=== PATIENT | female | born 1935 | race Caucasian/White ===

== ENCOUNTER 2018-04-12 19:17 | Day surgery (SDC) | payer OTHER ==
[2018-04-08 17:23] LABS: Absolute Lymphocytes (CBC) 2.5 K/uL (0.7-4.9); Absolute Monocytes 0.5 K/uL (0.1-1.3); Absolute Neutrophil 4.7 K/uL (1.8-8.0); Basophils % 0.6 % (0-1.3); Hematocrit 38.9 % (36.0-45.0); Lymphocytes % 31.6 % (15.3-44.8); MCH 33.9 pg (27.0-35.0); MCV 101.2 fL (80-100); MPV 11.2 fL (7.6-11.3); Monocytes % 6.1 % (3.3-12.3); RBC Red Blood Cell Count 3.85 M/uL (3.86-4.86)
[2018-04-08 17:25] LABS: Protime INR 0.99
[2018-04-08 17:59] LABS: Anisocytosis 1+; Blood Morphology Comment NOTED (NOT SEEN); Macrocytosis 1+; Platelet Estimate ADEQ; Platelets, Giant FEW; Urine White Blood Cell Casts OK
[2018-04-10 10:43] LABS: Urine Appearance CLEAR; Urine Bilirubin NEGATIVE (NEG); Urine Blood NEGATIVE (NEG); Urine Color YELLOW; Urine Glucose NEGATIVE (NEG); Urine Protein NEGATIVE (NEG); Urine Specific Gravity 1.025 (1.005-1.030); Urine Urobilinogen 0.2 mg/dL (0.2-1.0); Urine pH 5.5 (5.0-7.0)
[2018-04-10 10:50] LABS: Urine Microscopic Reflex ORDER UMIC
[2018-04-10 11:14] LABS: Urine Bacteria 20-50 /HPF (<20); Urine Culture Reflex Order REFLEXED; Urine RBC <5 /HPF (NONE SEEN)
--- OUTSIDE RECORDS SUMMARY | 2018-04-12 11:31 | XMS REPORT ---
:1935 Author Organization eClinicalWorks Care Team Providers Name Role Phone Olvin Thornton Provider Role Unavailable Allergies, Adverse Reactions, Alerts Substance Reaction Event Type penicillin Info Not Available Drug Allergy Problems Problem Type Condition Code Onset Dates Condition Status Assessment Diabetes type 2, controlled E11.9 Active Problem Pain, foot M79.673 Active Problem Hypertension I10 Active Problem Urinary frequency R35.0 Active Problem Hyperlipidemia E78.5 Active Problem Stented coronary artery Z95.5 Active Problem Atherosclerosis of coronary artery I25.10 Active Problem GERD (gastroesophageal reflux K21.9 Active disease) Problem Diabetes type 2, controlled E11.9 Active Assessment Stented coronary artery Z95.5 Active Assessment Atherosclerosis of coronary artery I25.10 Active Assessment GERD (gastroesophageal reflux K21.9 Active disease) Assessment Hyperlipidemia E78.5 Active Assessment Hypertension I10 Active Medications Medication Code Code Instructions Start End Status Dosage System Date Date Cozaar [facility] 61172968268 50 MG Orally Active 1 tablet Once a day Metformin HCl [facility] 40821472051 500 MG Orally Active 1 tablet Once a day with a meal Lopressor [facility] 58088184201 50 Active TAKE ONE TABLET BY MOUTH TWICE A DAY Cozaar [facility] 87461793504 50 Active TAKE ONE TABLET BY MOUTH DAILY Omeprazole [facility] 08679756546 40 MG Orally Active 1 capsule Once a day Metoprolol [facility] 58943145736 50 MG Orally Active 1 tablet Tartrate Twice a day with food Results No Known Results Summary Purpose eClinicalWorks Submission
--- OUTSIDE RECORDS SUMMARY | 2018-04-12 11:31 | XMS REPORT ---
:1935 Author Organization eClinicalWorks Care Team Providers Name Role Phone Olvin Thornton Provider Role Unavailable Allergies No Known Allergies Problems Problem Type Condition Code Onset Dates Condition Status Problem Pain, foot M79.673 Active Problem Hypertension I10 Active Problem Urinary frequency R35.0 Active Problem Hyperlipidemia E78.5 Active Problem Stented coronary artery Z95.5 Active Problem Atherosclerosis of coronary artery I25.10 Active Problem GERD (gastroesophageal reflux K21.9 Active disease) Problem Diabetes type 2, controlled E11.9 Active Medications No Known Medications Results No Known Results Summary Purpose eClinicalWorks Submission
[2018-04-12] MEDS: VASOPRESSIN 20 UNIT/ML VIAL ONE ×2 (12:50→14:25)
[2018-04-12] MEDS: CEFAZOLIN/SWI 1gm 1 GM/10 ML SYR IVP SCH ×2 (12:51→14:02)
--- NOTE | 2018-04-12 17:06 | P.OP ---
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
[2018-04-12 18:49] VITALS: O2SAT 97; BMI 22.4
[~2018-04-12 19:17] MED LIST: ACETAMINOPHEN 500 MG TAB PO PRN; CEFAZOLIN/SWI 1gm 1 GM/10 ML SYR ONE; DEXAMETHASONE 10 MG/ML VIAL ONE; FENTANYL CITR 100 MCG/2 ML ONE; HYDROMORPHONE HCL 1 MG/ML INJ IV PRN; LIDOCAINE 1% W/EPI 1:100,000 MDV 50 ML VIAL ONE; MEPERIDINE HCL 25 MG/0.5 ML ONE; METHYLENE BLUE 0.5% 10 ML AMP ONE; NA CHLORIDE 0.9% 1,000 ML ONE; NA CHLORIDE 0.9% 100 ML IV ONE; ONDANSETRON 4 MG/2 ML VIAL IV PRN; ONDANSETRON HCL 40 MG/20 ML VIAL ONE; PROPOFOL 200 MG/20 ML VIAL IV ONE; ROCURONIUM 50 MG/5 ML VIAL IV ONE; Ringers Lactate 1,000 ML IV SCH
--- NOTE | 2018-04-13 05:00 | OP ---
Date of Procedure: 04/12/2018 Surgeon: Nerissa Conway MD Spray Stainer: Belén Ty and Maris Woodard. Preoperative Diagnoses: Stage IV cystocele wall prolapse, rectocele, stress urinary incontinence. Postoperative Diagnoses: Stage IV cystocele wall prolapse, stage II rectocele, and stress urinary in continence, and large vaginal ulcer about 3.5 x 5 cm at the vault about centimeter and a half extendi ng into the posterior wall at the apex and the rest of it on the anterior vaginal wall and to the lef t lateral aspect. Procedures Performed: 1.Excision of vaginal ulcer. 2.Total colpectomy or complete colpocleisis. 3.Perineorrhaphy. 4.Mid urethral sling, transobturator approach (Juan Carlos inside-out sling). 5.Cystoscopy. Estimated Blood Loss: 100. Specimens: Vaginal epithelium and ulcer. Complications: No complications. Drains: None. Condition: The patient's condition is stable. Reddy catheter was left in place. No vaginal packing was needed since there was a vaginal closure. Findings: POP-Q , +1, +5, +1, 5 cm moderate, 6 cm, -1, -1, and NA. The patient had urethral hypermo bility and a positive cough stress test on reduction of her prolapse, so she underwent a mid urethral sling as well. Indications: The patient is an 82-year-old who has been my patient for about 6 years, had a pessary use multiple times. She neglects the use of her pessary and her pessary maintenance was very poor. Self-care is not done. So, after she had 2 episodes of recurrent ulcerations; in this last episode, there was a nonhealing ulcer. We discussed that she would either have observation or a surgical candelario ection. On observation, she has been having recurrent bladder infections, and there was difficulty t o void, and this has caused her to be very uncomfortable. With direct pressure and rubbing of the va ginal wall on the outside also has been creating problems for her, so she wanted to proceed with a mcleod rgical repair. We discussed about the closure procedure as well as reconstruction after considering all the benefits and risks. After the patient had assured that she does not have any intention of us ing the vaginal canal that she was comfortable making the decision at the end even though she had sapphire e problems making the closure decision first, eventually she had confirmed that she would like to pro ceed with that closure if possible. Description Of Procedure: After consenting the patient appropriately, the urodynamics were done, the maximal urethral closure pressure was 56 cm of water. Besides that, there was a positive [employer] on exa mination with very full bladder and there was demonstrable urethral hypermobility. The patient was b rought to the OR, 1 g of Ancef was given to the patient. She tolerated this well. She was placed in a supine fashion on the operating table. After general anesthesia was given, she was placed in a do rsal lithotomy position using Gio stirrups. Pelvic exam was performed and the POP-Q was as follows . Lower abdomen, vulva, vagina, and perineum were prepped and draped in a sterile fashion. Reddy wa s placed to drain the bladder and clamped after the full drainage and retracted superiorly. The neck of the bladder was identified and marking was placed 1 cm below it. The distal anterior vaginal wal l was marked out in a transverse fashion and a trapezoid was drawn with the vaginal apex, resigned ap ex. There another horizontal incision was done and then both of these were connected laterally to cr eate a trapezoid area so that colpectomy could be performed including the ulcerated areas. The ulcer ation with superficial erosion was extensive, however no evidence of any bleeding spots. Posteriorly , similar incision was made after identifying 1 cm above the level of the hymen. A transverse incisi on was made here, and then a transverse incision was made at the proximal end of the posterior wall, and these were connected on both sides to complete the colpectomy without leaving any bridge in the m iddle. 20 units of vasopressin diluted with 50 cc of normal saline and this was injected about 30 mL in the anterior compartment. Once this was done, all skin incisions were made on the margins on all 4 sides. Then, the vaginal epithelium was peeled off the underlying leftover fat, remnant fascia, o r connective tissue in the pelvic plane. Once all the ulcerations were also completely excised, thes e were handed off for permanent pathology. The ulcerations were superficial, so the vaginal epitheli um was able to be peeled off removing the complete ulcer. Posteriorly, similar dissection was perfor med after injecting vasopressin 20 cc. Vaginal epithelial excision was done. Once all the ulceratio ns were completely removed, then the closure was done starting with the anterior wall, reducing the b ulge in a pursestring fashion with 3-0 Monocryl, about 4 pursestrings were placed to reduce it. The anterior and posterior ortiz appeared to be symmetric at this point in time of the this closure, so 2 -0 Vicryl was taken and it was closed in 3 layers 1 closest to the apex. Then, the second layer of s eparate Vicryls was placed in a itutok-qt-nhhqd fashion and then the third layer was closed in a cont inuous running fashion with a 2-0 Vicryl. Once this was done, there was good apposition. Two latera l sutures were placed with 2-0 Vicryl including the lateral connective tissue on the anterior wall as well as the connected tissue laterally on the posterior wall. These 2 were sutured together with 2- 0 Vicryl in a continuous running fashion for about 3-4 cm on each side. Once this was done, then the anterior and posterior incisions were closed with the help of a continuous running 2-0 Vicryl to att ach the distal pubic cervical fascia to the distal rectovaginal septum. Now, perineal body was to be reconstructed, so this procedure was ended here. In the mid urethra, a 1 cm incision was made with the help of a scalpel after injecting with vasopres sin. Then, tracts were dissected on both sides to put a TO-sling. Metzenbaum scissors were used to create the tunnel. It was at a 45-degree angle to the horizontal and vertical planes pointing to the ipsilateral shoulder, first on the right side and then on the left side once the tunnels were made w shreya enough and then the Juan Carlos sling was opened up. The wing guide was placed. The threads were at tached to the spikes and they were passed through in the usual fashion, rotating them and coming out 2 cm lateral to the groin fold and 1 cm above the horizontal line dropped at the level of the externa l urethral meatus in the groin below the tendon. Then, on opposite side, similar dissection was perf ormed and the spike was passed. The sling graft was retrieved through the lateral aspect on both landy es and it was clamped. Then, tensioning was done appropriately using the Metzenbaum scissors in the midline. Once this was appropriately tensioned, the sheaths were pulled out. The incisions closed with the help of 3-0 Vicryl in a continuous running locking fashion. Then, a cy stoscopy was performed. The Reddy was removed. There were good streams of urine from both. I had t o place a Glidewire to make sure that they were patent because it took a long time for me to see the strength of urine. Once this was done, the bladder was filled up completely. The capacity had been reduced as there wer e severe trabeculations seen, but no evidence of any tumor or foreign body in the bladder, and latera l aspects were also visualized right next to the urethra to rule out a perforation from the TO-sling, and there was none. The bladder was drained. Reddy was replaced. Posterior repair was done. The perineum and the distal posterior wall were injected with dilute vasopressin 10 cc. A henri-sh aped incision was made on the perineum as well as in the inner lower aspect of the posterior wall. T hen, the edges were freshened up and raised to get the lateral ends of the deep transverse perinei on either side to reconstruct the perineal body. Rectal finger was placed while placing the stitches. Two 2-0 Vicryl sutures were placed in an interrupted fashion. Once the gloves were changed, these w ere tied down, and a continuous running 2-0 Vicryl was placed, and then a continuous running 3-0 Vicr yl was done on the perineum. Rectal exam was performed. No evidence of any trauma or foreign body. The patient tolerated the procedure well. She was recovered from anesthesia. Instrument, needle, a nd sponge counts x3 were correct at the end of the case. She will follow up with me in 1 week. She will stay overnight for observation with the catheter and she will get a CBC tomorrow. 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 The EBL was minimal. GUERO/DOROTEO Voice ID: [id number] Report ID: [id number]
[2018-04-13] MEDS ORDERED: LOSARTAN POTASSIUM 50 MG TABLET PO SCH (06:00)
[2018-04-13 06:15] LABS: Absolute Lymphocytes (CBC) 1.1 K/uL (0.7-4.9); Absolute Monocytes 0.2 K/uL (0.1-1.3); Absolute Neutrophil 8.5 K/uL (1.8-8.0); Basophils % 0.3 % (0-1.3); Hematocrit 32.3 % (36.0-45.0); Lymphocytes % 11.4 % (15.3-44.8); MCH 35.2 pg (27.0-35.0); MCV 98.9 fL (80-100); MPV 11.1 fL (7.6-11.3); Monocytes % 1.7 % (3.3-12.3); RBC Red Blood Cell Count 3.27 M/uL (3.86-4.86)
[2018-04-13] MEDS ORDERED: PANTOPRAZOLE 40MG TABLET PO ONE (06:16)
[2018-04-13] MEDS ORDERED: LOSARTAN POTASSIUM 50 MG TABLET ONE (06:16)
[2018-04-13] MEDS ORDERED: PANTOPRAZOLE 40MG TABLET PO SCH (06:30)
[2018-04-13 06:40] LABS: Blood Morphology Comment NOT SEEN (NOT SEEN); Platelet Estimate ADEQ
[2018-04-13 08:21] VITALS: BP 121/63; TEMP 97.1
[2018-04-15] MEDS ORDERED: METFORMIN HCL 500 MG TAB PO SCH ×2 (09:00)
--- OUTSIDE RECORDS SUMMARY | 2018-04-15 15:38 | XMS REPORT ---
[...] End Status Dosage System Date Date Cozaar [facility] 48021036368 50 MG Orally Active 1 tablet Once a day Metformin HCl [facility] 11719259376 500 MG Orally Active 1 tablet Once a day with a meal Lopressor [facility] 39605339880 50 Active TAKE ONE TABLET BY MOUTH TWICE A DAY Cozaar [facility] 23127821322 50 Active TAKE ONE TABLET BY MOUTH DAILY Omeprazole [facility] 12919946451 40 MG Orally Active 1 capsule Once a day Metoprolol [facility] 93064690604 50 MG Orally Active 1 tablet Tartrate Twice a day with food Results No Known Results Summary Purpose eClinicalWorks Submission
== END 2018-04-13 09:40 | disposition home or self-care (01) ==
LOC: 2ND-WC 19:17 → UNDOADMOB 19:17 → 2ND-WC 19:17 → OR 19:17 → UNDODISOB 04-13 09:40 → 2ND-WC 04-13 09:40
PROVIDERS: ATTEND Obstetrics & Gynecology
PROC: 0TSD0ZZ Reposition Urethra, Open Approach (ICD-10-PCS; 2018-04-12)
PROC: 0UBG0ZZ Excision of Vagina, Open Approach (ICD-10-PCS; 2018-04-12)
PROC: 0HQ9XZZ Repair Perineum Skin, External Approach (ICD-10-PCS; 2018-04-12)
PROC: 0UTG0ZZ Resection of Vagina, Open Approach (ICD-10-PCS; principal; 2018-04-12 12:00)
DX: N99.3 Prolapse of vaginal vault after hysterectomy (principal); N81.10 Cystocele, unspecified; N81.6 Rectocele; N76.5 Ulceration of vagina; N39.3 Stress incontinence (female) (male); E11.9 Type 2 diabetes mellitus without complications; I10 Essential (primary) hypertension; I25.10 Atherosclerotic heart disease of native coronary artery without angina pectoris; K21.9 Gastro-esophageal reflux disease without esophagitis; Z90.710 Acquired absence of both cervix and uterus; Z90.49 Acquired absence of other specified parts of digestive tract; Z95.5 Presence of coronary angioplasty implant and graft; Z88.0 Allergy status to penicillin; Z88.6 Allergy status to analgesic agent
CPT/HCPCS: 12001; 36415 ×2; 57110; 57135; 57288; 82962 ×2; 85025 ×2; 85610; 85730; 86850; 86900; 86901; 87086; 87088; 88305; G0378; G0379; J0690 ×2; J1100; J2175 ×2; J2405 ×2; J3010; J7030 ×3; 81003; 81015

== ENCOUNTER 2019-05-21 21:53 | Emergency (ER) | payer OTHER ==
--- OUTSIDE RECORDS SUMMARY | 2019-05-21 21:56 | XMS REPORT ---
:1935 Author Organization eClinicalWorks Care Team Providers Name Role Phone Olvin Thornton Provider Role Unavailable Allergies No Known Allergies Problems Problem Type Condition Code Onset Dates Condition Status Problem Atherosclerosis of coronary artery I25.10 Active Problem Pain, foot M79.673 Active Problem Hyperlipidemia E78.5 Active Problem Hypertension I10 Active Problem Allergic rhinitis, unspecified J30.9 Active seasonality, unspecified trigger Problem Diabetes type 2, controlled E11.9 Active Problem Stented coronary artery Z95.5 Active Problem Urinary frequency R35.0 Active Problem GERD (gastroesophageal reflux K21.9 Active disease) Medications Medication Code Code Instructions Start End Status Dosage System Date Date Tradjenta [facility] 34064296945 5 MG Orally May 20, Active 1 tablet Once a day 2018 MetFORMIN HCl [facility] 88186739392 500 MG Orally Inactive 1 tablet ER Once a day with evening meal Results No Known Results Summary Purpose eClinicalWorks Submission
--- OUTSIDE RECORDS SUMMARY | 2019-05-21 21:56 | XMS REPORT ---
:1935 Author Organization eClinicalWorks Care Team Providers Name Role Phone Olvin Thornton Provider Role Unavailable Allergies, Adverse Reactions, Alerts Substance Reaction Event Type penicillin Info Not Available Drug Allergy Problems Problem Type Condition Code Onset Dates Condition Status Problem Atherosclerosis of coronary artery I25.10 Active Problem Pain, foot M79.673 Active Assessment Allergic rhinitis, unspecified J30.9 Active seasonality, unspecified trigger Problem Hyperlipidemia E78.5 Active Problem Hypertension I10 Active Problem Allergic rhinitis, unspecified J30.9 Active seasonality, unspecified trigger Problem Diabetes type 2, controlled E11.9 Active Problem Stented coronary artery Z95.5 Active Problem Urinary frequency R35.0 Active Problem GERD (gastroesophageal reflux K21.9 Active disease) Medications Medication Code Code Instructions Start End Status Dosage System Date Date Metoprolol [facility] 96002653385 50 MG Orally Active 1 tablet Tartrate Twice a day with food Cetirizine HCl [facility] 24409266867 10 MG Orally Apr 15, Jun 14, Active 1 tablet Once a day 2018 [address] [facility] 37959745649 40 MG Orally Active 1 capsule Once a day MetFORMIN HCl [facility] 03360719976 500 MG Orally Active 1 tablet ER Once a day with evening meal Montelukast [place] 73974178827 10 MG Orally Apr 15, Active 1 tablet Sodium Once a day [address] [facility] 03724627943 50 MG Orally Active 1 tablet Once a day Results No Known Results Summary Purpose eClinicalWorks Submission
--- NOTE | 2019-05-21 22:10 | EDPHYS ---
Physician Documentation [facility] Name: Deyanira Glez Age: 83 yrs Sex: Female : 1935 Arrival Date: 05/21/2019 Time: 21:58 Bed 4 Private MD: ED Physician Maury Everett HPI: 05/21 22:04 This 83 yrs old Female presents to ER via Unassigned with complaints of S/S merry of Possible Stroke. 22:04 The patient's problem is reported as weakness, in the left upper extremity. Onset: The merry symptoms/episode began/occurred 1 hour(s) ago. Duration: The episode is continuous. Context: the episode(s) was witnessed, by family. The symptoms are alleviated by nothing. The symptoms are aggravated by nothing. Associated signs and symptoms: The patient has no apparent associated signs or symptoms. Severity of symptoms: At their worst the symptoms were moderate in the emergency department the symptoms are unchanged. Patient's baseline: Neuro: alert and fully oriented. Historical: - Allergies: 22:42 PENICILLINS; fc - Home Meds: 22:57 losartan 50 mg oral tab 1 tab once daily [Active]; metoprolol tartrate 50 mg Oral tab 1 fc tab once daily [Active]; Dexilant 60 mg oral CpDB 1 cap once daily [Active]; - PMHx: 22:42 Diabetes - NIDDM; failed stress test; Hypertension; fc - PSHx: 22:42 2 stents in heart; Hysterectomy; Bladder suspension; Cholecystectomy; fc - Immunization history:: Last tetanus immunization: unknown, Pneumococcal vaccine is not up to date, Flu vaccine is not up to date. - Social history:: Smoking status: Patient/guardian denies using tobacco, Patient/guardian denies using alcohol, street drugs. - Family history:: not pertinent. - Ebola Screening: : Patient negative for fever greater than or equal to 101.5 degrees Fahrenheit, and additional compatible Ebola Virus Disease symptoms Patient denies exposure to infectious person Patient denies travel to an Ebola-affected area in the 21 days before illness onset. ROS: 22:04 Constitutional: Negative for fever, chills, and weight loss, Eyes: Negative for injury, merry pain, redness, and discharge, ENT: Negative for injury, pain, and discharge, Neck: Negative for injury, pain, and swelling, Cardiovascular: Negative for chest pain, palpitations, and edema, Respiratory: Negative for shortness of breath, cough, wheezing, and pleuritic chest pain, Abdomen/GI: Negative for abdominal pain, nausea, vomiting, diarrhea, and constipation, Back: Negative for injury and pain, : Negative for injury, bleeding, discharge, and swelling, MS/Extremity: Negative for injury and deformity, Skin: Negative for injury, rash, and discoloration, Psych: Negative for depression, anxiety, suicide ideation, homicidal ideation, and hallucinations, Allergy/Immunology: Negative for hives, rash, and allergies, Endocrine: Negative for neck swelling, polydipsia, polyuria, polyphagia, and marked weight changes, Hematologic/Lymphatic: Negative for swollen nodes, abnormal bleeding, and unusual bruising. 22:04 Neuro: Positive for weakness, of the left arm. Exam: 22:04 Constitutional: This is a well developed, well nourished patient who is awake, alert, merry and in no acute distress. Head/Face: Normocephalic, atraumatic. Eyes: Pupils equal round and reactive to light, extra-ocular motions intact. Lids and lashes normal. Conjunctiva and sclera are non-icteric and not injected. Cornea within normal limits. Periorbital areas with no swelling, redness, or edema. ENT: Nares patent. No nasal discharge, no septal abnormalities noted. Tympanic membranes are normal and external auditory canals are clear. Oropharynx with no redness, swelling, or masses, exudates, or evidence of obstruction, uvula midline. Mucous membranes moist. Neck: Trachea midline, no thyromegaly or masses palpated, and no cervical lymphadenopathy. Supple, full range of motion without nuchal rigidity, or vertebral point tenderness. No Meningismus. Chest/axilla: Normal chest wall appearance and motion. Nontender with no deformity. No lesions are appreciated. Cardiovascular: Regular rate and rhythm with a normal S1 and S2. No gallops, murmurs, or rubs. Normal PMI, no JVD. No pulse deficits. Respiratory: Lungs have equal breath sounds bilaterally, clear to auscultation and percussion. No rales, rhonchi or wheezes noted. No increased work of breathing, no retractions or nasal flaring. Abdomen/GI: Soft, non-tender, with normal bowel sounds. No distension or tympany. No guarding or rebound. No evidence of tenderness throughout. Back: No spinal tenderness. No costovertebral tenderness. Full range of motion. Female : Normal external genitalia. Skin: Warm, dry with normal turgor. Normal color with no rashes, no lesions, and no evidence of cellulitis. Psych: Awake, alert, with orientation to person, place and time. Behavior, mood, and affect are within normal limits. 22:04 Musculoskeletal/extremity: ROM: limited active range of motion, in the left arm, Circulation is intact in all extremities. 22:04 Neuro: Orientation: is normal, appropriate for stated age, Mentation: is normal, appropriate for stated age, no acute changes, Memory: is normal, appropriate for stated age, no acute changes, Cranial nerves: grossly normal, is grossly normal based on the patient's age, no acute changes, Cerebellar function: is grossly normal based on the patient's age, no acute changes, Motor: Strength is 1/5 in the left arm, Sensation: is normal, no obvious gross deficits, appropriate no acute changes, numbness, Gait: not tested. seizure activity, is not displayed by the patient. Vital Signs: 22:10 BP 134 / 71; Pulse 77; Resp 14; Temp 97.7(O); Pulse Ox 97% on R/A; Weight 54 kg (M); lp1 Pain 0/10; 22:30 BP 151 / 72; Pulse 77; Resp 17; Pulse Ox 97% on R/A; lp1 23:20 BP 152 / 74; Pulse 79; Resp 15; Pulse Ox 98% on R/A; lp1 23:20 lp1 05/22 00:20 BP 147 / 74; Pulse 79; Resp 20; Pulse Ox 97% on R/A; Pain 0/10; lp1 05/21 23:20 See TPA Vitals Flow sheet for further vitals lp1 NIH Stroke Scale Scores: 22:00 NIHSS Score: 4 lp1 22:13 NIHSS Score: 4 [facility] MDM: 22:01 Patient medically screened. [facility] 22:04 Data reviewed: vital signs, nurses notes, lab test result(s), EKG, radiologic studies. [facility] 05/21 22: Order name: Basic Metabolic Panel; Complete Time: 00:22 [facility] 05/21 22:04 Order name: CBC with Diff; Complete Time: 22:50 [facility] 05/21 22:04 Order name: LFT's; Complete Time: 00:22 [facility] 05/21 22:04 Order name: Magnesium; Complete Time: 00:22 [facility] 05/21 22:04 Order name: NT PRO-BNP; Complete Time: 00:22 [facility] 05/21 22:04 Order name: PT-INR; Complete Time: 22:50 [facility] 05/21 22:04 Order name: Troponin (emerg Dept Use Only); Complete Time: 00:22 [facility] 05/21 22:04 Order name: XRAY Chest (1 view) [facility] 05/21 22:04 Order name: CT Stroke Brain w/o Contrast [facility] 05/21 22:32 Order name: Glucose, Ancillary Testing; Complete Time: 22:50 [facility] 05/21 22:04 Order name: EKG; Complete Time: 22:05 [facility] 05/21 22:04 Order name: Cardiac monitoring; Complete Time: 22:43 [facility] 05/21 22:04 Order name: EKG - Nurse/Tech; Complete Time: 22:43 [facility] 05/21 22:04 Order name: IV Saline Lock; Complete Time: 22:45 [facility] 05/21 22:04 Order name: Labs collected and sent; Complete Time: 22:45 [facility] 05/21 22:04 Order name: O2 Per Protocol; Complete Time: 22:43 [facility] 05/21 22:04 Order name: O2 Sat Monitoring; Complete Time: 22:43 [facility] 05/21 22:15 Order name: Seizure Precautions; Complete Time: 22:44 [facility] Administered Medications: 22:50 Drug: foLIC Acid 1 mg Route: IVPB; Site: left wrist; lp1 23:30 Follow up: IV Status: Completed infusion lp1 22:50 Drug: Pepcid 20 mg Route: IVP; Site: left wrist; lp1 23:30 Follow up: Response: No adverse reaction lp1 22:50 Drug: NS 0.9% 500 ml Route: IV; Rate: bolus; Site: left wrist; lp1 23:20 Follow up: IV Status: Completed infusion; IV Intake: 500ml lp1 23:20 Drug: ACTIvase {Co-Signature: fc (Nallely Lopez RN).} Route: IV Thrombolytics; Rate: lp1 calculated rate; Infused Over: 60 mins; 05/22 00:20 Follow up: Response: No adverse reaction lp1 00:20 Drug: NS 0.9% 1000 ml Route: IV; Rate: 125 ml/hr; Site: left wrist; lp1 00:58 Follow up: IV Status: Infusion continued upon transfer lp1 Disposition: 05/21/19 22:[address] [facility]. Diagnosis are Cerebral infarction - acute, Unspecified kidney failure. - Reason for transfer: Higher level of care. - Accepting physician is to [facility]. - Condition is Fair. - Problem is new. - Symptoms have improved. NIH Stroke Scale - NIH Stroke Score Date: 05/21/2019 Time: 22:00 Total Score = 4 1a. Level of Consciousness (LOC) - 0(Alert) 1b. Level of Consciousness (LOC) (Year \T\ Age) - 0(Both) 1c. LOC Commands (Open \T\ Closes Eyes/Wellness Assistant) - 0(Both) 2. Best Gaze (Lateral Gaze Paresis) - 0(Normal) 3. Visual Field Loss - 0(No visual loss) 4. Facial Palsy - 0(Normal) 5a. Left Arm: Motor (10-second hold) - 3(No effort against gravity) 5b. Right Arm: Motor (10-second hold) - 0(No drift) 6a. Left Leg: Motor (5-second hold - always test supine) - 0(No drift) 6b. Right Leg: Motor (5-second hold - always test supine) - 0(No drift) 7. Limb Ataxia (finger/nose \T\ heel/merino - test with eyes open) - 1(Present in one limb) 8. Sensory Loss (pinprick arms/legs/face) - 0(Normal) 9. Best Language: Aphasia (description/naming/reading) - 0(No aphasia) 10. Dysarthria (speech clarity - read or repeat words) - 0(Normal) 11. Extinction and Inattention (visual/tactile/auditory/spatial/personal) - 0(No abnormality) Initials: lp1 NIH Stroke Scale - NIH Stroke Score Date: 05/21/2019 Time: 22:13 Total Score = 4 1a. Level of Consciousness (LOC) - 0(Alert) 1b. Level of Consciousness (LOC) (Year \T\ Age) - 0(Both) 1c. LOC Commands (Open \T\ Closes Eyes/Wellness Assistant) - 0(Both) 2. Best Gaze (Lateral Gaze Paresis) - 0(Normal) 3. Visual Field Loss - 0(No visual loss) 4. Facial Palsy - 0(Normal) 5a. Left Arm: Motor (10-second hold) - 3(No effort against gravity) 5b. Right Arm: Motor (10-second hold) - 0(No drift) 6a. Left Leg: Motor (5-second hold - always test supine) - 0(No drift) 6b. Right Leg: Motor (5-second hold - always test supine) - 0(No drift) 7. Limb Ataxia (finger/nose \T\ heel/merino - test with eyes open) - 1(Present in one limb) 8. Sensory Loss (pinprick arms/legs/face) - 0(Normal) 9. Best Language: Aphasia (description/naming/reading) - 0(No aphasia) 10. Dysarthria (speech clarity - read or repeat words) - 0(Normal) 11. Extinction and Inattention (visual/tactile/auditory/spatial/personal) - 0(No abnormality) Initials: [facility] Signatures: Dispatcher [employer] EDSD Maury Everett MD MD cha Chretien, Felicia RN RN fc Sheron Kitchen RN RN lp1 Nallely Lopez RN Corrections: (The following items were deleted from the chart) 00:23 05/21 22:09 05/21/2019 22:09 Transfer ordered to [facility]. Diagnosis is Cerebral infarction - acute. Reason for transfer: Higher level of care. Accepting physician is to [facility]. Condition is Fair. Problem is new. Symptoms have improved. [facility] 05/22 01:00 00:23 05/21/2019 22:[address] [facility]. lp1 Diagnosis is Cerebral infarction - acute; Unspecified kidney failure. Reason for transfer: Higher level of care. Accepting physician is to [facility]. Condition is Fair. Problem is new. Symptoms have improved. [facility]
[2019-05-21 22:28] LABS: Absolute Lymphocytes (CBC) 2.8 K/uL (0.7-4.9); Basophils % 1.3 % (0-1.3); Lymphocytes % 31.4 % (15.3-44.8); MPV 10.2 fL (7.6-11.3); RBC Red Blood Cell Count 4.05 M/uL (3.86-4.86)
[2019-05-21 22:29] LABS: Protime INR 1.04
[2019-05-21] MEDS ORDERED: FAMOTIDINE 20 MG/2 ML VIAL IV ONE (22:47)
[2019-05-21] MEDS ORDERED: NA CHLORIDE 0.9% 1,000 ML ONE (22:48)
[2019-05-21] MEDS ORDERED: FOLIC ACID 5 MG/ML VIAL ONE (22:48)
[2019-05-21 22:51] LABS: ALT/SGPT 14 U/L (12-78); AST/SGOT 11 U/L (15-37); Albumin 3.9 g/dL (3.4-5.0); Alkaline Phosphatase 81 U/L (45-117); BUN Blood Urea Nitrogen 30 mg/dL (7-18); Bicarbonate 26 mmol/L (21-32); Bilirubin Direct 0.1 mg/dL (0-0.2); Bilirubin Total 0.3 mg/dL (0.2-1.0); Glucose Level 122 mg/dL (74-106); Magnesium 2.1 mg/dL (1.8-2.4); NT PRO-BNP 225 pg/mL (<450); Protein, Total 7.7 g/dL (6.4-8.2); Sodium Level 138 mmol/L (136-145); Troponin (Emerg Dept Use Only) < 0.02 ng/mL (0.0-0.045)
[2019-05-21] MEDS ORDERED: ALTEPLASE 100 ML IV ONE (23:05)
[2019-05-21] MEDS ORDERED: NA CHLORIDE 0.9% 50 ML IV ONE (23:07)
--- NOTE | 2019-05-22 01:02 | ER ---
Nurse's Notes [facility] Name: Deyanira Glez Age: 83 yrs Sex: Female : 1935 Arrival Date: 05/21/2019 Time: 21:58 Bed 4 Private MD: Diagnosis: Cerebral infarction-acute;Unspecified kidney failure Presentation: 05/21 21:58 Presenting complaint: Patient states: that since approx 2100 she has been having fc decreased use of left arm along with dizziness. Denies any headache or nausea. Transition of care: patient was not received from another setting of care. An acute neurological deficit is present. The charge nurse has been notified. The patient has been moved to a treatment area. Pre-hospital glucose is not applicable to this patient. Onset of symptoms was May 21, 2019 at 21:00. Risk Assessment: Do you want to hurt yourself or someone else? Patient reports no desire to harm self or others. Initial Sepsis Screen:. Care prior to arrival: None. 21:58 Method Of Arrival: Wheelchair fc 21:58 Acuity: DOMINIC 2 fc 22:42 Initial Sepsis Screen: Does the patient meet any 2 criteria? No. Patient's initial lp1 sepsis screen is negative. Does the patient have a suspected source of infection? No. Patient's initial sepsis screen is negative. Triage Assessment: 05/22 01:00 The onset of the patients symptoms was May 21, 2019 at 21:00. lp1 Stroke Activation: Symptom onset < 3 hours Physician: Stroke Attending; Name: ; Notified At: ; Arrived At: Physician: Chief Stroke Resident; Name: ; Notified At: ; Arrived At: Physician: Stroke Resident; Name: ; Notified At: ; Arrived At: Physician: ED Attending; Name: Karlos; Notified At: 21:58; Arrived At: 21:58 Physician: ED Resident; Name: ; Notified At: ; Arrived At: Historical: - Allergies: 05/21 22:42 PENICILLINS; fc - Home Meds: 22:57 losartan 50 mg oral tab 1 tab once daily [Active]; metoprolol tartrate 50 mg Oral tab 1 fc tab once daily [Active]; Dexilant 60 mg oral CpDB 1 cap once daily [Active]; - PMHx: 22:42 Diabetes - NIDDM; failed stress test; Hypertension; fc - PSHx: 22:42 2 stents in heart; Hysterectomy; Bladder suspension; Cholecystectomy; fc - Immunization history:: Last tetanus immunization: unknown, Pneumococcal vaccine is not up to date, Flu vaccine is not up to date. - Social history:: Smoking status: Patient/guardian denies using tobacco, Patient/guardian denies using alcohol, street drugs. - Family history:: not pertinent. - Ebola Screening: : Patient negative for fever greater than or equal to 101.5 degrees Fahrenheit, and additional compatible Ebola Virus Disease symptoms Patient denies exposure to infectious person Patient denies travel to an Ebola-affected area in the 21 days before illness onset. Screenin:58 Abuse screen: Denies threats or abuse. Nutritional screening: No deficits noted. fc Tuberculosis screening: No symptoms or risk factors identified. Fall Risk None identified. 22:40 Abuse screen: Denies threats or abuse. Denies injuries from another. Nutritional lp1 screening: No deficits noted. Tuberculosis screening: No symptoms or risk factors identified. Assessment: 22:10 VAN Scoring: Arm Drift: Flaccid/no antigravity. Patient has been NPO before screening. lp1 The patient is alert, and able to follow commands. The patient does not exhibit slurred or garbled speech. The patient is not exhibiting difficulty speaking. The patient does not exhibit difficulty understanding words. The patient is able to swallow own secretions with no drooling or need for suction. Patient tolerated one teaspoon of water. No drooling, immediate coughing, gurgling, or clearing of the throat was noted. The patient tolerated 90mL of water. No drooling, immediate coughing, gurgling, or clearing of the throat was noted. The patient passed the bedside swallow screening. Oral medications may be given as ordered. Contact Physician for further diet orders. Provider notified of bedside swallow screening results: Maury Everett MD. 22:15 General: Appears in no apparent distress. comfortable, Behavior is calm, cooperative. lp1 Pain: Denies pain. Neuro: Level of Consciousness is awake, alert, obeys commands, Oriented to person, place, time, situation, Channel Development Director are equal bilaterally Patient unable to hold up left arm against gravity, can squeeze hand. Gait is steady, Reports weakness in left arm. Cardiovascular: Patient's skin is warm and dry. Respiratory: Respiratory effort is even, unlabored. GI: No signs and/or symptoms were reported involving the gastrointestinal system. : No signs and/or symptoms were reported regarding the genitourinary system. EENT: No signs and/or symptoms were reported regarding the EENT system. Derm: Skin is pink, warm \T\ dry. Musculoskeletal: Circulation, motion, and sensation intact. 22:52 Reassessment: BRAYAN Browning at bedside discussing plan of care with patient; Patient lp1 requesting to discuss with her friends about receiving TPA. 23:10 Reassessment: Dr. Everett at bedside to explain plan of care with patient and friends. lp1 23:20 T-PA (Activase) Screening: Indications: Definite evidence of stroke, ischemic, embolic, lp1 or hypertensive: Yes. Treatment will start within 4.5 hours onset of symptoms: Yes. No evidence of intracranial hemorrhage or CT of head and no evidence of peripheral hemorrhage or recent CVA: Yes. Consent for thrombolytic therapy: Yes. 23:52 Reassessment: Report called to BRAYAN Carreon for patient transfer to [facility]. lp1 05/22 00:30 Reassessment: Patient appears in no apparent distress at this time. Patient is alert, lp1 oriented x 3, equal unlabored respirations, skin warm/dry/pink. Patient improvement to left arm, some effort against gravity. 00:35 Reassessment: [facility] at bedside for transfer. lp1 Vital Signs: 05/21 22:10 BP 134 / 71; Pulse 77; Resp 14; Temp 97.7(O); Pulse Ox 97% on R/A; Weight 54 kg (M); lp1 Pain 0/10; 22:30 BP 151 / 72; Pulse 77; Resp 17; Pulse Ox 97% on R/A; lp1 23:20 BP 152 / 74; Pulse 79; Resp 15; Pulse Ox 98% on R/A; lp1 23:20 lp1 05/22 00:20 BP 147 / 74; Pulse 79; Resp 20; Pulse Ox 97% on R/A; Pain 0/10; lp1 05/21 23:20 See TPA Vitals Flow sheet for further vitals lp1 NIH Stroke Scale Scores: 22:00 NIHSS Score: 4 lp1 22:13 NIHSS Score: 4 merry ED Course: 21:58 Patient arrived in ED. cf2 21:58 No provider procedures requiring assistance completed. fc 21:58 Arm band placed on Patient placed in an exam room, on a stretcher. fc 21:58 Patient has correct armband on for positive identification. Placed in gown. Bed in low fc position. Call light in reach. Side rails up X2. sheet metal shop foreman on. Pulse ox on. NIBP on. 22:00 Maury Everett MD is Attending Physician. merry 22:12 CT Stroke Brain w/o Contrast In Process Unspecified. EDMS 22:30 Inserted saline lock: 20 gauge in left wrist, using aseptic technique. lp1 22:37 Sheron Kitchen, BRAYAN is Primary Nurse. lp1 22:38 Triage completed. fc 22:45 XRAY Chest (1 view) In Process Unspecified. EDMS 23:20 One-on-one care X 60 minutes. lp1 05/22 00:52 Patient transferred, IV remains in place. lp1 Administered Medications: 05/21 22:50 Drug: foLIC Acid 1 mg Route: IVPB; Site: left wrist; lp1 23:30 Follow up: IV Status: Completed infusion lp1 22:50 Drug: Pepcid 20 mg Route: IVP; Site: left wrist; lp1 23:30 Follow up: Response: No adverse reaction lp1 22:50 Drug: NS 0.9% 500 ml Route: IV; Rate: bolus; Site: left wrist; lp1 23:20 Follow up: IV Status: Completed infusion; IV Intake: 500ml lp1 23:20 Drug: ACTIvase {Co-Signature: fc (Nallely Lopez RN).} Route: IV Thrombolytics; Rate: lp1 calculated rate; Infused Over: 60 mins; 05/22 00:20 Follow up: Response: No adverse reaction lp1 00:20 Drug: NS 0.9% 1000 ml Route: IV; Rate: 125 ml/hr; Site: left wrist; lp1 00:58 Follow up: IV Status: Infusion continued upon transfer lp1 Intake: 05/21 23:20 IV: 500ml; Total: 500ml. lp1 Outcome: 22:09 ER care complete, transfer ordered by . merry 23:44 Instructed on the need for transfer. lp1 05/22 00:52 Transferred by ground EMS to [facility], Transfer form completed. lp1 X-rays sent w/ patient. Condition: stable 01:00 Patient left the ED. lp1 NIH Stroke Scale - NIH Stroke Score Date: 05/21/2019 Time: 22:00 Total Score = 4 1a. Level of Consciousness (LOC) - 0(Alert) 1b. Level of Consciousness (LOC) (Year \T\ Age) - 0(Both) 1c. LOC Commands (Open \T\ Closes Eyes/Communications Associate) - 0(Both) 2. Best Gaze (Lateral Gaze Paresis) - 0(Normal) 3. Visual Field Loss - 0(No visual loss) 4. Facial Palsy - 0(Normal) 5a. Left Arm: Motor (10-second hold) - 3(No effort against gravity) 5b. Right Arm: Motor (10-second hold) - 0(No drift) 6a. Left Leg: Motor (5-second hold - always test supine) - 0(No drift) 6b. Right Leg: Motor (5-second hold - always test supine) - 0(No drift) 7. Limb Ataxia (finger/nose \T\ heel/merino - test with eyes open) - 1(Present in one limb) 8. Sensory Loss (pinprick arms/legs/face) - 0(Normal) 9. Best Language: Aphasia (description/naming/reading) - 0(No aphasia) 10. Dysarthria (speech clarity - read or repeat words) - 0(Normal) 11. Extinction and Inattention (visual/tactile/auditory/spatial/personal) - 0(No abnormality) Initials: lp1 NIH Stroke Scale - NIH Stroke Score Date: 05/21/2019 Time: 22:13 Total Score = 4 1a. Level of Consciousness (LOC) - 0(Alert) 1b. Level of Consciousness (LOC) (Year \T\ Age) - 0(Both) 1c. LOC Commands (Open \T\ Closes Eyes/Communications Associate) - 0(Both) 2. Best Gaze (Lateral Gaze Paresis) - 0(Normal) 3. Visual Field Loss - 0(No visual loss) 4. Facial Palsy - 0(Normal) 5a. Left Arm: Motor (10-second hold) - 3(No effort against gravity) 5b. Right Arm: Motor (10-second hold) - 0(No drift) 6a. Left Leg: Motor (5-second hold - always test supine) - 0(No drift) 6b. Right Leg: Motor (5-second hold - always test supine) - 0(No drift) 7. Limb Ataxia (finger/nose \T\ heel/merino - test with eyes open) - 1(Present in one limb) 8. Sensory Loss (pinprick arms/legs/face) - 0(Normal) 9. Best Language: Aphasia (description/naming/reading) - 0(No aphasia) 10. Dysarthria (speech clarity - read or repeat words) - 0(Normal) 11. Extinction and Inattention (visual/tactile/auditory/spatial/personal) - 0(No abnormality) Initials: merry Signatures: Dispatcher [employer] EDMaury Beavers MD MD cha Chretien, Felicia, RN RN Sheron Chisholm RN RN lp1 Codi Kwan cf2 Nallely Lopez RN fc Corrections: (The following items were deleted from the chart) 05/21 23:43 22:15 Neuro: Level of Consciousness is awake, alert, obeys commands, Oriented lp1 to person, place, time, situation, Channel Development Director are equal bilaterally Patient unable to hold up left arm against gravity, can squeeze hand. Gait is steady, lp1
--- NOTE | 2019-05-22 08:12 | RAD REPORT ---
EXAM DESCRIPTION: [place] Single View05/21/2019 10:45 pm CLINICAL HISTORY: Cough COMPARISON: 2017 FINDINGS: The lungs appear clear of acute infiltrate. The heart is normal size IMPRESSION: No acute abnormalities displayed
--- NOTE | 2019-05-22 08:17 | EKG ---
Test Date: 2019-05-21 Test Time: 22:35:58 Topology Teacher: SEE MEASUREMENT RESULTS: Intervals: Rate: 72 WI: 132 QRSD: 76 QT: 396 QTc: 433 Howells: P: 13 WI: 132 QRS: 6 T: 47 INTERPRETIVE STATEMENTS: Sinus rhythm with occasional premature ventricular complexes Nonspecific ST abnormality Abnormal ECG Compared to ECG 06/21/2014 21:44:30 Ventricular premature complex(es) now present ST (T wave) deviation now present Electronically Signed On 05-22-19 08:15:49 NURSE PRACTITIONER PHYSICIAN ASSISTANT by Cody Pendleton
[2019-05-22 10:00] VITALS: TEMP 97.7
[2019-05-22 10:04] VITALS: BP 147/74; O2SAT 97
--- NOTE | 2019-05-22 10:24 | RAD REPORT ---
EXAM DESCRIPTION: CT - Ct Stroke Brain Wo Cont - 05/22/2019 4:46 am CLINICAL HISTORY: TIA COMPARISON: None. TECHNIQUE: CT HEAD WITHOUT IV CONTRAST on 05/21/2019 10:04 PM BAND CUTTER This exam was performed according to our departmental dose-optimization program, which includes autom ated exposure control, adjustment of the mA and/or kV according to patient size and/or use of iterati ve reconstruction technique. FINDINGS: There is no acute hemorrhage, mass effect or midline shift. Murdock-white differentiation is preserved. There is no hydrocephalus. There is no significant volume loss for age. There are mild pat devon hypodensities within the periventricular and subcortical white matter, consistent with microangio pathic ischemic changes. The calvarium is intact. Orbits and globes are unremarkable. The paranasal sinuses are clear. Mastoid air cells are clear. IMPRESSION: No acute intracranial findings. Electronically signed by: Can Sanabria MD 05/21/2019 10:17 PM BAND CUTTER Due to temporary technical issues with the PACS/Fluency reporting system, reports are being signed by the in house radiologist as a courtesy to ensure prompt reporting. The interpreting radiologist is f ully responsible for the content of the report.
== END 2019-05-22 01:00 | disposition short-term general hospital (02) ==
LOC: ER 21:53
DX: I63.9 Cerebral infarction, unspecified (principal); R29.704 NIHSS score 4; N19 Unspecified kidney failure; I10 Essential (primary) hypertension; E11.9 Type 2 diabetes mellitus without complications; Z88.0 Allergy status to penicillin; Z95.818 Presence of other cardiac implants and grafts
CPT/HCPCS: 96365; 96361; 92977; 93005; 85025; 80048; 36415; 83735; 85610; 82947; 80076; 84484; 83880; 70450; 71045; 96375; 99285; 96374; J2997; J7030

== ENCOUNTER 2020-01-06 19:21 | Emergency (ER) | payer OTHER ==
--- OUTSIDE RECORDS SUMMARY | 2020-01-06 21:05 | XMS REPORT | Clinical Summary ---
:1935 Author Organization [facility] Address [address] [place] [address] Care Team Providers Name Role Phone Unavailable Primary Care Provider Unavailable Allergies No Known Allergies Medications Medication Sig Dispensed Refills Start End Date Status Date linaGLIPtin Take 1 tablet by 0 A ctive (TRADJENTA) 5 mg mouth daily. 9 Tab aspirin 81 MG Take 1 tablet (81 30 tablet 11 06/01/20 Active chewable tablet mg total) by mouth 9 20 daily. atorvastatin Take 1 tablet (80 30 tablet 11 06/01/20 Active (LIPITOR) 80 MG mg total) by mouth 9 20 tablet nightly. cyanocobalamin, Take 1 tablet 30 tablet 11 06/01/20 Active vitamin B-12, 1000 (1,000 mcg total) 9 20 MCG tablet by mouth daily. omeprazole Take 1 capsule (40 30 capsule 11 06/01/20 Active (PRILOSEC) 40 MG mg total) by mouth 9 20 capsule daily. metoprolol Take 0.5 tablets 60 tablet 1 06/01/20 Ac tive (LOPRESSOR) 25 MG (12.5 mg total) by 9 20 tablet mouth 2 (two) times daily. lisinopril Take 1 tablet (10 60 tablet 0 06/01/20 A ctive (PRINIVIL,ZESTRIL) mg total) by mouth 9 20 10 MG tablet daily. multivitamin Take 1 tablet by 60 tablet 0 06/01/20 Active (THERAGRAN) tablet mouth daily. 9 20 losartan (COZAAR) Take 1 tablet by 0 05/28 Discontinued 50 MG tablet mouth daily. 19 metoprolol Take 1 tablet by 0 05/28/20 Di scontinued (LOPRESSOR) 50 MG mouth 2 (two) 19 tablet times daily with breakfast and dinner. omeprazole Take 1 capsule by 0 05/28/20 D iscontinued (PRILOSEC) 40 MG mouth daily. 19 capsule aspirin 81 MG Take 1 tablet (81 0 06/02/20 Discontinued chewable tablet mg total) by mouth 9 19 daily. acetaminophen Take 1 tablet (500 30 tablet 0 0 Discontinued (TYLENOL) 500 MG mg total) by mouth 9 19 tablet every 6 (six) hours as needed for up to 10 days. atorvastatin Take 1 tablet (80 0 06/02/20 Discontinued (LIPITOR) 80 MG mg total) by mouth 9 19 tablet nightly. cyanocobalamin, Take 1 tablet 0 06/02/20 Discontinued vitamin B-12, 1000 (1,000 mcg total) 9 19 MCG tablet by mouth daily. famotidine Take 1 tablet (20 0 06/02/20 D iscontinued (PEPCID) 20 MG mg total) by mouth 9 19 tablet every 12 (twelve) hours. insulin lispro Inject 0-4 Units 10 mL 0 06/02/20 Discontinued (HUMALOG) 100 subcutaneously 9 19 unit/mL injection every night as needed (High blood sugar). insulin lispro Inject 0-8 Units 10 mL 0 06/02/20 Discontinued (HUMALOG) 100 subcutaneously as 9 19 unit/mL injection needed (High blood sugar). lisinopril Take 1 tablet (10 0 06/02/20 D iscontinued (PRINIVIL,ZESTRIL) mg total) by mouth 9 19 10 MG tablet daily. multivitamin Take 1 tablet by 0 06/02/20 Discontinued (THERAGRAN) tablet mouth daily. 9 19 senna-docusate Take 1 tablet by 0 06/02/20 Discontinued (SENOKOT S) 8.6-50 mouth nightly. 9 19 mg per tablet metoprolol Take 0.5 tablets 0 06/02/20 Di scontinued (LOPRESSOR) 25 MG (12.5 mg total) by 9 19 tablet mouth 2 (two) times daily. cephalexin Take 1 capsule 15 capsule 0 05/29/20 Dis continued (KEFLEX) 500 MG (500 mg total) by 9 19 capsule mouth 3 (three) times daily for 5 days. acetaminophen Take 1 tablet (500 30 tablet 0 0 (TYLENOL) 500 MG mg total) by mouth 9 19 tablet every 6 (six) hours as needed for up to 10 days. famotidine Take 1 tablet (20 60 tablet 1 06/02/20 D iscontinued (PEPCID) 20 MG mg total) by mouth 9 19 tablet every 12 (twelve) hours. lisinopril Take 1 tablet (10 60 tablet 0 06/02/20 D iscontinued (PRINIVIL,ZESTRIL) mg total) by mouth 9 19 10 MG tablet daily. metoprolol Take 0.5 tablets 60 tablet 1 06/02/20 Di scontinued (LOPRESSOR) 25 MG (12.5 mg total) by 9 19 tablet mouth 2 (two) times daily. multivitamin Take 1 tablet by 60 tablet 0 06/02/20 Discontinued (THERAGRAN) tablet mouth daily. 9 19 senna-docusate Take 1 tablet by 60 tablet 1 06/02/20 Discontinued (SENOKOT S) 8.6-50 mouth nightly. 9 19 mg per tablet Active Problems Problem Noted Date Cerebrovascular accident (CVA) due to occlusion of cer ebral artery 05/22/2019 Encounters Date Type Specialty Care Team Description 05/23/2019 Orders Only General Internal Medicine 05/22/2019 - [facility] General Internal [facility], Cerebr ovascular accident (CVA) due to occlusion of cerebral artery (HCC); 06/02/2019 Encounter Medicine [place] Acute ischemic stroke (HCC); Cheryl Do Received tissue plasminogen activator (t -PA) less than 24 hours prior to arrival; [place], Impaired mobili ty and ADLs; MD James Generalized weakness; Negrito Christian MD Debility ; Atrial tachycar princess (HCC); Coronary artery disease involving [place] coronary artery of [place] heart, angina presence unspecified; Hx of placement of stent in anterior descending branch of left coronary artery 05/22/2019 Travel after 01/05/2019 Social History Tobacco Use Types Packs/Day Years Used Date Never Smoker Smokeless Tobacco: Never Used Alcohol Use Drinks/Week oz/Week Comments No Alcohol Habits Answer Date Recorded How often do you have a drink containing alcohol? Never 05/22/2019 How many drinks containing alcohol do you have on a typical Not asked day when you are drinking? How often do you have six or more drinks on one occasion? No t asked Sex Assigned at Date Recorded Not on file Job Start Date Occupation Industry Not on file Not on file Not on file Travel History Travel Start Travel End No recent travel history available. Last Filed Vital Signs Vital Sign Reading Time Taken Blood Pressure 128/60 06/02/2019 12:00 PM [employer] Pulse 70 06/02/2019 12:00 PM [employer] Temperature 36.4 C (97.6 F) 06/02/2019 12:00 PM [employer] Respiratory Rate 18 06/02/2019 12:00 PM [employer] Oxygen Saturation 96% 06/02/2019 12:00 PM [employer]PER[employer] Inhaled Oxygen Concentration - - Weight 79.3 kg (174 lb 13.2 oz) 05/22/2019 2:1 7 AM [employer] OPER[employer] Height 152.4 cm (5') 05/22/2019 2:17 AM [employer] Body Mass Index 34.14 05/22/2019 2:17 AM [employer] Plan of Treatment Not on file Procedures Procedure Name Priority Date/Time Associated Comments Diagnosis REPORT OF PROCEDURE - 06/03/2019 3:02 ENDOSCOPY SCAN PM [employer] ARRYTHMIA IMPLANT 06/03/2019 3:02 REPORT - SCAN PM [employer] RHYTHM STRIP - SCAN 06/03/2019 3:02 PM [employer] POCT-GLUCOSE METER Routine 06/02/2019 11:24 Resul ts for this AM [employer] procedure are i n the results section. POCT-GLUCOSE METER Routine 06/02/2019 7:30 Resul ts for this AM [employer] procedure are i n the results section. POCT-GLUCOSE METER Routine 06/01/2019 5:31 Resul ts for this PM [employer] procedure are i n the results section. POCT-GLUCOSE METER Routine 06/01/2019 11:40 Resul ts for this AM [employer] procedure are i n the results section. POCT-GLUCOSE METER Routine 06/01/2019 8:47 Resul ts for this AM [employer] procedure are i n the results section. POCT-GLUCOSE METER Routine 05/31/2019 9:09 Resul ts for this PM [employer] procedure are i n the results section. POCT-GLUCOSE METER Routine 05/31/2019 11:58 Resul ts for this AM [employer] procedure are i n the results section. POCT-GLUCOSE METER Routine 05/31/2019 7:06 Resul ts for this AM [employer] procedure are i n the results section. POCT-GLUCOSE METER Routine 05/30/2019 9:09 Resul ts for this PM [employer] procedure are i n the results section. POCT-GLUCOSE METER Routine 05/30/2019 4:48 Resul ts for this PM [employer] procedure are i n the results section. POCT-GLUCOSE METER Routine 05/30/2019 12:07 Resul ts for this PM [employer] procedure are i n the results section. POCT-GLUCOSE METER Routine 05/30/2019 7:17 Resul ts for this AM [employer] procedure are i n the results section. POCT-GLUCOSE METER Routine 05/29/2019 9:36 Resul ts for this PM [employer] procedure are i n the results section. POCT-GLUCOSE METER Routine 05/29/2019 4:17 Resul ts for this PM [employer] procedure are i n the results section. POCT-GLUCOSE METER Routine 05/29/2019 11:04 Resul ts for this AM [employer] procedure are i n the results section. POCT-GLUCOSE METER Routine 05/29/2019 8:42 Resul ts for this AM [employer] procedure are i n the results section. POCT-GLUCOSE METER Routine 05/28/2019 8:54 Resul ts for this PM [employer] procedure are i n the results section. POCT-GLUCOSE METER Routine 05/28/2019 12:12 Resul ts for this PM [employer] procedure are i n the results section. POCT-GLUCOSE METER Routine 05/28/2019 8:02 Resul ts for this AM [employer] procedure are i n the results section. BASIC METABOLIC PANEL Routine 05/28/2019 5:02 Re sults for this (7) AM [employer] procedure are i n the results section. POCT-GLUCOSE METER Routine 05/27/2019 9:56 Resul ts for this PM [employer] procedure are i n the results section. ECHOCARDIOGRAM REPORT - 05/27/2019 9:14 SCAN PM [employer] POCT-GLUCOSE METER Routine 05/27/2019 11:22 Resul ts for this AM [employer] procedure are i n the results section. POCT-GLUCOSE METER Routine 05/27/2019 7:29 Resul ts for this AM [employer] procedure are i n the results section. POCT-GLUCOSE METER Routine 05/27/2019 12:37 Resul ts for this AM [employer] procedure are i n the results section. POCT-GLUCOSE METER Routine 05/26/2019 11:44 Resul ts for this AM [employer] procedure are i n the results section. 2D ECHO W/ DOPPLER Routine 05/26/2019 8:10 Resul ts for this (CW/PW/COLOR) AM [employer] procedure are in the results section. MAGNESIUM Routine 05/26/2019 4:43 Results for this AM [employer] procedure are i n the results section. BASIC METABOLIC PANEL Routine 05/26/2019 4:43 Re sults for this (7) AM [employer] procedure are i n the results section. POCT-GLUCOSE METER Routine 05/25/2019 10:34 Resul ts for this PM [employer] procedure are i n the results section. POCT-GLUCOSE METER Routine 05/25/2019 12:08 Resul ts for this PM [employer] procedure are i n the results section. URINALYSIS W/ REFLEX Routine 05/25/2019 11:25 Res ults for this URINE CULTURE AM [employer] procedure are in the results section. URINE CULTURE Routine 05/25/2019 11:25 Results fo r this AM [employer] procedure are i n the results section. POCT-GLUCOSE METER Routine 05/25/2019 7:35 Resul ts for this AM [employer] procedure are i n the results section. POCT-GLUCOSE METER Routine 05/24/2019 8:44 Resul ts for this PM [employer] procedure are i n the results section. POCT-GLUCOSE METER Routine 05/24/2019 4:46 Resul ts for this PM [employer] procedure are i n the results section. POCT-GLUCOSE METER Routine 05/24/2019 11:54 Resul ts for this AM [employer] procedure are i n the results section. CBC (HEMOGRAM ONLY) Routine 05/24/2019 5:26 Resu lts for this AM [employer] procedure are i n the results section. PHOSPHORUS Routine 05/24/2019 5:26 Results for this AM [employer] procedure are i n the results section. MAGNESIUM Routine 05/24/2019 5:26 Results for this AM [employer] procedure are i n the results section. BASIC METABOLIC PANEL Routine 05/24/2019 5:26 Re sults for this (7) AM [employer] procedure are i n the results section. POCT-GLUCOSE METER Routine 05/23/2019 9:01 Resul ts for this PM [employer] procedure are i n the results section. POCT-GLUCOSE METER Routine 05/23/2019 4:35 Resul ts for this PM [employer] procedure are i n the results section. POCT-GLUCOSE METER Routine 05/23/2019 11:37 Resul ts for this AM [employer] procedure are i n the results section. CONT WAVE PULSED Routine 05/23/2019 10:26 DOPPLER AM [employer] ECG 12-LEAD Routine 05/23/2019 8:24 Results for this AM [employer] procedure are i n the results section. ECG 12-LEAD Routine 05/23/2019 8:24 AM [employer] Procedure Note - Interface, External Ris In - 05/23/2019 8:25 AM [employer] Ventricular Rate 68 BPM Atrial Rate 68 BPM P-R Interval 112 ms QRS Duration 78 ms Q-T Interval 436 ms QTC Calculation(Bazett) 463 ms R [place] -16 degrees T [place] 18 degrees Normal sinus rhythm Minimal voltage criteria for LVH, may be normal variant Borderline ECG When compared with ECG of 08:23, No significant change was fo und ECG 12-LEAD Routine 05/23/2019 8:23 AM [employer]UD[employer] OPER[employer] Procedure Note - Interface, External Ris In - 05/23/2019 8:25 AM [employer]UD[employer]PERATOR [employer] Ventricular Rate 67 BPM Atrial Rate 67 BPM P-R Interval 138 ms QRS Duration 76 ms Q-T Interval 406 ms QTC Calculation(Bazett) 429 ms P [place] -6 degrees R [place] -16 degrees T [place] 8 degrees Normal sinus rhythm with sin us arrhythmia Minimal voltage criteria for LVH, may be normal variant Borderline ECG No previous ECGs available ECG 12-LEAD Routine 05/23/2019 8:23 AM [employer]UD[employer] OPERATOR [employer] Resu lts for this procedure are i n the results section . POCT-GLUCOSE METER Routine 05/23/2019 7:00 AM [employer]UD[employer]PER[employer] Results for this procedure are i n the results section . CBC (HEMOGRAM ONLY) Routine 05/23/2019 4:09 AM [employer]UD[employer]PER[employer] Results for this procedure are i n the results section . PHOSPHORUS Routine 05/23/2019 4:09 AM [employer]UD[employer] OPER[employer] Resu lts for this procedure are i n the results section . MAGNESIUM Routine 05/23/2019 4:09 AM [employer]UD[employer]PERATOR [employer] Resu lts for this procedure are i n the results section . BASIC METABOLIC PANEL (7) Routine 05/23/2019 4:09 AM [employer] Results for this procedure are i n the results section . POCT-GLUCOSE METER Routine 05/23/2019 12:09 AM [employer]PER[employer] Results for this procedure are i n the results section . POCT-GLUCOSE METER Routine 05/22/2019 10:06 PM [employer] Results for this procedure are i n the results section . MRA HEAD WITHOUT IV Routine 05/22/2019 5:30 PM [employer] Results for this CONTRAST procedure are i n the results section . MR BRAIN WITHOUT IV Routine 05/22/2019 5:30 PM [employer] Results for this CONTRAST procedure are i n the results section . MRA NECK WITHOUT IV Routine 05/22/2019 5:30 PM [employer] Results for this CONTRAST procedure are i n the results section . CBC W/PLT COUNT & AUTO Routine 05/22/2019 9:17 AM [employer] Results for this DIFFERENTIAL procedure are i n the results section . CBC W/PLT COUNT & AUTO Routine 05/22/2019 9:17 AM [employer] Results for this DIFFERENTIAL procedure are i n the results section . POCT-GLUCOSE METER Routine 05/22/2019 8:41 AM [employer]UD[employer]PERATOR [employer] Results for this procedure are i n the results section . POCT-GLUCOSE METER Routine 05/22/2019 5:41 AM [employer]PERATOR [employer] Results for this procedure are i n the results section . HEMOGLOBIN A1C Routine 05/22/2019 4:00 AM [employer]PERATOR [employer] Re sults for this procedure are i n the results section . LIPID PANEL Routine 05/22/2019 4:00 AM [employer] Resu lts for this procedure are i n the results section . RPR Routine 05/22/2019 4:00 AM [employer] Resu lts for this procedure are i n the results section . TSH/FREE T4 IF INDICATED Routine 05/22/2019 4:00 AM [employer] Results for this procedure are i n the results section . VITAMIN B12 AND FOLATE Routine 05/22/2019 4:00 AM [employer] Results for this procedure are i n the results section . PHOSPHORUS Routine 05/22/2019 4:00 AM [employer] Resu lts for this procedure are i n the results section . MAGNESIUM Routine 05/22/2019 4:00 AM [employer]PER[employer] Resu lts for this procedure are i n the results section . BASIC METABOLIC PANEL (7) Routine 05/22/2019 4:00 AM [employer] Results for this procedure are i n the results section . after 01/05/2019 Results EKG-SCANNED (06/03/2019 3:02 PM EXTRUDER OPERATOR [employer]) Narrative Performed At This result has an attachment that is no t available. ARRYTHMIA IMPLANT REPORT - SCAN (06/03/2019 3:02 PM EX[employer]UDER OPERATOR [employer]) Narrative Performed At This result has an attachment that is no t available. RHYTHM STRIP - SCAN (06/03/2019 3:02 PM EXTRUDER OPERATOR [employer]) Narrative Performed At This result has an attachment that is no t available. POC-Glucose meter (06/02/2019 11:24 AM EXTRUDER OPERATOR [employer]IZ[employer])Only the most recent of38 results within the time period is included. POC-Glucose Meter 113 (H)Comment: : TESTED 70 - 110 mg/dL [facility] AT [address], [address]: C[employer] Waffle Assembler/Gas Pumping Station Operator ID = [id number] for HAILE OCHOA Specimen Blood Performing Organization Address [facility]/Zipcode Phone Number [address] [address] CENTER Basic metabolic panel (05/28/2019 5:02 AM EXTRUDER OPERATOR [employer])Only the most recent of5 results within the time period is included. Sodium 136 136 - 145 meq/L [facility] Potassium 4.4 3.5 - 5.1 meq/L [facility] Chloride 103 98 - 107 meq/L [facility] CO2 25 22 - 29 meq/L [facility] BUN 33 (H) 7 - 21 mg/dL [facility] Creatinine 0.79 0.57 - 1.25 mg/dL [facility] Glucose 117 (H) 70 - 105 mg/dL [facility] Calcium 8.9 8.4 - 10.2 mg/dL [facility] EGFR 70Comment: ESTIMATED GFR IS mL/min/1.73 sq m [facility] NOT ACCURATE CREATININE [facility] CLEARANCE IN PREDICTING GLOMERULAR FILTRATION RATE. ESTIMATED GFR IS NOT APPLICABLE FOR DIALYSIS PATIENTS. Specimen Blood Performing Organization Address City/[facility]/Zipcode Phone Number [address] [phone] CENTER ECHOCARDIOGRAM REPORT - SCAN (05/27/2019 9:14 PM EXTRUDER OPERATOR [employer]) Narrative Performed At This result has an attachment that is no t available. 2D Echo W/Doppler(CW/PW/Color) (05/26/2019 8:10 AM EXTRUDER OPERATOR [employer]) Ejection Fraction [facility] ECHO HEAR TLAB [facility] Specimen Narrative Performed At Transthoracic Echocardiography Report (T TE) [facility] ECHO HEARTLAB [facility] Demographics Patient Name Festus SMALL of Study05/26/2019 RENETTANCROSENDA [id number] Gender Female Visit Number [id number] [id number] Room [id number] Number Date of1935Referring [facility] PhysicianRandi aguilar Age83 year(s)SonographerMdaisy Guzmán [facility] AnalystLmax [place], Interpreting Kade Mora MD [facility] Physician Procedure Type of Study TTE procedure:2DECHO W DOPPLER(CW/PW/COLOR) (Routine) Indications:Suspected cardiac source of emboli. Clinical History HGB 12.4 HCT 38.8 % DM2, HTN, CAD, PCI, PAROXYSMAL ATRIAL TA CHYCARDIA Contrast Medium: Bubble Study. Height: 60 inches Weight: 78.93 kg (174 lbs) BSA: 1.76 m^2 BMI: 33.98 kg/m^2 HR: 73 bpm BP: 122/67 mmHg Summary 1. The left ventricle is chamber size (by vol index) is small. No evidence of LV hypertrophy. All of the LV segments are hyperkinetic. Estimated LVEF by qualitative assessment is increased (>70%) . Grade 1 diastolic dysfunction (impaired relaxation and low-normal LA pressure). 2. The right ventricular chamber size and systolic function are within normal limits. Unable to estimate peak systolic PA pressure; inadequate TR velocity signal. 3. Mild aortic regurgitation. 4. IV saline contrast injection was negative for a PFO (patent foramen ovale) at rest and post Valsalva. Previous Study No prior studies available for comparis on. Signature Findings Technical Quality: Technically adequate exam. Left Ventricle The left ventricle is chamber size (by vol index) is small. No evidence of LV hypertrophy. Al l of the LV segments are hyperkinetic . Global LV sy stolic fu nction hyperdynamic . Estimated LVEF by qu alitative assessment is increased (>70%) . Grade 1 diastolic dysfunction (impaired relaxati on and lo w-normal LA pressure). Left AtriumLA size is normal . LA is incompletely visualized, size based o n linear me asurement. Right VentricleThe right ventricular chamber size and systolic fu nction are within normal limits. Right Atrium RA size is normal. Atrial SeptumIV saline contrast injection was negative for a PF O (p atent foramen ovale) at rest and post Va lsalva . Aortic Valve Aortic annulus appears calcified . Mi ld AoV cusp thickening. Mi ld aortic regurgitation. Mitral Valve Mild MV leaflet thickening. Tr kayla mitral regurgitation. Tricuspid ValveTV structure is normal. A trace of tricuspid regurgitation. Un able to estimate peak systolic PA pressu re; in adequate TR velocity signal. Pulmonic Valve Normal PV structure and function by limited views an d Doppler. AortaAortic root size (SInus of Valsalva diameter) i s no rmal . PericardiumNo pericardial effusion is visualized. An echo lucent space is noted consistent wi th pr ominent pericardial fat pad. IVC/SVC/PA/PV/PleuralThe estimated RA pressure by IVC dynamics 5-10mmHg . Chambers/Structures Left Atrium LA Dimension: 2.98 cm Left Ventricle LVIDd: 3.66 cm LVIDs: 2.36 cm LV Septum Diastolic: 0.75 cm LV PW Diastolic: 0.79 cm LV FS: 35.5 % LVEDV Daniels's:35.2 ml LVEDVI: 20 ml/m^2 LVOT Diameter: 1.86 cm Aorta Ao Root S of Kadi.: 3.07 cm Doppler/Quantitative Measurements Mitral Valve MV Peak E-Wave: 0.34 m/s MV Peak A-Wave: 0.63 m/s E/A Ratio: 0.53 Peak Gradient: 0.4 5 mmHg Deceleration Time: 193.6 msec MV Neil. Peak: Aortic Valve Peak Velocity: 1.06 m/sMean Velocity: 0.75 m/s Peak Gradient: 4.5 mmHgMean Gradient: 2.49 mmHg AV Area (continuity): 2.35 cm^2 AV VTI: 21.07 cm AV DVI: 0.87 LVOT Peak Velocity: 0.96 m/s Peak Gradient: 3.7 mmHg Mean Velocity: 0.59 m/s Mean Gradient: 1.59 mmHg LVOT Diameter: 1.86 cmLVOT VTI: 18.24 cm LVOT Area: 2.72 cm^2LVOT SV:49.54 ml LVOT CO: 3.62 l/min LVOT CI: 2.06 l/min/m^2 Procedure Note Interface, External Ris In - 05/26/2019 9:52 PM EXTRUDER OPERATOR [employer] Transthoracic Echocardiography Report (TTE) Demographics Patient Name DEYANIRA SMALL Date of Study 05/26/2019 [facility] Gender Female Visit Number [id number] Race Room Num [place] [id number] Number Date of 1935 Referrin izabela [facility] n [facility] Age 83 year(s) Sonograp her Marjan Guzmán RD General Assistant Bucky Cuba MD RD Physicia n Procedure Type of Study TTE procedure:2DECHO W DOPPLE R(CW/PW/COLOR) (Routine) Indications:Suspected cardiac source of emboli. Clinical History HGB 12.4 HCT 38.8 % DM2, HTN, CAD, PCI, PAROXYSMAL ATRIAL TA CHYCARDIA Contrast Medium: Bubble Study. Height: 60 inches Weight: 78.93 kg (174 lbs) BSA: 1.76 m^2 BMI: 33.98 kg/m^2 HR: 73 bpm BP: 122/67 mmHg Summary 1. The left ventricle is chamber size ( by vol index) is small. No evidence of LV hypertrophy. All of the LV segmen ts are hyperkinetic. Estimated LVEF by qualitative assessment is increased (>70%) . Grade 1 diastolic dysfunction (impaired relaxation and lo w-normal LA pressure). 2. The right ventricular chamber size a nd systolic function are within normal limits. Unable to estimate peak systolic PA pressure; inadequate TR velocity signal. 3. Mild aortic regurgitation. 4. IV saline contrast injection was neg ative for a PFO (patent foramen ovale) at rest and post Valsalva. Previous Study No prior studies available for comparis on. Signature Findings Technical Quality: Technically adequate exam. Left Ventricle The left ventric le is chamber size (by vol index) is small. No zaira dence of LV hypertrophy. All of the LV segments are hyperkinetic . Global LV systolic function hyperdy namic . Estimated LVEF by qualitative asse ssment is increased (>70%) . Grade 1 diastolic dysf unction (impaired relaxation and low-normal LA pr essure). Left Atrium LA size is coleman l . LA is incomplete ly visualized, size based on linear measurement. Right Ventricle The right ventri cular chamber size and systolic function are wit hin normal limits. Right Atrium RA size is coleman l. Atrial Septum IV saline contra st injection was negative for a PFO (patent foramen ovale) at rest and post Valsalva . Aortic Valve Aortic annulus a ppears calcified . Mild AoV cusp th ickening. Mild aortic regu rgitation. Mitral Valve Mild MV leaflet thickening. Trace mitral reg urgitation. Tricuspid Valve TV structure is normal. A trace of tricu spid regurgitation. Unable to estima te peak systolic PA pressure; inadequate TR ve locity signal. Pulmonic Valve Normal PV struct ure and function by limited views and Doppler. Aorta Aortic root size (SInus of Valsalva diameter) is normal . Pericardium No pericardial e ffusion is visualized. An echo lucent s pace is noted consistent with prominent perica rdial fat pad. IVC/SVC/PA/PV/Pleural The estimated RA pressure by IVC dynamics 5-10mmHg . Chambers/Structures Left Atrium LA Dimension: 2.98 cm Left Ventricle LVIDd: 3.66 cm LVIDs: 2.36 cm LV Septum Diastolic: 0.75 cm LV PW Diastolic: 0.79 cm LV FS: 35.5 % LVEDV Daniels's:35.2 ml LVEDVI: 20 ml/m^2 LVOT Diameter: 1.86 cm Aorta Ao Root S of Kadi.: 3.07 cm Doppler/Quantitative Measurements Mitral Valve MV Peak E-Wave: 0.34 m/s MV P eak A-Wave: 0.63 m/s E/A Ratio: 0.53 Peak Gradient: 0.45 mmHg Dece leration Time: 193.6 msec MV Neil. Peak: Aortic Valve Peak Velocity: 1.06 m/s Mean Velocity: 0.75 m/s Peak Gradient: 4.5 mmHg Mean Gradient: 2.49 mmHg AV Area (continuity): 2.35 cm^2 AV VTI: 21.07 cm AV DVI: 0.87 LVOT Peak Velocity: 0.96 m/s Pea k Gradient: 3.7 mmHg Mean Velocity: 0.59 m/s Kate n Gradient: 1.59 mmHg LVOT Diameter: 1.86 cm LVO T VTI: 18.24 cm LVOT Area: 2.72 cm^2 LVO T SV:49.54 ml LVOT CO: 3.62 l/min LVO T CI: 2.06 l/min/m^2 Performing Organization Address City/State/Zipcode Phone Number [facility] Magnesium (05/26/2019 4:43 AM EXTRUDER OPERATOR HORIZONTAL)Only the most recent of4 resultswithin the time period is included. Magnesium 1.9 1.6 - 2.6 mg/dL [facility] Specimen Blood Performing Organization Address City/State/Zipcode Phone Number [facility] [address] [place] [address] [place] Urinalysis w/Microscopic + Reflex to Culture (05/25/2019 11:25 AM EXTRUDER OPERATOR HORIZONTAL) Color, UA Yellow [facility] Clarity, UA Clear [facility] Specific [place], UA 1.015 1.001 - 1.035 [facility] pH, UA 5.0 5.0 - 8.0 [facility] Protein, UA Negative Negative [facility] Glucose, UA Negative Negative [facility] Ketones, UA Negative Negative [facility] Bilirubin, UA Negative Negative [facility] Blood, UA Negative Negative [facility] Nitrite, UA Positive (A) Negative [facility] Leukocytes, UA Moderate (A) Negative [facility] Urobilinogen, UA 0.2 0.2 - 1.0 mg/dL [facility] RBC, UA 1 /HPF [facility] WBC, UA 14 /HPF [facility] Bacteria, UA Moderate [facility] Mucus Few [facility] Squam Epithel, UA 1 /HPF [facility] Hyaline Casts, UA 3 /LPF [facility] Specimen Source [facility] Specimen Urine Performing Organization Address City/State/Zipcode Phone Number [facility] [address] [place] [address] [place] Urine culture (05/25/2019 11:25 AM EXTRUDER OPERATOR HORIZONTAL) Result >100,000 col/mL Escherichia coli [facility] Specimen Urine Narrative Performed At <10,000 col/mL skin juan jose [facility] Organism Antibiotic Method Susceptibility Escherichia coli Amikacin <=2: Susceptibl e Escherichia coli Ampicillin + Sulbactam <=2: Era ceptible Escherichia coli Aztreonam <=1: Susceptibl e Escherichia coli Cefepime <=1: Susceptibl e Escherichia coli Cefoxitin <=4: Susceptibl e Escherichia coli Ceftazidime <=1: Susceptibl e Escherichia coli Ceftriaxone <=1: Susceptibl e Escherichia coli Ertapenem <=0.5: Suscepti ble Escherichia coli Gentamicin <=1: Susceptibl e Escherichia coli Levofloxacin <=0.12: Suscept ible Escherichia coli Meropenem <=0.25: Suscept ible Escherichia coli Nitrofurantoin <=16: Susceptib le Escherichia coli Piperacillin + Tazobactam <=4: Susceptible Escherichia coli Tetracycline <=1: Susceptibl e Escherichia coli Tobramycin <=1: Susceptibl e Escherichia coli Trimethoprim + Sulfamethoxazole <=20: Susceptible Performing Organization Address City/State/Zipcode Phone Number [facility] [address] [place] [phone] CENTER CBC (Hemogram only) (05/24/2019 5:26 AM EXTRUDER OPERATOR HORIZONTAL)Only the most recent of2 results within the time period is included. WBC 7.1 3.5 - 10.5 K/L [facility] RBC 3.75 (L) 3.93 - 5.22 M/L [facility] Hemoglobin 12.4 11.2 - 15.7 GM/DL [facility] Hematocrit 38.8 34.1 - 44.9 % [facility] MCV 103.5 (H) 79.4 - 94.8 fL [facility] MCH 33.1 (H) 25.6 - 32.2 pg [facility] MCHC 32.0 (L) 32.2 - 35.5 GM/DL [facility] RDW 12.6 11.7 - 14.4 % [facility] Platelets 185 150 - 450 K/CU MM [facility] MPV 12.1 9.4 - 12.3 fL [facility] nRBC 0 0 - 0 /100 WBC [facility] Specimen Blood Performing Organization Address [facility] Phone Number [facility] [address] [place] [address] CENTER Phosphorus (05/24/2019 5:26 AM EXTRUDER OPERATOR HORIZONTAL)Only the most recent of3 resultswithin the time period is included. Phosphorus 3.7 2.3 - 4.7 mg/dL [facility] Specimen Blood Performing Organization Address [facility] Services[facility]oca Phone Number [facility] [address] [place] [address] [place] ECG 12 lead (05/23/2019 8:24 AM EXTRUDER OPERATOR HORIZONTAL)Only the most recent of2 resultswithin the time period is included. Specimen Narrative Performed At Ventricular Rate 68 BPM GE MUSE Atrial Rate 68 BPM P-R Interval 112 ms QRS Duration 78 ms Q-T Interval 400 ms QTC Calculation(Bazett) 426 ms R [place] -16 degrees T [place] 18 degrees Normal sinus rhythm Minimal voltage criteria for LVH, may be normal variant Borderline ECG When compared with ECG of 23-MAY-2019 08 :23, No significant change was found Confirmed by Dominick RICO, CLAUDETTE (Maria Del Carmen) on 05/23/2019 2 :15:24 PM Procedure Note Interface, External Ris In - 05/23/2019 2:15 PM EXTRUDER OPERATOR HORIZONTAL Ventricular Rate 68 BPM Atrial Rate 68 BPM P-R Interval 112 ms QRS Duration 78 ms Q-T Interval 400 ms QTC Calculation(Bazett) 426 ms R [place] -16 degrees T [place] 18 degrees Normal sinus rhythm Minimal voltage criteria for LVH, may be normal variant Borderline ECG When compared with ECG of 23-MAY-2019 08 :23, No significant change was found Confirmed by Dominick RICO, CLAUDETTE ([id number]) o n 05/23/2019 2:15:24 PM Performing Organization Address City/State/Zipcode Phone Number [employer] MR brain without IV contrast (05/22/2019 5:30 PM EXTRUDER OPERATOR HORIZONTAL) Specimen Narrative Performed At FINAL REPORT [facility] MR, BRAIN, WITHOUT CONTRAST, MR, MRA, NE CK, WITHOUT IV CONTRAST, MR, MRA, BRAIN, WITHOUT CONTRAST INDICATION: Stroke, follow up TECHNIQUE: Multiplanar, multisequence MR imaging of the brain without intravenous contrast. MRA of the head utilizing 3-D time-of-fl ight technique, with 3-D reconstructions. MRA of the neck utilizing 2-D and 3-D ti yq-uk-wofvsq technique, with 3-D reconstructions. COMPARISON: None FINDINGS: MRI Brain: Intracranial: Multifocal punctate areas of restricted diffusion within the right parietal lobe and poste rior right frontal lobe, and right posterior limb internal capsule, a nd rarely in a posterior border zone distribution. No acute intra cranial hemorrhage. Chronic punctate microhemorrhages within the bilateral thalami. Remote right cerebellar hemisphere infar ct. Extensive foci of T2 prolongation within the periventricular and subcortical white matter are a nonspecific finding commonly attri buted to chronic small vessel ischemic disease. No mass effect.No hydrocephalus. Sinuses: Small mucous retention cyst in the right maxillary sinus. Left mastoid effusion. Orbits: Globes are intact. Calvarium \T\ scalp: Unremarkable. MRA Head: No intracranial arterial occlusion or hi gh-grade focal stenosis. Fusiform dilatation of the right ICA ter minus in the region of the P-comm origin, measuring up to 7 mm. MRA Neck: The carotid arteries in the neck are pat ent including their bifurcations. There is antegrade flow in the vertebral arteries in the neck. IMPRESSION: 1.Multifocal acute infarcts within the r ight posterior border zone distribution. 2.No acute intracranial hemorrhage. 3.No proximal branch arterial occlusion or high-grade focal stenosis. 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 Signed: Edgard Wadsworth MD Report Verified Date/Time:05/22/2019 18:01:25 Procedure Note Interface, External Ris In - 05/22/2019 6:03 PM EXTRUDER OPERATOR HORIZONTAL FINAL REPORT MR, BRAIN, WITHOUT CONTRAST, MR, MRA, NE CK, WITHOUT IV CONTRAST, MR, MRA, BRAIN, WITHOUT CONTRAST INDICATION: Stroke, follow up TECHNIQUE: Multiplanar, multisequence MR imaging of the brain without intravenous contrast. MRA of the head utilizing 3-D time-of-fl ight technique, with 3-D reconstructions. MRA of the neck utilizing 2-D and 3-D ti qa-ci-laaucd technique, with 3-D reconstructions. COMPARISON: None FINDINGS: MRI Brain: Intracranial: Multifocal punctate areas of restricted diffusion within the right parietal lobe and poste rior right frontal lobe, and right posterior limb internal capsule, a nd rarely in a posterior border zone distribution. No acute intra cranial hemorrhage. Chronic punctate microhemorrhages within the bilateral thalami. Remote right cerebellar hemisphere infar ct. Extensive foci of T2 prolongation within the periventricular and subcortical white matter are a nonspecific finding commonly attri buted to chronic small vessel ischemic disease. No mass effect. No hydrocephalus. Sinuses: Small mucous retention cyst in the right maxillary sinus. Left mastoid effusion. Orbits: Globes are intact. Calvarium \T\ scalp: Unremarkable. MRA Head: No intracranial arterial occlusion or hi gh-grade focal stenosis. Fusiform dilatation of the right ICA ter minus in the region of the P-comm origin, measuring up to 7 mm. MRA Neck: The carotid arteries in the neck are pat ent including their bifurcations. There is antegrade flow in the vertebral arteries in the neck. IMPRESSION: 1.Multifocal acute infarcts within the r ight posterior border zone distribution. 2.No acute intracranial hemorrhage. 3.No proximal branch arterial occlusion or high-grade focal stenosis. 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 Signed: Edgard Wadsworth MD Report Verified Date/Time: 05/22/2019 1 8:01:25 Performing Organization Address City/State/Zipcode Phone Number [facility] MRA neck without IV contrast (05/22/2019 5:30 PM EXTRUDER OPERATOR HORIZONTAL) Specimen Narrative Performed At FINAL REPORT [facility] MR, BRAIN, WITHOUT CONTRAST, MR, MRA, NE CK, WITHOUT IV CONTRAST, MR, MRA, BRAIN, WITHOUT CONTRAST INDICATION: Stroke, follow up TECHNIQUE: Multiplanar, multisequence MR imaging of the brain without intravenous contrast. MRA of the head utilizing 3-D time-of-fl ight technique, with 3-D reconstructions. MRA of the neck utilizing 2-D and 3-D ti hs-dl-buwutx technique, with 3-D reconstructions. COMPARISON: None FINDINGS: MRI Brain: Intracranial: Multifocal punctate areas of restricted diffusion within the right parietal lobe and poste rior right frontal lobe, and right posterior limb internal capsule, a nd rarely in a posterior border zone distribution. No acute intra cranial hemorrhage. Chronic punctate microhemorrhages within the bilateral thalami. Remote right cerebellar hemisphere infar ct. Extensive foci of T2 prolongation within the periventricular and subcortical white matter are a nonspecific finding commonly attri buted to chronic small vessel ischemic disease. No mass effect.No hydrocephalus. Sinuses: Small mucous retention cyst in the right maxillary sinus. Left mastoid effusion. Orbits: Globes are intact. Calvarium \T\ scalp: Unremarkable. MRA Head: No intracranial arterial occlusion or hi gh-grade focal stenosis. Fusiform dilatation of the right ICA ter minus in the region of the P-comm origin, measuring up to 7 mm. MRA Neck: The carotid arteries in the neck are pat ent including their bifurcations. There is antegrade flow in the vertebral arteries in the neck. IMPRESSION: 1.Multifocal acute infarcts within the r ight posterior border zone distribution. 2.No acute intracranial hemorrhage. 3.No proximal branch arterial occlusion or high-grade focal stenosis. 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 Signed: Edgard Wadsworth MD Report Verified Date/Time:05/22/2019 18:01:25 Procedure Note Interface, External Ris In - 05/22/2019 6:03 PM EXTRUDER OPERATOR HORIZONTAL FINAL REPORT MR, BRAIN, WITHOUT CONTRAST, MR, MRA, NE CK, WITHOUT IV CONTRAST, MR, MRA, BRAIN, WITHOUT CONTRAST INDICATION: Stroke, follow up TECHNIQUE: Multiplanar, multisequence MR imaging of the brain without intravenous contrast. MRA of the head utilizing 3-D time-of-fl ight technique, with 3-D reconstructions. MRA of the neck utilizing 2-D and 3-D ti so-qf-ojfioq technique, with 3-D reconstructions. COMPARISON: None FINDINGS: MRI Brain: Intracranial: Multifocal punctate areas of restricted diffusion within the right parietal lobe and poste rior right frontal lobe, and right posterior limb internal capsule, a nd rarely in a posterior border zone distribution. No acute intra cranial hemorrhage. Chronic punctate microhemorrhages within the bilateral thalami. Remote right cerebellar hemisphere infar ct. Extensive foci of T2 prolongation within the periventricular and subcortical white matter are a nonspecific finding commonly attri buted to chronic small vessel ischemic disease. No mass effect. No hydrocephalus. Sinuses: Small mucous retention cyst in the right maxillary sinus. Left mastoid effusion. Orbits: Globes are intact. Calvarium \T\ scalp: Unremarkable. MRA Head: No intracranial arterial occlusion or hi gh-grade focal stenosis. Fusiform dilatation of the right ICA ter minus in the region of the P-comm origin, measuring up to 7 mm. MRA Neck: The carotid arteries in the neck are pat ent including their bifurcations. There is antegrade flow in the vertebral arteries in the neck. IMPRESSION: 1.Multifocal acute infarcts within the r ight posterior border zone distribution. 2.No acute intracranial hemorrhage. 3.No proximal branch arterial occlusion or high-grade focal stenosis. 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 Signed: Edgard Wadsworth MD Report Verified Date/Time: 05/22/2019 1 8:01:25 Performing Organization Address City/State/Zipcode Phone Number [employer] MRA head without IV contrast (05/22/2019 5:30 PM EXTRUDER OPERATOR HORIZONTAL) Specimen Narrative Performed At FINAL REPORT [facility] MR, BRAIN, WITHOUT CONTRAST, MR, MRA, NE CK, WITHOUT IV CONTRAST, MR, MRA, BRAIN, WITHOUT CONTRAST INDICATION: Stroke, follow up TECHNIQUE: Multiplanar, multisequence MR imaging of the brain without intravenous contrast. MRA of the head utilizing 3-D time-of-fl ight technique, with 3-D reconstructions. MRA of the neck utilizing 2-D and 3-D ti gc-fg-jqkpks technique, with 3-D reconstructions. COMPARISON: None FINDINGS: MRI Brain: Intracranial: Multifocal punctate areas of restricted diffusion within the right parietal lobe and poste rior right frontal lobe, and right posterior limb internal capsule, a nd rarely in a posterior border zone distribution. No acute intra cranial hemorrhage. Chronic punctate microhemorrhages within the bilateral thalami. Remote right cerebellar hemisphere infar ct. Extensive foci of T2 prolongation within the periventricular and subcortical white matter are a nonspecific finding commonly attri buted to chronic small vessel ischemic disease. No mass effect.No hydrocephalus. Sinuses: Small mucous retention cyst in the right maxillary sinus. Left mastoid effusion. Orbits: Globes are intact. Calvarium \T\ scalp: Unremarkable. MRA Head: No intracranial arterial occlusion or hi gh-grade focal stenosis. Fusiform dilatation of the right ICA ter minus in the region of the P-comm origin, measuring up to 7 mm. MRA Neck: The carotid arteries in the neck are pat ent including their bifurcations. There is antegrade flow in the vertebral arteries in the neck. IMPRESSION: 1.Multifocal acute infarcts within the r ight posterior border zone distribution. 2.No acute intracranial hemorrhage. 3.No proximal branch arterial occlusion or high-grade focal stenosis. 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 Signed: Edgard Wadsworth MD Report Verified Date/Time:05/22/2019 18:01:25 Procedure Note Interface, External Ris In - 05/22/2019 6:03 PM EXTRUDER OPERATOR HORIZONTAL FINAL REPORT MR, BRAIN, WITHOUT CONTRAST, MR, MRA, NE CK, WITHOUT IV CONTRAST, MR, MRA, BRAIN, WITHOUT CONTRAST INDICATION: Stroke, follow up TECHNIQUE: Multiplanar, multisequence MR imaging of the brain without intravenous contrast. MRA of the head utilizing 3-D time-of-fl ight technique, with 3-D reconstructions. MRA of the neck utilizing 2-D and 3-D ti dk-uo-kiwjwm technique, with 3-D reconstructions. COMPARISON: None FINDINGS: MRI Brain: Intracranial: Multifocal punctate areas of restricted diffusion within the right parietal lobe and poste rior right frontal lobe, and right posterior limb internal capsule, a nd rarely in a posterior border zone distribution. No acute intra cranial hemorrhage. Chronic punctate microhemorrhages within the bilateral thalami. Remote right cerebellar hemisphere infar ct. Extensive foci of T2 prolongation within the periventricular and subcortical white matter are a nonspecific finding commonly attri buted to chronic small vessel ischemic disease. No mass effect. No hydrocephalus. Sinuses: Small mucous retention cyst in the right maxillary sinus. Left mastoid effusion. Orbits: Globes are intact. Calvarium \T\ scalp: Unremarkable. MRA Head: No intracranial arterial occlusion or hi gh-grade focal stenosis. Fusiform dilatation of the right ICA ter minus in the region of the P-comm origin, measuring up to 7 mm. MRA Neck: The carotid arteries in the neck are pat ent including their bifurcations. There is antegrade flow in the vertebral arteries in the neck. IMPRESSION: 1.Multifocal acute infarcts within the r ight posterior border zone distribution. 2.No acute intracranial hemorrhage. 3.No proximal branch arterial occlusion or high-grade focal stenosis. 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 Signed: Edgard Wadsworth MD Report Verified Date/Time: 05/22/2019 1 8:01:25 Performing Organization Address City/State/Zipcode Phone Number [facility] CBC with platelet count + automated diff (05/22/2019 9:17 AM EXTRUDER OPERATOR HORIZONTAL) WBC 7.3 3.5 - 10.5 K/L [facility] RBC 3.76 (L) 3.93 - 5.22 M/L [facility] Hemoglobin 12.3 11.2 - 15.7 GM/DL [facility] Hematocrit 38.0 34.1 - 44.9 % [facility] MCV 101.1 (H) 79.4 - 94.8 fL [facility] MCH 32.7 (H) 25.6 - 32.2 pg [facility] MCHC 32.4 32.2 - 35.5 GM/DL [facility] RDW 12.6 11.7 - 14.4 % [facility] Platelets 176 150 - 450 K/CU MM [facility] MPV 11.6 9.4 - 12.3 fL [facility] nRBC 0 0 - 0 /100 WBC [facility] % Neutros 70 % [facility] % Lymphs 22 % [facility] % Monos 6 % [facility] % Eos 2 % [facility] % Baso 1 % [facility] # Neutros 5.10 1.56 - 6.13 K/L [facility] # Lymphs 1.62 1.18 - 3.74 K/L [facility] # Monos 0.40 (H) 0.24 - 0.36 K/L [facility] # Eos 0.12 0.04 - 0.36 K/L [facility] # Baso 0.05 0.01 - 0.08 K/L [facility] Immature 0 0 - 1 % [facility] M Granulocytes-Relative [facility] Specimen Blood Performing Organization Address City/State/Zipcode Phone Number [address] [address] [place] Vitamin B12 and Folate (05/22/2019 4:00 AM EXTRUDER OPERATOR HORIZONTAL) Vitamin B12 <146 (L) 213 - 816 pg/mL [facility] Folate 19.6 >=7.0 ng/mL [facility] Specimen Blood Performing Organization Address City/State/Zipcode Phone Number [address] [address] [place] TSH/Free T4 If Indicated (05/22/2019 4:00 AM EXTRUDER OPERATOR HORIZONTAL) TSH 3.55 0.35 - 4.94 uIU/mL [facility] Specimen Blood Performing Organization Address City/State/Zipcode Phone Number [address] [address] [place] RPR (05/22/2019 4:00 AM EXTRUDER OPERATOR HORIZONTAL) RPR Nonreactive Nonreactive [facility] Specimen Blood Performing Organization Address City/State/Zipcode Phone Number [address] [address] [place] Hemoglobin A1c (05/22/2019 4:00 AM EXTRUDER OPERATOR HORIZONTAL) Hemoglobin A1C 5.5 4.3 - 6.1 % [facility] Specimen Blood Performing Organization Address City/[place] [facility] Phone Number [address] [address] [place] Lipid panel (05/22/2019 4:00 AM EXTRUDER OPERATOR HORIZONTAL) Triglycerides 107 mg/dL [facility] Cholesterol 181 mg/dL [facility] HDL 50 mg/dL [facility] LDL Calculated 110 mg/dL [facility] Specimen Blood Narrative Performed At Triglyceride Reference Range: [facility] Low Risk <150 [id number] High Risk 200-499 Very High Risk>=500 Cholesterol Reference Range: Low Risk <200 [id number] High Risk>240 HDL Cholesterol Reference Range: Low Risk >=60 High Risk <40 LDL Cholesterol Reference Range: Optimal<100 Near [id number] [id number] [id number] Very High >=190 Performing Organization Address City/[facility]/Zipcode Phone Number [address] [address] CENTER after 01/05/2019 Insurance Payer Benefit Plan / Group Subscriber ID Type Phone A [employer] xxxxxxxx Maps Contracted Advance Directives For more information, please contact:[id number] [place], [place] [phone] Code Status Date Activated Date Inactivated Comments Full Code 05/23/2019 11:34 AM 06/02/2019 4:33 PM This code status was determined by: Patient
--- OUTSIDE RECORDS SUMMARY | 2020-01-06 21:07 | XMS REPORT ---
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 Problem Diabetes type 2, controlled E11.9 Active Assessment GERD (gastroesophageal reflux K21.9 Active disease) Problem GERD (gastroesophageal reflux K21.9 Active disease) Problem Hypertension I10 Active Problem Urinary frequency R35.0 Active Problem Impaired mobility and ADLs Z74.09 A ctive Problem Cerebrovascular accident (CVA) 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 Assessment Vitamin B12 deficiency E53.8 Activ e Assessment Generalized weakness R53.1 Active Problem Generalized weakness R53.1 Active Assessment Hyperlipidemia E78.5 Active Problem Pain, foot M79.673 Active Problem Hyperlipidemia E78.5 Active Problem Hx of placement of stent in Z95.5 Active anterior descending branch of left coronary artery Problem Allergic rhinitis, unspecified J30.9 Active seasonality, unspecified trigger Assessment Impaired mobility and ADLs Z74.09 A ctive Assessment Hypertension I10 Active Assessment Physical debility R53.81 Active Assessment Hx of placement of stent in Z95.5 Active anterior descending branch of left coronary artery Assessment Cerebrovascular accident (CVA) 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 Assessment Atherosclerosis of coronary artery I25.10 Active Assessment Diabetes type 2, controlled E11.9 Active Medications Medication Code Code Instructions Start End Status Dosage System Date Date Lisinopril ND 98918431685 10 MG Orally Active 1 ta blet Once a day Metoprolol ND 01579167751 25 MG Orally Active Take 0.5 Tartrate Twice a day (12.5 mg) tablet with food Tradjenta [facility] 17126405359 5 MG Orally Active 1 tabl et Once a day Xarelto [facility] 96828112403 20 MG Orally Active 1 table t Once a day with food Omeprazole [facility] 32519668234 40 MG Orally Active 1 ca psule Once a day Aspir-Low [facility] 57782332460 81 MG Orally Active 1 tab let Once a day Cozaar [facility] 71402837563 50 MG Active TAKE ONE TABLET BY MOUTH DAILY Montelukast [facility] 64777142412 10 MG Orally Active 1 t ablet Sodium Once a day Atorvastatin [facility] 81160633229 80 MG Orally Active 1 tablet Calcium Once a day Cyanocobalamin [facility] [address]-92 1000 MCG Orally Act ramos 1 tablet Once a day Results No Known Results Summary Purpose eClinicalWorks Submission
--- OUTSIDE RECORDS SUMMARY | 2020-01-06 21:07 | XMS REPORT ---
:1935 Author Organization eClinicalWorks Care Team Providers Name Role Phone Olvin Thornton Provider Role Unavailable Allergies, Adverse Reactions, Alerts Substance Reaction Event Type penicillin Info Not Available Drug Allergy Problems Problem Type Condition Code Onset Dates Condition Statu s Problem GERD (gastroesophageal reflux K21.9 Active disease) Problem Hypertension I10 Active Problem Urinary frequency R35.0 Active Assessment Medicare annual wellness visit, Z00.00 Active subsequent Problem Atherosclerosis of coronary artery I25.10 Active Problem Diabetes type 2, controlled E11.9 Active Problem Impaired mobility and ADLs Z74.09 A ctive Problem Cerebrovascular accident (CVA) 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 Problem Generalized weakness R53.1 Active Problem Pain, foot M79.673 Active Problem Hyperlipidemia E78.5 Active Problem Hx of placement of stent in Z95.5 Active anterior descending branch of left coronary artery Problem Allergic rhinitis, unspecified J30.9 Active seasonality, unspecified trigger Medications Medication Code Code Instructions Start End Status Dosage System Date Date Omeprazole [facility] 30278134667 40 MG Orally Active 1 ca psule Once a day Cozaar [facility] 14546892795 50 MG Active TAKE ONE TABLET BY MOUTH DAILY Metoprolol ND 11687843080 25 MG Orally Active Take 0.5 Tartrate Twice a day (12.5 mg) tablet with food Lisinopril ND 36122219508 10 MG Orally Active 1 ta blet Once a day Montelukast ND 50278820046 10 MG Orally Active 1 t ablet Sodium Once a day Cyanocobalamin [facility] [address]-76 1000 MCG Orally Act ramos 1 tablet Once a day Aspir-Low ND 87838516843 81 MG Orally Active 1 tab let Once a day Tradjenta ND 31423925308 5 MG Orally Active 1 tabl et Once a day Atorvastatin ND 52005310967 80 MG Orally Active 1 tablet Calcium Once a day Results No Known Results Summary Purpose eClinicalWorks Submission
--- OUTSIDE RECORDS SUMMARY | 2020-01-06 21:07 | XMS REPORT | Continuity of Care Document ---
:1935 Author Organization [facility] t Address [address] [place] [address] Care Team Providers Name Role Phone Ernestina Nicole MD Attending Clinician [phone] Gustavo DOWNEY Attending Clinician Anahi DOWNEY Attending Clinician ERNESTINA NICOLE Attending Clinician Unavail able ERNESTINA NICOLE Admitting Clinician Unavail able Payers Payer Name Policy Type Policy Number Effective Date Expiration Source Date CIGNA xxxxxxxx [facility] Contracted Problems Condition Condition Condition Status Onset Resolution Last Treating Co mments Source Name Details Category Date Date Treatment Clinician Date Cerebrovas Cerebrovas Disease Active 2018-[address] [facility]ular cular 1-14 [facility] - accident accident 00:00: Medica l (CVA) due (CVA) due 00 Cent er to to occlusion 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 [facility] type 2, type 2, [facility] - controlled controlled Me [facility] Pain, foot Pain, foot Problem Active [facility] Hypertensi Hypertensi Problem Active [facility] on [facility] Urinary Urinary Problem Active [facility] frequency frequency [facility] - [facility] Hyperlipid Hyperlipid Problem Active [facility] em[facility] em[facility] Hx of Hx of Problem Active [facility] placement placement Luke s - of stent of stent Memori a in in l anterior anterior Outpat i descending descending en t branch of branch of Clin ics 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 [facility] - coronary coronary Memori a artery artery l Outpati ent Clinics GERD GERD Problem Active [facility] (gastroeso (gastroeso Yas kes - phageal phageal Memoria reflux reflux l disease) disease) Outpat i ent Clinics Allergic Allergic Problem Active [facility] rhinitis, rhinitis, Luke s - unspecifie unspecifie Me moria d d l seasonalit seasonalit Ou tpati y, y, ent unspecifie unspecifie Cl inics d trigger d trigger Impaired Impaired Problem Active [facility] mobility mobility [facility] - and ADLs and ADLs Memori a l [facility] Cerebrovas Cerebrovas Problem Active [facility] cular cular [facility] - accident accident Memori a (CVA) due (CVA) due l to to Outpati occlusion occlusion ent of right of right Clinic 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 Generalize Generalize Problem Active [facility] d weakness d weakness Yas kes - [facility] Medicare Medicare Diagnosis Active [facility] annual annual [facility] - wellness wellness Memori a visit, visit, l subsequent subsequent Ou tpati ent Clinics Allergies, Adverse Reactions, Alerts Allergy Allergy Status Severity Reaction(s) Onset Inactive Treating Comm ents Source Name Type Date Date Clinician penicill Adverse Active Info Not [facility] in Reaction Available [facility] Social History Social Habit Start Date Stop Date Quantity Comments Source History SDOH Alcohol [facility] Std Drinks [facility] History SDOH Alcohol [facility] Binge [facility] Sex Assigned [facility] History SDOH Alcohol 2019-05-22 2019-05-[address] [facility] - Frequency 00:00:00 00:00:00 [facility] Center Smoking Status Start Date Stop Date Source Never smoker [facility] edical [place] Medications Ordered Filled Start Stop Current Ordering Indication Dosage Frequency Signature Comments Components Source Medication Medication Date Date Medication? Clinician (SIG) Name Name aspirin 81 2018-07 2020- No 81mg QD Take [address] [facility] [address] MG chewable 08-02 11-24 tablet (81 L ukes - tablet 00:00: 23:59 mg total) Medic al 00 :00 by mouth Center daily. atorvastati 2018-07- No 80mg QD Take [address] n (LIPITOR) 08-02-24 tablet (80 L ukes - 80 MG 00:00: 23:59 mg total) Medica l tablet 00 :00 by mouth Center nightly. cyanocobala 2018-07- No 1000ug QD Take [address] min, 08-02-24 tablet [facility] - vitamin 00:00: 23:59 (1,000 mcg Med ical B-12, 1000 00 :00 total) by Cent er MCG tablet mouth daily. omeprazole 2018-07- No 40mg QD Take [address] [facility] (PRILOSEC) 08-02-24 capsule [facility] - 40 MG 00:00: 23:59 (40 mg Medical capsule 00 :00 total) by Center mouth daily. metoprolol 2018-07- No 12.5mg Q.5D Take 0.[address] (LOPRESSOR) 08-02-24 tablets Luke s - 25 MG 00:00: 23:59 (12.5 mg Medical tablet 00 :00 total) by Center mouth 2 (two) times daily. lisinopril 2018-07- No 10mg QD Take [address] [facility] [address] (PRINIVIL,Z 08-02- tablet (10 L ukes - ESTRIL) 10 00:00: 23:59 mg total) M edical MG tablet 00 :00 by mouth Center daily. multivitami 2018-07- No 1{tbl} QD Take [address] n 08-02-24 tablet by [facility] - (THERAGRAN) 00:00: 23:59 mouth Medi denia tablet 00 :00 daily. Center acetaminoph 2018-07- No 500mg Take [address] en 08-02 12-05 tablet [facility] - (TYLENOL) 00:00: 23:59 (500 mg Medi denia 500 MG 00 :00 total) by Center tablet mouth every 6 (six) hours as needed for up to 10 days. famotidine 2018-07- No 20mg Take [address] [facility] [address] (PEPCID) 20 08-02-25 tablet (20 L ukes - MG tablet 00:00: 00:00 mg total) Me dical 00 :00 by mouth Center every 12 (twelve) hours. lisinopril 2018-07- No 10mg QD Take [address] [facility] [address] (PRINIVIL,Z 1-25 11-25 tablet (10 L ukes - ESTRIL) 10 00:00: 00:00 mg total) M edical MG tablet 00 :00 by mouth Center daily. metoprolol 2018-07- No 12.5mg Q.5D Take 0.[address] (LOPRESSOR) 1-25 11-25 tablets Luke s - 25 MG 00:00: 00:00 (12.5 mg Medical tablet 00 :00 total) by Center mouth 2 (two) times daily. multivitami 2018-07- No 1{tbl} QD Take [address] n 1-25 11-25 tablet by [facility] - (THERAGRAN) 00:00: 00:00 mouth Medi denia tablet 00 :00 daily. [place] senna-docus 2018-07- No 1{tbl} QD Take [address] ate 1-25 11-25 tablet by [facility] - (SENOKOT S) 00:00: 00:00 mouth Medi denia 8.6-50 mg 00 :00 nightly. Center per tablet aspirin 81 2018-07- No 81mg QD Take [address] [facility] [address] MG chewable 1-21 11-25 tablet (81 L ukes - tablet 00:00: 00:00 mg total) Medic al 00 :00 by mouth Center daily. lisinopril 2018-07- No 10mg QD Take [address] [facility] [address] (PRINIVIL,Z 1-21 -25 tablet (10 L ukes - ESTRIL) 10 00:00: 00:00 mg total) M edical MG tablet 00 :00 by mouth Center daily. multivitami 2018-07- No 1{tbl} QD Take [address] n 1-21 11-25 tablet by [facility] - (THERAGRAN) 00:00: 00:00 mouth Medi denia tablet 00 :00 daily. [place] metoprolol 2018-07 2019- No 1{tbl} Take [address] (LOPRESSOR) 1-20 11-20 tablet by Yas kes - 50 MG 15:43: 00:00 mouth 2 Medical tablet 15 :00 (two) Center times daily with breakfast and dinner. omeprazole 2018-07- No 1{capsu QD Take [address] (PRILOSEC) 1-20 11-20 le} capsule by Yas kes - 40 MG 15:43: 00:00 mouth Medical capsule 15 :00 daily. Center losartan 2018-07 2019- No 1{tbl} QD Take [address] [facility] (COZAAR) 50 -28 05-20 tablet by Yas kes - MG tablet 15:43: 00:00 mouth Medica l 14 :00 daily. [place] acetaminoph 2018-07- No 500mg Take [address] en 07-28 tablet [facility] - (TYLENOL) 00:00: 00:00 (500 mg Medi denia 500 MG 00 :00 total) by Center tablet mouth every 6 (six) hours as needed for up to 10 days. atorvastati 2018-07- No 80mg QD Take [address] [facility] n (LIPITOR) 07-28 tablet (80 L ukes - 80 MG 00:00: 00:00 mg total) Medica l tablet 00 :00 by mouth Center nightly. cyanocobala 2018-07- No 1000ug QD Take [address] min, 07-28 tablet [facility] - vitamin 00:00: 00:00 (1,000 mcg Med ical B-12, 1000 00 :00 total) by Cent er MCG tablet mouth daily. famotidine 2018-07- No 20mg Take [address] [facility] [address] (PEPCID) 20 07-28-25 tablet (20 L ukes - MG tablet 00:00: 00:00 mg total) Me dical 00 :00 by mouth Center every 12 (twelve) hours. insulin 2018-07- No 0U Inject 0-[address] lispro 1-20 -25 Units [facility] - (HUMALOG) 00:00: 00:00 subcutaneo M edical 100 unit/mL 00 :00 usly every Ce nter injection night as needed (High blood sugar). insulin 2018-07- No 0U Inject 0-[address] lispro 1-20 11-25 Units [facility] - (HUMALOG) 00:00: 00:00 subcutaneo M edical 100 unit/mL 00 :00 usly as Cente r injection needed (High blood sugar). senna-docus 2018-07- No 1{tbl} QD Take [address] ate 07-28-25 tablet by [facility] - (SENOKOT S) 00:00: 00:00 mouth Medi denia 8.6-50 mg 00 :00 nightly. Center per tablet metoprolol 2018-07- No 12.5mg Q.5D Take 0.[address] (LOPRESSOR) 07-28-25 tablets Luke s - 25 MG 00:00: 00:00 (12.5 mg Medical tablet 00 :00 total) by Center mouth 2 (two) times daily. cephalexin 2018-07- No 500mg [id number] Take [address] [facility] [address] (KEFLEX) 07-28 [id number] capsule L ukes - 500 MG 00:00: 00:00 3D (500 mg Medical capsule 00 :00 total) by Center mouth 3 (three) times daily for 5 days. linaGLIPtin 2018-07 Yes 1{tbl} QD Take [address] (TRADJENTA) 1-12 tablet by Kimi es - 5 mg Tab 00:00: mouth Medical 00 daily. Center Metoprolol Metoprolol Yes Olvin Take 0.[address] [facility] [address] Tartrate Tartrate [place] (12.5 mg) L ukes - tablet Memoria with food l Outpati ent Clinics Lisinopril Lisinopril Yes Olvin [address] [facility] Clinics Tradjenta Tradjenta Yes Olvin [address] [facility] Omeprazole Omeprazole Yes Olvin [address] [facility] Clin[facility] Aspir-Low Aspir-Low Yes Olvin [address] [facility] Clinics Cozaar Cozaar Yes Olvin TAKE ONE [facility] [place] TABLET BY [facility] - MOUTH Memoria DAILY l Outpati ent Clinics Montelukast Montelukast Yes Olvin [address] [facility] Sodium Sodium [facility] Atorvastati Atorvastati Yes Olvin [address] [facility] [facility] n Calcium n Calcium [place] [facility] - [facility] Cyanocobala Cyanocobala Yes Olvin [address] [facility] min min [facility] Vital Signs Vital Name Observation Time Observation Value Comments Source Systolic blood 2019-06-02 12:00:00 128 mm[Hg] [facility] Diastolic blood 2019-06-02 12:00:00 60 mm[Hg] [facility] Heart rate 2019-06-02 12:00:00 70 /min [facility] Body temperature 2019-06-02 12:00:00 36.44 Radha [facility] Respiratory rate 2019-06-02 12:00:00 18 /min [facility] Oxygen saturation in 2019-06-02 12:00:00 96 /min [facility] Arterial blood by Medical Ce nter Pulse oximetry Body height 2019-05-22 02:17:00 152.4 cm [facility] Body weight Measured 2019-05-22 02:17:00 79.3 kg [facility] BMI 2019-05-22 02:17:00 34.14 kg/m2 [facility] Procedures Procedure Date / Time Performing Clinician Source Performed REPORT OF PROCEDURE - 2019-06-03 15:02:27 Provider, Default [facility] ARRYTHMIA IMPLANT REPORT 2019-06-03 15:02:25 Provider, Default [facility] RHYTHM STRIP - SCAN 2019-06-03 15:02:11 Provider, Default [facility] POCT-GLUCOSE METER 2019-06-02 11:24:00 Anahi [facility] POCT-GLUCOSE METER 2019-06-02 07:30:00 Anahi [facility] POCT-GLUCOSE METER 2019-06-01 17:31:00 Negrito [facility] POCT-GLUCOSE METER 2019-06-01 11:40:00 Anahi [facility] POCT-GLUCOSE METER 2019-06-01 08:47:00 Anahi [facility] POCT-GLUCOSE METER 2019-05-31 21:09:00 Anahi [facility] POCT-GLUCOSE METER 2019-05-31 11:58:00 [facility]ahi [facility] POCT-GLUCOSE METER 2019-05-31 07:06:00 [facility]ahi [facility] POCT-GLUCOSE METER 2019-05-30 21:09:00 Anahi [facility] POCT-GLUCOSE METER 2019-05-30 16:48:00 Anahi [facility] POCT-GLUCOSE METER 2019-05-30 12:07:00 Anahi [facility] POCT-GLUCOSE METER 2019-05-30 07:17:00 Anahi [facility] POCT-GLUCOSE METER 2019-05-29 21:36:00 Anahi [facility] POCT-GLUCOSE METER 2019-05-29 16:17:00 Anahi [facility] POCT-GLUCOSE METER 2019-05-29 11:04:00 Anahi [facility] POCT-GLUCOSE METER 2019-05-29 08:42:00 Anahi [facility] POCT-GLUCOSE METER 2019-05-28 20:54:00 Anahi [facility] POCT-GLUCOSE METER 2019-05-28 12:12:00 Anahi [facility] POCT-GLUCOSE METER 2019-05-28 08:02:00 Anahi [facility] BASIC METABOLIC PANEL (7) 2019-05-28 05:02:00 Alonso Chen [facility] POCT-GLUCOSE METER 2019-05-27 21:56[facility] - 2019-05-27 21:14:00 Adri Aguillon [facility] POCT-GLUCOSE METER 2019-05-27 11:22:00 Anahi [facility] POCT-GLUCOSE METER 2019-05-27 07:29:00 Negrito [facility] POCT-GLUCOSE METER 2019-05-27 00:37:00 Anahi [facility] POCT-GLUCOSE METER 2019-05-26 11:44:00 Anahi [facility] 2D ECHO W/ DOPPLER 2019-05-26 08:10:29 Bogdan Wallace [facility] (CW/PW/COLOR) [facility] BASIC METABOLIC PANEL (7) 2019-05-26 04:43:00 Alonso Chen [facility] MAGNESIUM 2019-05-26 04:43:00 [facility] 2019-05-25 22:34:00 [facility] 2019-05-25 12:08:00 Gustavo [facility] URINE CULTURE 2019-05-25 11:25:00 Gustavo James [facility] URINALYSIS W/ REFLEX 2019-05-25 11:25:00 James Chen [facility] URINE CULTURE [facility] POCT-GLUCOSE METER 2019-05-25 07:35:00 James Chen [facility] POCT-GLUCOSE METER 2019-05-24 20:44:00 James Chen [facility] POCT-GLUCOSE METER 2019-05-24 16:46:00 James Chen [facility] POCT-GLUCOSE METER 2019-05-24 11:54:00 Gustavo [facility] BASIC METABOLIC PANEL (7) 2019-05-24 05:26:00 Bhavesh Kumar [facility] MAGNESIUM 2019-05-24 05:26:00 Bhavesh Kumar [facility] PHOSPHORUS 2019-05-24 05:26:00 Bhavesh Kumar [facility] CBC (HEMOGRAM ONLY) 2019-05-24 05:26:00 Kiersten Boo [facility] POCT-GLUCOSE METER 2019-05-23 21:01:00 James Chen [facility] POCT-GLUCOSE METER 2019-05-23 16:35:00 Gladys Murillo [facility] Ce nter POCT-GLUCOSE METER 2019-05-23 11:37:00 Gladys Murillo, [facility] Ce nter CONT WAVE PULSED DOPPLER 2019-05-23 10:26:14 Skylar Chen ra [facility] ECG 12-LEAD 2019-05-23 08:24:09 Unknown, Hl7 Doctor [facility] ECG 12-LEAD 2019-05-23 08:23:50 Unknown, Hl7 Doctor [facility] POCT-GLUCOSE METER 2019-05-23 07:00:00 Gladys Murillo [facility] Ce nter BASIC METABOLIC PANEL (7) 2019-05-23 04:09:00 Bhavesh Kumar [facility] MAGNESIUM 2019-05-23 04:09:00 Bhavesh Kumar [facility] PHOSPHORUS 2019-05-23 04:09:00 Bhavesh Kumar [facility] CBC (HEMOGRAM ONLY) 2019-05-23 04:09:00 [facility] 2019-05-23 00:09:00 Gladys Murillo [facility] Ce nter POCT-GLUCOSE METER 2019-05-22 22:06:00 Gladys Murillo, [facility] Ce nter MRA NECK WITHOUT IV 2019-05-22 17:30:00 Bhavesh Kumar [facility] MR BRAIN WITHOUT IV 2019-05-22 17:30:00 Bhavesh Kumar [facility] MRA HEAD WITHOUT IV 2019-05-22 17:30:00 Bhavesh Kumar [facility] CBC W/PLT COUNT & AUTO 2019-05-22 09:17:00 Gladys Murillo [facility] Medical Ce nter POCT-GLUCOSE METER 2019-05-22 08:41:00 Gladys Murillo [facility] Medical Ce nter POCT-GLUCOSE METER 2019-05-22 05:41:00 Gladys Murillo, [facility] Ce nter BASIC METABOLIC PANEL (7) 2019-05-22 04:00:00 Bhavseh Kumar [facility] MAGNESIUM 2019-05-22 04:00:00 Bhavesh Kumar [facility] PHOSPHORUS 2019-05-22 04:00:00 Bhavesh Kumar [facility] VITAMIN B12 AND FOLATE 2019-05-22 04:00:00 Bhavesh Kumar [facility] TSH/FREE T4 IF INDICATED 2019-05-22 04:00:00 Bhavesh Kumar [facility] RPR 2019-05-22 04:00:00 Bhavesh Kumar [facility] LIPID PANEL 2019-05-22 04:00:00 Bhavesh Kumar [facility] HEMOGLOBIN A1C 2019-05-22 04:00:00 Bhavesh Kumar [facility] Encounters Start End Encounter Admission Attending Care Care Encounter Source Date/Time Date/Time Type Type Clinicians Facility Department ID 2019-11-13 2019-11-13 Outpatient Jelena Bowlest [id number] [facility] 13:00:00 13:00:00 [facility] Medicine Outpati ent [facility] 2019-11-13 2019-11-13 Outpatient [facility] [id number] 13:00:00 13:00:00 [facility] l Medicine Outpati ent Clinics 2019-10-28 2019-10-28 [facility] [id number] 08:56:00 08:56:00 t [place] [address] [place] [address] - Drive [facility] Medicine l Medicine Outpati ent Clinics 2019-09-02 2019-09-02 [facility] [id number] 08:29:00 08:29:00 t [place] - Drive [facility] Medicine l Medicine Outpati ent Clinics 2019-08-14 2019-08-14 [facility] [id number] 10:30:00 10:30:00 t [place] - Drive [facility] Medicine Outpati ent Clinics 2019-07-16 2019-07-16 [facility] [id number] 16:55:00 16:55:00 t [place] [employer] s - Drive [facility] l Medicine Outpati ent Clinics 2019-06-25 2019-06-25 [facility] [id number] 16:24:00 16:24:00 t [place] [employer] s - Drive [facility] Medicine Medicine Outpati ent Clinics 2019-06-24 2019-06-24 [facility] [id number] 13:00:00 13:00:00 t [place] [employer] s - Drive [facility] Medicine Outpati ent Clinics 2019-06-04 2019-06-04 [facility] [id number] 10:43:00 10:43:00 t [place] [employer] s - Drive [facility] l Medicine Outpati ent Clinics 2019-05-20 2019-05-20 [facility] [id number] 10:42:00 10:42:00 t [place] [employer] s - Drive [facility] Medicine Outpati ent Clinics 2019-04-30 2019-04-30 [facility] [id number] 10:45:00 10:45:00 t [place] [employer] s - Drive [facility] l Medicine Outpati ent Clinics 2019-04-24 2019-04-24 [facility] [id number] 09:01:00 09:01:00 t [place] [employer] s Float: [place] [facility] Medicine Outpati ent Clinics 2019-04-15 2019-04-15 [facility] [id number] 15:00:00 15:00:00 t [employer] - [place] [facility] Medicine Outpati ent Clinics 2019-04-11 2019-04-11 [facility] [id number] 11:12:00 11:12:00 t [employer] [place] [facility] Medicine Outpati ent Clinics 2019-01-14 2019-01-14 [facility] [id number] 13:30:00 13:30:00 t [employer] [place] [facility] Medicine Outpati ent Clinics 2018-09-17 2018-09-17 [facility] [id number] 10:57:00 10:57:00 t [employer] [facility] Medicine Outpati ent Clinics 2018-07-18 2018-07-18 [facility] [id number] 13:30:00 13:30:00 t Skyeng [facility] Medicine Outpati ent Clinics 2018-03-06 2018-03-06 [facility] [id number] 15:31:00 15:31:00 t Skyeng [facility] Medicine Outpati ent Clinics 2017-12-31 2017-12-31 [facility] [id number] 13:30:00 13:30:00 t Skyeng [facility] Medicine Outpati ent Clinics Results Test Description Test Time Test Comments Results Result Comments Source POC-Glucose meter 2019-06-02 11:36:00 Test Item Value Reference Range Interpretation Comme [facility] POC-Glucose Meter (test code = 113 mg/dL 70-110 H : TESTED AT [facility] [address] [place] [place] [address]) [place] [address] 30: Ostomy Care Nurse/Techni tasia ID = [id number] for HAILE OCHOA Lab Interpretation (test code = Abnormal 87348-3) [facility] [id number] 11:36:00 Test Item Value Reference Range Interpretation Comments POC-GLUCOSE METER 113 mg/dL 70-110 H : TESTED A T [facility] 6720 (BEAKER) (test code = [facility], [facility]8) [address]: Ostomy Care Nurse/Techni tasia ID = [id number] for TR AN, HAILE POCT-GLUCOSE [id number] 07:42:00 Test Item Value Reference Range Interpretation Comments POC-GLUCOSE METER 110 mg/dL 70-110 : TESTED A T [facility] 6720 (BEAKER) (test code = [facility], [facility]8) [address]: Ostomy Care Nurse/Techni tasia ID = [id number] for Sm ith, Valeria POCT-GLUCOSE [id number] 17:42:00 Test Item Value Reference Range Interpretation Comments POC-GLUCOSE METER 130 mg/dL 70-110 H : TESTED A T [facility] 6720 (BEAKER) (test code = [facility], [facility]8) [address]74: Ostomy Care Nurse/Techni tasia ID = [id number] for PA TEL, DENNIS POCT-GLUCOSE [id number] 11:57:00 Test Item Value Reference Range Interpretation Comments POC-GLUCOSE METER 109 mg/dL 70-110 : TESTED A T [facility] 6720 (BEAKER) (test code = [facility], [facility]8) 92102: Ostomy Care Nurse/Techni tasia ID = [id number] for Sm ith, Valeria POCT-GLUCOSE [id number] 08:58:00 Test Item Value Reference Range Interpretation Comments POC-GLUCOSE METER 145 mg/dL 70-110 H : TESTED A T [facility] 6720 (BEAKER) (test code = [facility], [facility]8) 54738: Ostomy Care Nurse/Techni tasia ID = [id number] for Sm ith, Valeria POCT-GLUCOSE [id number] 21:21:00 Test Item Value Reference Range Interpretation Comments POC-GLUCOSE METER 108 mg/dL 70-110 : TESTED A T [facility] 6720 (BEAKER) (test code = [facility], [facility]) 81102: Ostomy Care Nurse/Techni tasia ID = [id number] for Den nis, Maia POCT-GLUCOSE [id number] 12:10:00 Test Item Value Reference Range Interpretation Comments POC-GLUCOSE METER 111 mg/dL 70-110 H : TESTED A T [facility] 6720 (BEAKER) (test code = [facility], 1538) 49097: Ostomy Care Nurse/Techni tasia ID = [id number] for AK INSONU, BRENDA POCT-GLUCOSE [id number] 07:45:00 Test Item Value Reference Range Interpretation Comments POC-GLUCOSE METER 128 mg/dL 70-110 H : TESTED A T [facility] 6720 (BEAKER) (test code = [facility], 1538) 81772: Ostomy Care Nurse/Techni tasia ID = [id number] for AK INSONU, BRENDA POCT-GLUCOSE [id number] 21:21:00 Test Item Value Reference Range Interpretation Comments POC-GLUCOSE METER 119 mg/dL 70-110 H : TESTED A T [facility] 6720 (BEAKER) (test code = [facility], 1538) 54120: Ostomy Care Nurse/Techni tasia ID = [id number] for Buster nson, [place] POCT-GLUCOSE [id number] 17:00:00 Test Item Value Reference Range Interpretation Comments POC-GLUCOSE METER 104 mg/dL 70-110 : TESTED A T [facility] 6720 (BEAKER) (test code [facility], = 1538) 84646: Ostomy Care Nurse/Techni tasia ID = [id number] for Tseg gai, Tsighereda POCT-GLUCOSE [id number] 12:28:00 Test Item Value Reference Range Interpretation Comments POC-GLUCOSE METER 114 mg/dL 70-110 H : TESTED A T [facility] 6720 (BEAKER) (test code [facility], = 1538) 21824: Ostomy Care Nurse/Techni tasia ID = [id number] for Tseg gai, Tsighereda POCT-GLUCOSE [id number] 07:29:00 Test Item Value Reference Range Interpretation Comments POC-GLUCOSE METER 120 mg/dL 70-110 H : TESTED A T [facility] 6720 (BEAKER) (test code [facility], = 1538) 62317: Ostomy Care Nurse/Techni tasia ID = [id number] for Tseg gai, Tsighereda POCT-GLUCOSE [id number] 21:47:00 Test Item Value Reference Range Interpretation Comments POC-GLUCOSE METER 156 mg/dL 70-110 H : TESTED A T [facility] 6720 (BEAKER) (test code = [facility], 1538) 55159: Ostomy Care Nurse/Techni tasia ID = [id number] for Buster curiel, [place] POCT-GLUCOSE [id number] 16:30:00 Test Item Value Reference Range Interpretation Comments POC-GLUCOSE METER 120 mg/dL 70-110 H : TESTED A T [facility] 6720 (BEAKER) (test code [facility], = 1538) 93948: Ostomy Care Nurse/Techni tasia ID = [id number] for Tseg gai, Tsighereda POCT-GLUCOSE [id number] 11:29:00 Test Item Value Reference Range Interpretation Comments POC-GLUCOSE METER 118 mg/dL 70-110 H : TESTED A T [facility] 6720 (BEAKER) (test code = [facility], 153) 80563: Ostomy Care Nurse/Techni tasia ID = [id number] for HU NT, SHAWN POCT-GLUCOSE [id number] 08:53:00 Test Item Value Reference Range Interpretation Comments POC-GLUCOSE METER 145 mg/dL 70-110 H : TESTED A T [facility] 6720 (BEAKER) (test code = [facility], 1538) 29913: Ostomy Care Nurse/Techni tasia ID = [id number] for HU NT, SHAWN POCT-GLUCOSE [id number] 21:05:00 Test Item Value Reference Range Interpretation Comments POC-GLUCOSE METER 128 mg/dL 70-110 H : TESTED A T [facility] 6720 (BEAKER) (test code = [facility], 153) 12834: Ostomy Care Nurse/Techni tasia ID = [id number] for Buster curiel, [place] POCT-GLUCOSE [id number] 12:25:00 Test Item Value Reference Range Interpretation Comments POC-GLUCOSE METER 126 mg/dL 70-110 H : TESTED A T [facility] 6720 (BEAKER) (test code = [facility], 153) 49952: Ostomy Care Nurse/Techni tasia ID = [id number] for Sm ith, Valeria POCT-GLUCOSE [id number] 08:14:00 Test Item Value Reference Range Interpretation Comments POC-GLUCOSE METER 139 mg/dL 70-110 H : TESTED A T [facility] 6720 (BEAKER) (test code = [place], 1538) 28925: Ostomy Care Nurse/Techni tasia ID = [id number] for Valeria Song Basic metabolic [id number] 05:54:00 Test Item Value Reference Range Interpretation Comments Sodium (test code = 136 meq/L 825-466 5557-2) Potassium (test code = 4.4 meq/L 3.5-5.1 2823-3) Chloride (test code = 103 meq/L 98-107 2075-0) CO2 (test code = 25 meq/L 22-29 2028-9) BUN (test code = 33 mg/dL 7-21 H 3094-0) Creatinine (test code = 0.79 mg/dL 0.57-1.25 2160-0) Glucose (test code = 117 mg/dL 70-105 H 2345-7) Calcium (test code = 8.9 mg/dL 8.4-10.2 16845-2) EGFR (test code = 70 mL/min/1.73 [place] [address]-3) NOT ACCURATE CREATININE CLEARANCE IN PREDICTING GLOMERULAR FILTRATION RATE . ESTIMATED GFR I S NOT APPLICABLE FOR DIALYSIS PATIEN TS. Lab Interpretation Abnormal (test code = 14105-0) [facility] METABOLIC [id number] 05:54:00 Test Item Value Reference Range Interpretation Comments SODIUM (BEAKER) 136 meq/L 136-145 (test code = 381) POTASSIUM (BEAKER) 4.4 meq/L 3.5-5.1 (test code = 379) CHLORIDE (BEAKER) 103 meq/L 98-107 (test code = 382) CO2 (BEAKER) (test 25 meq/L 22-29 code = 355) BLOOD UREA NITROGEN 33 mg/dL 7-21 H (BEAKER) (test code = 354) CREATININE (BEAKER) 0.79 mg/dL 0.57-1.25 (test code = 358) GLUCOSE RANDOM 117 mg/dL 70-105 H (BEAKER) (test code = 652) CALCIUM (BEAKER) 8.9 mg/dL 8.4-10.2 (test code = 697) EGFR (BEAKER) (test 70 mL/min/1.73 ESTIMA GONZALES GFR IS code = 1092) sq m NOT ACCURATE CREATININE CLEARANCE IN PREDICTING GLOMERULAR FILTRATION RATE . ESTIMATED GFR I S NOT APPLICABLE FOR DIALYSIS PATIEN TS. POCT-GLUCOSE [id number] 22:08:00 Test Item Value Reference Range Interpretation Comments POC-GLUCOSE METER 129 mg/dL 70-110 H : TESTED A T [facility] 6720 (BEAKER) (test code = [facility], 1538) 81232: Ostomy Care Nurse/Techni tasia ID = [id number] for Adilson Weinstein POCT-GLUCOSE [id number] 11:36:00 Test Item Value Reference Range Interpretation Comments POC-GLUCOSE METER 107 mg/dL 70-110 : TESTED A T [facility] 6720 (BEAKER) (test code = [facility], 1538) 04685: Ostomy Care Nurse/Techni tasia ID = [id number] for Sm ith, Valeria POCT-GLUCOSE [id number] 07:40:00 Test Item Value Reference Range Interpretation Comments POC-GLUCOSE METER 114 mg/dL 70-110 H : TESTED A T [facility] 6720 (BEAKER) (test code = [facility], 1538) 14911: Ostomy Care Nurse/Techni tasia ID = [id number] for Sm ith, Valeria POCT-GLUCOSE [id number] 00:50:00 Test Item Value Reference Range Interpretation Comments POC-GLUCOSE METER 132 mg/dL 70-110 H : TESTED A T [facility] 6720 (BEAKER) (test code = [facility], 1538) 34587: Ostomy Care Nurse/Techni tasia ID = [id number] for BHAVESH FRANCO 2D Echo W/Doppler(CW/PW/Color)2019-05-26 21:51:45Ejection FractionSLEH ECHO HEARTLAB MKCKESSON CPACSInterface, External Ris In - 05/26/2019 9:52 PM C STTransthoracic Echocardiography Report (TTE) Demographics Patient Name CASSI SMALL Date of Study [facility]/26/2019 [id number] Female Visit Number [id number] Race Room Number 2214 Number Date of 1935 Referring Gladys Willis Physician Ernestina Age 83 year(s) Dental Billing Specialist Marjan Guzmán [facility] Electrician Front Delmy Victoria, Interpreting Kade Mora MD [facility] Physician Procedure Type of Study TTE procedure:2DECHO W DOPPLER(CW/PW/COLOR) (R outine) Indications:Suspected cardiac source of emboli.Clinical HistoryHGB 12.4HCT 38.8 %DM2, HTN, CAD, PCI, PAROXYSMAL ATRIAL TACHYCARDIAContrast Medium: Bubble Study.Height: 60 inches Weight: 78.93 kg (174 lbs) BSA: 1.76 m^2 BMI: 33.98 kg/m^2HR: 73 bpm BP: 122/67 mmHg Summary 1. [...] to estimate peak systolic PA pressure; inadequate TRvelocity signal. 3. Mild aortic regurgitation. 4. IV saline contrast injection was negative for a PFO (patent foramen ovale) at rest and post Valsalva. Previous Study No prior studies available for comparison. Signature Findings Technical Quality: Technically adequate exam. Left Ventricle The left ventricle is chamber size (by vol index) is small. No evidence of LV hypertrophy. All of the LV segments are hyperkinetic . Global LV systolic function hyperdynamic . Estimated LVEF by qualitative assessment is increased (>70%) . Grade 1 diastolic dysfunction (impaired relaxation and low-normal LA pressure). Left AtriumLA size is normal . LA is incompletely visualized, size based on linear measurement. Right Ventricle The right ventricular chamber size and systolic function are within normal limits. Right Atrium RA size is normal. Atrial Septum IV saline contrast injection was negative for a PFO (patent foramen ovale) at rest and post Valsalva . Aortic Valve Aortic annulus appears calc ified . Mild AoV cusp thickening. Mild aortic regurgitation. Mitral Valve Mild MV leaflet thickening. Trace mitral regurgitation. Tricuspid Valve TV structure is normal. A trace of tricuspid regurgitation. Unable to estimate peak systolic PA pressure; inadequate TR velocity signal. Pulmonic Valve Normal PV structure and function by limited views and Doppler. Aorta Aortic root size (SInus of Valsalva diameter) is normal . Pericardium No pericardial effusion is visualized. An echo lucent space is noted consistent with prominent pericardial fat pad. IVC/SVC/PA/PV/Pleural The estimated RA pressure [...] E/A Ratio: 0.53 Peak Gradient: 0.45 mmHg Deceleration Time: 193.6 msec MV Neil. Peak: Aortic Valve Peak Velocity: 1.06 m/s Mean Velocity: 0.75 m/s Peak Gradient: 4.5 mmHg Mean Gradient: 2.49 mmHg AV Area (continuity): 2.35 cm^2 AV VTI: 21.07 cm AV DVI: 0.87 LVOT Peak Velocity: 0.96 m/s Peak Gradient: 3.7 mmHg Mean Velocity: 0.59 m/s Mean Gradient: 1.59 mmHg LVOT Diameter: 1.86 cm LVOT VTI: 18.24 cm LVOT Area: 2.72 cm^2 LVOT SV:49.54 mlLVOT CO: 3.62 l/min LVOT CI: 2.06 l/min/m^2[facility] 2019-05-26 11:57:00 Test Item Value Reference Range Interpretation Comments POC-GLUCOSE METER 106 mg/dL 70-110 : TESTED A T [facility] 6720 (BEAKER) (test code = [facility] [place], 1538) 82692: Ostomy Care Nurse/Techni tasia ID = [id number] for Sm Valeria colin [id number] 06:58:00 Test Item Value Reference Range Interpretation Comments Magnesium (test code = 60253-8) 1.9 mg/dL 1.6-2.6 Lab Interpretation (test code = Normal 71184-3) [facility] 06:58:00 Test Item Value Reference Range Interpretation Comments MAGNESIUM (BEAKER) (test code = 1.9 mg/dL 1.6-2.6 627) BASIC METABOLIC [id number] 06:58:00 Test Item Value Reference Range Interpretation Comments SODIUM (BEAKER) 134 meq/L 136-145 L (test code = 381) POTASSIUM (BEAKER) 4.2 meq/L 3.5-5.1 (test code = 379) CHLORIDE (BEAKER) 101 meq/L 98-107 (test code = 382) CO2 (BEAKER) (test 23 meq/L 22-29 code = 355) BLOOD UREA NITROGEN 35 mg/dL 7-21 H (BEAKER) (test code = 354) CREATININE (BEAKER) 0.85 mg/dL 0.57-1.25 (test code = 358) GLUCOSE RANDOM 141 mg/dL 70-105 H (BEAKER) (test code = 652) CALCIUM (BEAKER) 9.4 mg/dL 8.4-10.2 (test code = 697) EGFR (BEAKER) (test 64 mL/min/1.73 ESTIMA GONZALES GFR IS code = 1092) sq m NOT ACCURATE CREATININE CLEARANCE IN PREDICTING GLOMERULAR FILTRATION RATE . ESTIMATED GFR I S NOT APPLICABLE FOR DIALYSIS PATIEN TS. POCT-GLUCOSE [id number] 22:46:00 Test Item Value Reference Range Interpretation Comments POC-GLUCOSE METER 111 mg/dL 70-110 H : TESTED A T [facility] 6720 (BEAKER) (test code = [facility] [place], 1538) 35127: Ostomy Care Nurse/Techni tasia ID = [id number] for Janina Mchugh POCT-GLUCOSE [id number] 12:19:00 Test Item Value Reference Range Interpretation Comments POC-GLUCOSE METER 137 mg/dL 70-110 H : TESTED A T [facility] 6720 (BEAKER) (test code = [facility], 1538) 92714: Ostomy Care Nurse/Techni tasia ID = [id number] for BR OWN, ITZ Urinalysis w/Microscopic + Reflex to [id number] 11:52:00 Test Item Value Reference Range Interpretation Comments Color, UA (test code = 5778-6) Yellow Clarity, UA (test code = 5767-9) Clear Specific [place], UA (test code = 1.015 1.001-1.035 5811-5) pH, UA (test code = 5803-2) 5.0 5.0-8.0 Protein, UA (test code = 42152-8) Negative Negative Glucose, UA (test code = 365) Negative Negative Ketones, UA (test code = 2514-8) Negative Negative Bilirubin, UA (test code = 12908-3) Negative Negative Blood, UA (test code = 10355-2) Negative Negative Nitrite, UA (test code = 5802-4) Positive Negative A Leukocytes, UA (test code = 5799-2) Moderate Negative A Urobilinogen, UA (test code = 0.2 mg/dL 0.2-1 03391-3) RBC, UA (test code = 29825-2) 1 /HPF WBC, UA (test code = 5821-4) 14 /HPF Bacteria, UA (test code = 91384-5) Moderate Mucus (test code = 8247-9) Few Squam Epithel, UA (test code = 1 /HPF 83851-8) Hyaline Casts, UA (test code = 3 /LPF 58326-1) Specimen Source (test code = 2795) Lab Interpretation (test code = Abnormal 18048-8) [facility]LEX URINE [id number] 11:52:00 Test Item Value Reference Range Interpretation Comments COLOR (BEAKER) (test code = 470) Yellow CLARITY (BEAKER) (test code = 469) Clear SPECIFIC GRAVITY UA (BEAKER) (test 1.015 1.001-1.035 code = 468) PH UA (BEAKER) (test code = 467) 5.0 5.0-8.0 PROTEIN UA (BEAKER) (test code = Negative Negative 464) GLUCOSE UA (BEAKER) (test code = Negative Negative 365) KETONES UA (BEAKER) (test code = Negative Negative 371) BILIRUBIN UA (BEAKER) (test code = Negative Negative 462) BLOOD UA (BEAKER) (test code = 461) Negative Negative NITRITE UA (BEAKER) (test code = Positive Negative A 465) LEUKOCYTE ESTERASE UA (BEAKER) Moderate Negative A (test code = 466) UROBILINOGEN UA (BEAKER) (test code 0.2 mg/dL 0.2-1.0 = 463) RBC UA (BEAKER) (test code = 519) 1 /HPF WBC UA (BEAKER) (test code = 520) 14 /HPF BACTERIA (BEAKER) (test code = 517) Moderate MUCUS (BEAKER) (test code = 1574) Few SQUAMOUS EPITHELIAL (BEAKER) (test 1 /HPF code = 516) HYALINE CASTS (BEAKER) (test code = 3 /LPF 514) SOURCE(BEAKER) (test code = 2795) POCT-GLUCOSE [id number] 08:20:00 Test Item Value Reference Range Interpretation Comments POC-GLUCOSE METER 111 mg/dL 70-110 H : TESTED A T [facility] 6720 (BEAKER) (test code = [facility] [employer] [facility], 153) 66159: Ostomy Care Nurse/Techni tasia ID = [id number] for ITZ MATOS POCT-GLUCOSE [id number] 20:56:00 Test Item Value Reference Range Interpretation Comments POC-GLUCOSE METER 117 mg/dL 70-110 H : TESTED A T [facility] 6720 (BEAKER) (test code = [facility] [employer] [facility], 1538) 95533: Ostomy Care Nurse/Techni taisa ID = [id number] for WYATT MONICA MOREL POCT-GLUCOSE [id number] 16:58:00 Test Item Value Reference Range Interpretation Comments POC-GLUCOSE METER 108 mg/dL 70-110 : TESTED A T [facility] 6720 (BEAKER) (test code = [facility] Joanna [facility], 1538) 31738: Ostomy Care Nurse/Techni tasia ID = [id number] for BRENDA RIVERA POCT-GLUCOSE [id number] 12:05:00 Test Item Value Reference Range Interpretation Comments POC-GLUCOSE METER 107 mg/dL 70-110 : TESTED A T [facility] 6720 (BEAKER) (test code = [facility], 1538) 48010: Ostomy Care Nurse/Techni tasia ID = [id number] for BRENDA RIVERA CBC (Hemogram only)2019-05-24 08:25:00 Test Item Value Reference Range Interpretation Comments WBC (test code = 6690-2) 7.1 3.5- 10.5 K/L RBC (test code = 789-8) 3.75 3.93- 5.22 M/L L MCHC (test code = 786-4) 32.0 32.2- 35.5 GM/DL L Hematocrit (test code = 4544-3) 38.8 % 34.1-44.9 MCV (test code = 787-2) 103.5 fL 79.4-94.8 H MCH (test code = 785-6) 33.1 pg 25.6-32.2 H RDW (test code = 788-0) 12.6 % 11.7-14.4 Platelets (test code = 777-3) 185 150- 450 K/CU MM MPV (test code = 14155-5) 12.1 fL 9.4-12.3 nRBC (test code = 413) 0 0- 0 /100 WBC Lab Interpretation (test code = Abnormal 31866-0) [facility]2019-05-24 08:25:00 Test Item Value Reference Range Interpretation Comments WHITE BLOOD CELL COUNT (BEAKER) 7.1 K/ L 3.5-10.5 (test code = 775) RED BLOOD CELL COUNT (BEAKER) 3.75 M/ L 3.93-5.22 L (test code = 761) HEMOGLOBIN (BEAKER) (test code = 12.4 GM/DL 11.2-15.7 410) HEMATOCRIT (BEAKER) (test code = 38.8 % 34.1-44.9 411) MEAN CORPUSCULAR VOLUME (BEAKER) 103.5 fL 79.4-94.8 H (test code = 753) MEAN CORPUSCULAR HEMOGLOBIN 33.1 pg 25.6-32.2 H (BEAKER) (test code = 751) MEAN CORPUSCULAR HEMOGLOBIN CONC 32.0 GM/DL 32.2-35.5 L (BEAKER) (test code = 752) RED CELL DISTRIBUTION WIDTH 12.6 % 11.7-14.4 (BEAKER) (test code = 412) PLATELET COUNT (BEAKER) (test 185 K/CU MM 150-450 code = 756) MEAN PLATELET VOLUME (BEAKER) 12.1 fL 9.4-12.3 (test code = 754) NUCLEATED RED BLOOD CELLS 0 /100 WBC 0-0 (BEAKER) (test code = 413) [id number] 07:32:00 Test Item Value Reference Range Interpretation Comments Phosphorus (test code = 2777-1) 3.7 mg/dL 2.3-4.7 Lab Interpretation (test code = Normal 60474-2) [facility]PHOS[facility]US2019-11-16 07:32:00 Test Item Value Reference Range Interpretation Comments PHOSPHORUS (BEAKER) (test code = 3.7 mg/dL 2.3-4.7 604) [id number] 07:32:00 Test Item Value Reference Range Interpretation Comments MAGNESIUM (BEAKER) (test code = 1.9 mg/dL 1.6-2.6 627) BASIC METABOLIC [id number] 07:32:00 Test Item Value Reference Range Interpretation Comments SODIUM (BEAKER) 137 meq/L 136-145 (test code = 381) POTASSIUM (BEAKER) 4.1 meq/L 3.5-5.1 (test code = 379) CHLORIDE (BEAKER) 105 meq/L 98-107 (test code = 382) CO2 (BEAKER) (test 24 meq/L 22-29 code = 355) BLOOD UREA NITROGEN 24 mg/dL 7-21 H (BEAKER) (test code = 354) CREATININE (BEAKER) 0.74 mg/dL 0.57-1.25 (test code = 358) GLUCOSE RANDOM 115 mg/dL 70-105 H (BEAKER) (test code = 652) CALCIUM (BEAKER) 8.9 mg/dL 8.4-10.2 (test code = 697) EGFR (BEAKER) (test 75 mL/min/1.73 ESTIMA GONZALES GFR IS code = 1092) sq m NOT ACCURATE CREATININE CLEARANCE IN PREDICTING GLOMERULAR FILTRATION RATE . ESTIMATED GFR I S NOT APPLICABLE FOR DIALYSIS PATIEN DUNG. POCT-GLUCOSE [id number] 21:12:00 Test Item Value Reference Range Interpretation Comments POC-GLUCOSE METER 142 mg/dL 70-110 H : TESTED A T [facility] 6720 (RED) (test code = [facility] [employer] [facility], 1538) 62493: Ostomy Care Nurse/Techni tasia ID = [id number] for NEGRITA DOWLING POCT-GLUCOSE [id number] 16:54:00 Test Item Value Reference Range Interpretation Comments POC-GLUCOSE METER 115 mg/dL 70-110 H : TESTED A T [facility] 6720 ([employer]) (test code = [facility] [employer] [facility], 1538) 01136: Ostomy Care Nurse/Techni tasia ID = [id number] for IRAM ISBELL ECG 12 [id number] 14:15:26Interface, External Ris In - 05/23/2019 2:15 PM CSTVentricular Rate 68 BPMAtrial Rate 68 BPMP-R Interval 112 msQRS Duration 78 msQ-T Interval 400 msQTC Calculation(Bazett) 426 msR [place] -16 degreesT [place] 18 degreesNormal sinus rhythmMinimal voltage criteria for LVH, may be normal variantBorderline ECGWhen compared with ECG of 23-MAY-2019 08:23,No significant change was foundConfirmed by Dominick RICO, CLAUDETTE ([id number]) on 05/23/2019 2:15:24 PM [facility]PO[facility] [id number] 11:58:00 Test Item Value Reference Range Interpretation Comments POC-GLUCOSE METER 128 mg/dL 70-110 H : TESTED A T [facility] 6720 ([employer]) (test code = [facility] [employer] [facility], 1538) 92732: Ostomy Care Nurse/Techni tasia ID = [id number] for APOLLO CASTANEDA POCT-GLUCOSE [id number] 07:13:00 Test Item Value Reference Range Interpretation Comments POC-GLUCOSE METER 131 mg/dL 70-110 H : TESTED A T [facility] 6720 (BEAKER) (test code = [place], 1538) 13980: Ostomy Care Nurse/Techni tasia ID = [id number] for MORE JOHANSEN [id number] 05:21:00 Test Item Value Reference Range Interpretation Comments PHOSPHORUS (BEAKER) (test code = 3.5 mg/dL 2.3-4.7 604) [id number] 05:21:00 Test Item Value Reference Range Interpretation Comments MAGNESIUM (BEAKER) (test code = 1.9 mg/dL 1.6-2.6 627) BASIC METABOLIC [id number] 05:21:00 Test Item Value Reference Range Interpretation Comments SODIUM (BEAKER) 136 meq/L 136-145 (test code = 381) POTASSIUM (BEAKER) 4.3 meq/L 3.5-5.1 (test code = 379) CHLORIDE (BEAKER) 105 meq/L 98-107 (test code = 382) CO2 (BEAKER) (test 23 meq/L 22-29 code = 355) BLOOD UREA NITROGEN 24 mg/dL 7-21 H (BEAKER) (test code = 354) CREATININE (BEAKER) 0.78 mg/dL 0.57-1.25 (test code = 358) GLUCOSE RANDOM 124 mg/dL 70-105 H (BEAKER) (test code = 652) CALCIUM (BEAKER) 9.3 mg/dL 8.4-10.2 (test code = 697) EGFR (BEAKER) (test 71 mL/min/1.73 ESTIMA GONZALES GFR IS code = 1092) sq m NOT ACCURATE CREATININE CLEARANCE IN PREDICTING GLOMERULAR FILTRATION RATE . ESTIMATED GFR I S NOT APPLICABLE FOR DIALYSIS PATIEN TS. CBC (HEMOGRAM ONLY)2019-05-23 04:41:00 Test Item Value Reference Range Interpretation Comments WHITE BLOOD CELL COUNT (BEAKER) 6.9 K/ L 3.5-10.5 (test code = 775) RED BLOOD CELL COUNT (BEAKER) 3.73 M/ L 3.93-5.22 L (test code = 761) HEMOGLOBIN (BEAKER) (test code = 12.4 GM/DL 11.2-15.7 410) HEMATOCRIT (BEAKER) (test code = 38.1 % 34.1-44.9 411) MEAN CORPUSCULAR VOLUME (BEAKER) 102.1 fL 79.4-94.8 H (test code = 753) MEAN CORPUSCULAR HEMOGLOBIN 33.2 pg 25.6-32.2 H (BEAKER) (test code = 751) MEAN CORPUSCULAR HEMOGLOBIN CONC 32.5 GM/DL 32.2-35.5 (BEAKER) (test code = 752) RED CELL DISTRIBUTION WIDTH 12.5 % 11.7-14.4 (BEAKER) (test code = 412) PLATELET COUNT (BEAKER) (test 170 K/CU MM 150-450 code = 756) MEAN PLATELET VOLUME (BEAKER) 11.5 fL 9.4-12.3 (test code = 754) NUCLEATED RED BLOOD CELLS 0 /100 WBC 0-0 (BEAKER) (test code = 413) POCT-GLUCOSE [id number] 00:20:00 Test Item Value Reference Range Interpretation Comments POC-GLUCOSE METER 152 mg/dL 70-110 H : TESTED A T [facility] 6720 (BEAKER) (test code = [facility], 1538) 70330: Ostomy Care Nurse/Techni tasia ID = [id number] for MORE JOHANSEN POCT-GLUCOSE [id number] 22:26:00 Test Item Value Reference Range Interpretation Comments POC-GLUCOSE METER 153 mg/dL 70-110 H : TESTED A T [facility] 6720 (BEAKER) (test code = [facility] [employer] [facility], 1538) 72680: Ostomy Care Nurse/Techni tasia ID = [id number] for ELVIRA SANDOVAL IN MR, MRA, NECK, WITHOUT IV [id number] 18:01:00Reason for exam:->stroke FINAL REPORT MR, BRAIN, WITHOUT CONTRAST, MR, MRA, NECK, WITHOUT IV CONTRAST,MR, MRA, BRAIN, WITHOUT CONTRAST INDICATION: Stroke, follow up TECHNIQUE: Multiplanar, multisequenceMR imaging of the brain without intravenous contrast.MRA of the head utilizing 3-D engs-xj-csdyjx technique, with 3-D reconstructions.MRA of the neck utilizing 2-D and 3-D phue-fo-pkwteb technique, with 3-D reconstructions. COMPARISON: None FINDINGS: MRI Brain:Intracranial: Multifocal punctate areas of restricted diffusion within the right parietal lobe and posterior right frontal lobe, and right posterior limb internal capsule, and rarely in a posterior border zone distribution. No acute intracranial hemorrhage. Chronic punctate microhemorrhages within the bilateral thalami. Remote right cerebellar hemisphere infarct. Extensive foci of T2 prolongation within the periventricular and subcortical white matter are a nonspecific finding commonly attributed to chronic small vessel ischemic disease. No mass effect. No hydrocephalus. Sinuses: Small mucous retention cyst in the right maxillary sinus.Left mastoid effusion. Orbits: Globes are intact. Calvarium \T\ scalp: Unremarkable. MRA Head:No intracranial arterial occlusion or high-grade focal stenosis. Fusiform dilatation of the right ICA terminus in the region of the P-comm origin, measuring up to 7 mm. MRA Neck:The carotid arteries in the neck are patent including their bifurcations. There is antegrade flow in the vertebral arteries in the neck. 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 Signed: Edgard Wadsworth MDReport Verified Date/Time: 05/22/2019 18:01:25 MR, BRAIN, WITHOUT [id number] 18:01:00FINAL REPORT MR, BRAIN, WITHOUT CONTRAST, MR, MRA, NECK, WITHOUT IV CONTRAST,MR, MRA, BRAIN, WITHOUT CONTRAST INDICATION: Stroke, follow up TECHNIQUE: Multiplanar, multisequenceMR imaging of the brain without intravenous contrast.MRA of the head utilizing 3-D vdon-cl-zokimj technique, with 3-D reconstructions.MRA of the neck utilizing 2-D and 3-D [id number]-jl-hkistc technique, with 3-D reconstructions. COMPARISON: None FINDINGS: MRI Brain:Intracranial: Multifocal punctate areas of restricted diffusion within the right parietal lobe and posterior right frontal lobe, and right posterior limb internal capsule, and rarely in a posterior border zone distribution. No acute intracranial hemorrhage. Chronic punctate microhemorrhages within the bilateral thalami. Remote right cerebellar hemisphere infarct. Extensive foci of T2 prolongation within the periventricular and subcortical white matter are a nonspecific finding commonly attributed to chronic small vessel ischemic disease. No mass effect. No hydrocephalus. Sinuses: Small mucous retention cyst in the right maxillary sinus.Left mastoid effusion. Orbits: Globes are intact. Calvarium \T\ scalp: Unremarkable. MRA Head:No intracranial arterial occlusion or high-grade focal stenosis. Fusiform dilatation of the right ICA terminus in the region of the P-comm origin, measuring up to 7 mm. MRA Neck:The carotid arteries in the neck are patent including their bifurcations. There is antegrade flow in the vertebral arteries in the neck. 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 Signed: Edgard Wadsworthepmerissa Verified Date/Time: 05/22/2019 18:01:25 MR, MRA, BRAIN, WITHOUT [id number] 18:01:00Reason for exam:->strokeFINAL REPORT MR, BRAIN, WITHOUT CONTRAST, MR, MRA, NECK, WITHOUT IV CONTRAST,MR, MRA, BRAIN, WITHOUT CONTRAST INDICATION: Stroke, follow up TECHNIQUE: Multiplanar, multisequenceMR imaging of the brain without intravenous contrast.MRA of the head utilizing 3-D iiak-sq-mqevep myles hnique, with 3-D reconstructions.MRA of the neck utilizing 2-D and 3-D stmz-xv-hirwjb technique, with 3-D reconstructions. COMPARISON: None FINDINGS: MRI Brain:Intracranial: Multifocal punctate areas of restricted diffusion within the right parietal lobe and posterior right frontal lobe, and right posterior limb internal capsule, and rarely in a posterior border zone distribution. No acute intracranial hemorrhage. Chronic punctate microhemorrhages within the bilateral thalami. Remote right cerebellar hemisphere infarct. Extensive foci of T2 prolongation within the periventricular and subcortical white matter are a nonspecific finding commonly attributed to chronic small vessel ischemic disease. No mass effect. No hydrocephalus. Sinuses: Small mucous retention cyst in the right maxillary sinus.Left mastoid effusion. Orbits: Globes are intact. Calvarium \T\ scalp: Unremarkable. MRA Head:No intracranial arterial occlusion or high-grade focal stenosis. Fusiform dilatation of the right ICA terminus in the region of the P-comm origin, measuring up to 7 mm. MRA Neck:The carotid arteries in the neck are patent including their bifurcations. There is antegrade flow in the vertebral arteries in the neck. 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 Signed: Edgard Wadsworth MDReport Verified Date/Time: 05/22/2019 18:01:25 MRA head without IV [id number] 18:01:00Interface, External Ris In - 05/22/2019 6:03 PM CSTFINAL REPORT MR, BRAIN, WITHOUT CONTRAST, MR, MRA, NECK, WITHOUT IV CONTRAST, MR, MRA, BRAIN, WITHOUT CONTRAST INDICATION: Stroke, follow up TECHNIQUE: Multiplanar, multisequence MR imaging of the brain without intravenous contrast.MRA of the head utilizing 3-D yqek-ko-kaqzyg technique, with 3-D reconstructions.MRA of the neckutilizing 2-D and 3-D zupx-tb-orfxwo technique, with 3-D reconstructions. COMPARISON: None FINDINGS:MRI Brain:Intracranial: Multifocal punctate areas of restricted diffusion within the right parietal lobe and posterior right frontal lobe, and right posterior limb internal capsule, and rarely in a posterior border zone distribution. No acute intracranial hemorrhage. Chronic punctate microhemorrhageswithin the bilateral thalami. Remote right cerebellar hemisphere infarct. Extensive foci of T2 prolongation within the periventricular and subcortical white matter are a nonspecific finding commonly attributed to chronic small vessel ischemic disease. No mass effect. No hydrocephalus. Sinuses: Smallmucous retention cyst in the right maxillary sinus. Left mastoid effusion. Orbits: Globes are intact. Calvarium \T\ scalp: Unremarkable. MRA Head:No intracranial arterial occlusion or high-grade focal stenosis. Fusiform dilatation of the right ICA terminus in the region of the P-comm origin, measuringup to 7 mm. MRA Neck:The carotid arteries in the neck are patent including their bifurcations. There is antegrade flow in the vertebral arteries in the neck. 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 Signed: Edgard Wadsworth MDReport Verified Date/Time: 05/22/2019 18:01:25 [facility] [id number] 18:01:00Interface, External Ris In - 05/22/2019 6:03 PM CSTFINAL REPORT MR, BRAIN, WITHOUT CONTRAST, MR, MRA, NECK, WITHOUT IV CONTRAST, MR, MRA, BRAIN, WITHOUT CONTRAST INDICATION: Stroke, follow up TECHNIQUE: Multiplanar, multisequence MR imaging of the brain without intravenous contr ast.MRA of the head utilizing 3-D wtlm-hb-biiidt technique, with 3-D reconstructions.MRA of the neckutilizing 2-D and 3-D lcbp-ey-kfvtze technique, with 3-D reconstructions. COMPARISON: None FINDINGS:MRI Brain:Intracranial: Multifocal punctate areas of restricted diffusion within the right parietal lobe and posterior right frontal lobe, and right posterior limb internal capsule, and rarely in a posterior border zone distribution. No acute intracranial hemorrhage. Chronic punctate microhemorrhageswithin the bilateral thalami. Remote right cerebellar hemisphere infarct. Extensive foci of T2 prolongation within the periventricular and subcortical white matter are a nonspecific finding commonly attributed to chronic small vessel ischemic disease. No mass effect. No hydrocephalus. Sinuses: Smallmucous retention cyst in the right maxillary sinus. Left mastoid effusion. Orbits: Globes are intact. Calvarium \T\ scalp: Unremarkable. MRA Head:No intracranial arterial occlusion or high-grade focal stenosis. Fusiform dilatation of the right ICA terminus in the region of the P-comm origin, measuringup to 7 mm. MRA Neck:The carotid arteries in the neck are patent including their bifurcations. There is antegrade flow in the vertebral arteries in the neck. 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 Signed: Edgard Wadsworth MDReport Verified Daryl e/Time: 05/22/2019 18:01:25 [facility]MR [facility] [id number] 18:01:00Interface, External Ris In - 05/22/2019 6:03 PM CSTFINAL REPORT MR, BRAIN, WITHOUT CONTRAST, MR, MRA, NECK, WITHOUT IV CONTRAST, MR, MRA, BRAIN, WITHOUT CONTRAST INDICATION: Stroke, follow up TECHNIQUE: Multiplanar, multisequence MR imaging of the brain without intravenous contrast.MRA of the head utilizing 3-D xiff-nx-srjpqs technique, with 3-D reconstructions.MRA of the neckutilizing 2-D and 3-D sius-vp-hrllkv technique, with 3-D reconstructions. COMPARISON: None FINDINGS:MRI Brain:Intracranial: Multifocal punctate areas of restricted diffusion within the right parietal lobe and posterior right frontal lobe, and right posterior limb internal capsule, and rarely in a posterior border zone distribution. No acute intracranial hemorrhage. Chronic punctate microhemorrhageswithin the bilateral thalami. Remote right cerebellar hemisphere infarct. Extensive foci of T2 prolon gation within the periventricular and subcortical white matter are a nonspecific finding commonly attributed to chronic small vessel ischemic disease. No mass effect. No hydrocephalus. Sinuses: Smallmucous retention cyst in the right maxillary sinus. Left mastoid effusion. Orbits: Globes are intact. Calvarium \T\ scalp: Unremarkable. MRA Head:No intracranial arterial occlusion or high-grade focal stenosis. Fusiform dilatation of the right ICA terminus in the region of the P-comm origin, measuringup to 7 mm. MRA Neck:The carotid arteries in the neck are patent including their bifurcations. There is antegrade flow in the vertebral arteries in the neck. 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 Signed: Edgard Wadsworth MDReport Verified Daryl e/Time: 05/22/2019 18:01:25 [facility] 11:28:00 Test Item Value Reference Range Interpretation Comments RPR (test code = 80454-7) Nonreactive Nonreactive Lab Interpretation (test code = Normal 63800-6) [facility]00 Test Item Value Reference Range Interpretation Comments RPR SCREEN (BEAKER) (test code = Nonreactive Nonreactive 420) Hemoglobin [id number] 10:42:00 Test Item Value Reference Range Interpretation Comments Hemoglobin A1C (test code = 4548-4) 5.5 % 4.3-6.1 Lab Interpretation (test code = Normal 63160-2) [facility] [id number] 10:42:00 Test Item Value Reference Range Interpretation Comments HEMOGLOBIN A1C (BEAKER) (test code = 5.5 % 4.3-6.1 368) CBC with platelet count + automated [id number] 09:27:00 Test Item Value Reference Range Interpretation Comments WBC (test code = 6690-2) 7.3 3.5- 10.5 K/L RBC (test code = 789-8) 3.76 3.93- 5.22 M/L L MCHC (test code = 786-4) 32.4 32.2- 35.5 GM/DL Hematocrit (test code = 4544-3) 38.0 % 34.1-44.9 MCV (test code = 787-2) 101.1 fL 79.4-94.8 H MCH (test code = 785-6) 32.7 pg 25.6-32.2 H RDW (test code = 788-0) 12.6 % 11.7-14.4 Platelets (test code = 777-3) 176 150- 450 K/CU MM MPV (test code = 56727-7) 11.6 fL 9.4-12.3 nRBC (test code = 413) 0 0- 0 /100 WBC % Neutros (test code = 429) 70 % % Lymphs (test code = 430) 22 % % Monos (test code = 431) 6 % % Eos (test code = 432) 2 % % Baso (test code = 437) 1 % # Neutros (test code = 670) 5.10 1.56- 6.13 K/L # Lymphs (test code = 414) 1.62 1.18- 3.74 K/L # Monos (test code = 415) 0.40 0.24- 0.36 K/L H # Eos (test code = 416) 0.12 0.04- 0.36 K/L # Baso (test code = 417) 0.05 0.01- 0.08 K/L Immature Granulocytes-Relative 0 % 0-1 (test code = 2801) Lab Interpretation (test code = Abnormal 16815-3) [facility] W/PLT COUNT & AUTO [id number] 09:27:00 Test Item Value Reference Range Interpretation Comments WHITE BLOOD CELL COUNT (BEAKER) 7.3 K/ L 3.5-10.5 (test code = 775) RED BLOOD CELL COUNT (BEAKER) 3.76 M/ L 3.93-5.22 L (test code = 761) HEMOGLOBIN (BEAKER) (test code = 12.3 GM/DL 11.2-15.7 410) HEMATOCRIT (BEAKER) (test code = 38.0 % 34.1-44.9 411) MEAN CORPUSCULAR VOLUME (BEAKER) 101.1 fL 79.4-94.8 H (test code = 753) MEAN CORPUSCULAR HEMOGLOBIN 32.7 pg 25.6-32.2 H (BEAKER) (test code = 751) MEAN CORPUSCULAR HEMOGLOBIN CONC 32.4 GM/DL 32.2-35.5 (BEAKER) (test code = 752) RED CELL DISTRIBUTION WIDTH 12.6 % 11.7-14.4 (BEAKER) (test code = 412) PLATELET COUNT (BEAKER) (test 176 K/CU MM 150-450 code = 756) MEAN PLATELET VOLUME (BEAKER) 11.6 fL 9.4-12.3 (test code = 754) NUCLEATED RED BLOOD CELLS 0 /100 WBC 0-0 (BEAKER) (test code = 413) NEUTROPHILS RELATIVE PERCENT 70 % (BEAKER) (test code = 429) LYMPHOCYTES RELATIVE PERCENT 22 % (BEAKER) (test code = 430) MONOCYTES RELATIVE PERCENT 6 % (BEAKER) (test code = 431) EOSINOPHILS RELATIVE PERCENT 2 % (BEAKER) (test code = 432) BASOPHILS RELATIVE PERCENT 1 % (BEAKER) (test code = 437) NEUTROPHILS ABSOLUTE COUNT 5.10 K/ L 1.56-6.13 (BEAKER) (test code = 670) LYMPHOCYTES ABSOLUTE COUNT 1.62 K/ L 1.18-3.74 (BEAKER) (test code = 414) MONOCYTES ABSOLUTE COUNT (BEAKER) 0.40 K/ L 0.24-0.36 H (test code = 415) EOSINOPHILS ABSOLUTE COUNT 0.12 K/ L 0.04-0.36 (BEAKER) (test code = 416) BASOPHILS ABSOLUTE COUNT (BEAKER) 0.05 K/ L 0.01-0.08 (test code = 417) IMMATURE GRANULOCYTES-RELATIVE 0 % 0-1 PERCENT (BEAKER) (test code = 2801) POCT-GLUCOSE [id number] 08:56:00 Test Item Value Reference Range Interpretation Comments POC-GLUCOSE METER 118 mg/dL 70-110 H : TESTED A T [facility] [address] (BEAKER) (test code = [place], 1538) [address]: Ostomy Care Nurse/Techni tasia ID = [id number] for ISRRAEL SHAIKH Vitamin B12 and [id number] 06:32:00 Test Item Value Reference Range Interpretation Comments Vitamin B12 (test code = 2132-9) <146 213-816 L Folate (test code = 2284-8) 19.6 ng/mL >=7.0 Lab Interpretation (test code = Abnormal 45097-5) [facility] AND [id number] 06:32:00 Test Item Value Reference Range Interpretation Comments VITAMIN B12 (BEAKER) (test code = < pg/mL 213-816 L 774) FOLATE (BEAKER) (test code = 362) 19.6 ng/mL >=7.0 TSH/Free T4 If [id number] 06:30:00 Test Item Value Reference Range Interpretation Comments TSH (test code = 54108-8) 3.55 0.35- 4.94 uIU/mL Lab Interpretation (test code = Normal 45770-6) [facility]SH/FREE T4 IF [id number] 06:30:00 Test Item Value Reference Range Interpretation Comments THYROID STIMULATING HORMONE 3.55 uIU/mL 0.35-4.94 (BEAKER) (test code = 772) POCT-GLUCOSE [id number] 05:55:00 Test Item Value Reference Range Interpretation Comments POC-GLUCOSE METER 132 mg/dL 70-110 H : [facility] (BEAKER) (test code = BOB [place], 1538) [address]: Ostomy Care Nurse/Techni tasia ID = [id number] for MORE JOHANSEN Lipid [id number] 04:41:00 Test Item Value Reference Range Interpretation Comments Triglycerides (test 107 mg/dL code = 2571-8) Cholesterol (test code 181 mg/dL = 3-3) HDL (test code = 50 mg/dL 5-9) LDL Calculated (test 110 mg/dL code = 85919-3) DAVE (test code = DAVE) Triglyceride Reference Range: Low Risk <150 Borderline 150-199 High Risk 200-499 Very High Risk >=500 Cholesterol Reference Range: Low Risk <200 Borderline 200-239 High Risk >240 HDL Cholesterol Reference Range: Low Risk >=60 High Risk <40 LDL Cholesterol Reference Range: Optimal <100 Near Optimal 100-129 Borderline 130-159 High 160-189 Very High >=190 [facility] 04:41:00 Test Item Value Reference Range Interpretation Comments PHOSPHORUS (BEAKER) (test code = 3.2 mg/dL 2.3-4.7 604) [id number] 04:41:00 Test Item Value Reference Range Interpretation Comments MAGNESIUM (BEAKER) (test code = 1.8 mg/dL 1.6-2.6 627) BASIC METABOLIC [id number] 04:41:00 Test Item Value Reference Range Interpretation Comments SODIUM (BEAKER) 135 meq/L 136-145 L (test code = 381) POTASSIUM (BEAKER) 3.8 meq/L 3.5-5.1 (test code = 379) CHLORIDE (BEAKER) 105 meq/L 98-107 (test code = 382) CO2 (BEAKER) (test 24 meq/L 22-29 code = 355) BLOOD UREA NITROGEN 25 mg/dL 7-21 H (BEAKER) (test code = 354) CREATININE (BEAKER) 0.91 mg/dL 0.57-1.25 (test code = 358) GLUCOSE RANDOM 124 mg/dL 70-105 H (BEAKER) (test code = 652) CALCIUM (BEAKER) 8.7 mg/dL 8.4-10.2 (test code = 697) EGFR (BEAKER) (test 59 mL/min/1.73 ESTIMA GONZALES GFR IS code = 1092) sq m NOT ACCURATE CREATININE CLEARANCE IN PREDICTING GLOMERULAR FILTRATION RATE . ESTIMATED GFR I S NOT APPLICABLE FOR DIALYSIS BEN RAZO. LIPID [id number] 04:41:00 Test Item Value Reference Range Interpretation Comments TRIGLYCERIDES (BEAKER) (test code = 107 mg/dL 540) CHOLESTEROL (BEAKER) (test code = 181 mg/dL 631) HDL CHOLESTEROL (BEAKER) (test code 50 mg/dL = 976) LDL CHOLESTEROL CALCULATED (BEAKER) 110 mg/dL (test code = 633) Triglyceride Reference Range: Low Risk <150 Borderline 150-199 High Risk 200-499 Very High Risk >=500Cholesterol Reference Range: Low Risk <200 Borderline 200-239 High Risk >240HDL Cholesterol Reference Range: Low Risk >=60 High Risk <40LDL Cholesterol Reference Range: Optimal <100 Near Optimal 100-129 Borderline 130-159 High 160-189 Very High >=190
--- OUTSIDE RECORDS SUMMARY | 2020-01-06 21:07 | XMS REPORT ---
:1935 Author Organization eClinicalWorks Care Team Providers Name Role Phone Olvin Thornton Provider Role Unavailable Allergies No Known Allergies Problems Problem Type Condition Code Onset Dates Condition Statu s Problem GERD (gastroesophageal reflux K21.9 Active disease) Problem Hypertension I10 Active Problem Urinary frequency R35.0 Active Assessment Hypertension I10 Active Problem Atherosclerosis of coronary artery I25.10 [...] Medications Medication Code Code Instructions Start End Date Status Dosage System Date Metoprolol [facility] [id number] 25 MG Orally Active Take 0.5 Tartrate Twice a day (12.5 mg) tablet with food Results No Known Results Summary Purpose eClinicalWorks Submission
--- NOTE | 2020-01-06 21:12 | ER ---
Nurse's Notes [facility] Name: Deyanira Glez Age: 84 yrs Sex: Female : 1935 Arrival Date: 01/06/2020 Time: 19:25 Bed 19 Private MD: Diagnosis: Pain in left foot Presentation: 01/05 19:42 Chief complaint: Patient states: Left foot pain and swelling for 1 day. No trauma or ll1 falls. States she see's Dr. Littlejohn for her foot pains. Coronavirus screen: Proceed with normal triage. Patient denies a cough. Patient denies shortness of breath or difficulty breathing. Patient denies measured and/or subjective temperature greater than 100.4F prior to today's visit. Patient denies travel on a cruise ship or to a country the [facility] currently lists as an affected area. Patient denies contact with known and/or suspected case of COVID-19. Ebola Screen: Patient denies travel to an Ebola-affected area in the 21 days before illness onset. Initial Sepsis Screen: Does the patient meet any 2 criteria? No. Patient's initial sepsis screen is negative. Risk Assessment: Do you want to hurt yourself or someone else? Patient reports no desire to harm self or others. Onset of symptoms was January 06, 2020. 19:42 Method Of Arrival: Wheelchair ll1 19:42 Acuity: DOMINIC 4 ll1 20:20 Initial Sepsis Screen: Does the patient have a suspected source of infection? No. wh Patient's initial sepsis screen is negative. Historical: - Allergies: 19:44 PENICILLINS; ll1 - PMHx: 19:44 Diabetes - NIDDM; failed stress test; Hypertension; stroke; ll1 - PSHx: 19:44 2 stents in heart; Hysterectomy; Bladder suspension; Cholecystectomy; ll1 - Immunization history:: Adult Immunizations up to date. - Social history:: Smoking status: Patient denies any tobacco usage or history of. Patient/guardian denies using alcohol, street drugs, IV drugs, tobacco products. Screenin:20 Abuse screen: Denies threats or abuse. Denies injuries from another. Nutritional wh screening: No deficits noted. Tuberculosis screening: No symptoms or risk factors identified. Fall Risk None identified. Assessment: 20:20 General: Appears in no apparent distress. Behavior is calm, cooperative, appropriate wh for age. Pain: Complains of pain in left foot Pain does not radiate. Pain currently is 9 out of 10 on a pain scale. Quality of pain is described as aching, Pain began 1 day ago. Neuro: Level of Consciousness is awake, alert, obeys commands, Oriented to person, place, time, situation, Appropriate for age. Cardiovascular: Capillary refill < 3 seconds. Respiratory: Airway is patent Respiratory effort is even, unlabored, Respiratory pattern is regular, symmetrical. GI: Abdomen is flat, non-distended. : No signs and/or symptoms were reported regarding the genitourinary system. EENT: No signs and/or symptoms were reported regarding the EENT system. Derm: Skin is intact, is healthy with good turgor, Skin is pink, warm \T\ dry. normal. Musculoskeletal: Circulation, motion, and sensation intact. 21:30 Reassessment: Patient appears in no apparent distress at this time. No changes from previously documented assessment. Patient and/or family updated on plan of care and expected duration. Pain level reassessed. Patient is alert, oriented x 3, equal unlabored respirations, skin warm/dry/pink. Vital Signs: 19:42 BP 148 / 61; Pulse 65; Resp 17; Temp 98.2; Pulse Ox 95% ; Pain 10/10; ll1 21:15 BP 135 / 61; Pulse 60; Resp 18; Pulse Ox 98% on R/A; ED Course: 19:25 Patient arrived in ED. ag3 19:43 Triage completed. ll1 19:44 Arm band placed on Patient notified of wait time. 1 20:19 Ching Brambila is Primary Nurse. 20:20 Patient has correct armband on for positive identification. Bed in low position. Call light in reach. Side rails up X 1. Pulse ox on. NIBP on. 20:35 Coy Van PA is PHCP. jr8 20:35 Jacob Beltre MD is Attending Physician. jr8 21:34 No provider procedures requiring assistance completed. Patient did not have IV access during this emergency room visit. Administered Medications: 21:19 Drug: [place] 5 mg-325 mg 1 tabs {Note: RASS 0.} Route: PO; 21:35 Follow up: Response: No adverse reaction; Pain is decreased; RASS: Alert and Calm (0) Outcome: 21:12 Discharge ordered by MD. jc 21:34 Discharged to home via wheelchair, with friend. 21:34 Condition: stable 21:34 Discharge instructions given to patient, Instructed on discharge instructions, follow up and referral plans. no drinking with medication, no driving heavy equipment, medication usage, POC Demonstrated understanding of instructions, follow-up care, medications, POC Prescriptions given X 1. 21:35 Patient left the ED. Signatures: Coy Van PA PA jr8 Ching Brambila Alice ag3 Lynn Berrios, RN RN ll1
--- NOTE | 2020-01-06 21:13 | EDPHYS ---
Physician Documentation [facility] Name: Deyanira Glez Age: 84 yrs Sex: Female : 1935 Arrival Date: 01/06/2020 Time: 19:25 Bed 19 Private MD: ED Physician Jacob Beltre HPI: 01/05 21:12 This 84 yrs old Female presents to ER via Wheelchair with complaints of Foot jr8 Pain. 21:12 Onset: The symptoms/episode began/occurred gradually, 2 day(s) ago. Modifying factors: jr8 The symptoms are alleviated by nothing. the symptoms are aggravated by movement, weight bearing. Associated signs and symptoms: The patient has no apparent associated signs or symptoms. Severity of symptoms: At their worst the symptoms were mild, in the emergency department the symptoms are unchanged. It is unknown whether or not the patient has had similar symptoms in the past. The patient has not recently seen a physician. Patient stated that she had foot surgery several years ago. Since then has had chronic pain. Stated that for the past day or two has become worse. Denies new injury. Historical: - Allergies: 19:44 PENICILLINS; ll1 - PMHx: 19:44 Diabetes - NIDDM; failed stress test; Hypertension; stroke; ll1 - PSHx: 19:44 2 stents in heart; Hysterectomy; Bladder suspension; Cholecystectomy; ll1 - Immunization history:: Adult Immunizations up to date. - Social history:: Smoking status: Patient denies any tobacco usage or history of. Patient/guardian denies using alcohol, street drugs, IV drugs, tobacco products. ROS: 21:12 Eyes: Negative for injury, pain, redness, and discharge, ENT: Negative for injury, jr8 pain, and discharge, Neck: Negative for injury, pain, and swelling, Cardiovascular: Negative for chest pain, palpitations, and edema, Respiratory: Negative for shortness of breath, cough, wheezing, and pleuritic chest pain, Abdomen/GI: Negative for abdominal pain, nausea, vomiting, diarrhea, and constipation, Back: Negative for injury and pain, Skin: Negative for injury, rash, and discoloration, Neuro: Negative for headache, weakness, numbness, tingling, and seizure. 21:12 MS/extremity: Positive for pain, tenderness, of the left foot. Exam: 21:12 Eyes: Pupils equal round and reactive to light, extra-ocular motions intact. Lids and jr8 lashes normal. Conjunctiva and sclera are non-icteric and not injected. Cornea within normal limits. Periorbital areas with no swelling, redness, or edema. ENT: Nares patent. No nasal discharge, no septal abnormalities noted. Tympanic membranes are normal and external auditory canals are clear. Oropharynx with no redness, swelling, or masses, exudates, or evidence of obstruction, uvula midline. Mucous membranes moist. Neck: Trachea midline, no thyromegaly or masses palpated, and no cervical lymphadenopathy. Supple, full range of motion without nuchal rigidity, or vertebral point tenderness. No Meningismus. Cardiovascular: Regular rate and rhythm with a normal S1 and S2. No gallops, murmurs, or rubs. Normal PMI, no JVD. No pulse deficits. Respiratory: Lungs have equal breath sounds bilaterally, clear to auscultation and percussion. No rales, rhonchi or wheezes noted. No increased work of breathing, no retractions or nasal flaring. Abdomen/GI: Soft, non-tender, with normal bowel sounds. No distension or tympany. No guarding or rebound. No evidence of tenderness throughout. Back: No spinal tenderness. No costovertebral tenderness. Full range of motion. Skin: Warm, dry with normal turgor. Normal color with no rashes, no lesions, and no evidence of cellulitis. Neuro: Awake and alert, GCS 15, oriented to person, place, time, and situation. Cranial nerves II-XII grossly intact. Motor strength 5/5 in all extremities. Sensory grossly intact. Cerebellar exam normal. Normal gait. 21:12 Musculoskeletal/extremity: Extremities: grossly normal except: noted in the left foot: Patient has mid tenderness diffusely to left dorsal foot. Mild swelling noted to lateral malleolus. No other trauma noted. Pulses 2+ PT and DP bilaterally. No other acute extremity findings noted , ROM: intact in all extremities. Vital Signs: 19:42 BP 148 / 61; Pulse 65; Resp 17; Temp 98.2; Pulse Ox 95% ; Pain 10/10; ll1 21:15 BP 135 / 61; Pulse 60; Resp 18; Pulse Ox 98% on R/A; wh MDM: 20:35 Patient medically screened. jr8 21:11 Data reviewed: vital signs, nurses notes, and as a result, I will discharge patient. jr8 Data interpreted: Pulse oximetry: on room air is 95 %. Interpretation: normal. Counseling: I had a detailed discussion with the patient and/or guardian regarding: the historical points, exam findings, and any diagnostic results supporting the discharge/admit diagnosis, the need for outpatient follow up, a surgical coder, to return to the emergency department if symptoms worsen or persist or if there are any questions or concerns that arise at home. Administered Medications: 21:19 Drug: [place] 5 mg-325 mg 1 tabs {Note: RASS 0.} Route: PO; 21:35 Follow up: Response: No adverse reaction; Pain is decreased; RASS: Alert and Calm (0) Disposition: 01/06 01:18 Co-signature as Attending Physician, Jacob Beltre MD. [email or web address] Disposition: 01/06/20 21:12 Discharged to Home. Impression: Pain in left foot. - Condition is Stable. - Discharge Instructions: Foot Pain. - Prescriptions for Tramadol 50 mg Oral Tablet - take 1 tablet by ORAL route every 8 hours as needed; 12 tablet. - Medication Reconciliation Form, Thank You Letter, Antibiotic Education, Prescription Opioid Use form. - Follow up: Private Physician; When: 2 - 3 days; Reason: Recheck today's complaints, Continuance of care, Re-evaluation by your physician. - Problem is new. - Symptoms have improved. Signatures: Coy Van PA PA jr8 Ching Brambila Lynn Berrios RN RN [facility] Jacob Beltre MD MD 7 Corrections: (The following items were deleted from the chart) 01/05 21:35 21:12 01/06/2020 21:12 Discharged to Home. Impression: Pain in left foot. Condition is wh Stable. Forms are Medication Reconciliation Form, Thank You Letter, Antibiotic Education, Prescription Opioid Use. Follow up: Private Physician; When: 2 - 3 days; Reason: Recheck today's complaints, Continuance of care, Re-evaluation by your physician. Problem is new. Symptoms have improved. jr8
[2020-01-06] MEDS ORDERED: HYDROCODONE/APAP 5/325 MG TAB ONE (21:28)
[2020-01-06 21:41] VITALS: TEMP 98.2
[2020-01-06 21:42] VITALS: BP 135/61; O2SAT 98
== END 2020-01-06 21:35 | disposition home or self-care (01) ==
LOC: ER 19:21
DX: M79.672 Pain in left foot (principal); I10 Essential (primary) hypertension; Z88.0 Allergy status to penicillin; Z95.818 Presence of other cardiac implants and grafts
CPT/HCPCS: 99283

== ENCOUNTER 2021-04-02 14:34 | Emergency (ER) | payer OTHER ==
[2021-04-02] MEDS ORDERED: LIDOCAINE 4% PATCH ONE (16:13)
--- NOTE | 2021-04-02 16:25 | ER ---
Nurse's Notes [facility] Name: Deyanira Glez Age: 85 yrs Sex: Female : 1935 Arrival Date: 04/02/2021 Time: 14:41 Bed 27 Private MD: Diagnosis: Other muscle spasm-neck Presentation: 04/02 14:44 Chief complaint: Patient states: L sided neck pain for over [address] Thornton for ll1 this, not better yet. Coronavirus screen: Vaccine status: Patient reports receiving the 2nd dose of the covid vaccine. Client denies travel out of the [place] in the last 14 days. At this time, the client does not indicate any symptoms associated with coronavirus-19. Ebola Screen: Patient denies travel to an Ebola-affected area in the 21 days before illness onset. Initial Sepsis Screen: Does the patient meet any 2 criteria? No. Patient's initial sepsis screen is negative. Does the patient have a suspected source of infection? No. Patient's initial sepsis screen is negative. Risk Assessment: Do you want to hurt yourself or someone else? Patient reports no desire to harm self or others. Onset of symptoms was March 19, 2021. 14:44 Method Of Arrival: Ambulatory 1 14:44 Acuity: DOMINIC 3 ll1 Triage Assessment: 15:08 General: Appears in no apparent distress. comfortable, well groomed, Behavior is calm, kh1 cooperative, appropriate for age. Pain: Complains of pain in neck Left side Pain radiates to head Pain currently is 10 out of 10 on a pain scale. at worst was 10 out of 10 on a pain scale. Quality of pain is described as sharp. Historical: - Allergies: 14:44 PENICILLINS; ll1 - PMHx: 14:44 Diabetes - NIDDM; failed stress test; Hypertension; stroke; ll1 - Immunization history:: Adult Immunizations up to date, Client reports receiving the 2nd dose of the Covid vaccine. - Social history:: Smoking status: Patient denies any tobacco usage or history of. - Family history:: not pertinent. Screenin:11 Abuse screen: Denies threats or abuse. Nutritional screening: No deficits noted. kh1 Tuberculosis screening: No symptoms or risk factors identified. Fall Risk None identified. Assessment: 15:10 Neuro: No deficits noted. 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 Speech is normal. Cardiovascular: Denies chest pain, nausea, shortness of breath, vomiting. Respiratory: No deficits noted. Airway is patent Respiratory effort is even, unlabored, Respiratory pattern is regular. Vital Signs: 14:44 BP 128 / 63; Pulse 71; Resp 17; Temp 98.4; Pulse Ox 97% on R/A; Weight 49.9 kg; Height ll1 5 ft. 0 in. (152.40 cm); Pain 10/10; 15:09 BP 128 / 63; Pulse 71; Resp 17; Temp 98.4; Pulse Ox 97% on R/A; kh1 14:44 Body Mass Index 21.48 (49.90 kg, 152.40 cm) 1 ED Course: 14:41 Patient arrived in ED. mr 14:44 Arm band placed on Patient placed in an exam room, on a stretcher. 1 14:46 Triage completed. 1 14:57 Elvi Vital is Primary Nurse. 1 15:00 Zak Garzon NP is PHCP. pm1 15:01 Corine Radford MD is Attending Physician. pm1 15:12 No provider procedures requiring assistance completed. 1 17:17 Patient did not have IV access during this emergency room visit. ss Administered Medications: 15:57 Drug: Lidoderm Patch 5 % (700 mg/patch) 1 patches Route: Topical; Site: affected area; oh Outcome: 16:24 Discharge ordered by MD. pm1 17:17 Discharged to home ambulatory. ss 17:17 Condition: good 17:17 Discharge instructions given to patient, Instructed on discharge instructions, follow up and referral plans. Demonstrated understanding of instructions, follow-up care, medications, Prescriptions given X 1. 17:17 Patient left the ED. Signatures: CaballeroWendi moreira mr ReyesLeonie bernard RN RN Zak Garzon, LESLIE TAX SERVICES MANAGER 1 Lynn Berrios RN RN [facility] Elvi Vital [facility] Gaudencio Portillo RN RN [place]
--- NOTE | 2021-04-02 16:25 | EDPHYS ---
Physician Documentation [facility] Name: Deyanira Glez Age: 85 yrs Sex: Female : 1935 Arrival Date: 04/02/2021 Time: 14:41 Bed 27 Private MD: ED Physician Corine Radford HPI: 04/02 15:33 This 85 yrs old Female presents to ER via Ambulatory with complaints of Neck pm1 pain. 15:33 Onset: The symptoms/episode began/occurred 2 week(s) ago. Associated signs and pm1 symptoms: The patient has no apparent associated signs or symptoms. Modifying factors: The patient symptoms are alleviated by remaining still, the patient symptoms are aggravated by movement. The patient has been recently seen by a physician: the patient's primary care provider, Dr. Thornton. Historical: - Allergies: 14:44 PENICILLINS; ll1 - PMHx: 14:44 Diabetes - NIDDM; failed stress test; Hypertension; stroke; ll1 - Immunization history:: Adult Immunizations up to date, Client reports receiving the 2nd dose of the Covid vaccine. - Social history:: Smoking status: Patient denies any tobacco usage or history of. - Family history:: not pertinent. ROS: 15:33 Constitutional: Negative for fever, chills, and weight loss. pm1 15:33 Cardiovascular: Negative for chest pain, palpitations, and edema, Respiratory: Negative for shortness of breath, cough, wheezing, and pleuritic chest pain, Abdomen/GI: Negative for abdominal pain, nausea, vomiting, diarrhea, and constipation, MS/Extremity: Negative for injury and deformity, Skin: Negative for injury, rash, and discoloration. 15:33 Neuro: Negative for headache, weakness, numbness, tingling, and seizure. 15:33 Neck: Positive for pain with movement, tenderness, of the left posterior aspect of neck. 15:33 All other systems are negative. Exam: 15:33 Constitutional: This is a well developed, well nourished patient who is awake, alert, pm1 and in no acute distress. Head/Face: Normocephalic, atraumatic. 15:33 Back: No spinal tenderness. No costovertebral tenderness. Full range of motion. Skin: Warm, dry with normal turgor. Normal color with no rashes, no lesions, and no evidence of cellulitis. MS/ Extremity: Pulses equal, no cyanosis. Neurovascular intact. Full, normal range of motion. 15:33 Eyes: Exam is negative for acute changes, Conjunctiva: no acute changes, no injection, Sclera: no acute changes, icterus, is not appreciated. 15:33 Cardiovascular: Exam negative for acute changes, Rate: normal, Rhythm: regular, Pulses: no pulse deficits are appreciated. 15:33 Respiratory: Exam negative for acute changes, respiratory distress, shortness of breath. 15:33 Neuro: Exam negative for acute changes, Orientation: is normal, Mentation: is normal, Motor: is normal, moves all fours. Vital Signs: 14:44 BP 128 / 63; Pulse 71; Resp 17; Temp 98.4; Pulse Ox 97% on R/A; Weight 49.9 kg; Height ll1 5 ft. 0 in. (152.40 cm); Pain 10/10; 15:09 BP 128 / 63; Pulse 71; Resp 17; Temp 98.4; Pulse Ox 97% on R/A; kh1 14:44 Body Mass Index 21.48 (49.90 kg, 152.40 cm) ll1 MDM: 15:01 Patient medically screened. pm1 15:33 Refusal of service: The patient/guardian displays adequate decision making capability pm1 and despite a detailed discussion of alternatives, benefits, risks, and consequences refuses: Does not want any pain medications except for medicines given topically. Therefore we will give the patient a Lidoderm patch onto her neck for muscle spasm. 16:23 Data reviewed: vital signs. Data interpreted: Pulse oximetry: on room air is 97 %. pm1 Interpretation: normal. Counseling: I had a detailed discussion with the patient and/or guardian regarding: the historical points, exam findings, and any diagnostic results supporting the discharge/admit diagnosis, the need for outpatient follow up, to return to the emergency department if symptoms worsen or persist or if there are any questions or concerns that arise at home. Administered Medications: 15:57 Drug: Lidoderm Patch 5 % (700 mg/patch) 1 patches Route: Topical; Site: affected area; oh Disposition: 17:43 Co-signature as Attending Physician, Corine Radford MD PA/HOME LENDING OFFICER's history reviewed, ma2 patient interviewed, and examined. I agree with assessment and care plan and confirm the diagnosis (es) above. Disposition Summary: 04/02/21 16:24 Discharge Ordered Location: Home pm1 Problem: new pm1 Symptoms: have improved pm1 Condition: Stable pm1 Diagnosis - Other muscle spasm - neck pm1 Followup: pm1 - With: Emergency Department - When: As needed - Reason: Worsening of condition Followup: pm1 - With: Private Physician - When: 2 - 3 days - Reason: Recheck today's complaints, Continuance of care, Re-evaluation by your physician Discharge Instructions: - Discharge Summary Sheet pm1 - Muscle Cramps and Spasms pm1 Forms: - Medication Reconciliation Form pm1 - Thank You Letter pm1 - Antibiotic Education pm1 - Prescription Opioid Use pm1 Prescriptions: - Lidoderm 5 % Topical adhesive patch,medicated - apply 1 patch by TRANSDERMAL route once daily As needed 12 hours on and 12 pm1 hours off in a 24 hour period; 10 patch; Refills: 0, Product Selection Permitted Signatures: Zak Garzon, HOME LENDING OFFICER HOME LENDING OFFICER pm1 Corine Radford MD MD ma2 Lynn Berrios, RN RN 1 Elvi Vital [facility] Gaudencio Portillo, RN RN [place]
[2021-04-02 17:39] VITALS: BP 128/63; TEMP 98.4; O2SAT 97
== END 2021-04-02 17:17 | disposition home or self-care (01) ==
LOC: ER 14:34
DX: M62.838 Other muscle spasm (principal); Z88.0 Allergy status to penicillin
CPT/HCPCS: 99283

== ENCOUNTER 2021-12-18 16:52 | Inpatient (IN) | payer MEDICARE, OTHER ==
--- OUTSIDE RECORDS SUMMARY | 2021-12-18 16:56 | XMS REPORT | Continuity of Care Document ---
:1935 Author Organization [facility] t Address [address] [place] [address] Care Team Providers Name Role Phone Cheryl THORTNON Primary Care Physician Unavailable Cheryl Thornton Attending Clinician Unavailable Diane DOWNEY S Attending Clinician Pushpa TOLENTINO Attending Clinician Unavailable Doctor Unassigned, Name Attending Clinician Unavailable SOUMYA PEREZ Attending Clinician Unavail able Pushpa TOLENTINO Admitting Clinician Unavailable SOUMYA PEREZ Admitting Clinician Unavail able Payers Payer Name Policy Type Policy Number Effective Date Expiration Date Pushpa rodriguez [facility] [id number] 2021 (MEDICARE 00:00:00 REPLACEMENT HMO) Problems This patient has no known problems. Allergies, Adverse Reactions, Alerts Allergy Allergy Status Severity Reaction(s) Onset Inactive Treating Comm ents Source Name Type Date Date Clinician NO KNOWN Drug Active Univers ALLERGIE Class ity of [facility] penicill Adverse Active Info Not Commo n in Reaction Available Spiri - [facility] Social History Social Habit Start Date Stop Date Quantity Comments Source Exposure to Not sure [facility] SARS-CoV-2 (event) Medica l Branch Sex Assigned At [birth year] [facility] 00:00:00 00:00:00 [facility] Smoking Status Start Date Stop Date Source Unknown if ever smoked [facility] Medications Ordered Filled Start Stop Current Ordering Indication Dosage Frequency Signature Comments Components Source Medication Medication Date Date Medication? Clinician (SIG) Name Name Minal Fontaine Yes Olvin TAKE ONE Common Thornton TABLET BY [facility] Cozaar Cozaar Yes Olvin TAKE ONE Commo n Thornton TABLET BY [facility] Metoprolol Metoprolol Yes Olvin TAKE C ommon Tartrate Tartrate Thornton ONE-HALF Sp jake TABLET BY - [facility] Montelukast Montelukast Yes Olvin 1 tablet Common Sodium Sodium Thornton [facility] Aspir-Low Aspir-Low Yes Olvin 1 tablet Common Thornton [facility] Cyanocobala Cyanocobala Yes Olvin 1 tablet Common min min Thornton [facility] Atorvastati Atorvastati Yes Olvin 1 tablet Common n Calcium n Calcium Thornton Spir it [facility] Omeprazole Omeprazole Yes Olvin 1 capsule Common Thornton [facility] Procedures Procedure Date / Time Performed Performing Clinician Sour e CT CERVICAL SPINE WO 2021-05-13 15:23:00 Anil Tolentino [facility] CONTRAST Medical Branch ASSIGNMENT OF BENEFITS 2021-05-13 14:23:29 Doctor Unassigned, No [facility] Medical Branch Encounters Start End Encounter Admission Attending Care Care Encounter Source Date/Time Date/Time Type Type Clinicians Facility Department ID 2021-12-12 Outpatient [facility], [facility] [id number] Common 11:36:00 Olvin [facility] 2021-09-14 Outpatient Thornton, [facility] [id number] Common 16:43:01 Olvin [facility] 2021-08-03 Outpatient Thornton, [facility] [id number] Common 14:23:30 Olvin 81428 [facility] 2021-08-03 Outpatient Thornton, [facility] [id number] Common 13:26:09 Olvin 34968 [facility] 2021-08-03 Outpatient Thornton, [facility] [id number] Common 13:06:29 Olvin 98210 [facility] 2021-08-03 Outpatient Thornton, [facility] Common 12:36:11 Olvin 44445 [facility] 2021-08-03 Outpatient Thornton, [facility] Common 12:03:06 Olvin 27210 [facility] 2021-08-03 Outpatient Thornton, [facility] Common 11:28:48 Olvin 11335 [facility] 2021-08-03 Outpatient Thornton, [facility] Common 11:05:28 Olvin 93043 [facility] 2021-08-03 Outpatient Thornton, [facility] Common 10:59:16 Olvin 27808 [facility] 2021-08-03 Outpatient Thornton, [facility] Common 10:59:04 Olvin 83225 [facility] 2021-06-20 2021-06-20 ambulatory STLMLC STLC [id number] Common 00:00:00 00:00:00 [facility] 2021-05-13 2021-05-13 [facility] [id number] Univers 09:25:45 23:59:00 Encounter Anil OCHOA [id number] ity of [place] [id number] [facility] [id number] [facility] 801 Branch 2021-05-13 2021-05-13 Outpatient [facility] [id number] Univers 09:25:45 23:59:00 ANIL ity of [facility] 2021-05-13 2021-05-13 Orders Doctor MAX [id number] Univers 00:00:00 00:00:00 Only Unassigned, FIDENCIO [id number] ity of [facility] [id number] [facility] [phone] [facility] 009 Branch 2021-05-05 2021-05-05 Outpatient DMG DMG [id number] Devoted 08:02:00 08:02:[address] [place], [place] [address]a l Group 2021-04-15 2021-04-15 Outpatient STLMLC STL[facility]C [id number] Common 00:00:00 00:00:00 [facility] 2021-04-05 2021-04-05 Outpatient STLMLC STLMLC [id number] Common 00:00:00 00:00:00 [facility] 2021-04-01 2021-04-01 Outpatient STLMLC STLMLC [id number] Common 00:00:00 00:00:00 [facility] 2021-03-30 2021-03-30 Outpatient STLMLC STLMLC [id number] Common 00:00:00 00:00:00 [facility] 2021-03-29 2021-03-29 Outpatient STLMLC STLMLC [id number] Common 00:00:00 00:00:00 [facility] 2021-03-18 2021-03-18 Outpatient STLMLC STLMLC [id number] Common 00:00:00 00:00:00 [facility] 2021-02-07 2021-02-07 Outpatient STLMLC STLMLC [id number] Common 00:00:00 00:00:00 [facility] 2020-12-13 2020-12-13 Outpatient STLMLC STLMLC [id number] Common 00:00:00 00:00:00 [facility] 2020-11-17 2020-11-17 Outpatient STLMLC STLMLC [id number] Common 00:00:00 00:00:00 [facility] 2020-11-09 2020-11-09 Outpatient STLMLC STLMLC [id number] Common 00:00:00 00:00:00 [facility] 2020-09-16 2020-09-16 Outpatient STLMLC STLMLC [id number] Common 00:00:00 00:00:00 [facility] 2020-09-13 2020-09-13 Outpatient STLMLC STLMLC [id number] Common 00:00:00 00:00:00 [facility] 2020-08-17 2020-08-17 Outpatient STLMLC STLMLC [id number] Common 00:00:00 00:00:00 [facility] 2020-05-26 2020-05-26 Outpatient STLMLC STLMLC [id number] Common 00:00:00 00:00:00 [facility] 2020-04-26 2020-04-26 Outpatient STLMLC STLMLC [id number] Common 00:00:00 00:00:00 [facility] 2020-04-07 2020-04-07 Outpatient STLMLC STLMLC [id number] Common 00:00:00 00:00:00 [facility] 2020-04-07 2020-04-07 Outpatient STLMLC STLMLC [id number] Common 00:00:00 00:00:00 [facility] 2020-02-18 2020-02-18 [facility] [id number] Common 09:29:00 09:29:[address] [facility] [address] [facility] it Road [facility] 2020-02-05 2020-02-05 [facility] [id number] Common 13:30:00 13:30:[address] [facility] 2020-01-23 2020-01-23 [facility] [id number] Common 15:19:00 15:19:[address] [facility] 2020-01-19 2020-01-19 [facility] [id number] Common 13:45:00 13:45:[address] Drive [facility] 2019-11-13 2019-11-13 [facility] [id number] Common 13:00:00 13:00:[address] [facility] 2019-11-13 2019-11-13 [facility] [id number] Common 13:00:00 13:00:[address] Drive [facility] 2019-10-28 2019-10-28 [facility] [id number] Common 08:56:00 08:56:[address] [facility] 2019-09-02 2019-09-02 [facility] [id number] Common 08:29:00 08:29:[address] [facility] 2019-08-14 2019-08-14 [facility] [id number] Common 10:30:00 10:30:[address] Drive [facility] 2019-07-16 2019-07-16 [facility] [id number] Common 16:55:00 16:55:[address] [facility] 2019-06-25 2019-06-25 [facility] [id number] Common 16:24:00 16:24:[address] [facility] 2019-06-24 2019-06-24 [facility] [id number] Common 13:00:00 13:00:[address] Drive [facility] 2019-06-04 2019-06-04 [facility] [id number] Common 10:43:00 10:43:[address] [facility] 2019-05-20 2019-05-20 [facility] [id number] Common 10:42:00 10:42:[address] Drive [facility] 2019-04-30 2019-04-30 [facility] [id number] Common 10:45:00 10:45:[address] Drive [facility] 2019-04-24 2019-04-24 [facility] [id number] Common 09:01:00 09:01:[address] Drive [facility] 2019-04-15 2019-04-15 [facility] [id number] Common 15:00:00 15:00:[address] Drive [facility] 2019-04-11 2019-04-11 [facility] [id number] Common 11:12:00 11:12:[address] Drive [facility] 2019-01-14 2019-01-14 [facility] [id number] Common 13:30:00 13:30:[address] Drive [facility] 2018-09-17 2018-09-17 [facility] [id number] Common 10:57:00 10:57:[address] Drive [facility] 2018-07-18 2018-07-18 [facility] [id number] Common 13:30:00 13:30:[address] Drive [facility] 2018-03-06 2018-03-06 [facility] [id number] Common 15:31:00 15:31:[address] Drive [facility] 2017-12-31 2017-12-31 [facility] [id number] Common 13:30:00 13:30:[address] Drive [facility] Results Test Description Test Time Test Comments Results Result Comments Source POCT-GLUCOSE METER 2019-06-02 11:36:00 Test Item Value Reference Range Interpretation Comme nts POC-GLUCOSE METER (Audio[employer]) 113 mg/dL 70-110 H : TESTED AT [facility] [address] (test code = 1538) [employer] X, 77753: Telecommunications Field Engineer/Techni tasia ID = [id number] for OCHOA, HAILE POCT-GLUCOSE [id number] 07:42:00 Test Item Value Reference Range Interpretation Comments POC-GLUCOSE METER 110 mg/dL 70-110 : TESTED A T [facility] [address] ([employer]) (test code = [place], 1538) 71111: Telecommunications Field Engineer/Techni tasia ID = [id number] for Sm ith, Valeria POCT-GLUCOSE [id number] 17:42:00 Test Item Value Reference Range Interpretation Comments POC-GLUCOSE METER 130 mg/dL 70-110 H : TESTED A T [facility] [address] (BEAKER) (test code = [facility], [facility]) 78874: Telecommunications Field Engineer/Techni tasia ID = [id number] for PA TEL, DENNIS POCT-GLUCOSE [id number] 11:57:00 Test Item Value Reference Range Interpretation Comments POC-GLUCOSE METER 109 mg/dL 70-110 : TESTED A T [facility] [address] (BEAKER) (test code = [facility], [facility]8) 53597: Telecommunications Field Engineer/Techni tasia ID = [id number] for Sm ith, Valeria POCT-GLUCOSE [id number] 08:58:00 Test Item Value Reference Range Interpretation Comments POC-GLUCOSE METER 145 mg/dL 70-110 H : TESTED A T [facility] [address] (BEAKER) (test code = [facility], [facility]8) 85590: Telecommunications Field Engineer/Techni tasia ID = [id number] for Sm ith, Valeria POCT-GLUCOSE [id number] 21:21:00 Test Item Value Reference Range Interpretation Comments POC-GLUCOSE METER 108 mg/dL 70-110 : TESTED A T [facility] [address] (BEAKER) (test code = [facility], [facility]) 79491: Telecommunications Field Engineer/Techni tasia ID = [id number] for Den nis, Maia POCT-GLUCOSE [id number] 12:10:00 Test Item Value Reference Range Interpretation Comments POC-GLUCOSE METER 111 mg/dL 70-110 H : TESTED A T [facility] [address] (BEAKER) (test code = [facility], [facility]8) 47756: Telecommunications Field Engineer/Techni tasia ID = [id number] for AK INSONU, BRENDA POCT-GLUCOSE [id number] 07:45:00 Test Item Value Reference Range Interpretation Comments POC-GLUCOSE METER 128 mg/dL 70-110 H : TESTED A T [facility] 67[address] (BEAKER) (test code = [facility], [facility]8) 56770: Telecommunications Field Engineer/Techni tasia ID = [id number] for AK INSONU, BRENDA POCT-GLUCOSE [id number] 21:21:00 Test Item Value Reference Range Interpretation Comments POC-GLUCOSE METER 119 mg/dL 70-110 H : TESTED A T [facility] 67[address] (BEAKER) (test code = [facility], 1538) 33782: Telecommunications Field Engineer/Techni tasia ID = [id number] for Buster curiel, [place] POCT-GLUCOSE [id number] 17:00:00 Test Item Value Reference Range Interpretation Comments POC-GLUCOSE METER 104 mg/dL 70-110 : TESTED A T [facility] 67[address] (BEAKER) (test code [facility], = 1538) 22515: Telecommunications Field Engineer/Techni tasia ID = [id number] for Tseg gai, Tsighereda POCT-GLUCOSE [id number] 12:28:00 Test Item Value Reference Range Interpretation Comments POC-GLUCOSE METER 114 mg/dL 70-110 H : TESTED A T [facility] 67[address] (BEAKER) (test code [facility], = 1538) 65989: Telecommunications Field Engineer/Techni tasia ID = [id number] for Tseg gai, Tsighereda POCT-GLUCOSE [id number] 07:29:00 Test Item Value Reference Range Interpretation Comments POC-GLUCOSE METER 120 mg/dL 70-110 H : TESTED A T [facility] 67[address] (BEAKER) (test code [facility], = 1538) 57321: Telecommunications Field Engineer/Techni tasia ID = [id number] for Tseg gai, Tsighereda POCT-GLUCOSE [id number] 21:47:00 Test Item Value Reference Range Interpretation Comments POC-GLUCOSE METER 156 mg/dL 70-110 H : TESTED A T [facility] [address] (BEAKER) (test code = [facility], 1538) 78537: Telecommunications Field Engineer/Techni tasia ID = [id number] for Buster nsluzmaria, [place] POCT-GLUCOSE [id number] 16:30:00 Test Item Value Reference Range Interpretation Comments POC-GLUCOSE METER 120 mg/dL 70-110 H : TESTED A T [facility] [address]20 (BEAKER) (test code [facility], = 1538) 94692: Telecommunications Field Engineer/Techni tasia ID = [id number] for Tseg gai, Tsighereda POCT-GLUCOSE [id number] 11:29:00 Test Item Value Reference Range Interpretation Comments POC-GLUCOSE METER 118 mg/dL 70-110 H : TESTED A T [facility] 6720 (BEAKER) (test code = [facility], [facility]8) 60733: Telecommunications Field Engineer/Techni tasia ID = [id number] for HU NT, SHAWN POCT-GLUCOSE [id number] 08:53:00 Test Item Value Reference Range Interpretation Comments POC-GLUCOSE METER 145 mg/dL 70-110 H : TESTED A T [facility] 6720 (BEAKER) (test code = [facility], [facility]8) 38297: Telecommunications Field Engineer/Techni tasia ID = [id number] for HU NT, SHAWN POCT-GLUCOSE [id number] 21:05:00 Test Item Value Reference Range Interpretation Comments POC-GLUCOSE METER 128 mg/dL 70-110 H : TESTED A T [facility] 6720 (BEAKER) (test code = [facility], [facility]) 94015: Telecommunications Field Engineer/Techni tasia ID = [id number] for Buster Keya curiela POCT-GLUCOSE [id number] 12:25:00 Test Item Value Reference Range Interpretation Comments POC-GLUCOSE METER 126 mg/dL 70-110 H : TESTED A T [facility] 6720 (BEAKER) (test code = [facility], [facility]8) 63055: Telecommunications Field Engineer/Techni tasia ID = [id number] for Sm ith, Valeria POCT-GLUCOSE [id number] 08:14:00 Test Item Value Reference Range Interpretation Comments POC-GLUCOSE METER 139 mg/dL 70-110 H : TESTED A T [facility] 6720 (BEAKER) (test code = [facility], [facility]8) 92705: Telecommunications Field Engineer/Techni tasia ID = [id number] for Sm ith, Valeria BASIC METABOLIC [id number] 05:54:00 Test Item Value Reference Range Interpretation [...] 358) GLUCOSE RANDOM 117 mg/dL 70-105 H (AKER) (test code = 652) CALCIUM (BEAKER) 8.9 mg/dL 8.4-10.2 (test code = 697) EGFR (BEAKER) (test 70 mL/min/1.73 ESTIMA GONZALES GFR IS code = 1092) sq m NOT ACCURATE CREATININE CLEARANCE IN PREDICTING GLOMERULAR FILTRATION RATE . ESTIMATED GFR I S NOT APPLICABLE FOR DIALYSIS PATIEN TS. POCT-GLUCOSE [id number] 22:08:00 Test Item Value Reference Range Interpretation Comments POC-GLUCOSE METER 129 mg/dL 70-110 H : TESTED A T [facility] 6720 ([employer]) (test code = [facility], 1538) 46844: Telecommunications Field Engineer/Techni tasia ID = [id number] for Buster Keya curiela POCT-GLUCOSE [id number] 11:36:00 Test Item Value Reference Range Interpretation Comments POC-GLUCOSE METER 107 mg/dL 70-110 : TESTED A T [facility] 6720 ([employer]) (test code = [facility], 1538) 93663: Telecommunications Field Engineer/Techni tasia ID = [id number] for Sm ith, Valeria POCT-GLUCOSE [id number] 07:40:00 Test Item Value Reference Range Interpretation Comments POC-GLUCOSE METER 114 mg/dL 70-110 H : TESTED A T [facility] 6720 ([employer]) (test code = [facility], 1538) 86656: Telecommunications Field Engineer/Techni tasia ID = [id number] for Sm ith, Valeria POCT-GLUCOSE [id number] 00:50:00 Test Item Value Reference Range Interpretation Comments POC-GLUCOSE METER 132 mg/dL 70-110 H : TESTED A T [facility] 6720 ([employer]) (test code = [facility], 1538) 39126: Telecommunications Field Engineer/Techni tasia ID = [id number] for BHAVESH FRANCO POCT-GLUCOSE [id number] 11:57:00 Test Item Value Reference Range Interpretation Comments POC-GLUCOSE METER 106 mg/dL 70-110 : TESTED A T [facility] 6720 (BEAKER) (test code = [facility] [place], 1538) 04850: Telecommunications Field Engineer/Techni tasia ID = [id number] for Valeria Song [id number] 06:58:00 Test Item Value Reference Range Interpretation Comments MAGNESIUM (BEAKER) (test code = 1.9 mg/dL 1.6-2.6 627) BASIC METABOLIC [id number] 06:58:00 Test Item Value Reference Range Interpretation [...] NOT APPLICABLE FOR DIALYSIS PATIEN TS. POCT-GLUCOSE [id number] 22:46:00 Test Item Value Reference Range Interpretation Comments POC-GLUCOSE METER 111 mg/dL 70-110 H : TESTED A T [facility] 6720 (BEAKER) (test code = [facility], 1538) 48311: Telecommunications Field Engineer/Techni tasia ID = [id number] for Janina Mchugh POCT-GLUCOSE [id number] 12:19:00 Test Item Value Reference Range Interpretation Comments POC-GLUCOSE METER 137 mg/dL 70-110 H : TESTED A T [facility] 6720 (BEAKER) (test code = [facility], 1538) 95446: Telecommunications Field Engineer/Techni tasia ID = [id number] for BR OWN, ITZ URINALYSIS W/ REFLEX URINE [id number] 11:52:00 Test Item Value Reference Range Interpretation [...] 514) SOURCE(BEAKER) (test code = 2795) POCT-GLUCOSE [id number] 08:20:00 Test Item Value Reference Range Interpretation Comments POC-GLUCOSE METER 111 mg/dL 70-110 H : TESTED A T [facility] 6720 (BEAKER) (test code = [facility] uberall [facility], 1538) 57310: Telecommunications Field Engineer/Techni tasia ID = [id number] for NADER LOMBARDILANEYLE POCT-GLUCOSE [id number] 20:56:00 Test Item Value Reference Range Interpretation Comments POC-GLUCOSE METER 117 mg/dL 70-110 H : TESTED A T [facility] 6720 (BEAKER) (test code = [facility] ub[employer]all [facility], 1538) 69995: Telecommunications Field Engineer/Techni tasia ID = [id number] for MONICA KINGSTON POCT-GLUCOSE [id number] 16:58:00 Test Item Value Reference Range Interpretation Comments POC-GLUCOSE METER 108 mg/dL 70-110 : TESTED A T [facility] 6720 (BEAKER) (test [facility] = [facility], 1538) 58380: Telecommunications Field Engineer/Techni tasia ID = [id number] for BRENDA RIVERA POCT-GLUCOSE [id number] 12:05:00 Test Item Value Reference Range Interpretation Comments POC-GLUCOSE METER 107 mg/dL 70-110 : TESTED A T [facility] 6720 (BEAKER) (test code = [facility] Joanna [facility], 1538) 08604: Telecommunications Field Engineer/Techni tasia ID = [id number] for BRENDA RIVERA CBC (HEMOGRAM ONLY)2019-05-24 08:25:00 Test Item Value Reference [...] WBC 0-0 (BEAKER) (test code = 413) [id number] 07:32:00 Test Item Value Reference Range Interpretation Comments PHOSPHORUS (BEAKER) (test code = 3.7 mg/dL 2.3-4.7 604) [id number] 07:32:00 Test Item Value Reference Range Interpretation Comments MAGNESIUM (BEAKER) (test code = 1.9 mg/dL 1.6-2.6 627) BASIC METABOLIC [id number] 07:32:00 Test Item Value Reference Range Interpretation [...] NOT APPLICABLE FOR DIALYSIS PATIEN TS. POCT-GLUCOSE [id number] 21:12:00 Test Item Value Reference Range Interpretation Comments POC-GLUCOSE METER 142 mg/dL 70-110 H : TESTED A T [facility] 6720 (BEAKER) (test code = TalasimJUNIE [facility] [facility], 1538) 32091: Telecommunications Field Engineer/Techni tasia ID = [id number] for NEGRITA DOWLING POCT-GLUCOSE [id number] 16:54:00 Test Item Value Reference Range Interpretation Comments POC-GLUCOSE METER 115 mg/dL 70-110 H : TESTED A T [facility] 6720 (BEAKER) (test code = TalasimJUNIE [employer]all [facility], 1538) 88484: Telecommunications Field Engineer/Techni tasia ID = [id number] for IRAM ISBELL POCT-GLUCOSE [id number] 11:58:00 Test Item Value Reference Range Interpretation Comments POC-GLUCOSE METER 128 mg/dL 70-110 H : TESTED A T [facility] 6720 (BEAKER) (test code = BOB Marshall [place], 1538) 88962: Telecommunications Field Engineer/Techni tasia ID = [id number] for APOLLO CASTANEDA POCT-GLUCOSE [id number] 07:13:00 Test Item Value Reference Range Interpretation Comments POC-GLUCOSE METER 131 mg/dL 70-110 H : TESTED A T [facility] 6720 (BEAKER) (test code = JADEVT Joanna [place], 1538) 57178: Telecommunications Field Engineer/Techni tasia ID = [id number] for MORE JOHANSEN [id number] 05:21:00 Test Item Value Reference Range Interpretation Comments PHOSPHORUS (BEAKER) (test code = 3.5 mg/dL 2.3-4.7 604) [id number] 05:21:00 Test Item Value Reference Range Interpretation Comments MAGNESIUM (BEAKER) (test code = 1.9 mg/dL 1.6-2.6 627) BASIC METABOLIC [id number] 05:21:00 Test Item Value Reference Range Interpretation [...] 0-0 (BEAKER) (test code = 413) POCT-GLUCOSE [id number] 00:20:00 Test Item Value Reference Range Interpretation Comments POC-GLUCOSE METER 152 mg/dL 70-110 H : TESTED A T [facility] 6720 (BEAKER) (test code = [facility], 1538) 28682: Telecommunications Field Engineer/Techni tasia ID = [id number] for MORE JOHANSEN POCT-GLUCOSE [id number] 22:26:00 Test Item Value Reference Range Interpretation Comments POC-GLUCOSE METER 153 mg/dL 70-110 H : TESTED A T [facility] 6720 (BEAKER) (test code = [facility], 1538) 69913: Telecommunications Field Engineer/Techni tasia ID = [id number] for ELVIRA SANDOVAL IN MR, MRA, NECK, WITHOUT IV [id number] 18:01:00Reason for exam:->stroke FINAL REPORT MR, BRAIN, WITHOUT CONTRAST, MR, MRA, NECK, WITHOUT IV CONTRAST,MR, MRA, BRAIN, WITHOUT CONTRAST INDICATION: Stroke, follow up TECHNIQUE: Multiplanar, multisequenceMR imaging of the brain without intravenous contrast.MRA of the head utilizing 3-D anpg-uh-tlvyhb technique, with 3-D reconstructions.MRA of the neck utilizing 2-D and 3-D mbfv-rh-cdopxi technique, with 3-D reconstructions. COMPARISON: None FINDINGS: [...] Verified Date/Time: 05/22/2019 18:01:25 MR, BRAIN, WITHOUT [id number] 18:01:00FINAL REPORT MR, BRAIN, WITHOUT CONTRAST, MR, MRA, NECK, WITHOUT IV CONTRAST,MR, MRA, BRAIN, WITHOUT CONTRAST INDICATION: Stroke, follow up TECHNIQUE: Multiplanar, multisequenceMR imaging of the brain without intravenous contrast.MRA of the head utilizing 3-D dapy-tj-lnaaok technique, with 3-D reconstructions.MRA of the neck utilizing 2-D and 3-D mhxs-up-aseahd technique, with 3-D reconstructions. COMPARISON: None FINDINGS: [...] [place] Verified Date/Time: 05/22/2019 18:01:25 MR, MRA, BRAIN, WITHOUT [id number] 18:01:00Reason for exam:->strokeFINAL REPORT MR, BRAIN, WITHOUT CONTRAST, MR, MRA, NECK, WITHOUT IV CONTRAST,MR, MRA, BRAIN, WITHOUT CONTRAST INDICATION: Stroke, follow up TECHNIQUE: Multiplanar, multisequenceMR imaging of the brain without intravenous contrast.MRA of the head utilizing 3-D gjle-sj-pxklcu myles hnique, with 3-D reconstructions.MRA of the neck utilizing 2-D and 3-D rthh-aq-utwchj technique, with 3-D reconstructions. COMPARISON: None FINDINGS: [...] Edgard [place] Verified Date/Time: 05/22/2019 18:01:25 RPR 2019-05-22 11:28:00 Test Item Value Reference Range Interpretation Comments RPR SCREEN (BEAKER) (test code = Nonreactive Nonreactive 420) HEMOGLOBIN [id number] 10:42:00 Test Item Value Reference Range Interpretation Comments HEMOGLOBIN A1C (BEAKER) (test code = 5.5 % 4.3-6.1 368) CBC W/PLT COUNT & AUTO [id number] 09:27:00 Test Item Value Reference Range Interpretation [...] PERCENT (BEAKER) (test code = 2801) POCT-GLUCOSE [id number] 08:56:00 Test Item Value Reference Range Interpretation Comments POC-GLUCOSE METER 118 mg/dL 70-110 H : TESTED A T [facility] 6720 (BEAKER) (test code = B[place], 1538) [id number]: Telecommunications Field Engineer/Techni tasia ID = [id number] for LL IAN, AGUILAA VITAMIN B12 AND [id number] 06:32:00 Test Item Value Reference Range Interpretation Comments VITAMIN B12 (BEAKER) (test code = < pg/mL 213-816 L 774) FOLATE (BEAKER) (test code = 362) 19.6 ng/mL >=7.0 TSH/FREE T4 IF [id number] 06:30:00 Test Item Value Reference Range Interpretation Comments THYROID STIMULATING HORMONE 3.55 uIU/mL 0.35-4.94 (BEAKER) (test code = 772) POCT-GLUCOSE [id number] 05:55:00 Test Item Value Reference Range Interpretation Comments POC-GLUCOSE METER 132 mg/dL 70-110 H : TESTED A T [facility] 6720 (BEAKER) (test code = JADEJUNIE [place]ERR[place], 1538) [address]: Telecommunications Field Engineer/Techni tasia ID = [id number] for MORE JOHANSEN [id number] 04:41:00 Test Item Value Reference Range Interpretation Comments PHOSPHORUS (BEAKER) (test code = 3.2 mg/dL 2.3-4.7 604) [id number] 04:41:00 Test Item Value Reference Range Interpretation Comments MAGNESIUM (BEAKER) (test code = 1.8 mg/dL 1.6-2.6 627) BASIC METABOLIC [id number] 04:41:00 Test Item Value Reference Range Interpretation [...] S NOT APPLICABLE FOR DIALYSIS PATIEN TS. LIPID [id number] 04:41:00 Test Item Value Reference Range Interpretation Comments TRIGLYCERIDES (BEAKER) (test code = 107 mg/dL 540) CHOLESTEROL (WalkmoreAKER) (test code = 181 mg/dL 631) HDL CHOLESTEROL (WalkmoreAKER) (test code 50 mg/dL = 976) LDL CHOLESTEROL CALCULATED (WalkmoreAKER) 110 mg/dL (test code = 633) Triglyceride Reference Range: Low Risk <150 Borderline 150-199 High Risk 200-499 Very High Risk >=500Cholesterol Reference Range: Low Risk <200 Borderline 200-239 High Risk >240HDL Cholesterol Reference Range: Low Risk >=60 High Risk <40LDL Cholesterol Reference Range: Optimal <100 Near Optimal 100-129 Borderline 130-159 High 160-189 Very High >=190
[2021-12-18] MEDS ORDERED: ONDANSETRON 4 MG/2 ML VIAL ONE (17:35)
[2021-12-18] MEDS ORDERED: MORPHINE 4 MG/ML SYR ONE (17:35)
[2021-12-18 18:03] LABS: Absolute Lymphocytes (CBC) 2.2 K/uL (0.7-4.9); Hematocrit 34.7 % (36.0-45.0); Lymphocytes % 33.3 % (15.3-44.8); RBC Red Blood Cell Count 3.43 M/uL (3.86-4.86)
--- NOTE | 2021-12-18 18:18 | RAD REPORT ---
EXAM DESCRIPTION: [place] Single View12/18/2021 6:10 pm CLINICAL HISTORY: Chest pain COMPARISON: 2019 FINDINGS: The lungs appear clear of acute infiltrate. The heart is normal size traffic monitor specialist overlies the left chest IMPRESSION: No acute abnormalities displayed
--- NOTE | 2021-12-18 18:37 | ER ---
Nurse's Notes [facility] Name: Deyanira Glez Age: 86 yrs Sex: Female : 1935 Arrival Date: 12/18/2021 Time: 16:54 Bed 18 Private MD: Sincere Collado Mitesh Diagnosis: Chest pain, unspecified Presentation: 12/18 17:00 Chief complaint: Patient states: intermittent chest pain since this morning. Pt also aa5 c/o SOB and reports she felt lightheaded earlier today. 17:00 Acuity: DOMINIC 3 aa5 17:00 Initial Sepsis Screen: Does the patient meet any 2 criteria? No. Patient's initial aa5 sepsis screen is negative. Does the patient have a suspected source of infection? No. Patient's initial sepsis screen is negative. Risk Assessment: Do you want to hurt yourself or someone else? Patient reports no desire to harm self or others. Onset of symptoms was December 18, 2021. 17:00 Coronavirus screen: shortness of breath. Ebola Screen: No symptoms or risks identified aa5 at this time. 17:00 Method Of Arrival: Wheelchair aa5 Historical: - Allergies: 17:00 PENICILLINS; aa5 - PMHx: 17:00 Diabetes - NIDDM; failed stress test; Hypertension; stroke; aa5 - Immunization history:: Adult Immunizations unknown. - Social history:: Smoking status: unknown. Screenin:18 Abuse screen: Denies threats or abuse. Nutritional screening: No deficits noted. jd3 Tuberculosis screening: No symptoms or risk factors identified. Fall Risk Ambulatory Aid- None/Bed Rest/Nurse Assist (0 pts). Gait- Normal/Bed Rest/Wheelchair (0 pts) Mental Status- Oriented to own ability (0 pts). Total Metzger Fall Scale indicates No Risk (0-24 pts). Assessment: 18:00 General: Appears in no apparent distress. comfortable, Behavior is calm, cooperative, jd3 appropriate for age. Pain: Complains of pain in chest Pain does not radiate. Quality of pain is described as sharp, Pain began gradually. Neuro: Maldonado Agitation-Sedation Scale (RASS): 0 - Alert and Calm Level of Consciousness is awake, alert, obeys commands, Oriented to person, place, time, situation. Cardiovascular: Heart tones S1 S2 present Capillary refill < 3 seconds Patient's skin is warm and dry. Rhythm is regular. Respiratory: Reports shortness of breath on exertion Airway is patent Respiratory effort is even, unlabored, Respiratory pattern is regular, symmetrical, Breath sounds are clear bilaterally. Denies cough. GI: Reports nausea. : No signs and/or symptoms were reported regarding the genitourinary system. EENT: No signs and/or symptoms were reported regarding the EENT system. Derm: Skin is intact, Skin is dry, Skin is normal, Skin temperature is warm. Musculoskeletal: Circulation, motion, and sensation intact. Range of motion: intact in all extremities. 21:21 Reassessment: Called for report, nurse busy will call back. ke1 Vital Signs: 17:00 BP 148 / 57; Pulse 72; Resp 18 S; Temp 97.2(TE); Pulse Ox 98% on R/A; Weight 49.9 kg aa5 (R); Height 5 ft. 0 in. (152.40 cm) (R); 18:17 BP 148 / 66; Pulse 75; Resp 17 S; Pulse Ox 98% on R/A; jd3 21:22 BP 119 / 89; Pulse 74; Resp 18; Temp 98.1(O); Pulse Ox 98% on R/A; ke1 17:00 Body Mass Index 21.48 (49.90 kg, 152.40 cm) aa5 ED Course: 16:54 Patient arrived in ED. as 16:54 Olvin Thornton DO is Private Physician. as 16:54 Corine Collado MD is Private Physician. as 16:58 Otto Cervantes MD is Attending Physician. kdr 17:01 Arm band placed on Patient placed in an exam room, on a stretcher. aa5 17:15 EKG done, by ED staff, reviewed by Otto Cervantes MD. em1 17:21 Barak Burrell RN is Primary Nurse. jd3 17:22 Triage completed. aa5 17:59 Inserted saline lock: 22 gauge in left wrist, using aseptic technique. Blood collected. jd3 18:12 XRAY Chest (1 view) In Process Unspecified. EDMS 18:18 Patient has correct armband on for positive identification. Placed in gown. Bed in low jd3 position. Call light in reach. Side rails up X2. Adult w/ patient. Client placed on continuous cardiac and pulse oximetry monitoring. NIBP monitoring applied. java technical manager on. Pulse ox on. NIBP on. 18:19 Patient maintains SpO2 saturation greater than 95% on room air. jd3 18:35 Corine Boo MD is Hospitalizing Provider. kdr Administered Medications: 17:27 CANCELLED (Physician Discretion): Pepcid (famotidine) 20 mg IVP once; dilute with 10 mL iw 0.9% NaCl; give over 2 minutes 17:58 Drug: morphine 4 mg Route: IVP; Infused Over: 4 mins; Site: left wrist; jd3 18:20 Follow up: Response: No adverse reaction; RASS: Alert and Calm (0) jd3 17:59 Drug: Zofran (Ondansetron) 4 mg Route: IVP; Site: left wrist; jd3 18:20 Follow up: Response: No adverse reaction jd3 19:56 Drug: Aspirin Chewable Tablet 324 mg Route: PO; jd3 21:20 Drug: Zofran (Ondansetron) 4 mg Route: IVP; Site: left wrist; ke1 Medication: 18:18 VIS not applicable for this client. jd3 Outcome: 18:36 Decision to Hospitalize by Provider. kdr 21:59 Patient left the ED. bb Signatures: Dispatcher [employer] EDMS Otto Cervantes MD MD kdr Alejandro, Janina Young RN Gilles Brock Audri, RN RN aa5 Barak Burrell RN RN jd3 Ebrottie, Kouassi, RN RN ke1 Elly Guzmán RN iw Corrections: (The following items were deleted from the chart) 18:20 18:19 Response: No adverse reaction jd3 jd3
--- NOTE | 2021-12-18 18:37 | EDPHYS ---
Physician Documentation [facility] Name: Deyanira Glez Age: 86 yrs Sex: Female : 1935 Arrival Date: 12/18/2021 Time: 16:54 Bed 18 Private MD: Sincere Collado [facility] ED Physician Otto Cervantes HPI: 12/18 18:36 This 86 yrs old Female presents to ER via Wheelchair with complaints of Chest Pain. kdr 18:36 The patient or guardian reports chest pain that is located primarily in the substernal kdr area. Onset: this morning, at 10:00. The pain does not radiate. Associated signs and symptoms: Pertinent positives: nausea, shortness of breath. The chest pain is described as aching, a pressure, sharp. Duration: The patient or guardian reports a single episode, that is still ongoing, and unchanged. Modifying factors: The symptoms are alleviated by nothing. the symptoms are aggravated by activity. Severity of pain: At its worst the pain was mild moderate just prior to arrival, in the emergency department the pain is unchanged. The patient has not experienced similar symptoms in the past. Historical: - Allergies: 17:00 PENICILLINS; aa5 - PMHx: 17:00 Diabetes - NIDDM; failed stress test; Hypertension; stroke; aa5 - Immunization history:: Adult Immunizations unknown. - Social history:: Smoking status: unknown. ROS: 18:36 Constitutional: Negative for fever, chills, and weight loss, Eyes: Negative for injury, kdr pain, redness, and discharge, Neck: Negative for injury, pain, and swelling, Cardiovascular: Negative for chest pain, palpitations, and edema. 18:50 Respiratory: Negative for shortness of breath, cough, wheezing, and pleuritic chest kdr pain, Abdomen/GI: Negative for abdominal pain, nausea, vomiting, diarrhea, and constipation, Back: Negative for injury and pain, MS/Extremity: Negative for injury and deformity, Skin: Negative for injury, rash, and discoloration, Neuro: Negative for headache, weakness, numbness, tingling, and seizure activity. Psych: Negative for depression, anxiety, suicide ideation, homicidal ideation, and hallucinations, Allergy/Immunology: Negative for hives, rash, and allergies, Endocrine: Negative for neck swelling, polydipsia, polyuria, polyphagia, and marked weight changes, Hematologic/Lymphatic: Negative for swollen nodes, abnormal bleeding, and unusual bruising. Exam: 17:19 ECG was reviewed by the Attending Physician. kdr 18:50 Constitutional: This is a well developed, well nourished patient who is awake, alert, kdr and in no acute distress. Head/Face: Normocephalic, atraumatic. Eyes: Pupils equal round and reactive to light, extra-ocular motions intact. Lids and lashes normal. Conjunctiva and sclera are non-icteric and not injected. Cornea within normal limits. Periorbital areas with no swelling, redness, or edema. Neck: Trachea midline, no thyromegaly or masses palpated, and no cervical lymphadenopathy. Supple, full range of motion without nuchal rigidity, or vertebral point tenderness. No Meningismus. Chest/axilla: Normal chest wall appearance and motion. Nontender with no deformity. No lesions are appreciated. Cardiovascular: Regular rate and rhythm with a normal S1 and S2. No gallops, murmurs, or rubs. Normal PMI, no JVD. No pulse deficits. Respiratory: Lungs have equal breath sounds bilaterally, clear to auscultation and percussion. No rales, rhonchi or wheezes noted. No increased work of breathing, no retractions or nasal flaring. Abdomen/GI: Soft, non-tender, with normal bowel sounds. No distension or tympany. No guarding or rebound. No evidence of tenderness throughout. Back: No spinal tenderness. No costovertebral tenderness. Full range of motion. Skin: Warm, dry with normal turgor. Normal color with no rashes, no lesions, and no evidence of cellulitis. MS/ Extremity: Pulses equal, no cyanosis. Neurovascular intact. Full, normal range of motion. Neuro: Awake and alert, GCS 15, oriented to person, place, time, and situation. Cranial nerves II-XII grossly intact. Motor strength 5/5 in all extremities. Sensory grossly intact. Cerebellar exam normal. Normal gait. Psych: Awake, alert, with orientation to person, place and time. Behavior, mood, and affect are within normal limits. Vital Signs: 17:00 BP 148 / 57; Pulse 72; Resp 18 S; Temp 97.2(TE); Pulse Ox 98% on R/A; Weight 49.9 kg aa5 (R); Height 5 ft. 0 in. (152.40 cm) (R); 18:17 BP 148 / 66; Pulse 75; Resp 17 S; Pulse Ox 98% on R/A; jd3 21:22 BP 119 / 89; Pulse 74; Resp 18; Temp 98.1(O); Pulse Ox 98% on R/A; ke1 17:00 Body Mass Index 21.48 (49.90 kg, 152.40 cm) aa5 MDM: 18:36 Patient medically screened. kdr 18:50 Data reviewed: vital signs, nurses notes, lab test result(s), radiologic studies. kdr Counseling: I had a detailed discussion with the patient and/or guardian regarding: the historical points, exam findings, and any diagnostic results supporting the discharge/admit diagnosis, lab results, radiology results, the need for further work-up and treatment in the hospital. 12/18 16:59 Order name: Basic Metabolic Panel; Complete Time: 19:57 [facility] 12/18 16:59 Order name: CBC with Diff; Complete Time: 18:32 [facility] 12/18 16:59 Order name: Troponin HS; Complete Time: 19:57 [facility] 12/18 16:59 Order name: XRAY Chest (1 view); Complete Time: 18:32 [facility] 12/18 18:37 Order name: COVID-19 SARS RT PCR (Document "Date of Onset" if Symptomatic); Complete em1 Time: 19:57 12/18 16:59 Order name: EKG; Complete Time: 16:59 [facility] 12/18 16:59 Order name: Cardiac monitoring; Complete Time: 17:21 [facility] 12/18 16:59 Order name: EKG - Nurse/Tech; Complete Time: 17:15 kdr 12/18 16:59 Order name: IV Saline Lock; Complete Time: 17:21 [facility] 12/18 16:59 Order name: Labs collected and sent; Complete Time: 17:21 [facility] 12/18 16:59 Order name: O2 Per Protocol; Complete Time: 17:21 [facility] 12/18 16:59 Order name: O2 Sat Monitoring; Complete Time: 17:21 [facility] 12/18 18:12 Order name: Labs - recollect needed: recollect green top; Complete Time: 19:23 eb EC:19 Rate is 74 beats/min. Rhythm is regular, Normal Sinus Rhythm with No ectopy. QRS [place] kdr is Normal. [place] interval is normal. QRS interval is normal. QT interval is normal. Clinical impression: Normal ECG. Administered Medications: 17:27 CANCELLED (Physician Discretion): Pepcid (famotidine) 20 mg IVP once; dilute with 10 mL iw 0.9% NaCl; give over 2 minutes 17:58 Drug: morphine 4 mg Route: IVP; Infused Over: 4 mins; Site: left wrist; jd3 18:20 Follow up: Response: No adverse reaction; RASS: Alert and Calm (0) jd3 17:59 Drug: Zofran (Ondansetron) 4 mg Route: IVP; Site: left wrist; jd3 18:20 Follow up: Response: No adverse reaction jd3 19:56 Drug: Aspirin Chewable Tablet 324 mg Route: PO; jd3 21:20 Drug: Zofran (Ondansetron) 4 mg Route: IVP; Site: left wrist; ke1 Disposition Summary: 12/18/21 18:36 Hospitalization Ordered Hospitalization Status: Observation kdr Provider: Corine Boo kdr Location: Telemetry/MedSurg (observation) kdr Condition: Fair kdr Problem: new kdr Symptoms: have improved kdr Bed/Room Type: Standard kdr Room Assignment: 413(12/18/21 20:01) cg Diagnosis - Chest pain, unspecified kdr Forms: - Medication Reconciliation Form kdr - SBAR form kdr Signatures: Dispatcher [employer] Otto Haas MD MD kdr Elly Guzmán RN RN iw Latricia Workman RN RN eb5 Woody Velasquez FNP-C SYSTEMS TEST ENGINEER-[facility] Genoveva Pittman RN RN cg Barak Burrell RN RN jd3 Botello, Elizabeth eb Ebrottie, Kouassi RN RN ke1 Corrections: (The following items were deleted from the chart) 17:27 17:18 Pepcid (famotidine) 20 mg IVP once; dilute with 10 mL 0.9% NaCl; give over 2 iw minutes ordered. kdr 17:27 17:27 Pepcid (famotidine) 20 mg IVP once; dilute with 10 mL 0.9% NaCl; give over 2 iw minutes ordered. iw 20:01 18:36 kdr cg
--- NOTE | 2021-12-18 19:20 | P.HP ---
Certification for Inpatient Patient admitted to: Observation With expected LOS: >2 Midnights Patient will require the following post-hospital care: None Practitioner: I am a practitioner with admitting privileges, knowledge of patient current condition, hospital course, and medical plan of care. Services: Services provided to patient in accordance with Admission requirements found in Title 42 Section 412.3 of the Code of Federal Regulations Patient History Date of Service: 12/18/21 Reason for admission: Chest pain History of Present Illness: 86-year-old female history of CAD, diabetes most type [id number]-jwccorc-xqshxmbvs, hypertension, previous CVA presents emergency department with chest pain shortness of breath. Patient reports that her pain began today while she was sitting on couch watching a baseball game, worse with exertion/ambulation with some associated shortness of breath. Patient was evaluated in the emergency department EKG was normal sinus rhythm without any ST elevation chest x-ray is unremarkable for troponin negative ED provider wishes to admit for ACS rule out. Allergies Penicillins Allergy (Mild, Verified 04/08/18 16:21) Hives iodine [Iodine] Allergy (Verified 04/08/18 16:21) Itching/Hives/Rash Home Medications: Dexlansoprazole [Dexilant] 60 mg PO DAILY 10/20/13 Estrogens,Conj Cream [Premarin 0.625MG/Gm] 1 appl VAG DAILY 03/20/18 Losartan Potassium [Cozaar] 50 mg PO [id number] 03/20/18 Metformin HCl [Glucophage] 500 mg PO EVERY 3RD DAY 03/20/18 Nitrofuran Macro [Macrobid] 100 mg PO DAILY 03/20/18 - Past Medical/Surgical History Diabetic: Yes -: diabetes -: hypertension -: CAD -: CVA -: hysterectomy -: gallbladder -: rt and left CTR -: cardiac stents 2013 -: left foot Psychosocial/ Personal History: Patient lives at home with family - Family History Father Notes: pt states, "parents and siblings very healthy, no health problems" - Social History Smoking Status: Never smoker Alcohol use: No CD- Drugs: No Caffeine use: Yes Place of Residence: Home Review of Systems 10-point ROS is otherwise unremarkable Cardiovascular: Chest Pain Physical Examination - Physical Exam General: Alert, In no apparent distress, Oriented x3 HEENT: Atraumatic, PERRLA, Mucous membr. moist/pink, EOMI, Sclerae nonicteric Neck: Supple, 2+ carotid pulse no bruit, No LAD, Without JVD or thyroid abnormality Respiratory: Clear to auscultation bilaterally, Normal air movement Cardiovascular: Regular rate/rhythm, Normal S1 S2 Gastrointestinal: Normal bowel sounds, No tenderness Musculoskeletal: No tenderness Integumentary: No rashes Neurological: Normal gait, Normal speech, Normal strength at 5/5 x4 extr, Normal tone, Normal affect Lymphatics: No axilla or inguinal lymphadenopathy - Studies Laboratory Data (last 24 hrs) 12/18/21 17:54: WBC 6.8, Hgb 12.0, Hct 34.7 L, Plt Count 157 Assessment and Plan - Plan Assessment: Chest pain rule out ACS history CAD Diabetes mellitus type 4wqt-joavjop-hyrbspydu Hypertension History of CVA Plan: Chest pain rule out ACS history CAD: Monitor on telemetry, trend troponins, aspirin, statin, beta-sangeeta as needed morphine. Cardiology consulted. Diabetes mellitus type 3zjt-tgvgnor-wbmyqhatr: ACH S Accu-Chek, sliding scale insulin Hypertension: Continue home medications History of CVA:Continue home medications DVT PPX: Lovenox Code status:full Discharge Plan: Home Plan to discharge in: 24 Hours - Advance Directives Does patient have a Living Will: No Does patient have a Durable POA for Healthcare: No - Code Status/Comfort Care Code Status Assessed: Yes (Full code) Critical Care: No Time Spent Managing Pts Care (In Minutes): 70
[2021-12-18 19:39] LABS: Potassium 3.6 mmol/L (3.5-5.1); Troponin High Sensitivity 9.8 pg/mL (<58.9)
[2021-12-18] MEDS ORDERED: ASPIRIN EC 81 MG TAB PO ONE (19:46)
[2021-12-18] MEDS: INSULIN -REGULAR HUMAN 50 UNIT/0.5 ML ML SQ SCH (22:24)
[2021-12-18] MEDS ORDERED: ACETAMINOPHEN 500 MG TAB PO PRN (22:24)
[2021-12-18] MEDS ORDERED: MORPHINE 2 MG/ML SYR IV PRN (22:24)
[2021-12-18] MEDS ORDERED: ONDANSETRON 4 MG/2 ML VIAL IV PRN (22:24)
[2021-12-18] MEDS: ATORVASTATIN 40 MG TAB PO SCH (22:48)
[2021-12-19 00:19] VITALS: BMI 21.4
[2021-12-19] MEDS: METOPROLOL TAR 25 MG TAB PO SCH ×2 (05:22→17:08)
[2021-12-19 06:56] LABS: Absolute Lymphocytes (CBC) 1.8 K/uL (0.7-4.9); Hematocrit 32.5 % (36.0-45.0); Lymphocytes % 29.7 % (15.3-44.8); MPV 10.1 fL (7.6-11.3); RBC Red Blood Cell Count 3.21 M/uL (3.86-4.86)
[2021-12-19 07:14] LABS: Bilirubin Total 0.2 mg/dL (0.2-1.0); Potassium 3.6 mmol/L (3.5-5.1); Protein, Total 6.1 g/dL (6.4-8.2); Troponin High Sensitivity 9.7 pg/mL (<58.9)
[2021-12-19] MEDS: INSULIN -REGULAR HUMAN 50 UNIT/0.5 ML ML SQ SCH ×4 (07:30→20:48)
[2021-12-19] MEDS: ASPIRIN EC 81 MG TAB PO SCH (07:56)
[2021-12-19] MEDS: ENOXAPARIN 40 MG/0.4 ML SQ SCH (07:57)
[2021-12-19] MEDS ORDERED: POTASSIUM CL SA 10 MEQ TAB PO ONE (09:00)
--- NOTE | 2021-12-19 13:34 | EKG ---
Test Date: 2021-12-18 Test Time: 17:06:41 High School Coach: ROSANA MEASUREMENT RESULTS: Intervals: Rate: 74 IN: 162 QRSD: 78 QT: 380 QTc: 421 [place]: P: 33 IN: 162 QRS: 23 T: 67 INTERPRETIVE STATEMENTS: Normal sinus rhythm Normal ECG Compared to ECG 05/21/2019 22:35:58 Ventricular premature complex(es) no longer present ST (T wave) deviation no longer present Electronically Signed On 12-19-21 13:33:28 CDT by Davain Salguero
--- NOTE | 2021-12-19 13:54 | ECHO ---
HEIGHT: 5 ft 0 in WEIGHT: 110 lb 0 oz DATE OF STUDY: 12/19/[address]: Cody Pendleton MD 2-DIMENSIONAL: YES M.MODE: YES DOPPLER: YES COLOR FLOW: YES TDS: PORTABLE: YES DEFINITY: BUBBLE STUDY: DIAGNOSIS: CHEST PAIN CARDIAC HISTORY: CATHERIZATION: YES SURGERY: NO PROSTHETIC VALVE: NO PACEMAKER: NO MEASUREMENTS (cm) DIASTOLIC (NORMALS) SYSTOLIC (NORMALS) IVSd 1.2 (0.6-1.2) LA Diam 2.3 (1.9-4.0) LVEF 55-60% LVIDd 2.8 (3.5-5.7) LVIDs 1.7 (2.0-3.5) %FS 39% LVPWd 1.1 (0.6-1.2) Ao Diam 2.0 (2.0-3.7) 2 DIMENSIONAL ASSESSMENT: RIGHT ATRIUM: NORMAL LEFT ATRIUM: NORMAL RIGHT VENTRICLE: NORMAL LEFT VENTRICLE: NORMAL TRICUSPID VALVE: MILD TRICUSPID REGURGITATION MITRAL VALVE: MILD MITRAL REGURGITATION PULMONIC VALVE: NORMAL AORTIC VALVE: MILD AORTIC INSUFFICIENCY PERICARDIAL EFFUSION: SMALL AORTIC ROOT: NORMAL LEFT VENTRICULAR WALL MOTION: NORMAL DOPPLER/COLOR FLOW: SEE BELOW COMMENTS: NORMAL LEFT VENTRICULAR EJECTION FRACTION 55-60%. NORMAL WALL MOTION. MILD MITRAL REGURGITATION, MILD AORTIC INSUFFICIENCY, MILD TRICUSPID REGURGITATION. SMALL PERICARDIAL EFFUSION. MODERATE DIASTOLIC DYSFUNCTION. TECHNOLOGIST: NADIR TRACY
[2021-12-19] MEDS: ATORVASTATIN 40 MG TAB PO SCH (20:14)
[2021-12-20 04:05] LABS: Absolute Lymphocytes (CBC) 1.8 K/uL (0.7-4.9); Hematocrit 32.9 % (36.0-45.0); Lymphocytes % 26.7 % (15.3-44.8); MPV 10.2 fL (7.6-11.3); RBC Red Blood Cell Count 3.25 M/uL (3.86-4.86)
[2021-12-20] MEDS: METOPROLOL TAR 25 MG TAB PO SCH (06:00)
[2021-12-20 06:14] LABS: Albumin 3.1 g/dL (3.4-5.0); Bilirubin Total 0.3 mg/dL (0.2-1.0); Potassium 4.1 mmol/L (3.5-5.1); Protein, Total 6.3 g/dL (6.4-8.2)
[2021-12-20] MEDS: INSULIN -REGULAR HUMAN 50 UNIT/0.5 ML ML SQ SCH ×2 (07:30→11:30)
[2021-12-20] MEDS: ENOXAPARIN 40 MG/0.4 ML SQ SCH (09:00)
[2021-12-20] MEDS: ASPIRIN EC 81 MG TAB PO SCH (09:00)
[2021-12-20] MEDS ORDERED: NA CHLORIDE 0.9% 500 ML ONE ×2 (09:30→10:23)
[2021-12-20] MEDS ORDERED: FENTANYL CITR 100 MCG/2 ML ONE (09:40)
[2021-12-20] MEDS ORDERED: ATROPINE SULF 1 MG/10 ML SYR IV ONE (09:41)
[2021-12-20] MEDS ORDERED: MIDAZOLAM HCL 2 MG/2 ML INJ ONE (09:41)
[2021-12-20] MEDS ORDERED: NA CHLORIDE 0.9% 0 ML ONE (09:41)
[2021-12-20] MEDS ORDERED: HEPA 1000U/500MLS 1,000 UNIT/500 ML BAG IV ONE (09:50)
[2021-12-20] MEDS ORDERED: DIPHENHYDRAMINE 50 MG/ML VIAL ONE (09:51)
[2021-12-20] MEDS ORDERED: METHYLPREDNISOLONE 125 MG INJ ONE (09:52)
[2021-12-20 11:52] VITALS: O2SAT 96
[2021-12-20 12:10] VITALS: BP 146/63
[2021-12-20 13:24] VITALS: TEMP 98.8
--- NOTE | 2021-12-20 13:29 | OP ---
Date of Procedure: 12/20/2021 Surgeon: Cody Pendleton MD Vegetable Vendor: Ms. Opal Cisse. Indication: The patient came in with unstable angina. Procedure In Detail: Brought to the cathead operator on 12/20/2021. She was prepped and draped in the rout ne sterile fashion. She had a left heart catheterization, selective coronary arteriogram, and common femoral artery angiogram. She was given Solu-Medrol and Benadryl because of iodine allergy before t he procedure. She was given fentanyl and Versed for sedation. A 6-Liberian sheath introduced in the r ight common femoral artery successfully using the Seldinger technique and 10 cc of Xylocaine. A JL4 catheter 6-Liberian was used to cannulate the left main. She was found to have patent stent of the LAD from the ostium all the way to the mid LAD. She had a completely occluded circumflex that was very small and nondominant. A 4-Liberian JR4 catheter was used to cannulate the right main. Her RCA was la rge, dominant without any focal stenosis. Common femoral artery angiogram was normal. Angio-Seal wa s used to close the case. Total conscious sedation was 30 minutes. There were no complications. Bl ood loss was 5 cc. Postoperative Diagnosis: Severe coronary artery disease, 100% circumflex. Plan: To continue medical therapy. She can go home today after 2 hours of bedrest. We will see her in the office in 2 weeks. EKTA/DOROTEO Voice ID: [id number] Report ID: [id number]
--- NOTE | 2021-12-22 20:35 | CON ---
Date of Consultation: 12/19/2021 Reason For Consultation: Unstable angina. History Of Present Illness: Ms. Hutton is 86. She has a history of diabetes, gastroesophageal refl ux disease, CVA, hypertension, CAD status post stents of the LAD in the past. She came in with subst ernal chest pressure radiating to both arms and back as well as jaw with some diaphoresis. Denied na usea, vomiting, PND, orthopnea, pedal edema, palpitations, or syncope. Troponin is negative. BNP is negative. EKG is nonspecific. Past Medical History: As stated above. Allergies: SHE IS ALLERGIC TO PENICILLIN AND IODINE. Review of Systems: Negative. Social History: Negative. Family History: Positive for heart disease. Medications: At home include Dexilant, metformin, and losartan. Physical Examination: Vital Signs: Stable, afebrile. HEENT: Negative. Neck: Supple without any bruit, lymphadenopathy, JVD, or thyromegaly. Chest: Clear to auscultation and percussion. Cardiac: Revealed a regular rhythm and rate. No murmurs, gallops, or rubs. Abdomen: Benign. Extremities: Revealed no clubbing, cyanosis, or edema. Diagnostic Data: As stated earlier. Impression And Plan: I think Ms. Hutton's symptoms are very concerning for unstable angina and recu rrent worsening of coronary artery disease. I will continue her on aspirin, Lovenox, low-dose beta b lockers, statin. Continue on metformin and Dexilant and plan a left heart catheterization to define her coronary anatomy. The patient understands the risk and the benefits of the procedure and she agr ees to proceed. Her other problems including diabetes, gastroesophageal reflux disease, hypertension , history of cerebrovascular accident are stable at this point. We will see what the catheterization shows before making further decisions. EKTA/[email or web address] Voice ID: [id number] Report ID: [id number]
== END 2021-12-20 15:52 | disposition home or self-care (01) | DRG 287 ==
LOC: ER 16:52 → ERHOLD 19:08 → 4TH 20:52 → OBSVTOIN 12-19 13:26
PROVIDERS: ADMIT Hospitalist; ATTEND Hospitalist
PROC: B2011ZZ Plain Radiography of Multiple Coronary Arteries using Low Osmolar Contrast (ICD-10-PCS; principal; 2021-12-20)
DX: I25.110 Atherosclerotic heart disease of native coronary artery with unstable angina pectoris (principal); I25.82 Chronic total occlusion of coronary artery; E11.9 Type 2 diabetes mellitus without complications; K21.9 Gastro-esophageal reflux disease without esophagitis; I10 Essential (primary) hypertension; Z95.5 Presence of coronary angioplasty implant and graft; Z86.73 Personal history of transient ischemic attack (TIA), and cerebral infarction without residual deficits; Z88.0 Allergy status to penicillin; Z20.822 Contact with and (suspected) exposure to COVID-19
CPT/HCPCS: 36415; 71045; 80048; 80053; 80061; 82947; 83690; 84484; 85025; 93005; 93306; 93454; 96374; 96375; 99285; C1760; C1893; G0269; G0378; J0583; J1200; J1644; J1650; J2250; J2405; J2930; J3010; J7040; Q9966; U0003

== ENCOUNTER 2022-11-09 09:20 | Observation (INO) | payer OTHER ==
--- OUTSIDE RECORDS SUMMARY | 2022-11-09 09:27 | XMS REPORT | Continuity of Care Document ---
:1935 Author Organization [facility] t Address [address] [address] [place] [address] Care Team Providers Name Role Phone BRIANNA THORNTON Primary Care Physician Unavailable Brianna Thornton Attending Clinician Unavailable Natalya Attending Clinician Unavailable Anil Tolentino MD Attending Clinician ANIL TOLENTINO Attending Clinician Unavailable Doctor Unassigned, [place] Attending Clinician Unavailable LUISITO PEREZ Attending Clinician Unavailable Natalya Admitting Clinician Unavailable ANIL TOLENTINO Admitting Clinician Unavailable LUISITO PEREZ Admitting Clinician Unavailable Payers Payer Name Policy Type Policy Number Effective Date Expiration Date S jennifer [facility] [id number] (MEDICARE 00:00:00 REPLACEMENT HMO) [employer] C1 [id number] 2018 Common g Medicare 00:00:00 [facility] Replace [facility] [employer] C1 [id number] 2018 Common g Medicare 00:00:00 [facility] Replace [facility] [employer] C1 [id number] 2018 Common g Medicare 00:00:00 [facility] - [facility] Replace [facility] [employer] C1 [id number] 2018 Common g Medicare 00:00:00 [facility] Replace [facility] [id number] 2018 Common g Medicare 00:00:00 [facility] Replace [facility] [id number] 2018 Common g Medicare 00:00:00 [facility] - [facility] Replace [facility] Problems Condition Condition Condition Status Onset Resolution Last Treating Co mments Source Name Details Category Date Date Treatment Clinician Date Cerebrovas Cerebrovas Disease Recurre 2018-[address] cular cular nce 07-22 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 coronary [facility] artery of [facility] [place] heart with unstable angina pectoris [id number] Impaired Problem Comm on mobility [facility] and ADLs [facility] Gastroesop GERD Problem Commo n hageal (gastroeso Spirit reflux phageal - [facility] disease reflux St disease) [facility] [id number] Generalize Problem Com mon d weakness [facility] Type II Diabetes Problem Common diabetes type 2, Spirit mellitus controlled - I well controlled [facility] Pain in Pain, foot Problem Comm on limb [facility] Allergic Non-season Problem Com mon rhinitis al Spirit allergic - [facility] rhinitis, St unspecifie [facility] [id number] Hx of Problem Common placement Spirit of stent - [facility]I in anterior [facility] descending Medica l branch of Center left coronary artery [id number] Cerebrovas Problem C ommon [id number] cular Spirit accident - [facility] (CVA) due St to [facility] occlusion [facility] Center posterior cerebral artery Allergies, Adverse Reactions, Alerts Allergy Allergy Status Severity Reaction(s) Onset Inactive Treating Comm ents Source Name Type Date Date Clinician NO KNOWN Drug Active Univers ALLERGIE Class ity of S [facility] Branch Penicill Penicill Active Unknown Commo n in in [facility] Social History Social Habit Start Date Stop Date Quantity Comments Source History SDOH [facility] Alcohol Comment Medical C enter Exposure to Not sure University of SARS-CoV-2 [facility] (event) Branch History of Common Spirit - Tobacco Use [facility] History SDOH [facility] Drinks History [facility] Alcohol Binge Medical [address] [facility] Tobacco use and 2019-05-22 2019-05-[address] [facility] exposure 00:00:00 00:00:00 non-user [facility] Alcohol intake 2019-05-22 2019-05-22 Current [facility]k es 00:00:00 00:00:00 non-drinker of [facility] nter alcohol (finding) History [facility] 2019-05-22 2019-05-[address] [facility] Alcohol Frequency 00:00:00 00:00:00 [facility] Sex Assigned At [birth year] [facility] 00:00:00 00:00:00 [facility] Smoking Status Start Date Stop Date Source Unknown if ever smoked [facility] Never Smoker [facility] Medications Ordered Filled Start Stop Current Ordering Indication Dosage Frequency Signature Comments Components Source Medication Medication Date Date Medication? Clinician (SIG) Name Name Kathrine Chisholm 2021-07 No 40mg Common (Triamcinol (Triamcinol 0-11 S pirit one) one) 00:00: - [facility] Kathrine Chisholm 2021-07 No 40mg Common (Triamcinol (Triamcinol 0-11 S pirit one) one) 00:00: - [facility] Kathrine Chisholm 2021-07 No 40mg Common (Triamcinol (Triamcinol 0-11 S pirit one) one) 00:00: - [facility] Kathrine Chisholm 2021-07 No 40mg Common (Triamcinol (Triamcinol 0-11 S pirit one) one) 00:00: - [facility] 00 [facility] Levocetiriz Levocetiriz 2021-07- No 1{table QD Levocetiri ine ine 0-11 11-09 t_in_th zine Dihydrochlo Dihydrochlo 00:00: 00:00 e_eveni Dihydrochl ride 5 MG ride 5 MG 00 :00 ng} [facility] No 40mg Common (Triamcinol (Triamcinol 0-19 S pirit one) one) 00:00: - [facility] 00 [facility] Kenalog Kenalog 2019-07 No 40mg Common (Triamcinol (Triamcinol 0-19 S pirit one) one) 00:00: - [facility] 00 [facility] Kenalog Kenalog 2019-07 No 40mg Common (Triamcinol (Triamcinol 0-19 S pirit one) one) 00:00: - [facility] 00 [facility] Kenalog Kenalog 2019-07 No 40mg Common (Triamcinol (Triamcinol 0-19 S pirit one) one) 00:00: - [facility] 00 [facility] Kenalog Kenalog 2019-07 No 40mg Common (Triamcinol (Triamcinol 0-19 S pirit one) one) 00:00: - [facility] 00 [facility] Kenalog Kenalog 2019-07 No 40mg Common (Triamcinol (Triamcinol 0-19 S pirit one) one) 00:00: - [facility] 00 [facility] Kenalog Kenalog 2019-07 No 40mg Common (Triamcinol (Triamcinol 0-19 S pirit one) one) 00:00: - [facility] 00 [facility] Kenalog Kenalog 2019-07 No 40mg Common (Triamcinol (Triamcinol 0-19 S pirit one) one) 00:00: - [facility]I 00 [facility] Kenalog Kenalog 2019-07 No 40mg Common (Triamcinol (Triamcinol 0-19 S pirit one) one) 00:00: - [facility]I 00 [facility] Kenalog Kenalog 2020-1 No 40mg Common (Triamcinol (Triamcinol 0-19 S pirit one) one) 00:00: - [facility] 00 [facility] Kenalog Kenalog 2020-1 No 40mg Common (Triamcinol (Triamcinol 0-19 S pirit one) one) 00:00: - [facility] 00 [facility] Vitamin B12 Vitamin B12 2020-0 No 1000ug Common (Cyanocobal (Cyanocobal 7-30 S pirit christy) christy) 00:00: - [facility]I 00 [facility] Vitamin B12 Vitamin B12 2020-0 No 1000ug Common (Cyanocobal (Cyanocobal 7-30 S pirit christy) christy) 00:00: - [facility]I 00 [facility] Vitamin B12 Vitamin B12 2020-0 No 1000ug Common (Cyanocobal (Cyanocobal 7-30 S pirit christy) christy) 00:00: - [facility]I 00 [facility] Vitamin B12 Vitamin B12 2020-0 No 1000ug Common (Cyanocobal (Cyanocobal 7-30 S pirit christy) christy) 00:00: - [facility] 00 [facility] Vitamin B12 Vitamin B12 2020-0 No 1000ug Common (Cyanocobal (Cyanocobal 7-30 S pirit christy) christy) 00:00: - [facility] 00 [facility] Vitamin B12 Vitamin B12 2020-0 No 1000ug Common (Cyanocobal (Cyanocobal 7-30 S pirit christy) christy) 00:00: - [facility] 00 [facility] Vitamin B12 Vitamin B12 2020-0 No 1000ug Common (Cyanocobal (Cyanocobal 7-30 S pirit christy) christy) 00:00: - [facility] 00 [facility] Vitamin B12 Vitamin B12 2020-0 No 1000ug Common (Cyanocobal (Cyanocobal 7-30 S pirit christy) christy) 00:00: - [facility] 00 [facility] Vitamin B12 Vitamin B12 2020-0 No 1000ug Common (Cyanocobal (Cyanocobal 7-30 S pirit christy) christy) 00:00: - [facility] 00 [facility] Vitamin B12 Vitamin B12 2020-0 No 1000ug Common (Cyanocobal (Cyanocobal 7-30 S pirit christy) christy) 00:00: - [facility] 00 [facility] Vitamin B12 Vitamin B12 2020-0 No 1000ug Common (Cyanocobal (Cyanocobal 7-30 S pirit christy) christy) 00:00: - [facility] 00 [facility] Vitamin B12 Vitamin B12 2020-0 No 1000ug Common (Cyanocobal (Cyanocobal 7-13 S pirit christy) christy) 00:00: - [facility] 00 [facility] Vitamin B12 Vitamin B12 2020-0 No 1000ug Common (Cyanocobal (Cyanocobal 7-13 S pirit christy) christy) 00:00: - [facility] 00 [facility] Vitamin B12 Vitamin B12 2020-0 No 1000ug Common (Cyanocobal (Cyanocobal 7-13 S pirit christy) christy) 00:00: - [facility] 00 [facility] Vitamin B12 Vitamin B12 2020-0 No 1000ug Common (Cyanocobal (Cyanocobal 7-13 S pirit christy) christy) 00:00: - [facility] 00 [facility] Vitamin B12 Vitamin B12 2020-0 No 1000ug Common (Cyanocobal (Cyanocobal 7-13 S pirit christy) christy) 00:00: - [facility] 00 [facility] Vitamin B12 Vitamin B12 2020-0 No 1000ug Common (Cyanocobal (Cyanocobal 7-13 S pirit christy) christy) 00:00: - [facility] 00 [facility] Vitamin B12 Vitamin B12 2020-0 No 1000ug Common (Cyanocobal (Cyanocobal 7-13 S pirit christy) christy) 00:00: - [facility] 00 [facility] Vitamin B12 Vitamin B12 2020-0 No 1000ug Common (Cyanocobal (Cyanocobal 7-13 S pirit christy) christy) 00:00: - [facility] 00 [facility] Vitamin B12 Vitamin B12 2020-0 No 1000ug Common (Cyanocobal (Cyanocobal 7-13 S pirit christy) christy) 00:00: - [facility]I 00 [facility] Vitamin B12 Vitamin B12 2020-0 No 1000ug Common (Cyanocobal (Cyanocobal 7-13 S pirit christy) christy) 00:00: - [facility]I 00 [facility] Vitamin B12 Vitamin B12 2020-0 No 1000ug Common (Cyanocobal (Cyanocobal 7-13 S pirit christy) christy) 00:00: - CHI 00 [facility] linaGLIPtin 2019-1 Yes 1{tbl} QD Take [address] (TRADJENTA) 1-12 tablet by Kimi es 5 mg Tab 00:00: mouth Medical 00 daily. [place] linaGLIPtin 2019- Yes 1{tbl} QD Take [address] (TRADJENTA) 1-12 tablet by Kimi es 5 mg Tab 00:00: mouth Medical 00 daily. [place] linaGLIPtin 2019- Yes 1{tbl} QD Take [address] (TRADJENTA) 1-12 tablet by Kimi es 5 mg Tab 00:00: mouth Medical 00 daily. [facility] 2018- No 40mg Common (Triamcinol (Triamcinol 0-23 S pirit one) one) 00:00: - CHI 00 [facility] 2018- No 40mg Common (Triamcinol (Triamcinol 0-23 S pirit one) one) 00:00: - [facility] 00 [facility] 2018- No 40mg Common (Triamcinol (Triamcinol 0-23 S pirit one) one) 00:00: - [facility] 00 [facility] 2018- No 40mg Common (Triamcinol (Triamcinol 0-23 S pirit one) one) 00:00: - [facility] 00 [facility] 2018- No 40mg Common (Triamcinol (Triamcinol 0-23 S pirit one) one) 00:00: - [facility] 00 [facility] 2018- No 40mg Common (Triamcinol (Triamcinol 0-23 S pirit one) one) 00:00: - [facility] 00 [facility] 2018- No 40mg Common (Triamcinol (Triamcinol 0-23 S pirit one) one) 00:00: - [facility] 00 [facility] 2019- No 40mg Common (Triamcinol (Triamcinol 0-23 S pirit one) one) 00:00: - [facility] 00 [facility] 2019- No 40mg Common (Triamcinol (Triamcinol 0-23 S pirit one) one) 00:00: - [facility]I 00 [facility] Kathrine Chisholm 2018- No 40mg Common (Triamcinol (Triamcinol 0-23 S pirit one) one) 00:00: - [facility]I 00 [facility] Kathrine Chisholm 2018- No 40mg Common (Triamcinol (Triamcinol 0-23 S pirit one) one) 00:00: - [facility]I 00 [facility] Tradjenta Tradjenta Yes Brianna TAKE ONE Common Thornton TABLET BY Spirit MOUTH - CHI DAILY [facility] Cozaar Cozaar Yes Brianna TAKE ONE Commo n Thornton TABLET BY Spirit MOUTH - CHI DAILY [facility] Metoprolol Metoprolol Yes Brianna TAKE C ommon Tartrate Tartrate Thornton ONE-HALF Sp jake TABLET BY - CHI MOUTH St TWICE A [facility] DAY WITH Medical FOOD Center Montelukast Montelukast Yes Brianna 1 tablet Common Sodium Sodium Thornton [facility] Aspir-Low Aspir-Low Yes Brianna 1 tablet Common Thornton [facility] Cyanocobala Cyanocobala Yes Brianna 1 tablet Common min min Thornton [facility] Atorvastati Atorvastati Yes Brianna 1 tablet Common n Calcium n Calcium Thornton Spir it [facility] Omeprazole Omeprazole Yes Brianna 1 capsule Common Thornton [facility] Atorvastati Atorvastati No 1{table QD Atorvastat n Calcium n Calcium t} in Calcium 80 MG 80 MG 80 MG Aspir-Low Aspir-Low No 1{table QD Aspir-Low 81 MG 81 MG t} 81 MG Atorvastati Atorvastati No Atorvastat n Calcium n Calcium in Calcium 80 MG 80 MG 80 MG Omeprazole Omeprazole No 1{capsu QD Omeprazole 40 MG 40 MG le} 40 MG Cyanocobala Cyanocobala No 1{table QD Cyanocobal min 1000 min 1000 t} christy 1000 MCG MCG MCG Cozaar 50 Cozaar 50 No QD Cozaar 50 MG MG MG Tradjenta 5 Tradjenta 5 No 1{table QD Tradjenta MG MG t} 5 MG Montelukast Montelukast No 1{table QD Montelukas Sodium 10 Sodium 10 t} t Sodium MG MG 10 MG Tradjenta 5 Tradjenta 5 No Tradjenta MG MG 5 MG Metoprolol Metoprolol No BID Metoprolol Tartrate 25 Tartrate 25 Tartrate MG MG 25 MG Atorvastati Atorvastati No 1{table QD Atorvastat n Calcium n Calcium t} in Calcium 80 MG 80 MG 80 MG Aspir-Low Aspir-Low No 1{table QD Aspir-Low 81 MG 81 MG t} 81 MG Atorvastati Atorvastati No Atorvastat n Calcium n Calcium in Calcium 80 MG 80 MG 80 MG Omeprazole Omeprazole No 1{capsu QD Omeprazole 40 MG 40 MG le} 40 MG Cyanocobala Cyanocobala No 1{table QD Cyanocobal min 1000 min 1000 t} christy 1000 MCG MCG MCG Cozaar 50 Cozaar 50 No QD Cozaar 50 MG MG MG Tradjenta 5 Tradjenta 5 No 1{table QD Tradjenta MG MG t} 5 MG Montelukast Montelukast No 1{table QD Montelukas Sodium 10 Sodium 10 t} t Sodium MG MG 10 MG Tradjenta 5 Tradjenta 5 No Tradjenta MG MG 5 MG Metoprolol Metoprolol No BID Metoprolol Tartrate 25 Tartrate 25 Tartrate MG MG 25 MG Atorvastati Atorvastati No 1{table QD Atorvastat n Calcium n Calcium t} in Calcium 80 MG 80 MG 80 MG Aspir-Low Aspir-Low No 1{table QD Aspir-Low 81 MG 81 MG t} 81 MG Atorvastati Atorvastati No Atorvastat n Calcium n Calcium in Calcium 80 MG 80 MG 80 MG Omeprazole Omeprazole No 1{capsu QD Omeprazole 40 MG 40 MG le} 40 MG Cyanocobala Cyanocobala No 1{table QD Cyanocobal min 1000 min 1000 t} christy 1000 MCG MCG MCG Cozaar 50 Cozaar 50 No QD Cozaar 50 MG MG MG Tradjenta 5 Tradjenta 5 No 1{table QD Tradjenta MG MG t} 5 MG Montelukast Montelukast No 1{table QD Montelukas Sodium 10 Sodium 10 t} t Sodium MG MG 10 MG Tradjenta 5 Tradjenta 5 No Tradjenta MG MG 5 MG Metoprolol Metoprolol No BID Metoprolol Tartrate 25 Tartrate 25 Tartrate MG MG 25 MG Atorvastati Atorvastati No 1{table QD Atorvastat n Calcium n Calcium t} in Calcium 80 MG 80 MG 80 MG Aspir-Low Aspir-Low No 1{table QD Aspir-Low 81 MG 81 MG t} 81 MG Atorvastati Atorvastati No Atorvastat n Calcium n Calcium in Calcium 80 MG 80 MG 80 MG Omeprazole Omeprazole No 1{capsu QD Omeprazole 40 MG 40 MG le} 40 MG Cyanocobala Cyanocobala No 1{table QD Cyanocobal min 1000 min 1000 t} christy 1000 MCG MCG MCG Cozaar 50 Cozaar 50 No QD Cozaar 50 MG MG MG Tradjenta 5 Tradjenta 5 No 1{table QD Tradjenta MG MG t} 5 MG Montelukast Montelukast No 1{table QD Montelukas Sodium 10 Sodium 10 t} t Sodium MG MG 10 MG Tradjenta 5 Tradjenta 5 No Tradjenta MG MG 5 MG Metoprolol Metoprolol No BID Metoprolol Tartrate 25 Tartrate 25 Tartrate MG MG 25 MG Cyanocobala Cyanocobala No 1{table QD Cyanocobal min 1000 min 1000 t} christy 1000 MCG MCG MCG Tradjenta 5 Tradjenta 5 No 1{table QD Tradjenta MG MG t} 5 MG Metoprolol Metoprolol No BID Metoprolol Tartrate 25 Tartrate 25 Tartrate MG MG 25 MG Losartan Losartan No Losartan Potassium Potassium Potassium 50 MG 50 MG 50 MG Omeprazole Omeprazole No Omeprazole 40 MG 40 MG 40 MG Aspir-Low Aspir-Low No 1{table QD Aspir-Low 81 MG 81 MG t} 81 MG Atorvastati Atorvastati No 1{table QD Atorvastat n Calcium n Calcium t} in Calcium 80 MG 80 MG 80 MG Omeprazole Omeprazole No 1{capsu QD Omeprazole 40 MG 40 MG le} 40 MG Cozaar 50 Cozaar 50 No QD Cozaar 50 MG MG MG Tradjenta 5 Tradjenta 5 No Tradjenta MG MG 5 MG Atorvastati Atorvastati No Atorvastat n Calcium n Calcium in Calcium 80 MG 80 MG 80 MG Montelukast Montelukast No 1{table QD Montelukas Sodium 10 Sodium 10 t} t Sodium MG MG 10 MG Omeprazole Omeprazole No 1{capsu QD Omeprazole 40 MG 40 MG le} 40 MG Aspir-Low Aspir-Low No 1{table QD Aspir-Low 81 MG 81 MG t} 81 MG Metoprolol Metoprolol No BID Metoprolol Tartrate 25 Tartrate 25 Tartrate MG MG 25 MG Montelukast Montelukast No 1{table QD Montelukas Sodium 10 Sodium 10 t} t Sodium MG MG 10 MG Cyanocobala Cyanocobala No 1{table QD Cyanocobal min 1000 min 1000 t} christy 1000 MCG MCG MCG Metoprolol Metoprolol No Metoprolol Tartrate 25 Tartrate 25 Tartrate MG MG 25 MG Cozaar 50 Cozaar 50 No QD Cozaar 50 MG MG MG Tradjenta 5 Tradjenta 5 No Tradjenta MG MG 5 MG Atorvastati Atorvastati No Atorvastat n Calcium n Calcium in Calcium 80 MG 80 MG 80 MG Losartan Losartan No Losartan Potassium Potassium Potassium 50 MG 50 MG 50 MG Omeprazole Omeprazole No Omeprazole 40 MG 40 MG 40 MG Omeprazole Omeprazole No 1{capsu QD Omeprazole 40 MG 40 MG le} 40 MG Aspir-Low Aspir-Low No 1{table QD Aspir-Low 81 MG 81 MG t} 81 MG Metoprolol Metoprolol No BID Metoprolol Tartrate 25 Tartrate 25 Tartrate MG MG 25 MG Montelukast Montelukast No 1{table QD Montelukas Sodium 10 Sodium 10 t} t Sodium MG MG 10 MG Cyanocobala Cyanocobala No 1{table QD Cyanocobal min 1000 min 1000 t} christy 1000 MCG MCG MCG Metoprolol Metoprolol No Metoprolol Tartrate 25 Tartrate 25 Tartrate MG MG 25 MG Cozaar 50 Cozaar 50 No QD Cozaar 50 MG MG MG Tradjenta 5 Tradjenta 5 No Tradjenta MG MG 5 MG Atorvastati Atorvastati No Atorvastat n Calcium n Calcium in Calcium 80 MG 80 MG 80 MG Losartan Losartan No Losartan Potassium Potassium Potassium 50 MG 50 MG 50 MG Omeprazole Omeprazole No Omeprazole 40 MG 40 MG 40 MG Omeprazole Omeprazole No 1{capsu QD Omeprazole 40 MG 40 MG le} 40 MG Aspir-Low Aspir-Low No 1{table QD Aspir-Low 81 MG 81 MG t} 81 MG Metoprolol Metoprolol No BID Metoprolol Tartrate 25 Tartrate 25 Tartrate MG MG 25 MG Montelukast Montelukast No 1{table QD Montelukas Sodium 10 Sodium 10 t} t Sodium MG MG 10 MG Cyanocobala Cyanocobala No 1{table QD Cyanocobal min 1000 min 1000 t} christy 1000 MCG MCG MCG Metoprolol Metoprolol No Metoprolol Tartrate 25 Tartrate 25 Tartrate MG MG 25 MG Cozaar 50 Cozaar 50 No QD Cozaar 50 MG MG MG Tradjenta 5 Tradjenta 5 No Tradjenta MG MG 5 MG Atorvastati Atorvastati No Atorvastat n Calcium n Calcium in Calcium 80 MG 80 MG 80 MG Losartan Losartan No Losartan Potassium Potassium Potassium 50 MG 50 MG 50 MG Omeprazole Omeprazole No Omeprazole 40 MG 40 MG 40 MG Omeprazole Omeprazole No 1{capsu QD Omeprazole 40 MG 40 MG le} 40 MG Aspir-Low Aspir-Low No 1{table QD Aspir-Low 81 MG 81 MG t} 81 MG Metoprolol Metoprolol No BID Metoprolol Tartrate 25 Tartrate 25 Tartrate MG MG 25 MG Montelukast Montelukast No 1{table QD Montelukas Sodium 10 Sodium 10 t} t Sodium MG MG 10 MG Cyanocobala Cyanocobala No 1{table QD Cyanocobal min 1000 min 1000 t} christy 1000 MCG MCG MCG Metoprolol Metoprolol No Metoprolol Tartrate 25 Tartrate 25 Tartrate MG MG 25 MG Cozaar 50 Cozaar 50 No QD Cozaar 50 MG MG MG Tradjenta 5 Tradjenta 5 No Tradjenta MG MG 5 MG Atorvastati Atorvastati No Atorvastat n Calcium n Calcium in Calcium 80 MG 80 MG 80 MG Losartan Losartan No Losartan Potassium Potassium Potassium 50 MG 50 MG 50 MG Omeprazole Omeprazole No Omeprazole 40 MG 40 MG 40 MG Aspir-Low Aspir-Low No 1{table QD Aspir-Low 81 MG 81 MG t} 81 MG Atorvastati Atorvastati No 1{table QD Atorvastat n Calcium n Calcium t} in Calcium 80 MG 80 MG 80 MG Tradjenta 5 Tradjenta 5 No 1{table QD Tradjenta MG MG t} 5 MG Atorvastati Atorvastati No Atorvastat n Calcium n Calcium in Calcium 80 MG 80 MG 80 MG Metoprolol Metoprolol No BID Metoprolol Tartrate 25 Tartrate 25 Tartrate MG MG 25 MG Tradjenta 5 Tradjenta 5 No Tradjenta MG MG 5 MG Montelukast Montelukast No 1{table QD Montelukas Sodium 10 Sodium 10 t} t Sodium MG MG 10 MG Omeprazole Omeprazole No 1{capsu QD Omeprazole 40 MG 40 MG le} 40 MG Cozaar 50 Cozaar 50 No QD Cozaar 50 MG MG MG Losartan Losartan No Losartan Potassium Potassium Potassium 50 MG 50 MG 50 MG Aspir-Low Aspir-Low No 1{table QD Aspir-Low 81 MG 81 MG t} 81 MG Atorvastati Atorvastati No 1{table QD Atorvastat n Calcium n Calcium t} in Calcium 80 MG 80 MG 80 MG Atorvastati Atorvastati No Atorvastat n Calcium n Calcium in Calcium 80 MG 80 MG 80 MG Metoprolol Metoprolol No BID Metoprolol Tartrate 25 Tartrate 25 Tartrate MG MG 25 MG Losartan Losartan No Losartan Potassium Potassium Potassium 50 MG 50 MG 50 MG Montelukast Montelukast No 1{table QD Montelukas Sodium 10 Sodium 10 t} t Sodium MG MG 10 MG Omeprazole Omeprazole No 1{capsu QD Omeprazole 40 MG 40 MG le} 40 MG Cozaar 50 Cozaar 50 No QD Cozaar 50 MG MG MG Tradjenta 5 Tradjenta 5 No Tradjenta MG MG 5 MG Omeprazole Omeprazole No 1{capsu QD Omeprazole 40 MG 40 MG le} 40 MG Aspir-Low Aspir-Low No 1{table QD Aspir-Low 81 MG 81 MG t} 81 MG Cozaar 50 Cozaar 50 No QD Cozaar 50 MG MG MG Tradjenta 5 Tradjenta 5 No Tradjenta MG MG 5 MG Tradjenta 5 Tradjenta 5 No 1{table QD Tradjenta MG MG t} 5 MG Metoprolol Metoprolol No BID Metoprolol Tartrate 25 Tartrate 25 Tartrate MG MG 25 MG Montelukast Montelukast No 1{table QD Montelukas Sodium 10 Sodium 10 t} t Sodium MG MG 10 MG Atorvastati Atorvastati No Atorvastat n Calcium n Calcium in Calcium 80 MG 80 MG 80 MG Omeprazole Omeprazole No Omeprazole 40 MG 40 MG 40 MG Losartan Losartan No Losartan Potassium Potassium Potassium 50 MG 50 MG 50 MG Atorvastati Atorvastati No 1{table QD Atorvastat n Calcium n Calcium t} in Calcium 80 MG 80 MG 80 MG Omeprazole Omeprazole No 1{capsu QD Omeprazole 40 MG 40 MG le} 40 MG Aspir-Low Aspir-Low No 1{table QD Aspir-Low 81 MG 81 MG t} 81 MG Cozaar 50 Cozaar 50 No QD Cozaar 50 MG MG MG Tradjenta 5 Tradjenta 5 No Tradjenta MG MG 5 MG Tradjenta 5 Tradjenta 5 No 1{table QD Tradjenta MG MG t} 5 MG Metoprolol Metoprolol No BID Metoprolol Tartrate 25 Tartrate 25 Tartrate MG MG 25 MG Montelukast Montelukast No 1{table QD Montelukas Sodium 10 Sodium 10 t} t Sodium MG MG 10 MG Atorvastati Atorvastati No Atorvastat n Calcium n Calcium in Calcium 80 MG 80 MG 80 MG Omeprazole Omeprazole No Omeprazole 40 MG 40 MG 40 MG Losartan Losartan No Losartan Potassium Potassium Potassium 50 MG 50 MG 50 MG Atorvastati Atorvastati No 1{table QD Atorvastat n Calcium n Calcium t} in Calcium 80 MG 80 MG 80 MG Aspir-Low Aspir-Low No 1{table QD Aspir-Low 81 MG 81 MG t} 81 MG Omeprazole Omeprazole No 1{capsu QD Omeprazole 40 MG 40 MG le} 40 MG Losartan Losartan No Losartan Potassium Potassium Potassium 50 MG 50 MG 50 MG Atorvastati Atorvastati No Atorvastat n Calcium n Calcium in Calcium 80 MG 80 MG 80 MG Atorvastati Atorvastati No 1{table QD Atorvastat n Calcium n Calcium t} in Calcium 80 MG 80 MG 80 MG Tradjenta 5 Tradjenta 5 No 1{table QD Tradjenta MG MG t} 5 MG Montelukast Montelukast No 1{table QD Montelukas Sodium 10 Sodium 10 t} t Sodium MG MG 10 MG Cozaar 50 Cozaar 50 No QD Cozaar 50 MG MG MG Omeprazole Omeprazole No Omeprazole 40 MG 40 MG 40 MG Tradjenta 5 Tradjenta 5 No Tradjenta MG MG 5 MG Metoprolol Metoprolol No BID Metoprolol Tartrate 25 Tartrate 25 Tartrate MG MG 25 MG Atorvastati Atorvastati No Atorvastat n Calcium n Calcium in Calcium 80 MG 80 MG 80 MG Metoprolol Metoprolol No BID Metoprolol Tartrate 25 Tartrate 25 Tartrate MG MG 25 MG Cozaar 50 Cozaar 50 No QD Cozaar 50 MG MG MG Losartan Losartan No Losartan Potassium Potassium Potassium 50 MG 50 MG 50 MG Aspir-Low Aspir-Low No 1{table QD Aspir-Low 81 MG 81 MG t} 81 MG Tradjenta 5 Tradjenta 5 No Tradjenta MG MG 5 MG Omeprazole Omeprazole No Omeprazole 40 MG 40 MG 40 MG Montelukast Montelukast No 1{table QD Montelukas Sodium 10 Sodium 10 t} t Sodium MG MG 10 MG Atorvastati Atorvastati No Atorvastat n Calcium n Calcium in Calcium 80 MG 80 MG 80 MG Metoprolol Metoprolol No BID Metoprolol Tartrate 25 Tartrate 25 Tartrate MG MG 25 MG Cozaar 50 Cozaar 50 No QD Cozaar 50 MG MG MG Losartan Losartan No Losartan Potassium Potassium Potassium 50 MG 50 MG 50 MG Aspir-Low Aspir-Low No 1{table QD Aspir-Low 81 MG 81 MG t} 81 MG Tradjenta 5 Tradjenta 5 No Tradjenta MG MG 5 MG Omeprazole Omeprazole No Omeprazole 40 MG 40 MG 40 MG Montelukast Montelukast No 1{table QD Montelukas Sodium 10 Sodium 10 t} t Sodium MG MG 10 MG Metoprolol Metoprolol No BID Metoprolol Tartrate 25 Tartrate 25 Tartrate MG MG 25 MG Tradjenta 5 Tradjenta 5 No Tradjenta MG MG 5 MG Atorvastati Atorvastati No Atorvastat n Calcium n Calcium in Calcium 80 MG 80 MG 80 MG Cyanocobala Cyanocobala No 1{table QD Cyanocobal min 1000 min 1000 t} christy 1000 MCG MCG MCG Cozaar 50 Cozaar 50 No QD Cozaar 50 MG MG MG Omeprazole Omeprazole No 1{capsu QD Omeprazole 40 MG 40 MG le} 40 MG Montelukast Montelukast No 1{table QD Montelukas Sodium 10 Sodium 10 t} t Sodium MG MG 10 MG Tradjenta 5 Tradjenta 5 No 1{table QD Tradjenta MG MG t} 5 MG Atorvastati Atorvastati No 1{table QD Atorvastat n Calcium n Calcium t} in Calcium 80 MG 80 MG 80 MG Aspir-Low Aspir-Low No 1{table QD Aspir-Low 81 MG 81 MG t} 81 MG Atorvastati Atorvastati No 1{table QD Atorvastat n Calcium n Calcium t} in Calcium 80 MG 80 MG 80 MG Aspir-Low Aspir-Low No 1{table QD Aspir-Low 81 MG 81 MG t} 81 MG Atorvastati Atorvastati No Atorvastat n Calcium n Calcium in Calcium 80 MG 80 MG 80 MG Omeprazole Omeprazole No 1{capsu QD Omeprazole 40 MG 40 MG le} 40 MG Cyanocobala Cyanocobala No 1{table QD Cyanocobal min 1000 min 1000 t} christy 1000 MCG MCG MCG Cozaar 50 Cozaar 50 No QD Cozaar 50 MG MG MG Tradjenta 5 Tradjenta 5 No 1{table QD Tradjenta MG MG t} 5 MG Montelukast Montelukast No 1{table QD Montelukas Sodium 10 Sodium 10 t} t Sodium MG MG 10 MG Tradjenta 5 Tradjenta 5 No Tradjenta MG MG 5 MG Metoprolol Metoprolol No BID Metoprolol Tartrate 25 Tartrate 25 Tartrate MG MG 25 MG Immunizations Ordered Immunization Filled Immunization Date Status Commen ts Source Name Name Kathrine Chisholm 2020-04-26 [facility] (Tri[facility] (Triamcinolone) 14:55:00 [facility] Kathrine Chisholm 2020-04-26 [facility] (Triamcinolone) (Triamcinolone) 14:55:00 [facility] Kenalog Kenalog 2020-04-26 Completed [facility] (Triamcinolone) (Triamcinolone) 14:55:00 - I [facility] Kenalog Kenalog 2020-04-26 Completed [facility] (Triamcinolone) (Triamcinolone) 14:55:00 - I [facility] Kenalog Kenalog 2020-04-26 Completed [facility] (Triamcinolone) (Triamcinolone) 14:55:00 - [facility] Vitamin B12 Vitamin B12 2020-02-05 Completed [facility] (Cyanocobalamin) (Cyanocobalamin) 13:46:00 [facility] Vitamin B12 Vitamin B12 2020-02-05 Completed [facility] (Cyanocobalamin) (Cyanocobalamin) 13:46: [facility] Vitamin B12 Vitamin B12 2020-02-05 Completed [facility] (Cyanocobalamin) (Cyanocobalamin) 13:46: [facility] Vitamin B12 Vitamin B12 2020-02-05 [facility]pleted [facility] (Cyanocobalamin) (Cyanocobalamin) 13:46:00 [facility] Vitamin B12 Vitamin B12 2020-02-05 Completed [facility] (Cyanocobalamin) (Cyanocobalamin) 13:46: [facility] Vitamin B12 Vitamin B12 2020-02-05 Completed [facility] (Cyanocobalamin) (Cyanocobalamin) 13:46: [facility] Vitamin B12 Vitamin B12 2020-01-19 Completed [facility] (Cyanocobalamin) (Cyanocobalamin) 14:00: [facility] Vitamin B12 Vitamin B12 2020-01-19 Completed [facility] (Cyanocobalamin) (Cyanocobalamin) 14:: [facility] Vitamin B12 Vitamin B12 2020-01-19 [facility] (Cyanocobalamin) (Cyanocobalamin) 14:: [facility] Vitamin B12 Vitamin B12 2020-01-19 [facility] (Cyanocobalamin) (Cyanocobalamin) 14:: [facility] Vitamin B12 Vitamin B12 2020-01-19 Completed [facility] (Cyanocobalamin) (Cyanocobalamin) 14:00:00 [facility] Vitamin B12 Vitamin B12 2020-01-19 [facility] (Cyanocobalamin) (Cyanocobalamin) 14:00:00 [facility] (Triamcinolone) (Triamcinolone) 11:00:00 [facility] 2019-04-30 Completed [facility] (Triamcinolone) (Triamcinolone) 11:00:00 [facility] 2019-04-30 Com[facility] (Triamcinolone) (Triamcinolone) 11:00:00 [facility] 2019-04-30 Completed [facility] (Triamcinolone) (Triamcinolone) 11:00:00 [facility] 2019-04-30 Completed [facility] (Triamcinolone) (Triamcinolone) 11:00:00 [facility] 2019-04-30 Completed [facility] (Triamcinolone) (Triamcinolone) 11:00:00 [facility] Vital Signs Vital Name Observation Time Observation Value Comments Source height 2022-04-18 14:40:00 59.5 [in_i] [facility] weight 2022-04-18 14:40:00 112.0 [lb_av] [facility] temperature 2022-04-18 14:40:00 97.2 [degF] [facility] bmi 2022-04-18 14:40:00 22.24 kg/m2 [facility] oximetry 2022-04-18 14:40:00 97 % [facility] respiratory rate 2022-04-18 14:40:00 17 /min Comm on [facility] blood pressure 2022-04-18 14:40:00 146 mm[Hg] [facility] - systolic [facility] blood pressure 2022-04-18 14:40:00 73 mm[Hg] [facility] - diastolic [facility] height 2022-03-14 13:10:00 59.5 [in_i] Common [facility] weight 2022-03-14 13:10:00 111.2 [lb_av] [facility] temperature 2022-03-14 13:10:00 97.4 [degF] [facility] bmi 2022-03-14 13:10:00 22.08 kg/m2 Common [facility] oximetry 2022-03-14 13:10:00 98 % Common [facility] respiratory rate 2022-03-14 13:10:00 18 /min Comm on [facility] blood pressure 2022-03-14 13:10:00 135 mm[Hg] Common [facility] - systolic [facility] blood pressure 2022-03-14 13:10:00 67 mm[Hg] [facility] - diastolic [facility] height 2021-12-27 10:20:00 59.5 [in_i] Common [facility] weight 2021-12-27 10:20:00 111.8 [lb_av] [facility] temperature 2021-12-27 10:20:00 96.6 [degF] Common [facility] bmi 2021-12-27 10:20:00 22.2 kg/m2 Common [facility] oximetry 2021-12-27 10:20:00 98 % Common [facility] respiratory rate 2021-12-27 10:20:00 17 /min Comm on [facility] blood pressure 2021-12-27 10:20:00 132 mm[Hg] Common [facility] - systolic [facility] blood pressure 2021-12-27 10:20:00 74 mm[Hg] [facility] - [facility] height 2021-12-12 14:00:00 59.5 [in_i] Common [facility] weight 2021-12-12 14:00:00 110.0 [lb_av] Common [facility] temperature 2021-12-12 14:00:00 97.2 [degF] Common [facility] bmi 2021-12-12 14:00:00 21.84 kg/m2 Common [facility] oximetry 2021-12-12 14:00:00 97 % Common [facility] respiratory rate 2021-12-12 14:00:00 18 /min Comm on [facility] blood pressure 2021-12-12 14:00:00 137 mm[Hg] Common [facility] - systolic [facility] blood pressure 2021-12-12 14:00:00 63 mm[Hg] Common [facility] - diastolic [facility] height 2021-12-12 14:00:00 59.5 [in_i] Common [facility] weight 2021-12-12 14:00:00 110.0 [lb_av] [facility] temperature 2021-12-12 14:00:00 97.2 [degF] Common [facility] bmi 2021-12-12 14:00:00 21.84 kg/m2 [facility] oximetry 2021-12-12 14:00:00 97 % Common [facility] respiratory rate 2021-12-12 14:00:00 18 /min Comm on [facility] blood pressure 2021-12-12 14:00:00 137 mm[Hg] Common [facility] - systolic [facility] blood pressure 2021-12-12 14:00:00 63 mm[Hg] Common [facility] - diastolic [facility] height 2021-06-20 14:20:00 59.5 [in_i] Common [facility] weight 2021-06-20 14:20:00 112.2 [lb_av] Common [facility] temperature 2021-06-20 14:20:00 97.9 [degF] Common [facility] bmi 2021-06-20 14:20:00 22.28 kg/m2 Common [facility] oximetry 2021-06-20 14:20:00 96 % [facility] respiratory rate 2021-06-20 14:20:00 17 /min Comm on [facility] blood pressure 2021-06-20 14:20:00 133 mm[Hg] Common [facility] systolic [facility] blood pressure 2021-06-20 14:20:00 70 mm[Hg] Common [facility] diastolic [facility] height 2021-03-29 15:10:00 59.5 [in_i] [facility] weight 2021-03-29 15:10:00 113.7 [lb_av] [facility] temperature 2021-03-29 15:10:00 96.9 [degF] Common [facility] bmi 2021-03-29 15:10:00 22.58 kg/m2 [facility] oximetry 2021-03-29 15:10:00 96 % [facility] respiratory rate 2021-03-29 15:10:00 16 /min Comm on [facility] blood pressure 2021-03-29 15:10:00 132 mm[Hg] Common [facility] systolic [facility] blood pressure 2021-03-29 15:10:00 71 mm[Hg] Common [facility] diastolic [facility] Procedures Procedure Date / Time Performed Performing Clinician Sourisabella e CT CERVICAL SPINE WO 2021-05-13 15:23:00 Anil Tolentino [facility] CONTRAST Medical Branch ASSIGNMENT OF BENEFITS 2021-05-13 14:23:29 Doctor Unassigned, No [facility] Name Medical Branch Plan of Care Planned Activity Planned Date Details Comments Source Future Scheduled 2022-03-09 INFLUENZA VACCINE (#1) [facility] 00:00:00 [code = INFLUENZA Medical Ce nter VACCINE (#1)] Future Scheduled 2021-07-[address] [facility] 00:00:00 (12+) [code = Medical Center DEPRESSION SCREENING (12+)] Future Scheduled 2021-07-09 FALLS RISK SCREENING [facility] 00:00:00 [code = FALLS RISK Medical C enter SCREENING] Future Scheduled 2020-05-[address] [facility] 00:00:00 WELLNESS (YEAR 2 or Medical Center FIRST YEAR if no IPPE) [code = MEDICARE ANNUAL WELLNESS (YEAR 2 or FIRST YEAR if no IPPE)] Future Scheduled 2000 PNEUMOCOCCAL 65+ YRS [facility] 00:00:00 (1 - PCV) [code = Medical Ce nter PNEUMOCOCCAL 65+ YRS (1 - PCV)] Future Scheduled 1985 SHINGLES VACCINES ([address] [facility] 00:00:00 of 2) [code = SHINGLES Medic al Center VACCINES (1 of 2)] Future Scheduled 1954 DTAP/TDAP/TD VACCINES [facility] 00:00:00 (1 - Tdap) [code = Medical C enter DTAP/TDAP/TD VACCINES (1 - Tdap)] Future Scheduled 1935 COVID-19 VACCINE (#1) [facility] 00:00:00 [code = COVID-[address] VACCINE (#1)] Encounters Start End Encounter Admission Attending Care Care Encounter Source Date/Time Date/Time Type Type Clinicians Facility Department ID 2022-10-23 Outpatient Thornton, [facility] [id number] Common 15:22:00 Brianna [id number] [facility] 2022-10-03 Outpatient Thornton, [facility] [id number] Common 13:44:00 Brianna [id number] [facility] 2022-09-15 Outpatient Thornton, [facility] [id number] Common 11:36:00 Brianna [id number] [facility] 2022-09-14 Outpatient Thornton, [facility] [id number] Common 10:24:00 Brianna [id number] [facility] 2022-06-14 Outpatient Thornton, STLMLC STLMLC Common 11:42:01 Brianna [facility] 2021-12-12 Outpatient Thornton, STLMLC STLMLC Common 11:36:00 Brianna [facility] 2021-09-14 Outpatient Thornton, STLMLC STLMLC Common 16:43:01 Brianna [facility] 2021-08-03 Outpatient Thornton, STLMLC STLMLC Common 14:23:30 Brianna [id number] [facility] 2021-08-03 Outpatient Thornton, STLMLC STLMLC Common 13:26:09 Brianna [id number] [facility] 2021-08-03 Outpatient Thornton, STLMLC STLMLC Common 13:06:29 Brianna [id number] [facility] 2021-08-03 Outpatient Thornton, STLMLC STLMLC Common 12:36:11 Brianna [id number] [facility] 2021-08-03 Outpatient Thornton, STLMLC STLMLC Common 12:03:06 Brianna [id number] [facility] 2021-08-03 Outpatient Thornton, STLMLC STLMLC Common 11:28:48 Brianna [id number] [facility] 2021-08-03 Outpatient Thornton, STLMLC STLMLC Common 11:05:28 Brianna [id number] [facility] 2021-08-03 Outpatient Thornton, STLMLC STLMLC Common 10:59:16 Brianna [id number] [facility] 2021-08-03 Outpatient Thornton, STLMLC STLMLC Common 10:59:04 Brianna [id number] [facility] 2022-06-14 2022-06-14 (TEL) STLC STLC [id number] Co mmon 00:00:00 00:00:00 [facility] 2022-05-22 2022-05-22 (TEL) STLMLC STLMLC [id number] Co mmon 00:00:00 00:00:00 [facility] 2022-04-18 2022-04-18 OFFICE STLMLC STLMLC [id number] Co mmon 00:00:00 00:00:00 VISIT EST Spir it PT LEVEL 3 - [facility] 2022-04-17 2022-04-17 (TEL) STLMLC STLMLC [id number] Co mmon 00:00:00 00:00:00 [facility] 2022-03-20 2022-03-20 [place] [id number] [facility] 00:00:00 00:00:00 0912 [facility] 2022-03-14 2022-03-14 OFFICE STLMLC STLMLC [id number] Co mmon 00:00:00 00:00:00 VISIT Spirit ESTAB PT - CHI LEVEL 4 [facility] 2022-02-08 2022-02-08 (TEL) STLMLC STLMLC [id number] Co mmon 00:00:00 00:00:00 [facility] 2022-01-20 2022-01-20 Outpatient DMG [facility] [id number] [facility] 06:18:00 06:18:00 0715 Medica l Group 2021-12-27 2021-12-27 (HOSP F/U) STLMLC STLMLC [id number] Common 00:00:00 00:00:00 Hospital Spiri t Follow Up - [facility] 2021-12-26 2021-12-26 (TEL) STLMLC STLMLC [id number] Co mmon 00:00:00 00:00:00 [facility] 2021-12-21 2021-12-21 (TEL) STLMLC STLMLC [id number] Co mmon 00:00:00 00:00:00 [facility] 2021-12-12 2021-12-12 SUB ANNUAL STLMLC STLMLC [id number] Common 00:00:00 00:00:00 [facility] - CHI VISIT [facility] 2021-12-12 2021-12-12 OFFICE STLMLC STLMLC [id number] Co mmon 00:00:00 00:00:00 [facility]IT [facility] ESTAB PT - CHI LEVEL 4 [facility] 2021-06-20 2021-06-20 OFFICE STLMLC STLMLC [id number] Co mmon 00:00:00 00:00:00 [facility] ESTAB PT - CHI LEVEL 4 [facility] 2021-05-13 2021-05-13 [facility] [id number] [facility] 09:25:45 23:59:00 Encounter Anil OCHOA [id number] ity [facility] [id number] [facility] [id number] [facility] [address] Branch 2021-05-13 2021-05-13 Outpatient [facility] [id number] [facility] 09:25:45 23:59:00 ANIL ity [facility] 2021-05-13 2021-05-13 Orders Doctor MAX [id number] Univers 00:00:00 00:00:00 Only Unassigned, FIDENCIO [id number] ity of [facility] [id number] [facility] [id number] [facility] 009 Branch 2021-05-05 2021-05-05 [place] [id number] [facility] 08:02:00 08:02:00 1028 Medica l Group 2021-04-15 2021-04-15 (TEL) STLMLC STLMLC [id number] Co mmon 00:00:00 00:00:00 [facility] 2021-04-05 2021-04-05 (TEL) STLMLC STLMLC [id number] Co mmon 00:00:00 00:00:00 [facility] - [facility] 2021-04-01 2021-04-01 (TEL) STLMLC STLMLC [id number] Co mmon 00:00:00 00:00:00 [facility] 2021-03-30 2021-03-30 (TEL) STLMLC STLMLC [id number] Co mmon 00:00:00 00:00:00 [facility] 2021-03-29 2021-03-29 OFFICE STLMLC STLMLC [id number] Co mmon 00:00:00 00:00:00 VISIT EST Spir it PT LEVEL 3 [facility] 2021-03-18 2021-03-18 (TEL) STLMLC STLMLC [id number] Co mmon 00:00:00 00:00:00 [facility] 2021-02-07 2021-02-07 Outpatient STLMLC STLMLC [id number] Common 00:00:00 00:00:00 [facility] 2020-12-13 2020-12-13 Outpatient STLMLC STLMLC [id number] Common 00:00:00 00:00:00 [facility] 2020-11-17 2020-11-17 Outpatient STLMLC STLMLC [id number] Common 00:00:00 00:00:00 [facility] 2020-11-09 2020-11-09 Outpatient STLMLC STLMLC [id number] Common 00:00:00 00:00:00 [facility] 2020-09-16 2020-09-16 Outpatient STLMLC STLMLC [id number] Common 00:00:00 00:00:00 [facility] 2020-09-13 2020-09-13 Outpatient STLMLC STLMLC [id number] Common 00:00:00 00:00:00 [facility] 2020-08-17 2020-08-17 Outpatient STLMLC STLMLC [id number] Common 00:00:00 00:00:00 [facility] 2020-05-26 2020-05-26 Outpatient STLMLC STLMLC [id number] Common 00:00:00 00:00:00 [facility] 2020-04-26 2020-04-26 Outpatient STLMLC STLMLC [id number] Common 00:00:00 00:00:00 [facility] 2020-04-07 2020-04-07 Outpatient STLMLC STLMLC [id number] Common 00:00:00 00:00:00 [facility] 2020-04-07 2020-04-07 Outpatient STLMLC STLMLC [id number] Common 00:00:00 00:00:00 [facility] 2020-02-18 2020-02-18 [id number] Common 09:29:00 09:29:[address] [facility] 2020-02-05 2020-02-05 [facility] [id number] Common 13:30:00 13:30:00 [place] [address] Drive [facility] 2020-01-23 2020-01-23 [facility] [id number] Common 15:19:00 15:19:00 t [place] [address]ir [address] Drive [facility] 2020-01-19 2020-01-19 [facility] [id number] Common 13:45:00 13:45:00 t [place] [address]ir [address] Drive [facility] 2019-11-13 2019-11-13 [facility] [id number] Common 13:00:00 13:00:00 t [place] [address] Drive [facility] 2019-11-13 2019-11-13 [facility] [id number] Common 13:00:00 13:00:00 t [place] [address] Drive [facility] 2019-10-28 2019-10-28 [facility] [id number] Common 08:56:00 08:56:00 t [place] [address] [place] [address] Drive [facility] 2019-09-02 2019-09-02 [facility] [id number] Common 08:29:00 08:29:00 t [place] [address] Drive [facility] 2019-08-14 2019-08-14 [facility] [id number] Common 10:30:00 10:30:00 t [place] [address] Drive [facility] 2019-07-16 2019-07-16 [facility] [id number] Common 16:55:00 16:55:00 t [place] [address] Drive [facility] 2019-06-25 2019-06-25 [facility] [id number] Common 16:24:00 16:24:00 t [place] [address] Drive [facility] 2019-06-24 2019-06-24 [facility] [id number] Common 13:00:00 13:00:00 t [place] [address]ir [address] Drive [facility] 2019-06-04 2019-06-04 [facility] [id number] Common 10:43:00 10:43:00 t [place] [address] Drive [facility] 2019-05-20 2019-05-20 [facility] [id number] Common 10:42:00 10:42:00 t [place] [address] Drive [facility] 2019-04-30 2019-04-30 [facility] [id number] Common 10:45:00 10:45:00 t [place] [address] Drive [facility] 2019-04-24 2019-04-24 [facility] [id number] Common 09:01:00 09:01:00 [place] [address] Drive [facility] 2019-04-15 2019-04-15 [facility] [id number] Common 15:00:00 15:00:00 t [place] [address] Drive [facility] 2019-04-11 2019-04-11 [facility] [id number] Common 11:12:00 11:12:00 t [place] [address]ir [address] Drive [facility] 2019-01-14 2019-01-14 [facility] [id number] Common 13:30:00 13:30:00 t [place] [address]ir [address] Drive [facility] 2018-09-17 2018-09-17 [facility] [id number] Common 10:57:00 10:57:00 t [place] [address] Drive [facility] 2018-07-18 2018-07-18 [facility] [id number] Common 13:30:00 13:30:00 t [place] [address] Drive [facility] 2018-03-06 2018-03-06 [facility] [id number] Common 15:31:00 15:31:00 [place] [address] Drive [facility] 2017-12-31 2017-12-31 Outpatient [facility] [id number] Common 13:30:00 13:30:00 [place] [address] [facility] Results Test Description Test Time Test Comments Results Result Comments Source POCT-GLUCOSE METER 2019-06-02 11:36:00 Test Item Value Reference Range Interpretation Comme nts POC-GLUCOSE METER ([facility]) 113 mg/dL 70-110 H : TESTED AT [address] (test code = 1538) [facility] X, [address]: Configuration Management Manager/Techni tasia ID = [id number] for OCHOA, HAILE POCT-GLUCOSE [id number] 07:42:00 Test Item Value Reference Range Interpretation Comments POC-GLUCOSE METER 110 mg/dL 70-110 : [facility] ([facility]) (test code = [facility], 1538) 65957: Configuration Management Manager/Techni tasia ID = [id number] for Sm ith, Valeria POCT-GLUCOSE [id number] 17:42:00 Test Item Value Reference Range Interpretation Comments POC-GLUCOSE METER 130 mg/dL 70-110 H : [facility] ([facility]) (test code = [facility], 1538) 61392: Configuration Management Manager/Techni tasia ID = [id number] for PA TEL, DENNIS POCT-GLUCOSE [id number] 11:57:00 Test Item Value Reference Range Interpretation Comments POC-GLUCOSE METER 109 mg/dL 70-110 : [facility] ([facility]) (test code = [facility], 1538) 77847: Configuration Management Manager/Techni tasia ID = [id number] for Sm ith, Valeria POCT-GLUCOSE [id number] 08:58:00 Test Item Value Reference Range Interpretation Comments POC-GLUCOSE METER 145 mg/dL 70-110 H : TESTED A T [facility] 6720 (BEAKER) (test code = [facility], 1538) 17680: Configuration Management Manager/Techni tasia ID = [id number] for Sm ith, Valeria POCT-GLUCOSE [id number] 21:21:00 Test Item Value Reference Range Interpretation Comments POC-GLUCOSE METER 108 mg/dL 70-110 : TESTED A T [facility] 6720 (BEAKER) (test code = [facility], 1538) 91365: Configuration Management Manager/Techni tasia ID = [id number] for Den nis, Maia POCT-GLUCOSE [id number] 12:10:00 Test Item Value Reference Range Interpretation Comments POC-GLUCOSE METER 111 mg/dL 70-110 H : TESTED A T [facility] 6720 (BEAKER) (test code = [facility], [facility]8) 79414: Configuration Management Manager/Techni tasia ID = [id number] for AK INSONU, BRENDA POCT-GLUCOSE [id number] 07:45:00 Test Item Value Reference Range Interpretation Comments POC-GLUCOSE METER 128 mg/dL 70-110 H : TESTED A T [facility] 6720 (BEAKER) (test code = [facility], 1538) 55216: Configuration Management Manager/Techni tasia ID = [id number] for AK INSONU, BRENDA POCT-GLUCOSE [id number] 21:21:00 Test Item Value Reference Range Interpretation Comments POC-GLUCOSE METER 119 mg/dL 70-110 H : TESTED A T [facility] 6720 (BEAKER) (test code = [facility], 1538) 18204: Configuration Management Manager/Techni tasia ID = [id number] for Buster nson, Jequetta POCT-GLUCOSE [id number] 17:00:00 Test Item Value Reference Range Interpretation Comments POC-GLUCOSE METER 104 mg/dL 70-110 : TESTED A T [facility] 6720 (BEAKER) (test code [facility], = 1538) 44537: Configuration Management Manager/Techni tasia ID = [id number] for Tseg gai, Tsighereda POCT-GLUCOSE [id number] 12:28:00 Test Item Value Reference Range Interpretation Comments POC-GLUCOSE METER 114 mg/dL 70-110 H : TESTED A T [facility] 6720 (BEAKER) (test code [facility], = 1538) 12306: Configuration Management Manager/Techni tasia ID = [id number] for Tseg gai, Tsighereda POCT-GLUCOSE [id number] 07:29:00 Test Item Value Reference Range Interpretation Comments POC-GLUCOSE METER 120 mg/dL 70-110 H : TESTED A T [facility] 6720 (BEAKER) (test code [facility], = 1538) 22025: Configuration Management Manager/Techni tasia ID = [id number] for Tseg gai, Tsighereda POCT-GLUCOSE [id number] 21:47:00 Test Item Value Reference Range Interpretation Comments POC-GLUCOSE METER 156 mg/dL 70-110 H : TESTED A T [facility] 6720 (BEAKER) (test code = [facility], 1538) 50535: Configuration Management Manager/Techni tasia ID = [id number] for Keya Weinsteina POCT-GLUCOSE [id number] 16:30:00 Test Item Value Reference Range Interpretation Comments POC-GLUCOSE METER 120 mg/dL 70-110 H : TESTED A T [facility] 6720 (BEAKER) (test code [facility], = 1538) 02225: Configuration Management Manager/Techni tasia ID = [id number] for Tseg gai, Tsighereda POCT-GLUCOSE [id number] 11:29:00 Test Item Value Reference Range Interpretation Comments POC-GLUCOSE METER 118 mg/dL 70-110 H : TESTED A T [facility] 6720 (BEAKER) (test code = [facility], 1538) 94240: Configuration Management Manager/Techni tasia ID = [id number] for HU NT, SHAWN POCT-GLUCOSE [id number] 08:53:00 Test Item Value Reference Range Interpretation Comments POC-GLUCOSE METER 145 mg/dL 70-110 H : TESTED A T [facility] 6720 (BEAKER) (test code = [facility], 1538) 79818: Configuration Management Manager/Techni tasia ID = [id number] for HU NT, SHAWN POCT-GLUCOSE [id number] 21:05:00 Test Item Value Reference Range Interpretation Comments POC-GLUCOSE METER 128 mg/dL 70-110 H : TESTED A T [facility] 6720 (BEAKER) (test code = [facility], 1538) 34764: Configuration Management Manager/Techni tasia ID = [id number] for Adilson Weinstein POCT-GLUCOSE [id number] 12:25:00 Test Item Value Reference Range Interpretation Comments POC-GLUCOSE METER 126 mg/dL 70-110 H : TESTED A T [facility] 6720 (BEAKER) (test code = [facility], 1538) 23734: Configuration Management Manager/Techni tasia ID = [id number] for Sm Ainsley colinitia POCT-GLUCOSE [id number] 08:14:00 Test Item Value Reference Range Interpretation Comments POC-GLUCOSE METER 139 mg/dL 70-110 H : TESTED A T [facility] 6720 (BEAKER) (test code = [facility], 1538) 01171: Configuration Management Manager/Techni tasia ID = [id number] for Sm ith, Valeria BASIC METABOLIC [id number] 05:54:00 Test Item Value Reference Range Interpretation [...] NOT APPLICABLE FOR DIALYSIS PATIEN TS. POCT-GLUCOSE [id number] 22:08:00 Test Item Value Reference Range Interpretation Comments POC-GLUCOSE METER 129 mg/dL 70-110 H : TESTED A T [facility] 6720 (BEAKER) (test code = [facility], [facility]8) 88024: Configuration Management Manager/Techni tasia ID = [id number] for Adilson Weinstein POCT-GLUCOSE [id number] 11:36:00 Test Item Value Reference Range Interpretation Comments POC-GLUCOSE METER 107 mg/dL 70-110 : TESTED A T [facility] 6720 (BEAKER) (test code = [facility], [facility]8) 58995: Configuration Management Manager/Techni tasia ID = [id number] for Sm ith, Valeria POCT-GLUCOSE [id number] 07:40:00 Test Item Value Reference Range Interpretation Comments POC-GLUCOSE METER 114 mg/dL 70-110 H : TESTED A T [facility] 6720 (BEAKER) (test code = [facility], [facility]8) 95235: Configuration Management Manager/Techni tasia ID = [id number] for Sm ith, Valeria POCT-GLUCOSE [id number] 00:50:00 Test Item Value Reference Range Interpretation Comments POC-GLUCOSE METER 132 mg/dL 70-110 H : TESTED A T [facility] 6720 (BEAKER) (test code = [facility], [facility]8) 04977: Configuration Management Manager/Techni tasia ID = [id number] for BHAVESH FRANCO POCT-GLUCOSE [id number] 11:57:00 Test Item Value Reference Range Interpretation Comments POC-GLUCOSE METER 106 mg/dL 70-110 : TESTED A T [facility] 6720 (BEAKER) (test code = [facility], [facility]8) 70093: Configuration Management Manager/Techni tasia ID = [id number] for Sm ith, Valeria [id number] 06:58:00 Test Item Value Reference Range Interpretation Comments MAGNESIUM (BEAKER) (test code = 1.9 mg/dL 1.6-2.6 627) BASIC METABOLIC [id number] 06:58:00 Test Item Value Reference Range Interpretation [...] NOT APPLICABLE FOR DIALYSIS PATIEN TS. POCT-GLUCOSE [id number] 22:46:00 Test Item Value Reference Range Interpretation Comments POC-GLUCOSE METER 111 mg/dL 70-110 H : TESTED A T [facility] 6720 (BEAKER) (test code = [facility], 1538) 27101: Configuration Management Manager/Techni tasia ID = [id number] for Janina Mchugh POCT-GLUCOSE [id number] 12:19:00 Test Item Value Reference Range Interpretation Comments POC-GLUCOSE METER 137 mg/dL 70-110 H : TESTED A T [facility] 6720 (BEAKER) (test code = [facility], 1538) 02025: Configuration Management Manager/Techni tasia ID = [id number] for BR OWN, ITZ URINALYSIS W/ REFLEX URINE [id number] 11:52:00 Test Item Value Reference Range Interpretation [...] 514) SOURCE(BEAKER) (test code = 2795) POCT-GLUCOSE [id number] 08:20:00 Test Item Value Reference Range Interpretation Comments POC-GLUCOSE METER 111 mg/dL 70-110 H : TESTED A T [facility] 6720 (BEAKER) (test code = [facility], 153) 79486: Configuration Management Manager/Techni tasia ID = [id number] for BR OWN, ITZ POCT-GLUCOSE [id number] 20:56:00 Test Item Value Reference Range Interpretation Comments POC-GLUCOSE METER 117 mg/dL 70-110 H : TESTED A T [facility] 6720 (BEAKER) (test code = [facility], 1538) 97447: Configuration Management Manager/Techni tasia ID = [id number] for WYATT ARLENE MROELASHIA POCT-GLUCOSE [id number] 16:58:00 Test Item Value Reference Range Interpretation Comments POC-GLUCOSE METER 108 mg/dL 70-110 : TESTED A T [facility] 6720 (BEAKER) (test code = [facility], 1538) 67374: Configuration Management Manager/Techni tasia ID = [id number] for AK INSONU, BRENDA POCT-GLUCOSE [id number] 12:05:00 Test Item Value Reference Range Interpretation Comments POC-GLUCOSE METER 107 mg/dL 70-110 : TESTED A T [facility] 6720 (BEAKER) (test code = [facility], 1538) 31093: Configuration Management Manager/Techni tasia ID = [id number] for AK INSONU, BRENDA CBC (HEMOGRAM ONLY)2019-05-24 08:25:00 Test Item Value [...] WBC 0-0 (BEAKER) (test code = 413) [id number] 07:32:00 Test Item Value Reference Range Interpretation Comments PHOSPHORUS (BEAKER) (test code = 3.7 mg/dL 2.3-4.7 604) [id number] 07:32:00 Test Item Value Reference Range Interpretation Comments MAGNESIUM (BEAKER) (test code = 1.9 mg/dL 1.6-2.6 627) BASIC METABOLIC [id number] 07:32:00 Test Item Value Reference Range Interpretation [...] NOT APPLICABLE FOR DIALYSIS PATIEN TS. POCT-GLUCOSE [id number] 21:12:00 Test Item Value Reference Range Interpretation Comments POC-GLUCOSE METER 142 mg/dL 70-110 H : TESTED A T [facility] 6720 (BEAKER) (test code = [facility], 153) 79558: Configuration Management Manager/Techni tasia ID = [id number] for NEGRITA DOWLING POCT-GLUCOSE [id number] 16:54:00 Test Item Value Reference Range Interpretation Comments POC-GLUCOSE METER 115 mg/dL 70-110 H : TESTED A T [facility] 6720 ([employer]) (test code = [facility], 1538) 84707: Configuration Management Manager/Techni tasia ID = [id number] for IRAM ISBELL POCT-GLUCOSE [id number] 11:58:00 Test Item Value Reference Range Interpretation Comments POC-GLUCOSE METER 128 mg/dL 70-110 H : TESTED A T [facility] 6720 ([employer]) (test code = [facility], 1538) 28436: Configuration Management Manager/Techni tasia ID = [id number] for APOLLO CASTANEDA POCT-GLUCOSE [id number] 07:13:00 Test Item Value Reference Range Interpretation Comments POC-GLUCOSE METER 131 mg/dL 70-110 H : TESTED A T [facility] 6720 (BEAKER) (test code = [facility], 1538) 82738: Configuration Management Manager/Techni tasia ID = [id number] for RA JONESEMILEE OTERORA [id number] 05:21:00 Test Item Value Reference Range Interpretation Comments PHOSPHORUS (BEAKER) (test code = 3.5 mg/dL 2.3-4.7 604) [id number] 05:21:00 Test Item Value Reference Range Interpretation Comments MAGNESIUM (BEAKER) (test code = 1.9 mg/dL 1.6-2.6 627) BASIC METABOLIC [id number] 05:21:00 Test Item Value Reference Range Interpretation [...] 0-0 (BEAKER) (test code = 413) POCT-GLUCOSE [id number] 00:20:00 Test Item Value Reference Range Interpretation Comments POC-GLUCOSE METER 152 mg/dL 70-110 H : TESTED A T [facility] 6720 (BEAKER) (test code = [facility] [employer] [facility], 1538) 84029: Configuration Management Manager/Techni tasia ID = [id number] for MORE JOHANSEN POCT-GLUCOSE [id number] 22:26:00 Test Item Value Reference Range Interpretation Comments POC-GLUCOSE METER 153 mg/dL 70-110 H : TESTED A T [facility] 6720 (BEAKER) (test code = [employer] [place], 1538) 08784: Configuration Management Manager/Techni tasia ID = [id number] for ELVIRA SANDOVAL IN MR, MRA, NECK, WITHOUT IV [id number] 18:01:00Reason for exam:->stroke FINAL REPORT MR, BRAIN, WITHOUT CONTRAST, MR, MRA, NECK, WITHOUT IV CONTRAST, MR, MRA, BRAIN, WITHOUT CONTRAST INDICATION: Stroke, follow up TECHNIQUE: Multiplanar, multisequence MR imaging of the brain without intravenous contrast.MRA of the head utilizing 3-D dglf-hm-lkipzd technique, with 3-D reconstructions.MRA of the neck utilizing 2-D and 3-D tsns-lf-pndvst technique, with 3-D reconstructions. COMPARISON: None FINDINGS: MRI Brain:Intracranial: Multifocal punctate areas of restricted diffusion within the right parietal lobe and posterior right frontal lobe, and right posterior limb internal capsule, and rarely in a posterior border zone distribution. No acute intracranialhemorrhage. Chronic punctate microhemorrhages within the bilateral thalami. Remote right cerebellar hemisphere infarct. Extensive foci of T2 prolongation within the periventricular and subcortical white matter are a nonspecific finding commonly attributed to chronic small vessel ischemic disease. No mass effect. No hydrocephalus. Sinuses: Small mucous retention cyst in the right maxillary sinus. Leftmastoid effusion. Orbits: Globes are intact. Calvarium \T\ scalp: Unremarkable. MRA Head:No intracranial arterial occlusion or high-grade focal stenosis. Fusiform dilatation of the right ICA terminus in the region of the P-comm origin, measuring up to 7 mm. MRA Neck:The carotid arteries in the neck are patent including their bifurcations. 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 Signed: Edgard Wadsworth MDReport Verified Date/Time: 05/22/2019 18:01:25 MR, BRAIN, WITHOUT [id number] 18:01:00FINAL REPORT MR, BRAIN, WITHOUT CONTRAST, MR, MRA, NECK, WITHOUT IV CONTRAST, MR, MRA, BRAIN, WITHOUT CONTRAST INDICATION: Stroke, follow up TECHNIQUE: Multiplanar, multisequence MR imaging of the brain without intravenous contrast.MRA of the head utilizing 3-D tfvg-pa-thpvfs technique, with 3-D reconstructions.MRA of the neck utilizing 2-D and 3-D ehpy-oa-adzetr technique, with 3-D reconstructions. COMPARISON: None FINDINGS: MRI Brain:Intracranial: Multifocal punctate areas of restricted diffusion within the right parietal lobe and posterior right frontal lobe, and right posterior limb internal capsule, and rarely in a posterior border zone distribution. No acute intracranialhemorrhage. Chronic punctate microhemorrhages within the bilateral thalami. Remote right cerebellar hemisphere infarct. Extensive foci of T2 prolongation within the periventricular and subcortical white matter are a nonspecific finding commonly attributed to chronic small vessel ischemic disease. No mass effect. No hydrocephalus. Sinuses: Small mucous retention cyst in the right maxillary sinus. Leftmastoid effusion. Orbits: Globes are intact. Calvarium \T\ scalp: Unremarkable. MRA Head:No intracranial arterial occlusion or high-grade focal stenosis. Fusiform dilatation of the right ICA terminus in the region of the P-comm origin, measuring up to 7 mm. MRA Neck:The carotid arteries in the neck are patent including their bifurcations. 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 Signed: Edgard Wadsworth MDReport Verified Date/Time: 05/22/2019 18:01:25 MR, MRA, BRAIN, WITHOUT CONTRAST 2019-05-22 18:01:00Reason for exam:->strokeFINAL REPORT MR, BRAIN, WITHOUT CONTRAST, MR, MRA, NECK, WITHOUT IV CONTRAST, MR, MRA, BRAIN, WITHOUT CONTRAST INDICATION: Stroke, follow up TECHNIQUE: Multiplanar, multisequence MR imaging of the brain without intravenous contrast.MRA of the head utilizing 3-D vliu-ev-iimtob technique, with 3-D reconstructions.MRA of the neck utilizing 2-D and 3-D xpxr-sj-kdtmum technique, with 3-D reconstructions. COMPARISON: None FINDINGS: MRI Brain:Intracranial: Multifocal punctate areas of restricted diffusion within the right parietal lobe and posterior right frontal lobe, and right posterior limb internal capsule, and rarely in a posterior border zone distribution. No acute intracranialhemorrhage. Chronic punctate microhemorrhages within the bilateral thalami. Remote right cerebellar h emisphere infarct. Extensive foci of T2 prolongation within the periventricular and subcortical white matter are a nonspecific finding commonly attributed to chronic small vessel ischemic disease. No mass effect. No hydrocephalus. Sinuses: Small mucous retention cyst in the right maxillary sinus. Leftmastoid effusion. Orbits: Globes are intact. Calvarium \T\ scalp: Unremarkable. MRA Head:No intracranial arterial occlusion or high-grade focal stenosis. Fusiform dilatation of the right ICA terminus in the region of the P-comm origin, measuring up to 7 mm. MRA Neck:The carotid arteries in the neck are patent including their bifurcations. 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 Signed: Edgard Wadsworth MDReport Verified Date/Time: 05/22/2019 18:01:25 [id number] 11:28:00 Test Item Value Reference Range Interpretation Comments RPR SCREEN (BEAKER) (test code = Nonreactive Nonreactive 420) HEMOGLOBIN [id number] 10:42:00 Test Item Value Reference Range Interpretation Comments HEMOGLOBIN A1C (BEAKER) (test code = 5.5 % 4.3-6.1 368) CBC W/PLT COUNT & AUTO [id number] 09:27:00 Test Item Value Reference Range Interpretation [...] PERCENT (BEAKER) (test code = 2801) POCT-GLUCOSE [id number] 08:56:00 Test Item Value Reference Range Interpretation Comments POC-GLUCOSE METER 118 mg/dL 70-110 H : TESTED A T [facility] 6720 (BEAKER) (test code = [employer] [facility], 1538) 28119: Configuration Management Manager/Techni tasia ID = [id number] for LL ISRRAEL SOSA VITAMIN B12 AND [id number] 06:32:00 Test Item Value Reference Range Interpretation Comments VITAMIN B12 (BEAKER) (test code = < pg/mL 213-816 L 774) FOLATE (BEAKER) (test code = 362) 19.6 ng/mL >=7.0 TSH/FREE T4 IF [id number] 06:30:00 Test Item Value Reference Range Interpretation Comments THYROID STIMULATING HORMONE 3.55 uIU/mL 0.35-4.94 (BEAKER) (test code = 772) POCT-GLUCOSE [id number] 05:55:00 Test Item Value Reference Range Interpretation Comments POC-GLUCOSE METER 132 mg/dL 70-110 H : TESTED A T [facility] 6720 (BEAKER) (test code = [employer] [facility], 1538) 06083: Configuration Management Manager/Techni tasia ID = [id number] for MORE JOHANSEN [id number] 04:41:00 Test Item Value Reference Range Interpretation Comments PHOSPHORUS (BEAKER) (test code = 3.2 mg/dL 2.3-4.7 604) [id number] 04:41:00 Test Item Value Reference Range Interpretation Comments MAGNESIUM (BEAKER) (test code = 1.8 mg/dL 1.6-2.6 627) BASIC METABOLIC [id number] 04:41:00 Test Item Value Reference Range Interpretation [...] NOT APPLICABLE FOR DIALYSIS PATIEN TS. LIPID [id number] 04:41:00 Test Item Value Reference Range Interpretation Comments TRIGLYCERIDES (BEAKER) (test code = 107 mg/dL 540) CHOLESTEROL (BEAKER) (test code = 181 mg/dL 631) HDL CHOLESTEROL (BEAKER) (test code 50 mg/dL = 976) LDL CHOLESTEROL CALCULATED (BEAKER) 110 mg/dL (test code = 633) Triglyceride Reference Range: Low Risk <150 Borderline 150-199 High Risk 200- 499 Very High Risk >=500Cholesterol Reference Range: Low Risk <200 Borderline 200-239 High Risk >240HDL Cholesterol Reference Range: Low Risk >=60 High Risk <40LDL Cholesterol Reference Range: Optimal <100 Near Optimal 100-129 Borderline 130-159 High 160-189 Very High >=190
[2022-11-09] MEDS ORDERED: ONDANSETRON 4 MG/2 ML VIAL ONE ×2 (09:46→16:50)
[2022-11-09] MEDS ORDERED: MORPHINE 2 MG/ML SYR ONE (09:46)
[2022-11-09] MEDS ORDERED: HYDROCODONE/APAP 5/325 MG TAB ONE (10:09)
[2022-11-09 10:12] LABS: Absolute Lymphocytes (CBC) 1.2 K/uL (0.7-4.9); Hematocrit 37.9 % (36.0-45.0); Lymphocytes % 12.9 % (15.3-44.8); MCV 102.4 fL (80-100); MPV 9.5 fL (7.6-11.3)
[2022-11-09 10:28] LABS: Albumin 3.9 g/dL (3.4-5.0); Bilirubin Total 0.9 mg/dL (0.2-1.0); Potassium 3.9 mEq/L (3.5-5.1); Protein, Total 7.8 g/dL (6.4-8.2)
--- NOTE | 2022-11-09 10:45 | RAD REPORT ---
EXAM DESCRIPTION: CT - Abdomen Pelvis Wo Contrast - 11/09/2022 10:10 am CLINICAL HISTORY: Abdominal pain /back pain COMPARISON: 2007 TECHNIQUE: Computed axial tomography of the abdomen and pelvis was obtained. IV and oral contrast we re not requested. All CT scans are performed using dose optimization technique as appropriate and may include automated exposure control or mA/KV adjustment according to patient size. FINDINGS: The evaluation of solid organs, vessels and bowel is limited secondary to the lack of con trast administration. Liver is mildly enlarged. Spleen, pancreas, adrenals grossly normal. Tiny nonobstructing right renal calculus. Renal vascular calcifications are present. 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 No evidence of diverticulitis. 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
--- NOTE | 2022-11-09 11:59 | ER ---
Nurse's Notes [facility] Name: Deyanira Glez Age: 87 yrs Sex: Female : 1935 Arrival Date: 11/09/2022 Time: 09:20 Bed 18 Private MD: Diagnosis: Low back pain;Radiculopathy, lumbosacral region;UTI/ Urinary tract infection, site not specified Presentation: 11/09 09:27 Chief complaint: EMS states: right lower back pain after lifting a case of water on eh3 Sunday. Unable to take home medications for HTN and diabetes since Sunday. Coronavirus screen: Vaccine status: Patient reports receiving the 2nd dose of the covid vaccine. Ebola Screen: No symptoms or risks identified at this time. Initial Sepsis Screen: Does the patient meet any 2 criteria? No. Patient's initial sepsis screen is negative. Does the patient have a suspected source of infection? No. Patient's initial sepsis screen is negative. Risk Assessment: Do you want to hurt yourself or someone else? Patient reports no desire to harm self or others. Onset of symptoms was November 06, 2022. 09:27 Method Of Arrival: EMS: [facility] 09:27 Acuity: DOMINIC 3 eh3 Triage Assessment: 09:29 General: Appears in no apparent distress. uncomfortable, Behavior is calm, cooperative, eh3 appropriate for age. Pain: Complains of pain in right low back Pain radiates to right hip Pain currently is 8 out of 10 on a pain scale. Quality of pain is described as aching, sharp, tender, Pain began 2-3 days ago. Is intermittent, Alleviated by medications, rest, relaxation, Aggravated by increased activity, repositioning, weight bearing, Noted to be grimacing, resistant to movement, Also complains of inability to perform activities of daily living, Goal of pain control is to perform activities of daily living. EENT: No deficits noted. Neuro: Level of Consciousness is awake, alert, obeys commands, Oriented to person, place, time, situation. Cardiovascular: Capillary refill < 3 seconds Patient's skin is warm and dry. Respiratory: Airway is patent Respiratory effort is even, unlabored, Respiratory pattern is regular, symmetrical. GI: Abdomen is round non-distended. : No signs and/or symptoms were reported regarding the genitourinary system. Derm: Skin is fragile, is thin, Skin is pink, warm \T\ dry. Musculoskeletal: Circulation, motion, and sensation intact. Range of motion: limited in right hip. Historical: - Allergies: PENICILLINS; eh3 - Home Meds: Dexilant 60 mg Oral CpDB 1 cap once daily [Active]; losartan 50 mg Oral tab 1 tab once eh3 daily [Active]; metoprolol tartrate 50 mg Oral tab 1 tab once daily [Active]; - PMHx: Diabetes - NIDDM; failed stress test; Hypertension; stroke; eh3 - PSHx: Cholecystectomy; Total abdominal hysterectomy; eh3 - Immunization history:: Adult Immunizations up to date. - Social history:: Smoking status: Patient denies any tobacco usage or history of. Patient/guardian denies using alcohol. - Family history:: not pertinent. - Hospitalizations: : No recent hospitalization is reported. Screenin: [facility] ED Fall Risk Assessment (Adult) Score/Fall Risk Level 3 or more points = High 3 Risk Oriented to surroundings, Maintained a safe environment, Educated pt \T\ family on fall prevention, incl call for assistance when getting out of bed, Assessed \T\ reinforced patient's understanding of fall precautions, Provided non-skid footwear, Hourly rounding (assess needs \T\ fall precautionary measures) done, Used ambulatory aids as needed (educated on \T\ assisted with). Abuse screen: Denies threats or abuse. Denies injuries from another. Nutritional screening: No deficits noted. Tuberculosis screening: No symptoms or risk factors identified. Assessment: :33 Reassessment: No changes from previously documented assessment. See triage assessment. eh3 10:30 Reassessment: Patient appears in no apparent distress at this time. Patient and/or eh3 family updated on plan of care and expected duration. Pain level reassessed. Patient is alert, oriented x 3, equal unlabored respirations, skin warm/dry/pink. 11:30 Reassessment: Patient appears in no apparent distress at this time. Patient and/or eh3 family updated on plan of care and expected duration. Pain level reassessed. Patient is alert, oriented x 3, equal unlabored respirations, skin warm/dry/pink. 12:30 Reassessment: Patient appears in no apparent distress at this time. Patient and/or eh3 family updated on plan of care and expected duration. Pain level reassessed. Patient is alert, oriented x 3, equal unlabored respirations, skin warm/dry/pink. 13:30 Reassessment: Patient appears in no apparent distress at this time. Patient and/or eh3 family updated on plan of care and expected duration. Pain level reassessed. Patient is alert, oriented x 3, equal unlabored respirations, skin warm/dry/pink. 14:30 Reassessment: Patient appears in no apparent distress at this time. Patient and/or eh3 family updated on plan of care and expected duration. Pain level reassessed. Patient is alert, oriented x 3, equal unlabored respirations, skin warm/dry/pink. 15:30 Reassessment: Patient appears in no apparent distress at this time. Patient and/or 3 family updated on plan of care and expected duration. Pain level reassessed. Patient is alert, oriented x 3, equal unlabored respirations, skin warm/dry/pink. 16:30 Reassessment: Patient appears in no apparent distress at this time. Patient and/or 3 family updated on plan of care and expected duration. Pain level reassessed. Patient is alert, oriented x 3, equal unlabored respirations, skin warm/dry/pink. 17:30 Reassessment: Patient appears in no apparent distress at this time. Patient and/or 3 family updated on plan of care and expected duration. Pain level reassessed. Patient is alert, oriented x 3, equal unlabored respirations, skin warm/dry/pink. 18:01 Reassessment: Pt transported for MRI. [facility] 18:30 Reassessment: Patient appears in no apparent distress at this time. Patient and/or eh3 family updated on plan of care and expected duration. Pain level reassessed. Patient is alert, oriented x 3, equal unlabored respirations, skin warm/dry/pink. Vital Signs: 09:27 BP 157 / 74; Pulse 75; Resp 18; Temp 98.5(O); Pulse Ox 97% on R/A; Weight 50.8 kg; 3 Height 5 ft. 0 in. ; Pain 8/10; 10:30 BP 152 / 61; Pulse 13; Resp 18; Pulse Ox 95% on R/A; eh3 11:30 BP 157 / 65; Pulse 71; Resp 18; Pulse Ox 97% on R/A; eh3 12:30 BP 150 / 66; Pulse 62; Resp 14; Pulse Ox 95% on R/A; eh3 13:30 BP 141 / 50; Pulse 65; Resp 18; Pulse Ox 95% on R/A; eh3 14:30 BP 140 / 55; Pulse 68; Resp 15; Pulse Ox 95% on R/A; eh3 15:30 BP 146 / 60; Pulse 69; Resp 16; Pulse Ox 96% on R/A; eh3 16:30 BP 151 / 62; Pulse 65; Resp 16; Pulse Ox 96% on R/A; eh3 17:30 BP 147 / 57; Pulse 71; Resp 16; Pulse Ox 97% on R/A; eh3 18:30 BP 152 / 66; Pulse 70; Resp 16; Pulse Ox 95% on R/A; eh3 09:27 Body Mass Index 21.87 (50.80 kg, 152.4 cm) eh3 09:27 Pain Scale: Adult 3 ED Course: 09:22 Patient arrived in ED. rn 09:22 Kashif Jackson MD is Attending Physician. rn 09:26 Evelyn Bunn RN is Primary Nurse. eh3 09:29 Triage completed. eh3 09:29 Arm band placed on. eh3 09:33 Patient has correct armband on for positive identification. Bed in low position. Call eh3 light in reach. Side rails up X2. Placed in gown. Client placed on continuous cardiac and pulse oximetry monitoring. NIBP monitoring applied. Door closed. Noise minimized. Warm blanket given. 10:01 Note: 22 g diffusics to lt wrist and labs drawn and sent by rolanda in [place]. sj 10:12 Abdomen In Process Unspecified. EDMS 11:58 Corine Boo MD is Hospitalizing Provider. rn 12:58 patients daughter Sheryl Dias called and asks to be called once patient has gone upstairs/ eb her cell is [phone]. 13:00 Diet: Patient given a heart healthy meal tray. Patient given water. Tolerated well. eh3 18:50 Patient admitted, IV remains in place. eh3 18:51 No provider procedures requiring assistance completed. iw Administered Medications: 09:55 Drug: Ondansetron IVP 4 mg Route: IVP; Site: left forearm; eh3 11:38 Follow up: Response: Nausea is decreased eh3 10:05 Not Given (Patient Refused): morphine IVP or IV 2 mg IVP once over 4 mins eh3 10:06 Drug: HYDROcodone-acetaminophen PO 5 mg-325 mg 1 tabs Route: PO; eh3 11:38 Follow up: Response: Pain is decreased eh3 15:00 Drug: Ciprofloxacin IVPB 400 mg Volume: 200 ml; Route: IVPB; Infused Over: 60 mins; eh3 Site: left forearm; 16:00 Follow up: Response: No adverse reaction; IV Status: Completed infusion; IV Intake: eh3 200ml Medication: 18:50 VIS not applicable for this client. eh3 Intake: 16:00 IV: 200ml; Total: 200ml. eh3 Outcome: 11:59 Decision to Hospitalize by Provider. rn 18:50 Admitted to Med/surg accompanied by tech, via wheelchair, room 221, with chart, Report eh3 called to L[place]ha 18:50 Condition: stable 18:50 Instructed on the need for admit. 18:52 Patient left the ED. iw Signatures: Dispatcher [employer] Rolanda Lowery Irene, RN RN iw Kashif Jackson MD MD rn Botello, Elizabeth eb Hall, Erin, RN RN 3 Corrections: (The following items were deleted from the chart) 15:11 15:11 Reassessment: Patient appears in no apparent distress at this time. Patient eh3 and/or family updated on plan of care and expected duration. Pain level reassessed. Patient is alert, oriented x 3, equal unlabored respirations, skin warm/dry/pink. eh3
--- NOTE | 2022-11-09 11:59 | EDPHYS ---
Physician Documentation [facility] Name: Deyanira Glez Age: 87 yrs Sex: Female : 1935 Arrival Date: 11/09/2022 Time: 09:20 Bed 18 Private MD: ED Physician Kashif Jackson HPI: 11/09 10:00 This 87 yrs old Female presents to ER via EMS with complaints of back pain. rn 10:00 The patient presents with pain that is acute. The symptoms are located in the low back. rn 10:00 Onset: The symptoms/episode began/occurred 3 day(s) ago. The pain radiates to the right rn leg. Associated signs and symptoms: Pertinent negatives: abdominal pain, constipation, fever, incontinence, nausea, numbness, tingling, urinary retention. Modifying factors: The patient symptoms are alleviated by remaining still, the patient symptoms are aggravated by any movement, bending. Severity of symptoms: At their worst the symptoms were moderate, in the emergency department the symptoms are unchanged. The patient has not experienced similar symptoms in the past. The patient has not recently seen a physician. Pt reports right lower back pain, began 3 days ago after lifting a heavy water or case of water. Had immediate pain in back with radiation to RLE. Denies bowel/bladder problems, no weakness, but pain is limiting her ability to care for herself, can't walk 2/2 pain, hasn't showered since Sunday. No chest pain or abd pain. . Historical: - Allergies: 09:29 PENICILLINS; eh3 - Home Meds: : Dexilant 60 mg Oral CpDB 1 cap once daily [Active]; losartan 50 mg Oral tab 1 tab once eh3 daily [Active]; metoprolol tartrate 50 mg Oral tab 1 tab once daily [Active]; - PMHx: 09:29 Diabetes - NIDDM; failed stress test; Hypertension; stroke; eh3 - PSHx: : Cholecystectomy; Total abdominal hysterectomy; eh3 - Immunization history:: Adult Immunizations up to date. - Social history:: Smoking status: Patient denies any tobacco usage or history of. Patient/guardian denies using alcohol. - Family history:: not pertinent. - Hospitalizations: : No recent hospitalization is reported. ROS: 10:00 Constitutional: Negative for fever, chills, and weight loss, Neck: Negative for injury, rn pain, and swelling, Cardiovascular: Negative for chest pain, palpitations, and edema, Respiratory: Negative for shortness of breath, cough, wheezing, and pleuritic chest pain, Abdomen/GI: Negative for abdominal pain, nausea, vomiting, diarrhea, and constipation, Back: + right lower back pain : Negative for injury, bleeding, discharge, and swelling, MS/Extremity: Negative for injury and deformity, Skin: Negative for injury, rash, and discoloration, Neuro: Negative for headache, weakness, numbness, tingling, and seizure. Exam: 10:00 Constitutional: This is a well developed, well nourished patient who is awake, alert, rn appears uncomfortable Head/Face: Normocephalic, atraumatic. Cardiovascular: Regular rate and rhythm. No pulse deficits. Respiratory: No increased work of breathing, no retractions or nasal flaring. Abdomen/GI: Soft, non-tender Back: No spinal tenderness. Painful ROM Skin: Warm, dry MS/ Extremity: Pulses equal, no cyanosis. Neuro: Awake and alert, GCS 15, oriented to person, place, time, and situation. Cranial nerves II-XII grossly intact. Motor strength 5/5 in all extremities. Sensory grossly intact. Vital Signs: 09:27 BP 157 / 74; Pulse 75; Resp 18; Temp 98.5(O); Pulse Ox 97% on R/A; Weight 50.8 kg; eh3 Height 5 ft. 0 in. ; Pain 8/10; 10:30 BP 152 / 61; Pulse 13; Resp 18; Pulse Ox 95% on R/A; eh3 11:30 BP 157 / 65; Pulse 71; Resp 18; Pulse Ox 97% on R/A; eh3 12:30 BP 150 / 66; Pulse 62; Resp 14; Pulse Ox 95% on R/A; eh3 13:30 BP 141 / 50; Pulse 65; Resp 18; Pulse Ox 95% on R/A; eh3 14:30 BP 140 / 55; Pulse 68; Resp 15; Pulse Ox 95% on R/A; eh3 15:30 BP 146 / 60; Pulse 69; Resp 16; Pulse Ox 96% on R/A; eh3 16:30 BP 151 / 62; Pulse 65; Resp 16; Pulse Ox 96% on R/A; eh3 17:30 BP 147 / 57; Pulse 71; Resp 16; Pulse Ox 97% on R/A; eh3 18:30 BP 152 / 66; Pulse 70; Resp 16; Pulse Ox 95% on R/A; eh3 09:27 Body Mass Index 21.87 (50.80 kg, 152.4 cm) [facility] 09:27 Pain Scale: Adult 3 MDM: 09:22 Patient medically screened. rn 11:57 Differential diagnosis: arthritis, chronic back pain, Fatigue Fracture Osteoarthritis rn ruptured disc, spinal injury, sprain, Ureterolithiasis vertebral fracture. Data reviewed: vital signs, nurses notes, lab test result(s), radiologic studies, CT scan, and as a result, I will admit patient. Consideration of Admission/Observation Patient was admitted/placed on observation. Escalation of care including admission/observation considered. Counseling: I had a detailed discussion with the patient and/or guardian regarding: the historical points, exam findings, and any diagnostic results supporting the discharge/admit diagnosis, lab results, radiology results, the need for further work-up and treatment in the hospital. Response to treatment: the patient's symptoms have mildly improved after treatment, and as a result, I will admit patient. ED course: Pt without acute findings in imaging or blood, will obs in hospital given inability to care for herself 2/2 pain, lives by herself. . 11:59 Care significantly affected by the following Social Determinants of Health: Problems rn related to primary support group, lives by herself, unable to take care of herself. 11/09 09:23 Order name: CBC with Diff; Complete Time: 10:20 rn 11/09 09:23 Order name: CMP; Complete Time: 10:52 rn 11/09 09:23 Order name: Urinalysis w/ reflexes; Complete Time: 14:36 rn 11/09 15:53 Order name: CBC with Automated Diff EDMS 11/09 15:53 Order name: CBC with Automated Diff EDMS 11/09 15:53 Order name: Comprehensive Metabolic Panel EDMS 11/09 15:53 Order name: Comprehensive Metabolic Panel EDMS 11/09 15:53 Order name: Protime (+INR) EDMS 11/09 15:53 Order name: Protime (+INR) EDMS 11/09 15:53 Order name: PTT, Activated Partial Thromb EDMS 11/09 15:53 Order name: PTT, Activated Partial Thromb EDAL 11/09 15:53 Order name: Troponin High Sensitivity EDAL 11/09 15:53 Order name: Troponin High Sensitivity EDAL 11/09 15:54 Order name: C-Reactive Protein EDAL 11/09 10:11 Order name: Abdomen ; Complete Time: 10:52 EDAL 11/09 14:04 Order name: Lumbar Spine Wo Con EDAL 11/09 13:53 Order name: Diet Heart Healthy; Complete Time: 13:53 zm 11/09 15:53 Order name: Case Management Consult EDAL 11/09 09:23 Order name: IV Saline Lock; Complete Time: 10:06 rn 11/09 09:23 Order name: Labs collected and sent; Complete Time: 10:06 rn Administered Medications: 09:55 Drug: Ondansetron IVP 4 mg Route: IVP; Site: left forearm; eh3 11:38 Follow up: Response: Nausea is decreased eh3 10:05 Not Given (Patient Refused): morphine IVP or IV 2 mg IVP once over 4 mins eh3 10:06 Drug: HYDROcodone-acetaminophen PO 5 mg-325 mg 1 tabs Route: PO; eh3 11:38 Follow up: Response: Pain is decreased eh3 15:00 Drug: Ciprofloxacin IVPB 400 mg Volume: 200 ml; Route: IVPB; Infused Over: 60 mins; eh3 Site: left forearm; 16:00 Follow up: Response: No adverse reaction; IV Status: Completed infusion; IV Intake: eh3 200ml Disposition Summary: 11/09/22 11:59 Hospitalization Ordered Hospitalization Status: Observation rn Provider: Corine Boo [facility]n [facility] Condition: Stable rn Problem: new rn Symptoms: have improved rn Bed/Room Type: Standard rn Room Assignment: 221(11/09/22 16:38) dw Diagnosis - Low back pain rn - Radiculopathy, lumbosacral region rn - UTI/ Urinary tract infection, site not specified rn Forms: - Medication Reconciliation Form rn - SBAR form rn Signatures: [facility] Margoth Coronado RN RN dw Nieto, Roman, MD MD rn Hall, Erin, RN RN eh3 Corrections: (The following items were deleted from the chart) 10:11 09:24 Abdomen Pelvis W Con+CT.RAD.BRZ ordered. EDMS EDMS 16:38 11:59 rn dw
[2022-11-09 13:56] LABS: Specific Gravity 1.024 (1.005-1.030); Urine Bacteria >50 /HPF (<20); Urine Bilirubin NEGATIVE (Negative); Urine Blood Negative (Negative); Urine Clarity Turbid (Clear); Urine Color Yellow (Yellow); Urine Glucose NEGATIVE (Negative); Urine Mucus 4+ /HPF (None Seen); Urine Protein TRACE (Negative); Urine RBC <5 /HPF (None Seen); Urine Urobilinogen Normal (Normal)
[2022-11-09] MEDS ORDERED: CIPROFLOXACIN 400mg IV 400 MG/200 ML BAG IV ONE (15:05)
[2022-11-09] MEDS ORDERED: ONDANSETRON 4 MG/2 ML VIAL IV PRN (15:46)
[2022-11-09] MEDS ORDERED: ACETAMINOPHEN 500 MG TAB PO PRN (15:46)
[2022-11-09] MEDS ORDERED: MORPHINE 2 MG/ML SYR IV PRN (15:46)
[2022-11-09] MEDS: NA CHLORIDE 0.9% 1,000 ML IV SCH ×2 (16:00→22:19)
[2022-11-09] MEDS ORDERED: NA CHLORIDE 0.9% 1,000 ML ONE (16:50)
[2022-11-09] MEDS: dexAMETHasone 4 MG/ML VIAL IV SCH (18:00)
--- NOTE | 2022-11-09 19:22 | RAD REPORT ---
EXAM DESCRIPTION: MRI - Lumbar Spine Wo Gordon- 11/09/2022 6:46 pm CLINICAL HISTORY: SPINAL STENOSIS Radiculopathy. COMPARISON: No comparisons FINDINGS: Vertebral body heights are within normal limits. No aggressive marrow pattern is observed. No fracture is suspected. The conus medullaris terminates at a normal level. No thickening of the cauda equina or clumping of n erve roots seen. L1-2 level: Posterior disc bulge is seen with mild facet and ligamentum flavum hypertrophy. Narrowing of both exit foramina seen, greater on the left. Mild central canal narrowing. L2-3 level: Broad-based posterior disc bulge is present asymmetric to the right. Mild central canal n arrowing is seen. Mild narrowing of both exit foramina. L3-4 level: Broad-based posterior disc bulge is seen with advanced facet and ligamentum flavum hypert rophy. Moderate to severe central canal stenosis with bilateral lateral recess stenosis. Right-sided exit foraminal stenosis is noted. L4-5 level: Moderate broad-based posterior disc bulge is seen with advanced facet and ligamentum flav um hypertrophy. Severe central canal stenosis is seen. Mild exit foraminal narrowing. L5-S1 level: Posterior disc bulge asymmetric to the left is seen with moderate left-sided facet hyper trophy and ligamentum flavum hypertrophy. Left lateral recess is narrowed left exit foramina is mildl y narrowed. IMPRESSION: Moderately severe spondylosis is present involving the lower lumbar levels. Severe canal stenosis suspected at L3-4 and L4-5 as described.
[2022-11-09 19:28] VITALS: O2SAT 95
[2022-11-09 21:54] VITALS: BMI 20.3
[2022-11-09] MEDS ORDERED: HYDROCODONE/APAP 7.5/325 MG TAB PO PRN (23:57)
[2022-11-10 03:35] LABS: Absolute Lymphocytes (CBC) 1.6 K/uL (0.7-4.9); Hematocrit 33.7 % (36.0-45.0); Lymphocytes % 23.8 % (15.3-44.8); MCV 101.7 fL (80-100); MPV 10.1 fL (7.6-11.3); RBC Red Blood Cell Count 3.32 M/uL (3.86-4.86)
[2022-11-10 03:37] LABS: Protime INR 1.07
[2022-11-10 03:49] LABS: Albumin 3.2 g/dL (3.4-5.0); Bilirubin Total 0.5 mg/dL (0.2-1.0); Potassium 3.8 mEq/L (3.5-5.1); Protein, Total 6.6 g/dL (6.4-8.2); Troponin High Sensitivity 8.3 pg/mL (<58.9)
[2022-11-10] MEDS: NA CHLORIDE 0.9% 1,000 ML IV SCH ×2 (05:20→10:50)
[2022-11-10] MEDS: dexAMETHasone 4 MG/ML VIAL IV SCH ×3 (05:52→11:42)
--- NOTE | 2022-11-10 10:41 | P.HP ---
Certification for Inpatient Patient admitted to: Observation With expected LOS: <2 Midnights Patient will require the following post-hospital care: None Practitioner: I am a practitioner with admitting privileges, knowledge of patient current condition, hospital course, and medical plan of care. Services: Services provided to patient in accordance with Admission requirements found in Title 42 Section 412.3 of the Code of Federal Regulations Patient History Date of Service: 11/09/22 Reason for admission: Low back strain History of Present Illness: 87-year-old female who had been down to brain picker a water bottle and after lifting get she developed some severe low back pain. She was not really able to ambulate well so she came into the emergency room. Patient has central canal stenosis but underneath the level of the spinal cord. No cord compression noted. Patient was able to get out of bed and ambulate a little bit. We will get physical therapy evaluation. She will need home physical therapy and Occupational Therapy. I spoke to patient's daughter and stated that patient should be able to discharge tomorrow but she will need family to stay with her for the weekend and then they can reassess. At this time we will admit the patient for observation. Patient denies any other complaints. Allergies Penicillins Allergy (Mild, Verified 11/09/22 20:58) Hives iodine [Iodine] Allergy (Verified 11/09/22 20:58) Itching/Hives/Rash morphine Adverse Reaction (Verified 11/09/22 21:54) Nausea/Vomiting Home Medications: Losartan Potassium [Cozaar*] 50 mg PO DAILY 03/20/18 Atorvastatin Calcium 80 mg PO BEDTIME 12/19/21 Linagliptin [Tradjenta] 5 mg PO DAILY 12/19/21 Metoprolol Tartrate [Lopressor*] 0.5 tab PO BID 12/19/21 Montelukast Sodium 10 mg PO BEDTIME 12/19/21 Multivit-Min/FA/Lycopen/Lutein [Centrum Silver Tablet] 1 tab PO DAILY 12/19/21 Omeprazole [Prilosec] 1 tab PO DAILY 12/19/21 Aspirin 162 mg PO DAILY #60 tab.chew 12/20/21 Clopidogrel Bisulfate [Plavix] 75 mg PO DAILY #30 tablet 12/20/21 Metoprolol Tartrate [Lopressor*] 25 mg PO BID 6AM 6PM #60 tab 12/20/21 - Past Medical/Surgical History Has patient received pneumonia vaccine in the past: No Diabetic: Yes -: diabetes -: hypertension -: CAD -: CVA -: hysterectomy -: gallbladder -: rt and left CTR -: cardiac stents 2013 -: left foot Psychosocial/ Personal History: Patient lives at home with family - Family History Father Notes: pt states, "parents and siblings very healthy, no health problems" - Social History Smoking Status: Never smoker Alcohol use: No CD- Drugs: No Caffeine use: Yes Review of Systems 10-point ROS is otherwise unremarkable Physical Examination - Vital Signs Temperature: 97.1 F Blood Pressure: 161/72 Pulse: 71 Respirations: 16 Pulse Ox (%): 95 - Physical Exam General: Alert, In no apparent distress, Oriented x3 HEENT: Atraumatic, PERRLA, Mucous membr. moist/pink, EOMI, Sclerae nonicteric Neck: Supple, 2+ carotid pulse no bruit, No LAD, Without JVD or thyroid abnormality Respiratory: Clear to auscultation bilaterally, Normal air movement Cardiovascular: Regular rate/rhythm, Normal S1 S2, No murmurs Gastrointestinal: Normal bowel sounds, Soft and benign, Non-distended, No tenderness Musculoskeletal: No clubbing, No swelling, Tenderness (Minimal pain on range of motion) Integumentary: No rashes Neurological: Normal gait, Normal speech, Sensation intact, Cranial nerves 3-12 intact, Abnormal strength Lymphatics: No axilla or inguinal lymphadenopathy Assessment & Plan - Problems (Diagnosis) (1) Low back pain Current Visit: Yes Status: Acute (2) Gastroesophageal reflux disease Current Visit: No Status: Acute (3) Hypertension Current Visit: No Status: Acute - Plan Plan: 1. Continue with anti-inflammatory medications 2. Pain control 3. Patient home health with physical therapy 4. Outpatient follow-up with spine surgeon or neurology 5. GI DVT prophylaxis Discharge Plan: Home Plan to discharge in: 24 Hours - Advance Directives Does patient have a Living Will: No Does patient have a Durable POA for Healthcare: No - Code Status/Comfort Care Code Status Assessed: Yes Code Status: Full Code Critical Care: No Time Spent Managing PTS Care (In Minutes): 45
[2022-11-10] MEDS ORDERED: METOPROLOL TAR 25 MG TAB PO SCH (11:57)
[2022-11-10 16:32] VITALS: BP 130/63; TEMP 98.1
[2022-11-11] MEDS ORDERED: LOSARTAN POTASSIUM 50 MG TABLET PO SCH (11:56)
== END 2022-11-10 16:05 | disposition home health service (06) ==
LOC: ER 09:20 → ERHOLD 15:47 → 2ND 18:23
PROVIDERS: ADMIT Hospitalist; ATTEND Hospitalist
DX: M54.50 Low back pain, unspecified (principal); K21.9 Gastro-esophageal reflux disease without esophagitis; I10 Essential (primary) hypertension; I25.10 Atherosclerotic heart disease of native coronary artery without angina pectoris; E11.9 Type 2 diabetes mellitus without complications; N39.0 Urinary tract infection, site not specified; M54.17 Radiculopathy, lumbosacral region; Z95.5 Presence of coronary angioplasty implant and graft; Z88.0 Allergy status to penicillin
CPT/HCPCS: 96365; 85025 ×2; 81001; 36415; 85610; 82947 ×4; 85730; 84484; 80053 ×2; 86140; 74176; 72148; 97116; 97161; 96375; 99285; J1100 ×2; J2405 ×2; J0744; J7030 ×3; G0378; J2270

== ENCOUNTER 2024-01-30 20:58 | Inpatient (IN) | payer OTHER ==
[2024-01-30 21:58] LABS: Absolute Basophils 0.1 K/uL (0-0.5); Absolute Eosinophils 0.1 K/uL (0-0.5); Absolute Lymphocytes (CBC) 0.9 K/uL (0.7-4.9); Absolute Monocytes 0.3 K/uL (0.1-1.3); Absolute Neutrophil 6.8 K/uL (1.8-8.0); Basophils % 0.7 % (0-1.3); Eosinophils % 0.9 % (0-4.4); Hematocrit 34.5 % (36.0-45.0); Hemoglobin 11.8 g/dL (12.0-15.0); Lymphocytes % 11.4 % (15.3-44.8); MCHC 34.1 g/dL (32.0-36.0); MCV 105.3 fL (80-100); MPV 9.3 fL (7.6-11.3); Monocytes % 4.2 % (3.3-12.3); Neutrophils % 82.8 % (41.7-73.7); Nucleated Red Blood Cells % 0.2 % (0-0); Platelets 188 thou/uL (152-406); RBC Red Blood Cell Count 3.28 M/uL (3.86-4.86); Red Cell Distribution Width 14.5 % (12.1-15.2)
[2024-01-30 21:59] LABS: White Blood Cell Scan OK (OK)
[2024-01-30 22:00] LABS: Blood Morphology Comment NOTED (NOT SEEN); Macrocytosis 1+; Platelet Estimate ADEQ
[2024-01-30 22:01] LABS: PT Prothrombin Time 12.1 SECONDS (9.4-12.5); Protime INR 1.08
--- NOTE | 2024-01-30 22:13 | RAD REPORT ---
EXAM DESCRIPTION: RAD - Pelvis - 01/30/2024 9:53 pm CLINICAL HISTORY: fall and pelvic pain COMPARISON: No comparisons FINDINGS/IMPRESSION: Disruption identified at the right iliac bone, left pubic symphysis, and possib le offset at the left femoral neck. Acute fractures at these locations cannot be excluded. Consider p elvic CT for further evaluation. Peripheral vascular calcifications. Degenerative changes in the lowe r spine.
--- NOTE | 2024-01-30 22:13 | RAD REPORT ---
EXAM DESCRIPTION: RAD - Chest Single View - 01/30/2024 9:53 pm CLINICAL HISTORY: CHEST PAIN COMPARISON: Chest Single View dated 11/27/2023; Chest Single View dated 10/14/2022; Chest Single View d ated 12/18/2021; Chest Single View dated 05/21/2019 FINDINGS: Lines: Loop recorder overlies the heart. Lungs: No evidence of edema or pneumonia. Pleural: No significant pleural effusions or pneumothorax. Cardiac: The heart size is within normal limits. Mediastinum: Within normal limits. Bones: No acute fractures. Other: None IMPRESSION: No acute cardiopulmonary disease.
[2024-01-30 22:17] LABS: ALT/SGPT 18 U/L (13-56); AST/SGOT 15 U/L (15-37); Albumin 3.8 g/dL (3.4-5.0); Alkaline Phosphatase 80 U/L (45-117); BUN Blood Urea Nitrogen 16 mg/dL (7-18); Bicarbonate 28 mEq/L (21-32); Bilirubin Total 0.4 mg/dL (0.2-1.0); Globulin 3.7 g/dL (2.3-3.5); Glomerular Filtration Rate 61 ml/min (=/>90); Glucose Level 136 mg/dL (74-106); Magnesium 1.5 mg/dL (1.6-2.4); NT PRO-BNP 394 pg/mL (<450); Protein, Total 7.5 g/dL (6.4-8.2); Sodium Level 140 mEq/L (136-145)
[2024-01-30 22:24] LABS: Bilirubin Direct < 0.2 mg/dL (0-0.2); Bilirubin Indirect, Calculated 0.2 mg/dL (0.2-0.8)
[2024-01-30 22:27] LABS: Troponin High Sensitivity 417.3 pg/mL (<58.9)
--- NOTE | 2024-01-30 23:04 | RAD REPORT ---
EXAM DESCRIPTION: CT - Pelvis Wo Cont - 01/30/2024 10:51 pm CLINICAL HISTORY: eval for pelvic fracture COMPARISON: No comparisons FINDINGS: No pelvic fracture other than right. There is osteopenia. Degenerative changes are present lower spine. Sacral decubitus ulcer. No specific CT findings to suggest osteomyelitis. Atheroscleros is . IMPRESSION: No pelvic or hip fracture identified.
[2024-01-30] MEDS ORDERED: ASPIRIN 81 MG CHEWABLE TABLET ONE (23:10)
[2024-01-30] MEDS ORDERED: HEPARIN/D5W 25,000 UNIT/500 ML BAG IV ONE (23:15)
[2024-01-30] MEDS ORDERED: HEPARIN 5000 UNIT/ML 1 ML VIAL ONE (23:15)
[2024-01-30 23:26] LABS: PTT, Activated Partial Thromb 30.4 SECONDS (24.3-36.9)
--- NOTE | 2024-01-30 23:54 | EDPHYS ---
Physician Documentation [facility] Name: Deyanira Glez Age: 88 yrs Sex: Female : 1935 Arrival Date: 01/30/2024 Time: 20:58 Bed 8 Private MD: ED Physician Mikal Torres HPI: 01/29 21:04 This 88 yrs old Female presents to ER via EMS with complaints of Fall Injury. sp4 21:57 Patient is a very pleasant 88-year-old female presents with EMS for acute fall sp4 associated with chest pain. Patient states she was traveling to [facility] when she fell backwards causing injury to the buttocks and associated chest pain too. . Historical: - Allergies: 21:04 Morphine; kd3 21:04 PENICILLINS; kd3 - PMHx: 21:04 Diabetes - NIDDM; failed stress test; Hypertension; stroke; kd3 - PSHx: 21:04 Cholecystectomy; Total abdominal hysterectomy; kd3 - Immunization history:: Adult Immunizations up to date. - Infectious Disease History:: Denies. - Social history:: Smoking status: Patient denies any tobacco usage or history of. - Family history:: not pertinent. ROS: 21:57 Constitutional: Negative for fever, chills, and weight loss, Positive chest pain and sp4 pelvic pain 21:57 All other systems are negative, Exam: 21:57 Constitutional: well nourished patient who is awake, alert, and in no acute distress. sp4 frail eldelry female. Head/Face: Normocephalic, atraumatic. Eyes: Pupils equal round and reactive to light, extra-ocular motions intact. Lids and lashes normal. Conjunctiva and sclera are not injected. Cornea within normal limits. Periorbital areas with no swelling, redness, or edema. ENT: Nares patent. No nasal discharge, no septal abnormalities noted. Tympanic membranes are normal and external auditory canals are clear. Oropharynx with no redness, swelling, or masses, exudates, or evidence of obstruction, uvula midline. Mucous membranes moist. Neck: Trachea midline, no thyromegaly or masses palpated, and no cervical lymphadenopathy. Supple, full range of motion without nuchal rigidity, or vertebral point tenderness. Chest/axilla: Normal chest wall appearance and motion. Nontender with no deformity. No lesions are appreciated. Cardiovascular: Regular rate and rhythm with a normal S1 and S2. No gallops, murmurs, or rubs. Normal PMI, no JVD. No pulse deficits. Respiratory: Lungs have equal breath sounds bilaterally, clear to auscultation and percussion. No rales, rhonchi or wheezes noted. No increased work of breathing, no retractions or nasal flaring. Abdomen/GI: Soft, with normal bowel sounds. No distension or tympany. No guarding or rebound. No evidence of tenderness throughout. Back: No spinal tenderness. No costovertebral tenderness. Skin: Warm, dry with normal turgor. Normal color with no rashes, no lesions, and no evidence of cellulitis. MS/ Extremity: Pulses equal, no cyanosis. Neurovascular intact. Full, normal range of motion. Neuro: Awake and alert, GCS 15, oriented to person, place, time, and situation. Cranial nerves II-XII grossly intact. Motor strength 5/5 in all extremities. Sensory grossly intact. Psych: Awake, alert, with orientation to person, place and time. Behavior, mood, and affect are within normal limits 21:57 ECG was reviewed by the Attending Physician. EKG at 2117 normal sinus rhythm at the rate of 95 with left axis deviation. Vital Signs: 21:01 BP 151 / 69; Pulse 76; Resp 16; Pulse Ox 98% on R/A; kd3 21:22 Temp 97.3(TE); tm6 22:53 BP 149 / 60; Pulse 78; Resp 17; Pulse Ox 96% on R/A; kd3 23:01 Weight 53.07 kg; tm6 23:49 BP 133 / 75; Pulse 91; Resp 16; Pulse Ox 99% on R/A; kd3 01/30 00:40 BP 132 / 76; Pulse 84; Resp 17; Pulse Ox 98% on R/A; kd3 Mellissa Coma Score: 01/29 21:57 Eye Response: spontaneous(4). Motor Response: obeys commands(6). Verbal Response: sp4 oriented(5). Total: 15. MDM: 21:05 Patient medically screened. sp4 22:14 ED course: EXAM DESCRIPTION: RAD - Pelvis - 01/30/2024 9:53 pm CLINICAL HISTORY: fall sp4 and pelvic pain COMPARISON: No comparisons FINDINGS/IMPRESSION: Disruption identified at the right iliac bone, left pubic symphysis, and possible offset at the left femoral neck. Acute fractures at these locations cannot be excluded. Consider pelvic CT for further evaluation. Peripheral vascular calcifications. Degenerative changes in the lower spine. . ED course: EXAM DESCRIPTION: RAD - Chest Single View - 01/30/2024 9:53 pm CLINICAL HISTORY: CHEST PAIN COMPARISON: Chest Single View dated 11/27/2023; Chest Single View dated 10/14/2022; Chest Single View dated 12/18/2021; Chest Single View dated 05/21/2019 FINDINGS: Lines: Loop recorder overlies the heart. Lungs: No evidence of edema or pneumonia. Pleural: No significant pleural effusions or pneumothorax. Cardiac: The heart size is within normal limits. Mediastinum: Within normal limits. Bones: No acute fractures. Other: None IMPRESSION: No acute cardiopulmonary disease. . 23:46 ED course: EXAM DESCRIPTION: CT - Pelvis Wo Cont - 01/30/2024 10:51 pm CLINICAL HISTORY: sp4 eval for pelvic fracture COMPARISON: No comparisons FINDINGS: No pelvic fracture other than right. There is osteopenia. Degenerative changes are present lower spine. Sacral decubitus ulcer. No specific CT findings to suggest osteomyelitis. Atherosclerosis . IMPRESSION: No pelvic or hip fracture identified. . 23:53 Differential diagnosis: abrasion, closed head injury, contusion, multiple trauma, sp4 sprain, strain. Data reviewed: vital signs, nurses notes, lab test result(s), EKG, radiologic studies, CT scan, plain films. Consideration of Admission/Observation Patient was admitted/placed on observation. Escalation of care including admission/observation considered. Management of patient was discussed with the following: Hospitalist: Minh DOWNEY . Gate Tender: Jose M DOWNEY . 01/29 21:05 Order name: Basic Metabolic Panel; Complete Time: 23: [facility] 01/29 21:05 Order name: CBC with Diff; Complete Time: 22:14 [facility] 01/29 21:05 Order name: LFT's; Complete Time: 23:31 [facility] 01/29 21:05 Order name: Magnesium; Complete Time: 23:31 [facility] 01/29 21:05 Order name: NT PRO-BNP; Complete Time: 23: [facility] 01/29 21:05 Order name: PT-INR; Complete Time: 23:31 sp4 01/29 21:05 Order name: Troponin HS; Complete Time: 23:31 sp4 01/29 22:00 Order name: CBC Smear Scan; Complete Time: 22:14 [facility] 01/29 23:21 Order name: PTT, Activated Partial Thromb; Complete Time: 23:31 EDMS 01/30 00:12 Order name: Urinalysis w/ reflexes EDMS 01/30 00:12 Order name: CBC with Automated Diff EDMS 01/30 00:12 Order name: CBC with Automated Diff EDMS 01/30 00:12 Order name: Comprehensive Metabolic Panel EDMS 01/30 00:12 Order name: Comprehensive Metabolic Panel EDMS 01/30 00:12 Order name: Troponin High Sensitivity [facility] 01/30 00:12 Order name: Troponin High Sensitivity [facility] 01/30 00:12 Order name: Troponin High Sensitivity [facility] 01/30 00:12 Order name: Troponin High Sensitivity [facility] 01/30 00:12 Order name: Troponin High Sensitivity [facility] 01/30 00:12 Order name: Troponin High Sensitivity [facility] 01/30 00:12 Order name: Troponin High Sensitivity [facility] 01/29 21:05 Order name: XRAY Chest (1 view); Complete Time: 23: 4 01/29 21:05 Order name: Pelvis XRAY; Complete Time: : 4 01/29 22:17 Order name: CT Pelvis wo Cont; Complete Time: 23:4 01/29 21:05 Order name: Cardiac monitoring; Complete Time: 21:4 01/29 21:05 Order name: EKG - Nurse/Tech; Complete Time: 21:4 01/29 21:05 Order name: IV Saline Lock; Complete Time: 21:47 01/29 21:05 Order name: Labs collected and sent; Complete Time: 21:47 sp4 01/29 21:05 Order name: O2 Per Protocol; Complete Time: 21:01/29 21:05 Order name: O2 Sat Monitoring; Complete Time: 21: EC:57 Rate is 95 beats/min. Rhythm is regular, Normal Sinus Rhythm. Left axis deviation sp4 noted. OK interval is normal. QRS interval is normal. QT interval is normal. No Q waves. T waves are Normal. No ST changes noted. Clinical impression: No evidence of ischemia. Interpreted by me. Reviewed by me. Administered Medications: 23:32 Drug: Aspirin PO 243 mg PO once Route: PO; tm6 01/30 00:20 Drug: Heparin (NC-Bolus No thrombolytic) - HEParin IVP 60 units/kg IVP once; Max 5000 tm6 units {Co-Signature: pascale (Patsy Hong RN).} Route: IVP; Site: right antecubital; 00:20 Drug: Heparin (NC Drip) 12 units/kg/[place] - ([place] [address] units, D5W IV 500 ml) IV at tm6 calculated rate Per protocol; Max initial rate 1000 units/hr {Co-Signature: pascale (Patsy Hong RN).} Route: IV; Rate: calculated rate; Site: right antecubital; Disposition Summary: 01/30/24 23:53 Hospitalization Ordered Notes: Hospitalization Status: Inpatient Admission sp4 Provider: Mirza Wilkinson sp4 Location: Telemetry/MedSur (Inpatient) sp4 Condition: Fair sp4 Problem: new sp4 Symptoms: are unchanged sp4 Bed/Room Type: Standard sp4 Room Assignment: 405(01/31/24 00:30) rv1 Diagnosis - Fall on same level, unspecified sp4 - NSTEMI sp4 Forms: - Medication Reconciliation Form sp4 - SBAR form sp4 - Leadership Thank You Letter sp4 Signatures: Dispatcher [employer] Patsy Cm RN RN kd3 Tiffanie Oconnor rv1 Mikal Torres MD MD sp4 Jose Sanchez RN RN tm6 Patsy Hong RN kd3 Corrections: (The following items were deleted from the chart) 01/29 21:05 21:05 Chest Single View+RAD.RAD.BRZ ordered. EDMS EDMS 21:05 21:05 Pelvis+RAD.RAD.BRZ ordered. EDMS EDMS 22:18 22:18 Pelvis Wo Cont+CT.RAD.BRZ ordered. EDMS EDMS 23:20 22:37 PTT, ACTIVATED+COAG.LAB.BRZ ordered. EDMS EDMS 01/30 00:30 01/29 23:53 sp4 rv1
--- NOTE | 2024-01-30 23:54 | ER ---
Nurse's Notes [facility] Name: Deyanira Glez Age: 88 yrs Sex: Female : 1935 Arrival Date: 01/30/2024 Time: 20:58 Bed 8 Private MD: Diagnosis: Fall on same level, unspecified;NSTEMI Presentation: 01/29 21:01 Chief complaint: EMS states: Pt went to go sit down in her chair this evening and kd3 missed and fell to the ground on her bottom. Pt complains of tailbone/ buttocks pain but has no other complaints. Pt is alert and oriented x 4, did not hit her head, is not on blood thinners and had no LOC. Coronavirus screen: Vaccine status: Patient reports receiving the 2nd dose of the covid vaccine. Ebola Screen: No symptoms or risks identified at this time. Initial Sepsis Screen: Does the patient meet any 2 criteria? No. Patient's initial sepsis screen is negative. Does the patient have a suspected source of infection? No. Patient's initial sepsis screen is negative. Risk Assessment: Do you want to hurt yourself or someone else? Patient reports no desire to harm self or others. Onset of symptoms was January 30, 2024. 21:01 Method Of Arrival: EMS: [facility] kd3 21:01 Acuity: DOMINIC 3 kd3 Triage Assessment: 21:04 General: Appears in no apparent distress. Behavior is calm, cooperative. Pain: kd3 Complains of pain in buttocks. Neuro: Level of Consciousness is awake, alert, obeys commands, Oriented to person, place, time, situation. Cardiovascular: Patient's skin is warm and dry. Respiratory: Airway is patent Trachea midline Respiratory effort is even, unlabored, Respiratory pattern is regular, symmetrical. Historical: - Allergies: 21:04 Morphine; kd3 21:04 PENICILLINS; kd3 - PMHx: 21:04 Diabetes - NIDDM; failed stress test; Hypertension; stroke; kd3 - PSHx: 21:04 Cholecystectomy; Total abdominal hysterectomy; kd3 - Immunization history:: Adult Immunizations up to date. - Infectious Disease History:: Denies. - Social history:: Smoking status: Patient denies any tobacco usage or history of. - Family history:: not pertinent. Screenin:05 [facility] ED Fall Risk Assessment (Adult) History of falling in the last 3 months, kd3 including since admission Yes- single mechanical fall (1 pt) Confusion or Disorientation No (0 pts) Intoxicated or Sedated No (0 pts) Impaired Gait Yes (1 pt) Mobility Assist Device Used Yes (1 pt) Altered Elimination No (0 pt) Score/Fall Risk Level 3 or more points = High Risk Oriented to surroundings, Maintained a safe environment, Educated pt \T\ family on fall prevention, incl call for assistance when getting out of bed, Assessed \T\ reinforced patient's understanding of fall precautions, Provided non-skid footwear, Hourly rounding (assess needs \T\ fall precautionary measures) done, Used ambulatory aids as needed (educated on \T\ assisted with), Used gait belt as appropriate. Abuse screen: Denies threats or abuse. Denies injuries from another. Nutritional screening: No deficits noted. Tuberculosis screening: No symptoms or risk factors identified. Assessment: 21:46 General: Appears in no apparent distress. Behavior is calm, cooperative. Pain: kd3 Complains of pain in buttocks. Neuro: Level of Consciousness is awake, alert, obeys commands, Oriented to person, place, time, situation. Cardiovascular: Patient's skin is warm and dry. Respiratory: Airway is patent Trachea midline Respiratory effort is even, unlabored, Respiratory pattern is regular, symmetrical. Vital Signs: 21:01 BP 151 / 69; Pulse 76; Resp 16; Pulse Ox 98% on R/A; kd3 21:22 Temp 97.3(TE); tm6 22:53 BP 149 / 60; Pulse 78; Resp 17; Pulse Ox 96% on R/A; kd3 23:01 Weight 53.07 kg; tm6 23:49 BP 133 / 75; Pulse 91; Resp 16; Pulse Ox 99% on R/A; kd3 01/30 00:40 BP 132 / 76; Pulse 84; Resp 17; Pulse Ox 98% on R/A; kd3 Fanshawe Coma Score: 01/29 21:57 Eye Response: spontaneous(4). Motor Response: obeys commands(6). Verbal Response: sp4 oriented(5). Total: 15. ED Course: 21:01 Patient arrived in ED. kd3 21:04 Triage completed. kd3 21:04 Mikal Torres MD is Attending Physician. sp4 21:04 Arm band placed on. kd3 21:05 Patient has correct armband on for positive identification. Provided Education on: kd3 Cardiac workup . 21:05 No provider procedures requiring assistance completed. kd3 21:09 Jose Sanchez, RN is Primary Nurse. tm6 21:10 Client placed on continuous cardiac and pulse oximetry monitoring. NIBP monitoring tm6 applied. telemetry monitor on. Pulse ox on. NIBP on. Door closed. Noise minimized. Warm blanket given. Pillow given. 21:22 EKG done, by ED staff, reviewed by Mikal Torres MD. tm6 21:46 Inserted saline lock: 20 gauge in left upper arm, using aseptic technique. Blood kd3 collected. Flushed with 10 mL NS. 21:47 Basic Metabolic Panel Sent. kd3 21:47 CBC with Diff Sent. kd3 21:47 LFT's Sent. kd3 21:47 Magnesium Sent. kd3 21:47 NT PRO-BNP Sent. kd3 21:47 PT-INR Sent. kd3 21:47 Troponin HS Sent. kd3 21:47 Initial lab(s) drawn, by tx, sent to lab. kd3 21:55 XRAY Chest (1 view) In Process Unspecified. EDMS 21:55 Pelvis XRAY In Process Unspecified. EDMS 22:26 Notified ED physician of a critical lab result(s). Troponin 417.3. tm6 22:53 CT Pelvis wo Cont In Process Unspecified. EDMS 23:49 Inserted saline lock: 20 gauge in right upper arm, using aseptic technique. Flushed kd3 with 10 mL NS. 23:51 Mirza Wilkinson MD is Hospitalizing Provider. sp4 01/30 01:32 Patient admitted, IV remains in place. kd3 Administered Medications: 01/29 23:32 Drug: Aspirin PO 243 mg PO once Route: PO; tm6 01/30 00:20 Drug: Heparin (MO-Bolus No thrombolytic) - HEParin IVP 60 units/kg IVP once; Max 5000 tm6 units {Co-Signature: kd3 (Patsy Hong RN).} Route: IVP; Site: right antecubital; 00:20 Drug: Heparin ([place] Drip) 12 units/kg/[place] - ([place] [address] units, D5W IV 500 ml) IV at tm6 calculated rate Per protocol; Max initial rate 1000 units/hr {Co-Signature: kd3 (Patsy Hong RN).} Route: IV; Rate: calculated rate; Site: right antecubital; Medication: 01/29 21:07 VIS not applicable for this client. kd3 Outcome: 23:53 Decision to Hospitalize by Provider. sp4 01/30 01:32 Admitted to Med/surg kd3 Condition: stable Discharge instructions given to patient, Instructed on the need for admit, Demonstrated understanding of instructions, 01:33 Patient left the ED. kd3 Signatures: Dispatcher [employer] EDPatsy Richter, RN RN kd3 Mikal Torres MD MD sp4 Jose Sanchez RN RN tm6 Patsy Hong RN kd3
[2024-01-31] MEDS ORDERED: ACETAMINOPHEN 325 MG TABLET PO PRN (00:07)
--- NOTE | 2024-01-31 00:07 | P.HP ---
Certification for Inpatient Patient admitted to: Inpatient With expected LOS: >2 Midnights Practitioner: I am a practitioner with admitting privileges, knowledge of patient current condition, hospital course, and medical plan of care. Services: Services provided to patient in accordance with Admission requirements found in Title 42 Section 412.3 of the Code of Federal Regulations Patient History Date of Service: 01/31/24 Reason for admission: History of fall History of Present Illness: 88 yrs old Female with past medical history of diabetes, hypertension, history of CVA, CAD presents to ER with complaints of Fall associated with chest pain. Patient states she was traveling to [facility] when she fell backwards causing injury to the buttocks. She had a hard time pulling herself off the floor. She got panicked. Started having chest pain. Chest pain is retrosternal pressure-like not associated with any diaphoresis. Denies any shortness of breath. Denies any nausea vomiting or diarrhea. The patient was assessed in the ER and was admitted for further management of NSTEMI Allergies Penicillins Allergy (Mild, Verified 11/09/22 20:58) Hives iodine [Iodine] Allergy (Verified 11/09/22 20:58) Itching/Hives/Rash morphine Adverse Reaction (Verified 11/09/22 21:54) Nausea/Vomiting Home medications list reviewed: Yes Home Medications: Losartan Potassium [Cozaar*] 50 mg PO DAILY 03/20/18 Atorvastatin Calcium 80 mg PO BEDTIME 12/19/21 Linagliptin [Tradjenta] 5 mg PO DAILY 12/19/21 Montelukast Sodium 10 mg PO BEDTIME 12/19/21 Multivit-Min/FA/Lycopen/Lutein [Centrum Silver Tablet] 1 tab PO DAILY 12/19/21 Omeprazole [Prilosec] 1 tab PO DAILY 12/19/21 Metoprolol Tartrate [Lopressor*] 25 mg PO BID 6AM 6PM #60 tab 12/20/21 Codeine/APAP [Tylenol #3*] 1 tab PO Q6H PRN #15 tab 11/28/23 Aspirin Chewable [Aspirin Chewable*] 1 tab PO DAILY 01/31/24 - Past Medical/Surgical History Diabetic: Yes Past Medical History: Reviewed- Non-Contributory -: diabetes -: hypertension -: CAD -: CVA -: GERD Past Surgical History: Reviewed- Non-Contributory -: hysterectomy -: gallbladder -: rt and left CTR -: cardiac stents 2013 -: left foot Psychosocial/ Personal History: Lives at home, alone - Family History Family History: Reviewed- Non-Contributory - Family History Mother Notes: hysterectomy - Social History Smoking Status: Never smoker Alcohol use: No CD- Drugs: No Caffeine use: Yes Review of Systems 10-point ROS is otherwise unremarkable Physical Examination - Vital Signs Temperature: 97.2 F Blood Pressure: 148/68 Pulse: 78 Respirations: 18 Pulse Ox (%): 94 - Physical Exam General: Alert, Oriented x3, Mild distress HEENT: Atraumatic, Normocephalic Neck: Supple, 2+ carotid pulse no bruit Respiratory: Clear to auscultation bilaterally, Normal air movement Cardiovascular: Regular rate/rhythm, Normal S1 S2 Capillary refill: <2 Seconds Gastrointestinal: Soft and benign, W/out hepatosplenomegaly Musculoskeletal: No clubbing, No swelling Integumentary: No rashes, Tenderness/swelling Neurological: Normal speech, Normal strength at 5/5 x4 extr Lymphatics: No axilla or inguinal lymphadenopathy - Studies Laboratory Data (last 24 hrs) 01/30/24 01/30/24 01/30/24 22:36 21:35 21:35 WBC 8.30 Hgb 11.8 L Hct 34.5 L Plt Count 188 PT 12.1 INR 1.08 APTT Cancelled 30.4 Sodium Potassium BUN Creatinine Glucose Magnesium Total Bilirubin AST ALT Alkaline Phosphatase 01/30/24 21:35 WBC Hgb Hct Plt Count PT INR APTT Sodium 140 Potassium 4.0 BUN 16 Creatinine 0.90 Glucose 136 H Magnesium 1.5 L Total Bilirubin 0.4 AST 15 ALT 18 Alkaline Phosphatase 80 Assessment and Plan - Plan NSTEMI Will trend cardiac enzymes Will monitor telemetry Started on aspirin and statin Started on heparin drip Will get an echocardiogram Cardiology consulted Hypertension Antihypertensives titrated Continue home medications and titrate as needed Hyperlipidemia Continue statin Diabetes Insulin sliding scale Accu-Chek before every meal and at bedtime Fall, hip pain X-ray noted CT rule out any fracture Supportive management GI/DVT prophylaxis Advanced directive full code Discharge Plan: Home Plan to discharge in: 48 Hours - Advance Directives Does patient have a Living Will: No Does patient have a Durable POA for Healthcare: No - Code Status/Comfort Care Code Status: Full Code Time Spent Managing Pts Care (In Minutes): 48
[2024-01-31] MEDS ORDERED: HEPARIN/D5W 500 ML IV PRN (02:31)
[2024-01-31] MEDS: METOPROLOL TAR 25 MG TAB PO SCH (06:04)
[2024-01-31] MEDS: PANTOPRAZOLE 40MG TABLET PO SCH (06:04)
[2024-01-31] MEDS ORDERED: HEPARIN/D5W 25,000 UNIT/500 ML BAG IV SCH (08:00)
[2024-01-31] MEDS ORDERED: HEPARIN 5000 UNIT/ML 1 ML VIAL SQ SCH (09:00)
[2024-01-31] MEDS: ASPIRIN 81 MG CHEWABLE TABLET PO SCH (09:00)
[2024-01-31] MEDS ORDERED: HEPA 1000U/500MLS 2,000 UNIT/1,000 ML BAG IV ONE (10:41)
[2024-01-31] MEDS ORDERED: LIDOCAINE 1% 20 ML MDV ONE (10:42)
[2024-01-31] MEDS ORDERED: MIDAZOLAM HCL 2 MG/2 ML INJ ONE (10:42)
[2024-01-31] MEDS ORDERED: FENTANYL CITR 100 MCG/2 ML ONE (10:42)
[2024-01-31] MEDS ORDERED: HEPARIN 10,000 UNIT/10 ML VIAL IV ONE (10:42)
[2024-01-31] MEDS ORDERED: TICAGRELOR 90 MG TABLET PO ONE (10:42)
[2024-01-31] MEDS ORDERED: HEPARIN 5000 UNIT/ML 1 ML VIAL ONE (10:42)
[2024-01-31] MEDS ORDERED: ASPIRIN 325 MG TAB ONE (10:43)
[2024-01-31] MEDS ORDERED: CLOPIDOGREL 75 MG TABLET ONE (10:43)
--- NOTE | 2024-01-31 11:16 | P.CNS ---
Date of Consult: 01/31/24 Chief Complaint: History of fall History of Present Illness: Patient with PMH of CAD s/p PCI LAD, HTN, HLD presented with chest pain started yesterday after she sustained a mechanical fall, stayed on the ground for one hour, pain is pressure sensation, no radiation, resolved today. Allergies Penicillins Allergy (Mild, Verified 11/09/22 20:58) Hives iodine [Iodine] Allergy (Verified 11/09/22 20:58) Itching/Hives/Rash morphine Adverse Reaction (Verified 11/09/22 21:54) Nausea/Vomiting Home Medications: Losartan Potassium [Cozaar*] 50 mg PO DAILY 03/20/18 Atorvastatin Calcium 80 mg PO BEDTIME 12/19/21 Linagliptin [Tradjenta] 5 mg PO DAILY 12/19/21 Montelukast Sodium 10 mg PO BEDTIME 12/19/21 Multivit-Min/FA/Lycopen/Lutein [Centrum Silver Tablet] 1 tab PO DAILY 12/19/21 Omeprazole [Prilosec] 1 tab PO DAILY 12/19/21 Metoprolol Tartrate [Lopressor*] 25 mg PO BID 6AM 6PM #60 tab 12/20/21 Codeine/APAP [Tylenol #3*] 1 tab PO Q6H PRN #15 tab 11/28/23 Aspirin Chewable [Aspirin Chewable*] 1 tab PO DAILY 01/31/24 - Past Medical/Surgical History Diabetic: Yes -: diabetes -: hypertension -: CAD -: CVA -: GERD -: hysterectomy -: gallbladder -: rt and left CTR -: cardiac stents 2013 -: left foot Psychosocial/ Personal History: Lives at home, alone - Family History Mother Notes: hysterectomy - Social History Smoking Status: Unknown if ever smoked Alcohol use: No CD- Drugs: No Caffeine use: Yes Place of Residence: Home Review of Systems 10-point ROS is otherwise unremarkable Physical Examination Temp Pulse Resp BP Pulse Ox 98.8 F 59 18 131/59 L 97 01/31/24 08:00 01/31/24 08:00 01/31/24 08:00 01/31/24 08:00 01/31/24 08:00 General: Alert, In no apparent distress HEENT: Atraumatic, PERRLA, Mucous membr. moist/pink, EOMI, Sclerae nonicteric Neck: Supple, 2+ carotid pulse no bruit, No LAD, Without JVD or thyroid abnormality Respiratory: Clear to auscultation bilaterally, Normal air movement Cardiovascular: Regular rate/rhythm, Normal S1 S2 Gastrointestinal: Normal bowel sounds, No tenderness Musculoskeletal: No tenderness Integumentary: No rashes Neurological: Normal gait, Normal speech, Normal tone, Normal affect Lymphatics: No axilla or inguinal lymphadenopathy Laboratory Data (last 24 hrs) 01/30/24 01/30/24 01/30/24 22:36 21:35 21:35 WBC 8.30 Hgb 11.8 L Hct 34.5 L Plt Count 188 PT 12.1 INR 1.08 APTT Cancelled 30.4 Sodium Potassium BUN Creatinine Glucose Magnesium Total Bilirubin AST ALT Alkaline Phosphatase 01/30/24 21:35 WBC Hgb Hct Plt Count PT INR APTT Sodium 140 Potassium 4.0 BUN 16 Creatinine 0.90 Glucose 136 H Magnesium 1.5 L Total Bilirubin 0.4 AST 15 ALT 18 Alkaline Phosphatase 80 - Problems (1) NSTEMI (non-ST elevated myocardial infarction) Current Visit: Yes Status: Acute Plan: history of PCI, elevated troponin, Coronary angiogram today. ASA 81 mg daily Plavix 75 mg daily continue heparin drip get echo (2) HLD (hyperlipidemia) Current Visit: Yes Status: Acute Plan: continue lipitor 80 mg daily (3) Hypertension Current Visit: No Status: Acute Plan: continue metoprolol 25 mg po BID
[2024-01-31] MEDS ORDERED: NA CHLORIDE 0.9% 500 ML ONE (11:20)
[2024-01-31] MEDS ORDERED: DIPHENHYDRAMINE 50 MG/ML VIAL ONE (11:24)
[2024-01-31] MEDS ORDERED: METHYLPREDNISOLONE 125 MG INJ ONE (11:24)
--- NOTE | 2024-01-31 13:15 | EKG ---
Test Date: 2024-01-30 Test Time: 21:17:38 Issuing Operator: YVETTE MEASUREMENT RESULTS: Intervals: Rate: 95 NE: 148 QRSD: 118 QT: 404 QTc: 507 [place]: P: 34 NE: 148 QRS: -52 T: 94 INTERPRETIVE STATEMENTS: Normal sinus rhythm Left axis deviation Septal infarct, age undetermined T wave abnormality, consider lateral ischemia Abnormal ECG Compared to ECG 11/27/2023 11:56:10 Left-axis deviation now present Myocardial infarct finding now present Possible ischemia now present T-wave abnormality still present Electronically Signed On 01-31-24 13:14:16 CDT by Davian Salguero
--- NOTE | 2024-01-31 13:24 | OP ---
Date of Procedure: 01/31/2024 Surgeon: Alejo Chun Procedures Performed: 1.Selective coronary angiogram. 2.PCI of the LAD with Synergy 2.5 x 24 mm drug-eluting stent overlapped with Synergy 2.25 x 8 mm gisel g-eluting stent. Complications: None. Estimated Blood Loss: Less than 50 cc. Sedation Time: 40 minutes with 1 of Versed and 25 of fentanyl. Access: Right radial, closed by TR band. Description Of Procedure: After risks, benefits, and alternatives were explained to the patient, the patient agreed to proceed with procedure and signed informed consent. The patient was moved back to the public works laborer and prepped and draped in sterile fashion. A time-out was performed. Sedation was adm inistered. Next, the right radial access, ultrasound-guided micropuncture technique was obtained. A [place] 4 catheter was advanced over J-wire to the aortic root. Selective angiogram was done with the left and right coronary systems. The catheter was later exchanged for an XB LAD 3.0 mm guide at the left main artery. Runthrough wire across the lesions, pre-dilated the lesions with a 2.5 mm NC ball oon. GuideLiner was used for support. Next, Synergy 2.5 x 24 mm drug-eluting stent was placed to cl ose the lesion overlapped with old stent, that was postdilated with an NC 2.75 mm balloon. Repeat an giogram shows distal edge dissection of the stent, so another 2.25 x 8 mm drug-eluting stent was plac ed to close the lesion and this was postdilated with a stent balloon. Final angiogram shows MERA-3 f low. At the end of the procedure, catheter was removed over a J-wire. Sheath was removed and TR ban d was applied. Hemostasis was achieved. The patient was moved back to recovery in stable condition. Indication For Procedure: Non-ST elevation PA. Findings: 1.Left main is normal. 2.LAD: There is a proximal to mid stent that had diffuse 60% disease, status post PTCA. Distal to the stent at the mid LAD, there is 70% to 80% disease, status post PCI with Synergy 2.5 x 24 mm drug- eluting stent. This overlapped with the old stent. Angiogram showed distal edge dissections, so ano ther 2.25 x 8 mm drug-eluting stent was placed and overlapped with a new stent. Distal mild LI. 3.Diagonal 1 ostially jailed by an old stent with 90% proximal disease. 4.Left circ ostial PATCH SANDER followed by jjgsz-so-hwil collaterals. 5.RCA: Dominant, large, proximal to mid mild LI. 6.RPDA: There is proximal 60% to 70% disease and then mild LI. 7.RPLB: There is proximal 50% disease and mild LI. Assessment And Plan: 1.Significant mid LAD disease, status post PCI with Synergy 2.5 x 24 mm drug-eluting stents and Syne rgy 2.25 x 8 mm drug-eluting stents. 2.Moderate proximal RPDA disease, we will recommend outpatient stress test to evaluate for need for PCI. 3.Aspirin 81 mg daily for life. 4.Brilinta 180 x1 was given in the public works laborer, continue Brilinta 90 mg p.o. b.i.d. for 12 months. 5.Continue aggressive medical treatment for CAD. RADHA/DOROTEO Voice ID: [id number] Report ID: [id number]
[2024-01-31] MEDS: ONDANSETRON 4 MG/2 ML VIAL IV PRN (13:44)
[2024-01-31] MEDS: ONDANSETRON 4 MG/2 ML VIAL ONE (13:44)
--- NOTE | 2024-01-31 17:40 | P.PN ---
Date of Service: 01/31/24 Patient seen and examined. Status post cardiac catheterization with 2 cardiac stent placed. Patient is currently asymptomatic She denies any hip pain or back pain. Cardiology Dr. Chun's input appreciated. Patient started on DAPT-Brilinta and aspirin. PT consult to evaluate mobility. Analgesics as needed Resume other home medications.
[2024-01-31 19:57] VITALS: BMI 20.5
[2024-01-31] MEDS: TICAGRELOR 90 MG TABLET PO SCH (21:58)
[2024-01-31] MEDS: ATORVASTATIN 40 MG TAB PO SCH (21:58)
[2024-01-31 22:55] VITALS: O2SAT 97
[2024-02-01 06:29] LABS: Absolute Lymphocytes (CBC) 1.1 K/uL (0.7-4.9); Absolute Monocytes 0.3 K/uL (0.1-1.3); Absolute Neutrophil 6.9 K/uL (1.8-8.0); Basophils % 0.2 % (0-1.3); Hematocrit 31.4 % (36.0-45.0); Hemoglobin 10.7 g/dL (12.0-15.0); Lymphocytes % 13.3 % (15.3-44.8); MCH 36.1 pg (27.0-35.0); MCHC 34.1 g/dL (32.0-36.0); MCV 105.7 fL (80-100); MPV 9.8 fL (7.6-11.3); Monocytes % 3.3 % (3.3-12.3); Neutrophils % 83.2 % (41.7-73.7); Nucleated RBC Absolute Count 0.1 (0-0); Nucleated Red Blood Cells % 0.8 % (0-0); Platelets 198 thou/uL (152-406); RBC Red Blood Cell Count 2.97 M/uL (3.86-4.86); Red Cell Distribution Width 14.3 % (12.1-15.2)
[2024-02-01 07:20] LABS: Bilirubin Total 0.4 mg/dL (0.2-1.0); Potassium 4.2 mEq/L (3.5-5.1)
[2024-02-01 07:21] LABS: Albumin 3.3 g/dL (3.4-5.0); Anion Gap 9.2 mEq/L (5.0-15.0); Globulin 3.3 g/dL (2.3-3.5); Protein, Total 6.6 g/dL (6.4-8.2)
[2024-02-01 12:50] VITALS: BP 140/61; TEMP 98.4
--- NOTE | 2024-02-01 13:12 | P.DS ---
Admission Date: 01/31/24 Discharge Date: 02/01/24 Disposition: DC HOME/HOME HEALTH CARE Discharge Condition: FAIR Reason for Admission: History of fall - Problems (1) Angina at rest Status: Acute (2) Coronary artery disease Status: Acute (3) Fall Status: Acute (4) HLD (hyperlipidemia) Status: Acute (5) Hypertension Status: Acute (6) NSTEMI (non-ST elevated myocardial infarction) Status: Acute Brief History of Present Illness: 88 yrs old woman with past medical history of diabetes, hypertension, history of CVA, CAD presented to the ER with complaints of fall associated with chest pain. Patient states she fell backwards at home and hit her buttocks on the floor. She had a hard time pulling herself off the floor. She then started experiencing chest. The patient was assessed in the ER and noted to have elevated troponin and was admitted for further management of NSTEMI Hospital Course: Patient was admitted to the medical floor, troponin trended up significantly. She was evaluated by cardiology who performed cardiac catheterization in 2 cardiac stents placed. Patient was monitored overnight with no event. She became asymptomatic. She was able to ambulate with a walker. Of note pelvic imaging done in the ED did not show any fracture. Patient placed on aspirin and Brilinta per cardiology. She is currently asymptomatic with stable vitals. Patient is deemed stable for discharge. Vital Signs/Physical Exam: Temp Pulse Resp BP Pulse Ox 98.4 F 66 17 140/61 98 02/01/24 12:00 02/01/24 12:00 02/01/24 12:00 02/01/24 12:00 02/01/24 12:00 General: Alert, In no apparent distress, Oriented x3 HEENT: Mucous membr. moist/pink, Sclerae nonicteric Neck: Supple, JVD not distended Respiratory: Clear to auscultation bilaterally, Normal air movement Cardiovascular: No edema, Regular rate/rhythm, Normal S1 S2 Gastrointestinal: Normal bowel sounds, Soft and benign, Non-distended, No tenderness Musculoskeletal: No swelling, No tenderness Integumentary: No rashes, No cyanosis Neurological: Normal speech, Normal strength at 5/5 x4 extr Laboratory Data at Discharge: WBC 8.30 thou/uL (4.3-10.9) 02/01/24 05:35 Hgb 10.7 g/dL (12.0-15.0) L 02/01/24 05:35 Hct 31.4 % (36.0-45.0) L 02/01/24 05:35 Plt Count 198 thou/uL (152-406) 02/01/24 05:35 PT 12.1 SECONDS (9.4-12.5) 01/30/24 21:35 INR 1.08 01/30/24 21:35 APTT 94.1 SECONDS (24.3-36.9) H 01/31/24 15:18 Sodium 139 mEq/L (136-145) 02/01/24 05:35 Potassium 4.2 mEq/L (3.5-5.1) 02/01/24 05:35 BUN 24 mg/dL (7-18) H 02/01/24 05:35 Creatinine 0.94 mg/dL (0.55-1.02) 02/01/24 05:35 Glucose 146 mg/dL (74-106) H 02/01/24 05:35 Magnesium 1.5 mg/dL (1.6-2.4) L 01/30/24 21:35 Total Bilirubin 0.4 mg/dL (0.2-1.0) 02/01/24 05:35 AST 15 U/L (15-37) 02/01/24 05:35 ALT 17 U/L (13-56) 02/01/24 05:35 Alkaline Phosphatase 60 U/L (45-117) 02/01/24 05:35 Home Medications: Losartan Potassium [Cozaar*] 50 mg PO DAILY 03/20/18 Atorvastatin Calcium 80 mg PO BEDTIME 12/19/21 Linagliptin [Tradjenta] 5 mg PO DAILY 12/19/21 Montelukast Sodium 10 mg PO BEDTIME 12/19/21 Multivit-Min/FA/Lycopen/Lutein [Centrum Silver Tablet] 1 tab PO DAILY 12/19/21 Omeprazole [Prilosec] 1 tab PO DAILY 12/19/21 Metoprolol Tartrate [Lopressor*] 25 mg PO BID 6AM 6PM #60 tab 12/20/21 Codeine/APAP [Tylenol #3*] 1 tab PO Q6H PRN #15 tab 11/28/23 Aspirin Chewable [Aspirin Chewable*] 1 tab PO DAILY 01/31/24 Ticagrelor [Brilinta*] 90 mg PO BID #60 tab 02/01/24 New Medications: Ticagrelor [Brilinta*] 90 mg PO BID #60 tab Physician Discharge Instructions: FOLLOW UP WITH CARDIOLOGY IN 1 TO 2 WEEKS: ALEJO WATTS MD [address] [place] [address] [id number] FOLLOW UP WITH PRIMARY CARE IN 1 TO 2 WEEKS PLEASE USE WALKER WHEN WALKING TO PREVENT FALLS IF YOU EXPERIENCE ANY FURTHER FALLS, CHEST PAIN, ETC... SEEK TREATMENT WITH PCP OR IN THE EMERGENCY ROOM Home Health: [facility] Home Health P:[phone] F:[phone] Diet: AHA Activity: Ad martinez Followup: Olvin Thornton, DO [Primary Care Provider] - 1-2 Weeks Alejo Watts MD [ACTIVE - CAN ADMIT] - 1 Week Time spent managing pt's care (in minutes): 36
--- NOTE | 2024-02-01 13:42 | P.PN ---
Subjective Date of Service: 02/01/24 Chief Complaint: History of fall Subjective: No new changes, No C/O voiced, Tolerating diet, Ambulating, Improving Review of Systems 10-point ROS is otherwise unremarkable Physical Examination - Vital Signs Temperature: 98.4 F Blood Pressure: 140/61 Pulse: 66 Respirations: 17 Pulse Ox (%): 98 - Physical Exam General: Alert, In no apparent distress HEENT: Atraumatic, PERRLA, EOMI Neck: Supple, JVD not distended Respiratory: Clear to auscultation bilaterally, Normal air movement Cardiovascular: Regular rate/rhythm, Normal S1 S2 Gastrointestinal: Normal bowel sounds, No tenderness Musculoskeletal: No tenderness Integumentary: No rashes Neurological: Normal speech, Normal tone, Normal affect Lymphatics: No axilla or inguinal lymphadenopathy - Studies Medications List Reviewed: Yes Assessment And Plan - Current Problems (Diagnosis) (1) NSTEMI (non-ST elevated myocardial infarction) Current Visit: Yes Status: Acute Plan: S/P pci LAD with Synergy 2.5x24 and 2.25x8 mm SHANEKA ASA 81 mg daily Brilinta 90 mg po BID for 12 months Echo is normal (2) HLD (hyperlipidemia) Current Visit: Yes Status: Acute Plan: continue lipitor 80 mg daily (3) Hypertension Current Visit: No Status: Acute Plan: continue metoprolol 25 mg po BID
--- NOTE | 2024-02-01 14:35 | ECHO ---
HEIGHT: 5 ft 0 in WEIGHT: 105 lb 0 oz DATE OF STUDY: 02/01/[address]: Jorje Wilkinson DO 2-DIMENSIONAL: YES M.MODE: YES DOPPLER: YES COLOR FLOW: YES TDS: NO PORTABLE: YES DEFINITY: NO BUBBLE STUDY: NO DIAGNOSIS: NSTEMI CARDIAC HISTORY: CATHERIZATION: YES SURGERY: NO PROSTHETIC VALVE: NO PACEMAKER: NO MEASUREMENTS (cm) DIASTOLIC (NORMALS) SYSTOLIC (NORMALS) IVSd 0.8 (0.6-1.2) LA Diam 3.4 (1.9-4.0) LVEF 60% LVIDd 3.2 (3.5-5.7) LVIDs 2.2 (2.0-3.5) %FS 31% LVPWd 1.0 (0.6-1.2) Ao Diam 2.5 (2.0-3.7) 2 DIMENSIONAL ASSESSMENT: RIGHT ATRIUM: NORMAL LEFT ATRIUM: NORMAL RIGHT VENTRICLE: NORMAL LEFT VENTRICLE: NORMAL TRICUSPID VALVE: MILD TRICUSPID REGURGITATION MITRAL VALVE: TRACE OF MITRAL REGURGITATION PULMONIC VALVE: NORMAL AORTIC VALVE: MILD AORTIC REGURGITATION PERICARDIAL EFFUSION: NONE AORTIC ROOT: NORMAL LEFT VENTRICULAR WALL MOTION: NORMAL. DOPPLER/COLOR FLOW: NORMAL. COMMENTS: 1. NORMAL LEFT VENTRICULAR SYSTOLIC FUNCTION, EJECTION FRACTION 60-65%, NORMAL WALL MOTION. 2. NORMAL DIASOTLIC FUNCTION. 3. MILD AORTIC REGURGITATION. TECHNOLOGIST: FORREST RICHARDS
== END 2024-02-01 13:45 | disposition home health service (06) | DRG 322 ==
LOC: ER 20:58 → ERHOLD 01-31 00:07 → 4TH 01-31 00:59
PROVIDERS: ADMIT Family Medicine; ATTEND Internal Medicine
PROC: 027035Z Dilation of Coronary Artery, One Artery with Two Drug-eluting Intraluminal Devices, Percutaneous Approach (ICD-10-PCS; principal; 2024-01-31)
PROC: 4A023N7 Measurement of Cardiac Sampling and Pressure, Left Heart, Percutaneous Approach (ICD-10-PCS; 2024-01-31)
PROC: B2111ZZ Fluoroscopy of Multiple Coronary Arteries using Low Osmolar Contrast (ICD-10-PCS; 2024-01-31)
DX: I21.4 Non-ST elevation (NSTEMI) myocardial infarction (principal); E11.9 Type 2 diabetes mellitus without complications; I10 Essential (primary) hypertension; E78.5 Hyperlipidemia, unspecified; K21.9 Gastro-esophageal reflux disease without esophagitis; I25.118 Atherosclerotic heart disease of native coronary artery with other forms of angina pectoris; Z60.2 Problems related to living alone; Z88.0 Allergy status to penicillin; Z88.5 Allergy status to narcotic agent; Z95.1 Presence of aortocoronary bypass graft; Z95.5 Presence of coronary angioplasty implant and graft; Z79.82 Long term (current) use of aspirin; Z90.49 Acquired absence of other specified parts of digestive tract; Z86.73 Personal history of transient ischemic attack (TIA), and cerebral infarction without residual deficits; Z79.899 Other long term (current) drug therapy; Z90.710 Acquired absence of both cervix and uterus; Z91.048 Other nonmedicinal substance allergy status
CPT/HCPCS: 36415; 71045; 72170; 72192; 76937; 80048; 80053; 80076; 82947; 83735; 83880; 84484; 85025; 85347; 85610; 85730; 93005; 93306; 93454; 94760; 96374; 97116; 97161; 97530; 99152; 99153; 99285; C1725; C1877; C1893; C9600; J1200; J1644; J2001; J2250; J2405; J2919; J3010; J7040; Q9967

== ENCOUNTER 2024-05-18 13:14 | Emergency (ER) | payer OTHER ==
[2024-05-18] MEDS ORDERED: ONDANSETRON 4 MG/2 ML VIAL ONE ×2 (13:49→15:20)
[2024-05-18] MEDS ORDERED: NA CHLORIDE 0.9% 500 ML ONE ×2 (13:49→16:11)
[2024-05-18] MEDS ORDERED: HYDROMORPHONE HCL 0.5 MG/0.5 ML INJ ONE (13:49)
[2024-05-18 14:15] LABS: Absolute Basophils 0.1 K/uL (0-0.5); Absolute Eosinophils 0.1 K/uL (0-0.5); Absolute Lymphocytes (CBC) 1.4 K/uL (0.7-4.9); Absolute Monocytes 0.5 K/uL (0.1-1.3); Absolute Neutrophil 3.6 K/uL (1.8-8.0); Basophils % 1.3 % (0-1.3); Hemoglobin 10.9 g/dL (12.0-15.0); Lymphocytes % 24.9 % (15.3-44.8); MCH 35.5 pg (27.0-35.0); MCV 107.6 fL (80-100); MPV 9.4 fL (7.6-11.3); Monocytes % 8.4 % (3.3-12.3); Neutrophils % 63.4 % (41.7-73.7); Nucleated Red Blood Cells % 0.2 % (0-0); Platelets 191 thou/uL (152-406); RBC Red Blood Cell Count 3.06 M/uL (3.86-4.86); Red Cell Distribution Width 15.4 % (12.1-15.2)
--- NOTE | 2024-05-18 15:02 | RAD REPORT ---
EXAMINATION: XR Foot Right 3 View CLINICAL INDICATION: Female, 88 years old. [facility] MAIN PAIN Bed Name: 15 TECHNIQUE: 3 view radiographs of the right foot were obtained. COMPARISON: No prior exam. FINDINGS: No evidence of fracture or dislocation. Normal alignment. Diffuse osteopenia limits evaluat ion. Mild midfoot scattered arthritic changes. Vascular calcifications. No Focal bone lesion. Soft tissues are unremarkable. Enthesopathy at the Achilles tendon attachment. Small calcaneal spur. IMPRESSION: No acute or significant abnormalities. Chronic findings as above.
[2024-05-18 15:04] LABS: Blood Morphology Comment NOTED (NOT SEEN); Macrocytosis 1+; Platelet Estimate ADEQ; White Blood Cell Scan OK (OK)
[2024-05-18 16:01] LABS: ALT/SGPT 19 U/L (13-56); AST/SGOT 24 U/L (15-37); Albumin 3.3 g/dL (3.4-5.0); Alkaline Phosphatase 62 U/L (45-117); Anion Gap 9.6 mEq/L (5.0-15.0); BUN Blood Urea Nitrogen 18 mg/dL (7-18); Bicarbonate 24 mEq/L (21-32); Bilirubin Total 0.7 mg/dL (0.2-1.0); Globulin 3.3 g/dL (2.3-3.5); Glomerular Filtration Rate 80 ml/min (=/>90); Glucose Level 150 mg/dL (74-106); Potassium 3.6 mEq/L (3.5-5.1); Protein, Total 6.6 g/dL (6.4-8.2); Sodium Level 140 mEq/L (136-145)
[2024-05-18 16:02] LABS: C-Reactive Protein < 2.90 mg/L (<3.00)
--- NOTE | 2024-05-18 17:08 | RAD REPORT ---
EXAMINATION: US Extrem Venous W Compress Jan CLINICAL INDICATION: [facility] MAIN Pain;Swelling Bed Name: 15 Y TECHNIQUE: Complete bilateral duplex sonography of the BILATERAL lower extremity veins was performed. The examination included compression for vein patency, color Doppler imaging and flow augmentation in response to distal compression of the distal external iliac, common femoral, femoral, popliteal, t ibial, and great and small saphenous veins. COMPARISON: No prior exam. FINDINGS: Duplex sonography testing of the veins of the BILATERAL lower extremity was performed. Color flow hilary ging shows all veins to be compressible with [id number] color filling. Pulsatile and phasic flow is present within all lower extremity deep and superficial veins examined. Left popliteal fossa 2.2 c m ovoid cyst, suggesting a Fischer's cyst. IMPRESSION: There is no deep vein or superficial vein thrombosis.
--- NOTE | 2024-05-18 17:19 | RAD REPORT ---
EXAMINATION: CT Abdomen Pelvis Wo Contrast CLINICAL INDICATION: Female, 88 years old. Abd pain;Flank pain TECHNIQUE: CT abdomen and pelvis was performed, without IV contrast, as per department protocol. Axia l, sagittal and coronal reconstructions were obtained. One or more of the following dose reduction techniques were used: Automated exposure control, adjustment of the mA and kV according to the patien t size, and iterative reconstruction. Unless otherwise specified, incidental findings do not require dedicated imaging follow-up. COMPARISON: 11/27/2023 FINDINGS: The lack of intravenous contrast limits the sensitivity of this exam for evaluation of solid visceral organs, vascular structures, and retroperitoneum. LOWER CHEST: The visualized lung bases are clear. LIVER: Normal in size and contour. No focal lesion. BILIARY SYSTEM: Status post cholecystectomy. SPLEEN: Normal size. No focal lesion. PANCREAS: No mass, ductal dilation, or josé-pancreatic fluid. ADRENALS: Normal; no mass. KIDNEYS AND URETERS: Normal size and contour. No hydronephrosis. Nonobstructing small renal calculi n ot exceeding 3 mm. URINARY BLADDER: Normal contour. GASTROINTESTINAL TRACT: No evidence of bowel obstruction, significant free fluid, free air or abscess . APPENDIX: Appendix not visualized, but no inflammatory changes in region of appendix. LYMPH NODES: No lymphadenopathy. MUSCULOSKELETAL: No acute or suspicious osseous abnormality. Chronic appearing L1 inferior endplate c ompression deformity, stable. ADDITIONAL FINDINGS: Dense atherosclerotic and medial calcifications, may in part relate to long-jose raul ding diabetes mellitus. IMPRESSION: Small bilateral nonobstructing renal calculi. No other acute or concerning abnormalities in the abdom en or pelvis, with evaluation limited by lack of IV contrast.
--- NOTE | 2024-05-18 17:58 | ER ---
Nurse's Notes [facility] Name: Deyanira Glez Age: 88 yrs Sex: Female : 1935 Arrival Date: 05/18/2024 Time: 13:14 Bed 15 Private MD: Diagnosis: Pain in right foot;Nausea Presentation: 05/18 13:25 Chief complaint: EMS states: right foot callus pain, pt had biopsy of site aa5 approximately 2 weeks ago by tailman. 13:25 Acuity: DOMINIC 3 aa5 15:51 Coronavirus screen: At this time, the client does not indicate any symptoms associated tl4 with coronavirus-19. Ebola Screen: No symptoms or risks identified at this time. Initial Sepsis Screen: Does the patient meet any 2 criteria? No. Patient's initial sepsis screen is negative. Does the patient have a suspected source of infection? No. Patient's initial sepsis screen is negative. Risk Assessment: Do you want to hurt yourself or someone else? Patient reports no desire to harm self or others. Onset of symptoms is unknown. 15:51 Method Of Arrival: EMS tl4 Historical: - Allergies: 13:25 PENICILLINS; aa5 13:25 Morphine; aa5 - Home Meds: 17:59 Dexilant 60 mg Oral CpDB 1 cap once daily [Active]; losartan 50 mg Oral tab 1 tab once tl4 daily [Active]; metoprolol tartrate 50 mg Oral tab 1 tab once daily [Active]; - PMHx: 13:25 Diabetes - NIDDM; failed stress test; Hypertension; stroke; aa5 13:44 Myocardial infarction; kc6 - PSHx: 13:25 Cholecystectomy; Total abdominal hysterectomy; aa5 13:44 Stented artery; kc6 - Immunization history:: Adult Immunizations. - Infectious Disease History:: Denies. - Social history:: Smoking status: Patient denies any tobacco usage or history of. Screenin:45 [facility] ED Fall Risk Assessment (Adult) History of falling in the last 3 months, kc6 including since admission No falls in past 3 months (0 pts) Confusion or Disorientation No (0 pts) Intoxicated or Sedated No (0 pts) Impaired Gait Yes (1 pt) Mobility Assist Device Used Yes (1 pt) Altered Elimination No (0 pt) Score/Fall Risk Level 0 - 2 = Low Risk Oriented to surroundings. Abuse screen: Denies threats or abuse. Denies injuries from another. Nutritional screening: No deficits noted. Tuberculosis screening: No symptoms or risk factors identified. Assessment: 13:30 General: Appears in no apparent distress. comfortable, well groomed, well developed, kc6 Behavior is calm, cooperative, appropriate for age. Pain: Complains of pain in right foot. Neuro: Level of Consciousness is awake, alert, obeys commands, Oriented to person, place, time, situation, Appropriate for age. Cardiovascular: Capillary refill < 3 seconds. Respiratory: Airway is patent Trachea midline Respiratory effort is even, unlabored, Respiratory pattern is regular, symmetrical. GI: No signs and/or symptoms were reported involving the gastrointestinal system. : No signs and/or symptoms were reported regarding the genitourinary system. EENT: No signs and/or symptoms were reported regarding the EENT system. Derm: No signs and/or symptoms reported regarding the dermatologic system. Skin is intact, is healthy with good turgor, Skin is pink, warm \T\ dry. Musculoskeletal: No signs and/or symptoms reported regarding the musculoskeletal system. Circulation, motion, and sensation intact. Capillary refill < 3 seconds, Range of motion: intact in all extremities. 15:49 Reassessment: Patient and/or family updated on plan of care and expected duration. Pain tl4 level reassessed. Patient is alert, oriented x 3, equal unlabored respirations, skin warm/dry/pink. Pt is actively vomiting. Pt offered antiemetic. Pt refuses all medications stating she wants to be admitted. Pt encouraged to consider medication but she is adamant she does not want any medications, but also states she is unable to go home while she is actively vomiting. Dr Everett aware. Family at bedside. Call garcía at bedside. Pt denies any additional needs. Will continue to monitor. 17:55 Reassessment: Patient and/or family updated on plan of care and expected duration. Pain tl4 level reassessed. Patient is alert, oriented x 3, equal unlabored respirations, skin warm/dry/pink. Pt questions answered, pt updated on status. Call garcía at bedside. Family at bedside. Will continue to monitor. Vital Signs: 13:45 BP 139 / 57; Pulse 65; Resp 18 S; Temp 97.7(O); Pulse Ox 98% on R/A; Weight 47.63 kg kc6 (R); Height 5 ft. 0 in. (R); 14:54 BP 167 / 73; Pulse 70; Resp 17 S; Pulse Ox 99% on R/A; kc6 15:45 BP 140 / 65; Pulse 56; Resp 18; Pulse Ox 96% on R/A; tl4 16:45 BP 168 / 58; Pulse 55; Resp 16; Pulse Ox 97% on R/A; tl4 17:56 BP 147 / 53; Pulse 75; Resp 18; Pulse Ox 100% on R/A; tl4 18:46 BP 144 / 62; Pulse 64; Resp 20; Temp 98.1; Pulse Ox 100% on R/A; tl4 13:45 Body Mass Index 20.51 (47.63 kg, 152.4 cm) 6 ED Course: 13:18 Patient arrived in ED. eb 13:24 Maury Everett MD is Attending Physician. merry 13:25 Arm band placed on. aa5 13:31 Rufina Cruz RN is Primary Nurse. kc6 13:32 Triage completed. aa5 13:45 Patient has correct armband on for positive identification. Bed in low position. Call kc6 light in reach. Side rails up X 1. Pulse ox on. NIBP on. Warm blanket given. Pillow given. 13:45 Patient maintains SpO2 saturation greater than 95% on room air. kc6 14:09 Inserted saline lock: 22 gauge in right forearm, using aseptic technique. Blood 6 collected. Flushed with 10 mL NS. 14:53 Report given to BRAYAN Gordon. kc6 14:57 Foot Right 3 View XRAY In Process Unspecified. EDMS 15:48 Lab(s) recollected, by me, sent to lab. tl4 16:09 Lipase Sent. tl4 16:09 Troponin High Sensitivity Sent. tl4 17:05 US Extremity Venous W Compression Jan In Process Unspecified. EDMS 17:13 CT Abd/Pelvis - Without Contrast In Process Unspecified. EDMS 17:58 Repeat lab(s) drawn. by me, sent to lab. tl4 17:58 EKG done, by ED staff, reviewed by Maury Everett MD. tl4 17:58 No provider procedures requiring assistance completed. tl4 17:59 Provided Education on: call garcía, ed process. tl4 18:47 IV discontinued, intact, bleeding controlled, No redness/swelling at site. Pressure tl4 dressing applied. Administered Medications: 14:09 Drug: NS 0.9% IV 500 ml IV at per protocol once; to be given as a bolus over 30 minutes kc6 Route: IV; Rate: per protocol; Site: right forearm; 14:54 Follow up: Response: No adverse reaction; IV Status: Completed infusion; IV Intake: kc6 500ml 14:09 Drug: HYDROmorphone IVP 0.5 mg IVP once Route: IVP; Site: right forearm; kc6 14:54 Follow up: Response: No adverse reaction; Pain is decreased; RASS: Alert and Calm (0) kc6 14:09 Drug: Ondansetron IVP 4 mg IVP once; over 2 minutes Route: IVP; Site: right forearm; kc6 14:54 Follow up: Response: No adverse reaction; Nausea is increased kc6 17:40 Drug: NS 0.9% IV 500 ml IV at bolus once; to be given as a bolus over 30 minutes Route: tl4 IV; Rate: bolus; Site: right forearm; Delivery: Primary tubing; 18:52 Follow up: Response: No adverse reaction; IV Status: Completed infusion; IV Intake: tl4 500ml Medication: 17:59 VIS not applicable for this client. tl4 Intake: 14:54 IV: 500ml; Total: 500ml. kc6 18:52 IV: 500ml; Total: 1000ml. tl4 Outcome: 17:57 Discharge ordered by . merry 18:47 Discharged to home via wheelchair, with family, tl4 18:47 Condition: stable 18:47 Discharge instructions given to patient, family, Instructed on discharge instructions, follow up and referral plans. medication usage, Demonstrated understanding of instructions, follow-up care, medications, Prescriptions given X 2, 18:52 Patient left the ED. tl4 Signatures: Dispatcher [employer] EDMaury Beavers MD MD cha Calderon, Audri, RN RN aa5 Kelsey Arevalo Kaitlyn, RN RN kc6 Evan Uriostegui RN RN tl4
--- NOTE | 2024-05-18 17:58 | EDPHYS ---
Physician Documentation [facility] Name: Deyanira Glez Age: 88 yrs Sex: Female : 1935 Arrival Date: 05/18/2024 Time: 13:14 Bed 15 Private MD: LIYA Physician Maury Everett HPI: 05/18 17:53 This 88 yrs old Female presents to ER via EMS with complaints of Foot Pain. merry 17:53 The patient presents with pain, that is chronic. The complaints affect the right foot, merry right foot. Context: The problem was sustained at an unknown location, resulted from a chronic condition, secondary to an old injury, Mechanism of Injury: Unknown the patient can fully bear weight. Modifying factors: The symptoms are alleviated by nothing, the symptoms are aggravated by nothing. Associated signs and symptoms: The patient has no apparent associated signs or symptoms. Severity of symptoms: At their worst the symptoms were mild, in the emergency department the symptoms are unchanged. The patient has experienced similar episodes in the past, a few times. . Historical: - Allergies: 13:25 PENICILLINS; aa5 13:25 Morphine; aa5 - Home Meds: 17:59 Dexilant 60 mg Oral CpDB 1 cap once daily [Active]; losartan 50 mg Oral tab 1 tab once tl4 daily [Active]; metoprolol tartrate 50 mg Oral tab 1 tab once daily [Active]; - PMHx: 13:25 Diabetes - NIDDM; failed stress test; Hypertension; stroke; aa5 13:44 Myocardial infarction; kc6 - PSHx: 13:25 Cholecystectomy; Total abdominal hysterectomy; aa5 13:44 Stented artery; kc6 - Immunization history:: Adult Immunizations. - Infectious Disease History:: Denies. - Social history:: Smoking status: Patient denies any tobacco usage or history of. ROS: 17:54 Constitutional: Negative for fever, chills, and weight loss, Eyes: Negative for injury, merry pain, redness, and discharge, ENT: Negative for injury, pain, and discharge, Neck: Negative for injury, pain, and swelling, Cardiovascular: Negative for chest pain, palpitations, and edema, Respiratory: Negative for shortness of breath, cough, wheezing, and pleuritic chest pain, Abdomen/GI: Negative for abdominal pain, nausea, vomiting, diarrhea, and constipation, Back: Negative for injury and pain, : Negative for injury, bleeding, discharge, and swelling, Skin: Negative for injury, rash, and discoloration, Neuro: Negative for headache, weakness, numbness, tingling, and seizure, Psych: Negative for depression, anxiety, suicide ideation, homicidal ideation, and hallucinations, Allergy/Immunology: Negative for hives, rash, and allergies, Endocrine: Negative for neck swelling, polydipsia, polyuria, polyphagia, and marked weight changes, Hematologic/Lymphatic: Negative for swollen nodes, abnormal bleeding, and unusual bruising, 17:54 MS/extremity: Positive for pain, of the right foot, Exam: 17:54 Constitutional: This is a well developed, well nourished patient who is awake, alert, merry and in no acute distress. Head/Face: Normocephalic, atraumatic. Eyes: Pupils equal round and reactive to light, extra-ocular motions intact. Lids and lashes normal. Conjunctiva and sclera are non-icteric and not injected. Cornea within normal limits. Periorbital areas with no swelling, redness, or edema. ENT: Nares patent. No nasal discharge, no septal abnormalities noted. Tympanic membranes are normal and external auditory canals are clear. Oropharynx with no redness, swelling, or masses, exudates, or evidence of obstruction, uvula midline. Mucous membranes moist. Neck: Trachea midline, no thyromegaly or masses palpated, and no cervical lymphadenopathy. Supple, full range of motion without nuchal rigidity, or vertebral point tenderness. No Meningismus. Chest/axilla: Normal chest wall appearance and motion. Nontender with no deformity. No lesions are appreciated. Cardiovascular: Regular rate and rhythm with a normal S1 and S2. No gallops, murmurs, or rubs. Normal PMI, no JVD. No pulse deficits. Respiratory: Lungs have equal breath sounds bilaterally, clear to auscultation and percussion. No rales, rhonchi or wheezes noted. No increased work of breathing, no retractions or nasal flaring. Abdomen/GI: Soft, non-tender, with normal bowel sounds. No distension or tympany. No guarding or rebound. No evidence of tenderness throughout. Back: No spinal tenderness. No costovertebral tenderness. Full range of motion. Female : Normal external genitalia. Skin: Warm, dry with normal turgor. Normal color with no rashes, no lesions, and no evidence of cellulitis. MS/ Extremity: Pulses equal, no cyanosis. Neurovascular intact. Full, normal range of motion. Neuro: Awake and alert, GCS 15, oriented to person, place, time, and situation. Cranial nerves II-XII grossly intact. Motor strength 5/5 in all extremities. Sensory grossly intact. Cerebellar exam normal. Normal gait. Psych: Awake, alert, with orientation to person, place and time. Behavior, mood, and affect are within normal limits. 17:54 ECG was reviewed by the Attending Physician. Vital Signs: 13:45 BP 139 / 57; Pulse 65; Resp 18 S; Temp 97.7(O); Pulse Ox 98% on R/A; Weight 47.63 kg kc6 (R); Height 5 ft. 0 in. (R); 14:54 BP 167 / 73; Pulse 70; Resp 17 S; Pulse Ox 99% on R/A; kc6 15:45 BP 140 / 65; Pulse 56; Resp 18; Pulse Ox 96% on R/A; tl4 16:45 BP 168 / 58; Pulse 55; Resp 16; Pulse Ox 97% on R/A; tl4 17:56 BP 147 / 53; Pulse 75; Resp 18; Pulse Ox 100% on R/A; tl4 18:46 BP 144 / 62; Pulse 64; Resp 20; Temp 98.1; Pulse Ox 100% on R/A; tl4 13:45 Body Mass Index 20.51 (47.63 kg, 152.4 cm) 6 MDM: 13:24 Medical Screening Exam initiated [facility] 17:55 Differential diagnosis: fracture, sprain, arthritis, gout, cellulitis. Data reviewed: [facility] vital signs, nurses notes, lab test result(s), EKG, radiologic studies, CT scan, doppler, plain films. Consideration of Admission/Observation Escalation of care including admission/observation considered. I considered the following discharge prescriptions or medication management in the emergency department Medications were administered in the Emergency Department. See MAR. Independent interpretation of the following test(s) in the Emergency Department EKG: See my EKG interpretation above. Test considered but Not performed: Ultrasound NO ABD USG. Historians other than the Patient: Family Member: GRANDSON AND PATIENT WELL INFORMED. Care significantly affected by the following chronic conditions: Diabetes, Hypertension, CAD, MA. Counseling: I had a detailed discussion with the patient and/or guardian regarding the historical points, exam findings, and any diagnostic results supporting the discharge/admit diagnosis, lab results, radiology results, the need for outpatient follow up, for definitive care, a family practitioner. 05/18 13:25 Order name: CBC with Diff; Complete Time: 16:04 [facility] 05/18 13:25 Order name: Comprehensive Metabolic Panel; Complete Time: 16:04 [facility] 05/18 13:25 Order name: CRP; Complete Time: 16:04 [facility] 05/18 15:04 Order name: CBC Smear Scan; Complete Time: 16:04 EDMS 05/18 16:06 Order name: Troponin High Sensitivity; Complete Time: 18:17 [facility] 05/18 16:06 Order name: Lipase; Complete Time: 18:17 [facility] 05/18 13:25 Order name: Foot Right 3 View XRAY; Complete Time: 16:04 [facility] 05/18 16:06 Order name: CT Abd/Pelvis - Without Contrast; Complete Time: 17:52 [facility] 05/18 16:06 Order name: US Extremity Venous W Compression Jan; Complete Time: 17:52 [facility] 05/18 16:06 Order name: EKG; Complete Time: 16:06 [facility] 05/18 14:16 Order name: Labs - recollect needed: recollect the chemistries hemolyzed per luz toth Complete Time: 15:48 05/18 16:06 Order name: EKG - Nurse/Tech [facility] EC:54 Rate is 55 beats/min. Rhythm is regular. QRS Wilbur is Normal. MA interval is normal. QRS merry interval is normal. QT interval is normal. No Q waves. T waves are Normal. No ST changes noted. Clinical impression: Sinus bradycardia and No evidence of ischemia. Interpreted by me. Reviewed by me. Administered Medications: 14:09 Drug: NS 0.9% IV 500 ml IV at per protocol once; to be given as a bolus over 30 minutes kc6 Route: IV; Rate: per protocol; Site: right forearm; 14:54 Follow up: Response: No adverse reaction; IV Status: Completed infusion; IV Intake: kc6 500ml 14:09 Drug: HYDROmorphone IVP 0.5 mg IVP once Route: IVP; Site: right forearm; kc6 14:54 Follow up: Response: No adverse reaction; Pain is decreased; RASS: Alert and Calm (0) kc6 14:09 Drug: Ondansetron IVP 4 mg IVP once; over 2 minutes Route: IVP; Site: right forearm; kc6 14:54 Follow up: Response: No adverse reaction; Nausea is increased kc6 17:40 Drug: NS 0.9% IV 500 ml IV at bolus once; to be given as a bolus over 30 minutes Route: tl4 IV; Rate: bolus; Site: right forearm; Delivery: Primary tubing; 18:52 Follow up: Response: No adverse reaction; IV Status: Completed infusion; IV Intake: tl4 500ml Disposition Summary: 05/18/24 17:57 Discharge Ordered Notes: Location: Home merry Problem: new merry Symptoms: have improved merry Condition: Stable merry Diagnosis - Pain in right foot merry - Nausea merry Followup: merry - With: Private Physician - When: 2 - 3 days - Reason: Recheck today's complaints, Continuance of care, Re-evaluation by your physician Discharge Instructions: - Discharge Summary Sheet merry - Nausea and Vomiting, Adult merry - Nausea, Adult merry - Foot Pain merry Forms: - Medication Reconciliation Form merry - Antibiotic Education merry - Prescription Opioid Use merry - Patient Portal Instructions merry - Leadership Thank You Letter [facility] Prescriptions: - ondansetron 4 mg Oral Tablet,disintegrating - take 1 tablet ORAL route every 8 hours for 4 days as needed for nausea and merry vomiting; 15 tablet; Refills: 0, Product Selection Permitted - Cipro 250 mg Oral tablet - take 2 tablet ORAL route every 12 hours; 10 tablet; Refills: 0, Product merry Selection Permitted Signatures: Dispatcher [employer] EDMaury Beavers MD MD cha Calderon, Audri, RN RN aa5 Kelsey Arevalo Kaitlyn RN RN kc6 Evan Uriostegui RN RN tl4 Corrections: (The following items were deleted from the chart) 13: 13:25 CBC+H.LAB.BRZ ordered. EDMS EDMS 13: 13:25 COMPREHENSIVE METABOLIC PANEL+C.LAB.BRZ ordered. EDMS EDMS
[2024-05-18 18:14] LABS: Troponin High Sensitivity 7.5 pg/mL (<58.9)
[2024-05-18 19:01] VITALS: O2SAT 100
[2024-05-18 19:03] VITALS: BP 144/62; TEMP 98.1
--- NOTE | 2024-05-19 12:04 | EKG ---
Test Date: 2024-05-18 Test Time: 17:41:34 Regional Property Manager: TL MEASUREMENT RESULTS: Intervals: Rate: 55 VA: 146 QRSD: 116 QT: 504 QTc: 482 [place]: P: -19 VA: 146 QRS: -40 T: 83 INTERPRETIVE STATEMENTS: Sinus bradycardia Left axis deviation Low voltage QRS Inferior infarct, age undetermined Abnormal ECG Compared to ECG 01/30/2024 21:17:38 Low QRS voltage now present Sinus rhythm no longer present T-wave abnormality no longer present Possible ischemia no longer present Myocardial infarct finding still present Electronically Signed On 05-19-24 12:02:48 [employer] by Alejo Chun
== END 2024-05-18 18:52 | disposition home or self-care (01) ==
LOC: ER 13:14
DX: M79.671 Pain in right foot (principal); R11.0 Nausea; E11.9 Type 2 diabetes mellitus without complications; I10 Essential (primary) hypertension
CPT/HCPCS: 96361; 93005; 85025; 36415; 84484; 83690; 80053; 86140; 74176; 73630; 93970; 96375; 96374; 99285; J1171; J2405; J7040 ×2